=== PATIENT | female | born 1955 | race Caucasian/White ===

== ENCOUNTER 2021-10-01 09:38 | Outpatient (REF) | payer BC, OTHER, SELFPAY ==
--- NOTE | ~2021-10-01 | XR_ITS ---
EXAMINATION: XR ANKLE, RIGHT CLINICAL INFORMATION: Pain right ankle and joints COMPARISON: None TECHNIQUE: AP, lateral, and mortise views of the right ankle. FINDINGS: The ankle mortise and subtalar joints are normal. No visible acute fracture, dislocation or subluxation seen. There is a small retrocalcaneal and calculi heel enthesophytes. The ankle mortise and subtalar joints are normal. There is mild lateral malleolar soft tissue swelling.. XR/XR ankle RT min 3V IMPRESSION: No visible acute fracture, dislocation or subluxation seen. Small calcaneal heel and retrocalcaneal enthesophytes
== END 2021-10-01 09:39 | disposition home or self-care (01) ==
LOC: HO.HMGCX 09:38
PROVIDERS: Visit Provider Nurse Practitioner Family
DX: M25.571 Pain in right ankle and joints of right foot (principal)
CPT/HCPCS: 73610

== ENCOUNTER 2022-04-22 11:22 | Outpatient (REF) | payer BC, OTHER, SELFPAY ==
--- NOTE | ~2022-04-22 | XR_ITS ---
EXAMINATION: XR HAND, LEFT CLINICAL INFORMATION: Left finger pain COMPARISON: None TECHNIQUE: PA, lateral, and oblique views of the left hand. FINDINGS: No acute fracture or dislocation. Mild degenerative changes of the radiocarpal joint and the interphalangeal joints with no periarticular osteopenia, erosions, or suspicious soft tissue calcifications. XR/XR hand LT min 3V IMPRESSION: Mild degenerative findings with no acute osseous abnormality.
== END 2022-04-22 11:23 | disposition home or self-care (01) ==
LOC: HO.HMGCX 11:22
PROVIDERS: Visit Provider Nurse Practitioner Family
DX: M79.645 Pain in left finger(s) (principal)
CPT/HCPCS: 73130

== ENCOUNTER 2023-11-18 14:04 | Outpatient (AMB) | payer BC, OTHER, SELFPAY ==
[2023-11-18 14:07] VITALS: BP 130/78; PULSE 68; O2SAT 96; BMI 38.4
--- NOTE | 2023-11-18 14:07 | AM.OFFWIN_ITS ---
Intake Vital Signs 11/18/23 14:07 Height 5 ft 3 in Weight 217 lb BMI 38.4 BP 130/78 Blood Pressure Location Lt brachial Position Sitting Pulse 68 Pulse Source Pulse Oximeter Pulse Oximetry (%) 96 Oxygen Delivery Method Room Air Intake Visit Reasons: EP pain behind RT knee swelling since last week Intake Note: Patient is here with pain behind right knee swelling since last week. Allergies amoxicillin [AMOXICILLIN] Allergy (Mild, Verified 11/18/23 14:21) HIVES azithromycin [From ZITHROMAX Z-ELADIO] Allergy (Mild, Verified 11/18/23 14:21) HIVES lisinopril [LISINOPRIL] Allergy (Mild, Verified 11/18/23 14:21) SWELLING sulfamethoxazole [From BACTRIM] Allergy (Mild, Verified 11/18/23 14:21) HIVES trimethoprim [From BACTRIM] Allergy (Mild, Verified 11/18/23 14:21) HIVES adhesive [ADHESIVE] Allergy (Unknown, Verified 11/18/23 14:21) UNKNOWN Medication List - Last Reconciled 11/18/23 by Demi Veras, ESTRADA amlodipine 10 mg PO DAILY atenolol 25 mg PO DAILY atorvastatin 40 mg PO BEDTIME carbamide peroxide 6.5% (Debrox) 10 drps otic (ear) right DAILY 4 days cetirizine 10 mg PO DAILY empagliflozin (Jardiance) mg PO hydrochlorothiazide 25 mg PO DAILY lancets (Accu-Chek Softclix Lancets) As directed losartan 100 mg PO DAILY metformin mg PO omeprazole 20 mg PO DAILY peak flow meter (Peak Air Peak Flow Meter) As directed Do you need a note to return to daycare/school/sports/work: No HPI HPI Comments History of Present Illness Details 68-year-old female presents to walk-in [facility] for complaint of pain behind her right knee and swelling x1 week. She denies recent fall, trauma, or straining injury, she denies pain radiating down her right leg, or numbness or tingling to right foot. She also denies previous hx of Gout. 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 She does report a history of arthritis, DM Type 2, HTN, and CKD Stage III. She denies fever, chills, CP, SOB, palpitations, dizziness, abdominal pain, nausea, vomiting, changes in bowels or bladder. Review of Systems Const All systems reviewed & are unremarkable except as noted in HPI and below Physical Exam Vital Signs: Last Vital Signs Pulse 68 11/18/23 14:07 BP 130/78 11/18/23 14:07 Pulse Ox 96 11/18/23 14:07 Oxygen Delivery Method Room Air 11/18/23 14:07 BMI result Body Mass Index 38.4 Const General: healthy appearing, no acute distress and well developed Nutritional Appearance: overweight Orientation/consciousness: patient oriented x3 Limitations: other limitations (limping) HEENT Head: Yes normal to inspection, Yes normocephalic and Yes atraumatic Chest Chest palpation & inspection: normal inspection of the chest Resp Effort & Inspection: normal respiratory effort, no cough, no respiratory distress and not tachypneic Auscultation: clear to auscultation bilaterally Cardio Rate: regular rate Rhythm: regular rhythm Heart sounds: S1 normal heart sound present and S2 normal heart sound present Peripheral pulses: Peripheral pulses 2+ throughout, popliteal pulses present bilateral and posterior tibial pulses present bilateral GI Inspection: Yes normal to inspection Palpation (GI): Soft to palpation and nontender Auscultation: normal bowel sounds Skin General skin exam: no rashes or lesions noted, elasticity normal and turgor normal Neuro General: patient oriented x3, gait normal and moves all extremities Extrem Right lower extremity: normal to inspection, normal capillary refill and knee Details: tenderness (posterior behind the knee, small amount of swelling) and knee ligament exam abnormal Details: pain with axial loading; no crepitus, no penetrating wound, no deformity and no unusual warmth; no cyanosis Left lower extremity: normal to inspection, normal capillary refill and cyanosis Psych Appearance: well kempt Mental Status: mental status grossly normal Speech and movement: Normal speech and movement present Affect: normal affect Attitude: cooperative Assessment & Plan Assessment & Plan (1) Posterior right knee pain: Code(s): M25.561 - Pain in right knee Plan: 68-year-old female seen today in office for complaint of posterior right knee pain x1 week with no associated injury, or muscle strain. Right knee x-ray ordered, no Fractures, or degenerative changes noted. - Will treat for possible muscular or tendon strain, encouraged to alternated ice, and heat, acetaminophen for pain, she is unable to take NSAIDs due to CKD, but she does have Voltaren Cream. - Encouraged to follow up with PCP if pain continues for possible blood test for uric acid level to r/o gout. - Encouraged to go to ER if symptoms worsen, or she develops burning sensation of calf, or numbness, may need ultrasound to r/o DVT. There is no library acquisitions technician today in walk-in clinic. Coding Level of Care Code Est Pt Level 4 (76042) Diagnoses Posterior right knee pain M25.561
== END 2023-11-18 15:00 | disposition home or self-care (01) ==
PROVIDERS: Visit Provider Nurse Practitioner Acute Care
DX: M25.561 Pain in right knee (principal)
CPT/HCPCS: 99214

== ENCOUNTER 2023-11-18 14:33 | Outpatient (REF) | payer BC, OTHER, SELFPAY ==
--- NOTE | ~2023-11-18 | XR_ITS ---
EXAMINATION: XR KNEE, RIGHT CLINICAL INFORMATION: Right knee pain. COMPARISON: 02/18/2014 TECHNIQUE: AP, lateral, and both oblique views of the right knee. FINDINGS: Enthesopathic spurring is present at the quadriceps tendon insertion and the patellar tendon origin. No fracture or malalignment. Joint spaces appear well-preserved. Bone mineralization is normal. Calcific atherosclerosis is present in the popliteal artery. XR/XR knee RT 4V IMPRESSION: No acute osseous abnormalities at the right knee. No significant osteoarthritis.
== END 2023-11-18 14:34 | disposition home or self-care (01) ==
LOC: HO.HMGCX 14:33
PROVIDERS: PCP Internal Medicine; Visit Provider Nurse Practitioner Acute Care
DX: M25.561 Pain in right knee (principal)
CPT/HCPCS: 73564

== ENCOUNTER 2024-10-14 08:56 | Outpatient (AMB) | payer MEDICARE, SELFPAY ==
--- NOTE | 2024-10-14 09:05 | AM.OFFWIN_ITS ---
Intake Vital Signs 10/14/24 09:06 Weight 198 lb BP 120/72 Blood Pressure Location Lt brachial Position Sitting Pulse 82 Pulse Source Pulse Oximeter Temp 99.0 F Temp Source Oral Pulse Oximetry (%) 96 Oxygen Delivery Method Room Air Intake Visit Reasons: EP Flu symptoms/exposed to flu Intake Note: Patient here for cough, congestion. she states she was recently around her grandchild who has Flu A. Patient Tobacco Use Status: Never used Tobacco Allergies amoxicillin [AMOXICILLIN] Allergy (Mild, Verified 10/14/24 09:06) HIVES azithromycin [From ZITHROMAX Z-ELADIO] Allergy (Mild, Verified 10/14/24 09:06) HIVES lisinopril [LISINOPRIL] Allergy (Mild, Verified 10/14/24 09:06) SWELLING sulfamethoxazole [From BACTRIM] Allergy (Mild, Verified 10/14/24 09:06) HIVES trimethoprim [From BACTRIM] Allergy (Mild, Verified 10/14/24 09:06) HIVES adhesive [ADHESIVE] Allergy (Unknown, Verified 10/14/24 09:06) UNKNOWN Do you need a note to return to daycare/school/sports/work: No HPI HPI Comments History of Present Illness Details History - The patient is a 69-year-old female pr esenting with a persistent cough and respiratory burden following exposure to a known contact case. - Onset was six days ago with initial co ugh and fever, subsequent congestion with productive green sputum. - Relevant patient history includes tyron gement of asthma and COPD with current medications including inhalers, predisposed to increased nebulizer usage recently. - A prior home management attempt involv ed Mucinex, Tylenol, and prednisone, w hich diminished fever but hindered sleep quality. - The spatial impact of her breathing af fliction is noted with rib irritation from the intensive coughing cycles. -Denies ear pain, sinus pain or headache s. Physical Exam General: Cooperative, healthy appearing, comfortable and no acute distress Orientation/consciousness: Patient oriented x3 Limitations: No limitations Head: Normal to inspection Ears: Hearing grossly normal bilaterally, external ears normal and TM's normal bilaterally Nose: Normal external nose present, Normal nares present and No nasal discharge present Face and sinus: Normal facial exam and Yes sinuses nontender Mouth: Normal oral and palatal mucosa present and moist mucous membranes Throat: Yes tonsils normal, Yes uvula midline. Posterior oropharynx erythema Eyes: Appearance normal, both eyes and all related structures Neck: Normal visual inspection Respiratory: Expiratory wheeze noted. Normal respiratory effort, able to speak in complete sentences, Actively coughing, no respiratory distress, not tachypneic, no tripod positioning and no use of accessory muscles. Cardiovascular: Regular rate and rhythm. Normal S1 and S2 Skin: No rashes or lesions noted Neuro: Patient oriented x3 Extremities: Normal to inspection and Yes no clubbing, cyanosis or edema PFSH Social History Patient Tobacco Use Status: Never used Tobacco Review of Systems Const All systems reviewed & are unremarkable except as noted in HPI and below Physical Exam Vital Signs: Last Vital Signs Temp 99.0 F 10/14/24 09:06 Pulse 94 10/14/24 09:06 BP 120/72 10/14/24 09:06 Pulse Ox 94 10/14/24 09:06 Oxygen Delivery Method Room Air 10/14/24 09:06 Assessment & Plan Assessment & Plan (1) Viral lower respiratory tract infection: Code(s): J22 - Unspecified acute lower respiratory infection; B97.89 - Other viral agents as the cause of diseases classified elsewhere Plan: VSS, pt well appearing, slight exp wheeze on PE. No indication for CXR. A nasopharyngeal swab was conducted to test for influenza, COVID-19, and RSV, as anamnesis suggested possible flu A. Until results return, management with a prednisone taper is chosen given the exacerbation of her asthma and COPD, ensuring the patient administers the dose completely in the mornings to mitigate insomnia. Tessalon Perles was advised for symptomatic relief of cough at night, while the necessity for further imaging was deemed unnecessary due to the stable vital status and respiratory findings. The patient was instructed to report any worsening symptoms or development of shortness of breath immediately for a potential follow-up evaluation. Patient was informed and verbally consented to the use of an ambient scribe for clinic note documentation during this visit Orders: Orders SARS-CoV2/FLU/RSV Today B97.89 - Other viral agents as the cause of diseases classified elsewhere, J22 - Unspecified acute lower respiratory infection Medications: New methylprednisolone PO PER PKG DIR for 6 days 21 ea 0RF Coding Level of Care Code New Pt Level 3 (70379) Diagnoses Viral lower respiratory tract infection J22; B97.89
[2024-10-14 09:06] VITALS: BP 120/72; PULSE 82; TEMP 37.2; O2SAT 96
--- OUTSIDE RECORDS SUMMARY | 2024-10-14 09:16 | XMS_ITS | Encounter Summary ---
Author Organization [facility] Address [address] [place] [address] Care Team Providers Care Candle Wrapper Name Role Phone Veronica Verduzco MD Primary Care Prov ider Reason for Referral * Orthopedic (Routine) - Authorized Specialty Diagnoses / Procedures Referred By Contac t Referred To Contact Orthopedic Surgery / Orthopaedic Surgery Diagnoses Right knee pain, unspecified chronicity Procedures L Inj/Asp: R knee Carlos Vargas PA [address] [place] [address] Referral ID Status Reason Start Date Expiration Date V isits Requested Visits Authorized [id number] Authorized 09/24/2024 09/24/2025 1 1 Reason for Visit * Reason Comments Pain Follow-up Encounter Details Date Type Department Care Team (Late st Contact Info) Description 09/24/2024 1:00 PM EST Office Visit Orthopedics - [address] [phone] Carlos Vargas PA [address] [place] [phone] Right knee pain, unspecified chronicity (Primary Dx) Social History Tobacco Use Types Packs/Day Years Used Date Smoking Tobacco: Former Cigarettes 1.5 39.9 0 09/11/1974 - 08/18/2014 Smokeless Tobacco: Never Tobacco Cessation:Counseling Given: Not Answered Alcohol Use Standard Drinks/Week Comments Yes 0 (1 standard drink = 0.6 oz pur e alcohol) Sex and Gender Information Value Date Recorded Sex Assigned at Not on file Gender Identity Not on file Sexual Orientation Not on file Job Start Date Occupation Industry Not on file Not on file Not on file documented as of this encounter Last Filed Vital Signs Vital Sign Reading Time Taken Comments Blood Pressure - - Pulse - - Temperature - - Respiratory Rate 16 09/24/2024 1:16 PM EST Oxygen Saturation - - Inhaled Oxygen Concentration - - Weight 92.5 kg (204 lb) 09/24/2024 1:16 PM EST Height 160 cm (5' 3 ) 09/24/2024 1:16 PM EST Body Mass Index 36.14 09/24/2024 1:16 PM EST documented in this encounter Plan of Treatment Upcoming Encounters Date Type Department Care Team (Late st Contact Info) Description 10/22/2024 1:00 PM EST Office Visit Orthopedics - [address] [phone] Carlos Vargas PA [address] [place] [address] 10/24/2024 11:30 AM EST Office Visit Pulmonolgy - [place] [address] [place] [phone] Giovana Randall NP [address] [facility] [address] [place] [address] 10/30/2024 1:30 PM EST Consult Nephrology - [address] [phone] Toni Arizmendi MD [address] [facility] [address] [place] [address] 11/05/2024 12:00 PM EST Office Visit [facility] - [address] [phone] Rosas Antoine PA [address] [place] [address] 12/18/2024 8:30 AM EDT Office Visit [facility] - [address] [phone] Veronica Verduzco MD [address] [place] [address] 03/06/2025 11:20 AM EDT Appointment Radiology Department - [address] [phone] Pending Results Name Type Priority Associated Diagnoses Date /Time L Inj/Asp: R knee Procedures Routine Right knee pain, unspecified chronicity 09/24/2024 1:00 PM EST documented as of this encounter Procedures Procedure Name Priority Date/Time Associated Diagnosis Comments LARGE JOINT ARTHROCENTESIS Routine 09/24/2024 1:00 PM EST Right knee pain, unspecified chronicity documented in this encounter Visit Diagnoses Diagnosis Right knee pain, unspecified chronicity- Primary Encounter for screening mammogram for breast cancer documented in this encounter Administered Medications Inactive Administered Medications - up to 3 most recent administrations Medication Order MAR Action Action Date Dose Rate Site lidocaine (XYLOCAINE) 1 % injection 4 mL 4 mL, injection, Once PRN Procedure, Starting on Mon09/24/24 at 1300, For 1 dose Given 09/24/2024 1:00 PM EST 4 mL methylPREDNISolone acetate (DEPO-Medrol) injection 80 mg 80 mg, intra-articular, Once PRN Procedure, Starting on Mon09/24/24 at 1300, For 1 dose Given 09/24/2024 1:00 PM EST 80 mg documented in this encounter Historical Medications * This list may reflect changes made after this encounter. Medication Sig Dispensed Refills Start Date End Date fluticasone propion-salmeteroL (ADVAIR DISKUS) 100-50 mcg/dose diskus inhaler Inhale 1 puff by mouth 2 (two) times a day. 05/17/2024 DOCOSAHEXAENOIC ACID ORAL Take 1 capsule by mouth daily. 01/30/2020 aspirin 81 mg chewable tablet Chew 1 tablet (81 mg total) 1 (one) time each day. 05/28/2019 added in this encounter Care Teams Candle Wrapper Relationship Specialty Start Date End Date Veronica Verduzco MD [address] [place] [phone] PCP - General Internal Medicine 04/11/22 documented as of this encounter
--- OUTSIDE RECORDS SUMMARY | 2024-10-14 09:16 | XMS_ITS | Clinical Summary ---
Author Organization [facility] Address [address] [place] [phone] Phone Care Team Providers Care Training Program Assistant Name Role Phone Veronica Verduzco MD Primary Care Prov ider Allergies Active Allergy Reactions Criticality Noted Date Comments Adhesive Tape-Silicones Low 11/02/2015 Other Reaction(s): Rash/Dermatitis Other reaction(s): rash/dermatitis Amoxicillin Hives High 06/13/2024 Azithromycin 12/24/2012 Other Reaction(s): Hives/Urticaria Lisinopril 12/24/2012 Other Reaction(s): Numbness, tingling or swelling of the lips, tongue or mouth Other 08/14/2024 Bactrim [Na Benzoate-sulfamethoxaz ole-trimethoprim] Hives/Urticaria Penicillins 12/24/2012 Other Reaction(s): Hives/Urticaria Sulfamethoxazole 01/11/2021 Sulfamethoxazole-Trimethoprim 2017 Trimethoprim 01/11/2021 Medications Medication Sig Dispensed Refills Start Date End Date Status ACCU-CHEK SOFTCLIX LANCETS MISC 02/18/2022 Active BLOOD-GLUCOSE METER MISC 1 Device by Not Applicable route. 01/17/2023 Active meclizine (ANTIVERT) 25 mg tablet Take 1 tablet (25 mg total) by mouth. 09/20/2019 Active triazolam (HALCION) 0.25 mg tablet TAKE 1 TABLET BY MOUTH 90 MINUTES PRIOR TO DENTAL VISIT 11/06/2023 Active semaglutide (Ozempic) 0.25 mg or 0.5 mg (2 mg/3 mL) injection pen Inject 0.5 mg under the skin. 02/08/2024 Active LORazepam (ATIVAN) 0.5 mg tablet Take 1 tablet (0.5 mg total) by mouth every 8 (eight) hours if needed. 10/20/2023 Active inhalat.spacing dev,large mask spacer Use with inhaler up to 4 times per day as needed for COPD 06/22/2023 Active semaglutide (Ozempic) 0.25 mg or 0.5 mg (2 mg/3 mL) injection pen Inject 0.5 mg into the skin every 7 days. 06/10/2024 Active acetaminophen (TYLENOL 8 HOUR) 650 mg 8 hr tablet Take 1 tablet (650 mg total) by mouth every 8 (eight) hours if needed for moderate pain. 30 tablet 09/02/2024 Active albuterol HFA (PROAIR HFA ; PROVENTIL HFA ; VENTOLIN HFA) 90 mcg/actuation inhaler Inhale 2 puffs by mouth every 4 (four) hours if needed for wheezing. 8.5 g 09/02/2024 Active amLODIPine (NORVASC) 10 mg tablet Take 1 tablet (10 mg total) by mouth 1 (one) time each day. 90 tablet 09/02/2024 Active atenoloL (TENORMIN) 25 mg tablet Take 1 tablet (25 mg total) by mouth 1 (one) time each day. 90 tablet 09/02/2024 Active atorvastatin (LIPITOR) 40 mg tablet Take 1 tablet (40 mg total) by mouth 1 (one) time each day. 90 tablet 09/02/2024 Active cetirizine (ZyrTEC) 10 mg tablet Take 1 tablet (10 mg total) by mouth 1 (one) time each day. 90 tablet 09/02/2024 Active diclofenac (VOLTAREN) 1 % topical gel Apply 1 Dose topically. 100 g 09/02/2024 Active famotidine (PEPCID) 20 mg tablet Take 1 tablet (20 mg total) by mouth at bedtime as needed for heartburn. 90 tablet 09/02/2024 Active fluticasone propionate (FLONASE) 50 mcg/actuation nasal spray Administer 2 sprays into each nostril 1 (one) time each day. 48 g 09/02/2024 Active hydroCHLOROthiazide (HYDRODIURIL) 25 mg tablet Take 1 tablet (25 mg total) by mouth 1 (one) time each day. 90 tablet 09/02/2024 Active ipratropium-albutero L (DUONEB) 0.5-2.5 mg/3 mL nebulizer solutionIndications: Asthma-COPD overlap syndrome (CMS/HCC) Take 3 mL by nebulization 4 (four) times a day. 375 mL 09/02/2024 Active empagliflozin (Jardiance) 25 mg tablet Take 0.5 tablets (12.5 mg total) by mouth 1 (one) time each day. 45 tablet 09/02/2024 Active lidocaine (LIDODERM) 5 % patchIndications:Lum bar spondylosis Place 1 patch on the skin every 24 hours. Apply for no more than 12 hours in any 24 hour period. 30 patch 5 09/02/2024 Active losartan (COZAAR) 100 mg tablet Take 1 tablet (100 mg total) by mouth 1 (one) time each day. 90 tablet 09/02/2024 Active omega-3 acid ethyl esters (LOVAZA) 1 gram capsuleIndications:H yperlipidemia, unspecified hyperlipidemia type Take 2 capsules (2 g total) by mouth 2 (two) times a day. 360 capsule 09/02/2024 Active omeprazole (PriLOSEC) [address] capsule Take 1 capsule (20 mg total) by mouth 1 (one) time each day. 90 capsule 09/02/2024 Active pen needle, diabetic 32 gauge x 5/32 needle Inject under the skin every 7 (seven) days. E11.49 12 each 09/02/2024 Active aspirin 81 mg chewable tablet Chew 1 tablet (81 mg total) 1 (one) time each day. 05/28/2019 Active DOCOSAHEXAENOIC ACID ORAL Take 1 capsule by mouth daily. 01/30/2020 Active fluticasone propion-salmeteroL (ADVAIR DISKUS) 100-50 mcg/dose diskus inhaler Inhale 1 puff by mouth 2 (two) times a day. 05/17/2024 Active Hospital, Clinic, or Other Facility Administered Medication Ordered Dose Route Frequency Start Date End Date Status lidocaine (XYLOCAINE) 1 % injection 4 mLIndications:Right knee pain, unspecified chronicity 4 mL inj Once PRN Procedure 09/24/2024 09/24/2024 Ended methylPREDNISolone acetate (DEPO-Medrol) injection 80 mgIndications:Right knee pain, unspecified chronicity 80 mg IAtc Once PRN Procedure 09/24/2024 09/24/2024 Ended Active Problems Problem Noted Date Diagnosed Date Class 2 severe obesity due t o excess calories with serious comorbidity and body mass index (BMI) of 36.0 to 36.9 in adult 08/14/2024 Primary hypertension 08/14/2024 Severe obstructive sleep apnea 08/14/2024 Overview (08/14/2024): Obstructive sleep apnea severe RENETTA 32 with nocturnal hypoxia Type 2 diabetes mellitus wit h stage 3a chronic kidney disease, without long-term current use of insulin 06/19/2024 Seasonal allergies 06/19/2024 Hypertension 06/13/2024 GERD (gastroesophageal reflux disease) CKD (chronic kidney disease) stage 3, GFR 30-59 ml/min 06/13/2024 History of tobacco use 06/13/2024 Hx of transient ischemic attack (TIA) 06/13/2024 Esophageal dysmotility 04/20/2021 Stress incontinence 11/06/2020 Migraine 11/06/2020 Mixed conductive and sensorineural hearing loss, bilateral 11/06/2020 Overview (06/13/2024): Dr Anthony Betts 01/10/18 Hallux valgus of right foot 11/06/2020 Severe obesity (BMI 35.0-39.9) with comorbidity 01/27/2020 OA (osteoarthritis) of shoulder 07/28/2019 Herpes zoster without complication 01/20/2019 Obstructive sleep apnea 01/03/2019 Overview (06/13/2024): [facility] Home Polysomnogram: Date 01/01/2019; Wt 215#; BMI 38; RENETTA 32, AI 14; HI 18; Unclassified apneas 0; Obstructive apneas 61; Central apneas 16; Mixed apneas 0; hypopneas 97; average oxygen saturation 89% (lowest 67% with saturations <88% for 5% or more of study) [facility] Sleep Center Polysomnogram treatment study. Date 05/10/2019. Wt 216#; BMI 38; SE 68 % SM 89 %; spent 20 % of the study in REM. On CPAP @ 10; RDI 5.8 (AHI 4.6), Central apneas 0; Obstructive apneas 0; Mixed apneas 0; hypopneas 4; RERAs 1; and, average oxygen saturation was 92%. For the entire study, PLMs ~0. - Obstructive Sleep Apnea - severe; mostly hypopneas with obstructive apneas; with sleep related hypoventilation by 2018 home polysomnogram. - CPAP at 12 recommended the conclusion of the 2019 CPAP treatment study. Pulmonary nodules 12/04/2018 Asthma-COPD overlap syndrome 12/04/2018 Chronic idiopathic granulomatous disease [address] 11/07/2018 Overview (06/13/2024): Scarring Single 1 mm basilar lung nodule Patient reported history of Tuberculosis- treated per patient but documentation not available Referred to Pulmnology Post-traumatic headache, not intractable 018 Postconcussion syndrome 06/26/2018 Hyperlipidemia 03/27/2018 Lumbar spondylosis 03/27/2018 Peripheral neuropathy 03/27/2018 Allergic rhinitis 03/27/2018 Mixed hyperlipidemia 03/27/2018 DM (diabetes mellitus), type 2 with renal compli cations 06/06/2017 Diabetes mellitus type 2 with neurological manif estations 10/06/2015 Vitamin D deficiency 04/02/2015 Encounters Date Type Department Care Team Description 10/08/2024 Nurse Triage Adult Medicine [address] [phone] Veronica Wheeler MD [place] 09/24/2024 1:00 PM EST Office Visit Orthopedics [address] [phone] Carlos Vargas PA Right knee pain, unspecified chronicity (Primary Dx) 09/09/2024 Telephone Adult Medicine [address] [phone] Veronica Wheeler MD Prior Authorization from Last 3 Months Immunizations Name Administration Dates Next Due DTaP (Infanrix) 6wks to less than 7yo 12/31/2015 Influenza trivalent, with preservative (Fluzone; Afluria) 6mo and older 09/28/2021,06/09/2020,09/21/2018,2016,12/31/2015,11/14/2013,05/12/2011,1 ,09/16/2008,07/01/2008, 007,07/18/2003,09/02/2002,08/30/2001,,07/17/1998 Influenza, Unspecified 07/31/2021,12/31/2015, Pfizer (ages 12 & older) Biv alent, COVID-19 08/05/2022 Pfizer SARS-CoV-2 COVID-19, mRNA, LNP-S, preservative free 08/15/2021,12/08/2020,11/17/2020 Pneumococcal conjugate 13 va lent (Prevnar 13, PCV13) 2mo and older 03/07/2019 Pneumococcal, Unspecified 09/11/2003,08/11/2000 Td Tetanus diptheria (Tdvax) 7yo and older 04/27/2004 Tdap Tetanus diptheria acell ular pertussis (Boostrix; Adacel) 7yo and older 12/31/2015 Surgical History Surgery Date Site/Laterality Comments OTHER SURGICAL HISTORY PROCEDURE: DE UNLISTED PROCEDURE INNER EAR BREAST REDUCTION PROCEDURE: DE BREAST REDUCTION OTHER SURGICAL HISTORY PROCEDURE: TEMPORAL ARTERY BIOPSY SPCMN PATHOLOGY EXAM; COMMENT: negative biopsy,inflammatory markers were negative, no response to prednisone TUBAL LIGATION PROCEDURE: HISTORICAL TUBAL LIGATION TONSILLECTOMY PROCEDURE: HISTORICAL TONSILLECTOMY OTHER SURGICAL HISTORY 07/08/2004 PROCEDURE: HISTORY OTHER; COMMENT: laparoscopy for misplaced IUD, noted Stage IV adhesions, failed to locate IUD CATARACT EXTRACTION PROCEDURE: HISTORICAL CATARACT REMOVAL Medical History Medical History Date Comments Allergic rhinitis 03/27/2018 DX:Allergic rh initis Asthma DX:Asthma CKD (chronic kidney disease) stage 3, GFR 30-59 ml/min ([facility]/HCC) DX:CKD (chronic kidney dise ase) stage 3, GFR 30-59 ml/min ([facility]) Complication of intrauterine device (CMS/HCC) 06/18/2013 DX:Complication of intrauter ine device ([facility]); COMMENT: See visit note of 10/8/13 COPD (chronic obstructive pu lmonary disease) ([facility]) 12/18/2014 DX:COPD (chronic obstructive pulmonary disease) ([facility]) Diabetes mellitus type 2 wit h neurological manifestations ([facility]) 10/06/2015 DX:Diabetes geovanna itus type 2 with neurological manifestations ([facility]) DM (diabetes mellitus), type 2 with renal complications ([facility]) 06/06/2017 DX:DM (diabetes mellitus ), type 2 with renal complications ([facility]) GERD (gastroesophageal reflu x disease) DX:GERD (gastroesophageal re flux disease) History of tobacco abuse DX:Hist ory of tobacco abuse; COMMENT: quit 08/16/14 History of transient ischemi c attack (TIA) DX:History of transient isch emic attack (TIA); COMMENT: 2010 x 3 Hyperlipidemia 03/27/2018 DX:Hyperlipidemi a Hypertension DX:Hypertension Lumbar spondylosis 03/27/2018 DX:Lumbar spo ndylosis Peripheral neuropathy 03/27/2018 DX:Periphe ral neuropathy Vitamin D deficiency 04/02/2015 DX:Vitamin D deficiency Hallux valgus of right foot 11/06/2020 DX:H allux valgus of right foot Migraine 11/06/2020 DX:Migraine Stress incontinence 11/06/2020 DX:Stress in continence Mixed conductive and sensori neural hearing loss, bilateral 11/06/2020 DX:Mixed conductive and sens orineural hearing loss, bilateral; COMMENT: Dr Anthony Betts 01/10/[address] 11/07/2018 DX:Abnormal ch est CT; COMMENT: Scarring Single 1 mm basilar lung nodule Patient reported history of Tuberculosis- treated per patient but documentation not available Referred to Pulmnology Asthma-COPD overlap syndrome ([facility]) 12/04/2018 DX:Asthma-COPD overlap syndr ome ([facility]) Chronic idiopathic granuloma tous disease ([facility]) 12/04/2018 DX:Chronic idiopathic granul omatous disease ([facility]) OA (osteoarthritis) of shoulder 07/28/2019 DX:OA (osteoarthritis) of shoulder Obstructive sleep apnea 01/03/2019 DX:Obstr uctive sleep apnea; COMMENT: [facility] Home Polysomnogram: Date 01/01/2019; Wt 215#; BMI 38; RENETTA 32, AI 14; HI 18; Unclassified apneas 0; Obstructive apneas 61; Central apneas 16; Mixed apneas 0; hypopneas 97; average oxygen saturation 89% (lowest 67% with saturations <88% for 5% or more of study) [facility] Sleep Center Polysomnogram treatment study. Date 05/10/2019. Wt 216#; BMI 38; SE 68 % SM 89 %; sp* Postconcussion syndrome 06/26/2018 DX:Postc oncussion syndrome Post-traumatic headache, not intractable 06/26/2018 DX:Post-traumatic headache, not intractable Pulmonary nodules 12/04/2018 DX:Pulmonary n odules Severe obesity (BMI 35.0-39. 9) with comorbidity (CMS/HCC) 01/27/2020 DX:Severe obesity (BMI 35.0- 39.9) with comorbidity (HCC) History of 2019 novel whittington virus disease (COVID-19) 03/22/2024 DX:History of 2019 novel cor onavirus disease (COVID-19) Family History Medical History Relation Name Comments Heart attack Father Age 56 Other: Other Maternal Grandmother ? throa t vs stomach ca Alzheimer's disease Mother [place] Other: Esophageal cancer Mother's side Other: Heart Disease Sister 1 Hypertension Sister 2 Other: Other Uncle Maternal ?stomach versus throat CA Breast cancer Neg Hx Lung cancer Neg Hx Relation Name Status Comments Father Maternal Grandmother Mother Mother's side Sister 1 Sister 2 Uncle Maternal Social History Tobacco Use Types Packs/Day Years [...] file Not on file Not on file Obstetrics History Last Filed Vital Signs Vital Sign Reading Time Taken Comments Blood Pressure 113/60 06/19/2024 9:44 AM EDT Pulse 71 06/19/2024 9:44 AM EDT Temperature - - Respiratory Rate 16 09/24/2024 1:16 PM EST Oxygen Saturation - - Inhaled Oxygen Concentration - - Weight 92.5 kg (204 lb) 09/24/2024 1:16 PM EST Height 160 cm (5' 3 ) 09/24/2024 1:16 PM EST Body Mass Index 36.14 09/24/2024 1:16 PM EST Plan of Treatment Upcoming Encounters Date Type Department Care Team (Late st Contact Info) Description 10/22/2024 1:00 PM EST Office Visit Orthopedics - [address] [phone] Carlos Vargas PA [address] [place] [address] 10/24/2024 11:30 AM EST Office Visit Pulmonolgy - [place] [address] [place] [phone] Giovana Randall NP [address] [facility] [place] [address] [place] [phone] 10/30/2024 1:30 PM EST Consult Nephrology - [address] [phone] Toni Arizmendi MD [address] [phone] 11/05/2024 12:00 PM EST Office Visit Adult Medicine [address] [phone] Rosas Antoine PA [address] [place] [address] 12/18/2024 8:30 AM EDT Office Visit Adult Medicine [address] [phone] Veronica Verduzco MD [address] [place] [address] 03/06/2025 11:20 AM EDT Appointment Radiology Department - [address] [phone] Health Maintenance Due Date Last Done Comments Zoster Vaccines ( 2) 01/14/1976 Pneumococcal Vaccine: 65+ Years (2 of 2 - PPSV23 or PCV20) 05/02/2019 03/07/2019, 09/11/2003, 08/11/2000 Medicare Annual Wellness Visit 08/20/2022 Social Influencers of Health Screening 08/20/2022 Lung Cancer Screening (Low Dose CT) 05/20/2023 05/20/2022 Diabetes: Blood Sugar Control Test (HGBA1C) 12/02/2024 06/04/2024, 06/04/2024 Diabetes: Annual GFR (Glomerular Filtration Rate) 12/31/2024 01/01/2024 Hypertension/CHF/CAD Annual BMP Blood Test 12/31/2024 01/01/2024 Diabetes: Annual Urine Albumin-Creatinine Ratio (uACR) 06/04/2025 06/04/2024 Diabetes: Annual Foot Exam 06/05/2025 06/05/2024 Depression Screening 06/19/2025 06/19/2024 Falls Risk Assessment 06/19/2025 06/19/2024 Diabetes: Annual Retina Eye Exam 06/20/2025 06/20/2024 DTaP,Tdap,and Td Vaccines (4 - Td or Tdap) 12/30/2025 12/31/2015, 12/31/2015, 12/31/2015, Additional history exists Breast Cancer Screening 03/05/2026 03/05/20, 03/05/2024, 02/13/2023 Cholesterol Screening (Lipid Panel) 06/04/2029 06/04/2024, 06/04/2024 Colorectal Cancer Screening: Colonoscopy 03/01/2031 03/01/2021 Osteoporosis Screening (Bone Density Screening) 09/26/2032 09/26/2022 Hepatitis C Screening Completed 12/04/2013 COVID-19 Vaccine Completed 08/27/2024, , 08/15/2021, Additional history exists Influenza Vaccine Completed 08/27/2024, , 07/31/2021, Additional history exists RSV Immunization Patients 60+ Years Old Completed 08/27/2024 HIB Vaccines Aged Out No longer eligi ble based on patient's age to complete this topic HPV Vaccines Aged Out No longer eligi ble based on patient's age to complete this topic Hepatitis A Vaccines Aged Out No long er eligible based on patient's age to complete this topic Hepatitis B Vaccines Aged Out No long er eligible based on patient's age to complete this topic IPV Vaccines Aged Out No longer eligi ble based on patient's age to complete this topic MMR Vaccines Aged Out No longer eligi ble based on patient's age to complete this topic Meningococcal ACWY Vaccine Aged Out N o longer eligible based on patient's age to complete this topic RSV Immunization Patients Under 20 months Aged Out No longer eligible based on patient's age to complete this topic Varicella Vaccines Aged Out No longer eligible based on patient's age to complete this topic Procedures Procedure Name Priority Date/Time Associated Diagnosis Comments LARGE JOINT ARTHROCENTESIS Routine 09/24/2024 1:00 PM EST Right knee pain, unspecified chronicity DIABETES EYE EXAM Routine 06/20/2024 DEPRESSION SCREENING Routine 06/19/2024 FALLS RISK ASSESSMENT Routine 06/19/2024 DIABETES FOOT EXAM Routine 06/05/2024 URINE ALBUMIN CREATININE RATIO Routine 06/04/2024 HEMOGLOBIN A1C Routine 06/04/2024 LIPID PANEL Routine 06/04/2024 SCREENING MAMMOGRAPHY BI 2-VIEW BREAST INC CAD Routine 03/05/2024 11:12 AM EDT Encounter for screening mammogram for malignant neoplasm of breast ANNUAL BMP BLOOD TEST Routine 01/01/2024 DXA BONE DENSITY STUDY 1+ SITS AXIAL SKEL Routine 09/26/2022 1:36 PM EST Abnormal findings on diagnostic imaging of other parts of musculoskeletal system CT LUNG SCREENING LOW DOSE Routine 05/20/2022 5:22 PM EDT Personal history of nicotine dependence COLONOSCOPY Routine 03/01/2021 HEPATITIS C SCREENING Routine 12/04/2013 from Last 3 Months or Most Recently Relevant to Health Maintenance Results * Diabetes Eye Exam (06/20/2024) [facility] Diabetes: Annual Retina Eye Exam abstracted [facility] Provider [facility] * Falls Risk Assessment (06/19/2024) [facility] Falls Risk Assessment abstracted [facility] Provider [facility] * Depression Screening (06/19/2024) [facility] Depression Screening abstracted [facility] Provider [facility] * Diabetes Foot Exam (06/05/2024) [facility] Diabetes: Annual Foot Exam abstracted [facility] Provider [facility] * Urine Albumin Creatinine Ratio (06/04/2024) [facility] Urine Albumin Creatinine Ratio abstracted [facility] Provider [facility] Hemoglobin A1c (06/04/2024) [facility] Hemoglobin A1C 6.1 6.5 % Blood Venous blood specimen / Unknown Historical Provider LAB BLOOD ORDERAB LES * (ABNORMAL) Lipid panel (06/04/2024) [facility] LDL/HDL Ratio 3 0 - 4 Triglycerides 269(A) 0 - 150 mg/dL Cholesterol 149 0 - 200 mg/dL HDL 47 40 mg/dL LDL Cholesterol 49 0 - 100 mg/dL Blood Venous blood specimen / Unknown Historical Provider LAB BLOOD ORDERAB LES * SCREENING MAMMOGRAPHY BI 2-VIEW BREAST INC CAD (03/05/2024 11:12 AM EDT) Anatomical Region Laterality Modality Radiographic Karla ging 02/13/2023 6:33 PM EDT Narrative 03/05/2024 6:54 PM EDT This is a summary report. The complete report is available in the patient's medical record. If you cannot access the medical record, please contact the sending organization for a detailed fax or copy. Exam: Screening mammogram Findings: Digital bilateral full-field screening mammography is performed with tomosynthesis and interpreted with the aid of computer-aided detection. ??Comparison is made with 02/13/2023 and as far back as 04/06/2015. ??History of bilateral reduction mammoplasty. Breast parenchyma is composed of scattered fibroglandular densities. ??Continued decrease in size of calcified fat necrosis in the upper right breast near the 12 o'clock position. No new suspicious mass, architectural distortion, or suspicious calcifications. Impression: No mammographic evidence of malignancy. BI-RADS 2-benign Procedure Note Shelby Alvarenga MD - 06/26/2024 This is a summary report. The complete report is available in thepatient's medical record. If you cannot access the medical record, pleasecontact the sending organization for a detailed fax or copy. Exam: Screening mammogram Findings: Digital bilateral full-field screening mammography is performedwith tomosynthesis and interpreted with the aid of computer-aideddetection. Comparison is made with 02/13/2023 and as far back as 04/06/2015.History of bilateral reduction mammoplasty. Breast parenchyma is composed of scattered fibroglandular densities.Continued decrease in size of calcified fat necrosis in the upper rightbreast near the 12 o'clock position. No new suspicious mass, architecturaldistortion, or suspicious calcifications. Impression: No mammographic evidence of malignancy. BI-RADS 2-benign Tamra STARKS IMG XR PROCEDURES * Annual BMP Blood Test (01/01/2024) Annual BMP Blood Test abstracted Historical Provider MD WILLIAMS Telles * DXA BONE DENSITY STUDY 1+ SITS AXIAL SKEL (09/26/2022 1:36 PM EST) Anatomical Region Laterality Modality Bone Densitometr y 03/02/2022 2:00 PM EDT Narrative 09/27/2022 8:30 AM EST BONE DENSITY SCAN (DEXA) ? FINDINGS: Lumbar Spine T-score is 0.5. ?? (SD relative to 20-29 y/o adult) Z-score is 2.4. ??(SD relative to age matched peers) This is considered normal by WHO criteria. Left Hip T-score is -0.7. Z-score is 0.9. This is considered normal by WHO criteria. Comparison: None. IMPRESSION: IMPRESSION: Normal bone mineral density by WHO criteria. The [facility] Department of Internal Medicine recommends using National Osteoporosis Foundation (NOF) guidelines in treatment decisions related to osteoporosis. NOF guidelines suggest considering treatment for postmenopausal women and men aged 50 or older presenting with the following: History of hip or vertebral fracture. T-score = -2.5 (DXA) at the femoral neck, total hip, or spine, after appropriate evaluation to exclude secondary causes. Low bone mass (T-score between -1.0 and -2.5 at the femoral neck or spine) AND a 10-year probability of a hip fracture = 3% OR a 10-year probability of a major osteoporosis-related fracture = 20% based on the [place]-adapted WHO algorithm Please note that all treatment decisions require clinical judgment and consideration of individual patient factors, including patient preferences, co-morbidities, previous drug use, risk factors not captured in the FRAX model (e.g., frailty, falls, vitamin D deficiency, increased bone turnover, interval significant decline in bone density) and possible under- or over-estimation of fracture risk by FRAX. Optional alternative screening schedule based on eunice Mcbride., [facility] September 29, 2011 for patients with osteopenia (based on hip BMD T-score) is as follows: * ??advanced osteopenia (T scores -2.00 to -2.49), BMD testing every year * ??moderate osteopenia (T scores -1.50 to -1.99), BMD testing every 5 years mild osteopenia or normal BMD (T scores -1.50 and higher), BMD testing every 15 years Procedure Note Shelby Alvarenga MD - 10/17/2023 BONE DENSITY SCAN (DEXA) FINDINGS: Lumbar Spine T-score is 0.5. (SD relative to 20-29 y/o adult) Z-score is 2.4. (SD relative to age matched peers) This is considered normal by WHO criteria. Left Hip T-score is -0.7. Z-score is 0.9. This is considered normal by WHO criteria. Comparison: None. IMPRESSION: IMPRESSION: Normal bone mineral density by WHO criteria. The [facility] Department of Internal Medicine recommendsusing National Osteoporosis Foundation (NOF) guidelines in treatment decisions related toosteoporosis. NOF guidelines suggest considering treatment for postmenopausal women and menaged 50 or older presenting with the following: History of hip or vertebral fracture. T-score = -2.5 (DXA) at the femoral neck, total hip, or spine, afterappropriate evaluation to exclude secondary causes. Low bone mass (T-score between -1.0 and -2.5 at the femoral neck or spine)AND a 10-year probability of a hip fracture = 3% OR a 10-year probability of a majorosteoporosis-related fracture = 20% based on the [place]-adapted WHO algorithm Please note that all treatment decisions require clinical judgment andconsideration of individual patient factors, including patient preferences, co- morbidities,previous drug use, risk factors not captured in the FRAX model (e.g., frailty, falls, vitaminD deficiency, increased bone turnover, interval significant decline in bone density) andpossible under- or over-estimation of fracture risk by FRAX. Optional alternative screening schedule based on eunice Mcbride., NEJMJanuary 2011 for patients with osteopenia (based on hip BMD T-score) is as follows: * advanced osteopenia (T scores -2.00 to -2.49), BMD testing every year * moderate osteopenia (T scores -1.50 to -1.99), BMD testing every 5years mild osteopenia or normal BMD (T scores -1.50 and higher), BMD testingevery 15 years Allie Bartolo VEGA DXA PROCEDURES * CT LUNG SCREENING LOW DOSE (05/20/2022 5:22 PM EDT) Anatomical Region Laterality Modality Computed Tomogra phy 05/20/2022 4:02 PM EDT Narrative 05/20/2022 5:22 PM EDT [facility] Diagnostic Imaging Department [address] [place] [id number] Patient: ??CHEKONIURKA ?/Age/Sex: 1955 - 67 - Unit#: ??[id number] ? Location/Status: ??SPDICATLS/REG CLI ? Mnemonic/Ordering Site: ??CTLUNGLD/SPCT Ordering Physician: ??NAEEM DELGADO MD CT Lung Screening Low Dose - 05/20/22 - 1609 INDICATION: 33 pack-year smoking history, quit smoking 14 years ago FINDINGS: Low-dose CT scan of the chest obtained as a lung cancer screening study. No prior studies are available for comparison. Scanner: Synerscope speed 64 slice VCT Dose reduction technique: ASIR (Adaptive statistical iterative reconstruction) and/or AEC (automated exposure control) Dose: total exam DLP 160 mGY per cm Lung: No infiltrates or effusions. No noncalcified discrete pulmonary nodules or masses. Peripheral calcified 4 mm granuloma within the left lung base. Mild linear scarring medially within the upper lobes. Lymph nodes: No thoracic lymphadenopathy. Calcified nonenlarged paratracheal node. Mediastinum: Trachea and esophagus are within normal limits. Heart mildly enlarged without pericardial effusion. Dense calcification along the mitral valve annulus. Three-vessel coronary calcification likely moderate in severity. Bony structures: Within normal limits for the patient's age. IMPRESSION: No suspicious pulmonary nodules. Lung RADS 1, recommend low-dose screening chest CT in 12 months. G0297, G9637, G9557, G9551 Dictating Physician: ??NICOLAS CABRERA MD Electronically Signed by: ??NICOLAS CABRERA MD Dic Date/Time: ??05/20/221716 Sign date/Time: ??05/20/221721 Procedure Note Nicolas Cabrera MD - 08/31/2022 [facility] Diagnostic Imaging Department [address] [place] [address] Patient: NIURKA STLIL /Age/Sex: 1955 - 67 - F Unit#: [id number] [facility] Mn[facility]/Ordering Site: [facility] Ordering Physician: NAEEM DELGADO MD CT Lung Screening Low Dose - 05/20/22 - 1609 INDICATION: 33 pack-year smoking history, quit smoking 14 years ago FINDINGS: Low-dose CT scan of the chest obtained as a lung cancerscreening study. No prior studies are available for comparison. Scanner: Synerscope speed 64 slice VCT Dose reduction technique: ASIR (Adaptive statistical iterativereconstruction) and/or AEC (automated exposure control) Dose: total exam DLP 160 mGY per cm Lung: No infiltrates or effusions. No noncalcified discrete pulmonarynodules or masses. Peripheral calcified 4 mm granuloma within the left lung base.Mild linear scarring medially within the upper lobes. Lymph nodes: No thoracic lymphadenopathy. Calcified nonenlargedparatracheal node. Mediastinum: Trachea and esophagus are within normal limits. Heartmildly enlarged without pericardial effusion. Dense calcification along themitral valve annulus. Three-vessel coronary calcification likely moderate inseverity. Bony structures: Within normal limits for the patient's age. IMPRESSION: No suspicious pulmonary nodules. Lung RADS 1, recommend low-dose screening chest CT in 12 months. G0297, G9637, G9557, G9551 Dictating Physician: NICOLAS CABRERA MD Electronically Signed by: NICOLAS CABRERA MD Dic Date/Time: 05/20/221716 Sign date/Time: 05/20/22 172 Naeem Delgado MD IMG CT PROCEDURES * Colonoscopy (03/01/2021) Colonoscopy no interpretation , abstracted Anatomical Region Laterality Modality Other Historical Provider MD WILLIAMS Telles * Hepatitis C Screening (12/04/2013) Hepatitis C Screening abstracted Historical Provider MD WILLIAMS Telles from Last 3 Months or Most Recently Relevant to Health Maintenance Care Teams Training Program Assistant Relationship Specialty Start Date End Date Veronica Verduzco MD [address] [place] [phone] PCP - General Internal Medicine 04/11/22
--- OUTSIDE RECORDS SUMMARY | 2024-10-14 09:16 | XMS_ITS | Encounter Summary ---
Author Organization [employer] Address [address] [place] [address] Care Team Providers Care Administrative Services Assistant Name Role Phone Veronica Verduzco MD Primary Care Prov ider Reason for Visit * Reason Onset Date Comments Prior Authorization 09/09/2024 Encounter Details Date Type Department Care Team (Late st Contact Info) Description 09/09/2024 Telephone Adult Medicine [facility] [address] [place] [phone] Veronica Verduzco MD [address] [place] [address] Prior Authorization Social History Tobacco Use Types Packs/Day Years Used Date Smoking Tobacco: Former Cigarettes 1.5 39.9 0 09/11/1974 - 08/18/2014 Smokeless Tobacco: Never Alcohol Use Standard Drinks/Week Comments Yes 0 (1 standard drink = 0.6 oz pur e alcohol) Sex and Gender Information Value Date Recorded Sex Assigned at Not on file Gender Identity Not on file Sexual Orientation Not on file Job Start Date Occupation Industry Not on file Not on file Not on file documented as of this encounter Progress Notes * Rozina Fitzpatrick MA - 09/30/2024 4:56 PM EST Prior authorization for the lidocaine patch was approved Approved from 07/02/24 until 09/30/25 Approval faxed to [facility] pharmacy [phone] * Rozina Fitzpatrick MA - 09/30/2024 8:14 AM EST Yes it would be. Thank you Fina Prior authorization completed today on [facility] for lidocaine patch. Dx diabetic neuropathy * TEREZA Flaherty - 09/27/2024 3:53 PM EST She does have diabetic neuropathy. Would this be covered? * Rozina Fitzpatrick MA - 09/27/2024 9:58 AM EST Lidocaine patch not covered, Pt must have a dx of either Post herpatic neuralgia Cancer related neuropathy Diabetic neuropathy Pt can purchase OTC 4% lidocaine patch , cream or roll on [employer] Thank you Please reply back to [facility] (Prior Auth [place]) Rozina Zendejas [facility] Prior Authorization Ext [phone] * Tamra Faye Carson - 09/09/2024 2:39 PM EST Prior Authorization for Medication-do not complete and send this encounter unless you have the fax from the pharmacy. Is this a Cover My Meds request: Yes -- Elizabeth Code [id number] Name of Medication lidocaine (LIDODERM) 5 % patch Dose of Medication What is the RX # from the faxed refill? How does patient take this med? Place 1 patch on the skin every 24 hours. Apply for no more than 12 hours in any 24 hour period. What Pharmacy did the fax come from: [facility]ARC [facility] - [address] [facility] [address] [facility] [address] Pharmacy fax #: [phone] [employer] Information from fax: What Prescription Plan does the patient have? Payor: MEDICARE / Plan: MEDICARE PART A & B / Product Type: Medicare / BIN/PCN if applicable: Cardholder ID: Person Code: Relationship Code: Help desk phone: documented in this encounter Plan of Treatment Upcoming Encounters Date Type Department Care Team (Late st Contact Info) Description 10/22/2024 1:00 PM EST Office Visit Orthopedics - [address] [phone] Carlos Vargas PA [address] [place] [address] 10/24/2024 11:30 AM EST Office Visit Pulmonolgy [facility] [address] [facility] [address] [place] [phone] Giovana Randall NP [address] [address] 10/30/2024 1:30 PM EST Consult Nephrology - [address] [phone] Toni Arizmendi MD [address] [phone] 11/05/2024 12:00 PM EST Office Visit Adult Medicine [address] [phone] Rosas Antoine PA [address] [place] [address] 12/18/2024 8:30 AM EDT Office Visit Adult Medicine [address] [phone] Veronica Verduzco MD [address] [place] [address] 03/06/2025 11:20 AM EDT Appointment Radiology Department - [address] [phone] documented as of this encounter Visit Diagnoses Not on filedocumented in this encounter Care Teams Administrative Services Assistant Relationship Specialty Start Date End Date Veronica Verduzco MD [address] [place] [phone] PCP - General Internal Medicine 04/11/22 documented as of this encounter
--- OUTSIDE RECORDS SUMMARY | 2024-10-14 09:17 | XMS_ITS | Encounter Summary ---
Author Organization [employer] Address [address] [place] [address] Care Team Providers Care Local Bulk Driver Name Role Phone Veronica Verduzco MD Primary Care Prov ider Reason for Visit * Reason Onset Date Comments Chills 10/08/2024 Encounter Details Date Type Department Care Team (Late st Contact Info) Description 10/08/2024 Nurse Triage Adult Medicine [facility] [address] [place] [address] Veronica Verduzco MD [address] [place] [phone] Chills Social History Tobacco Use Types Packs/Day Years [...] as of this encounter Progress Notes * Roseline Sullivan RN - 10/08/2024 9:52 AM EST Spoke with the pt Chills this morning Coughing up thick secretions, did updraft Low grade fever Grand daughter tested Flu A yesterday Started with her symptoms yesterday. Advised home care for symptoms Reason for Disposition Cough Cough with cold symptoms (e.g., runny nose, postnasal drip, throat clearing) Answer Assessment - Initial Assessment Questions 1. ONSET: When did the cough begin? yesterday 2. SEVERITY: How bad is the cough today? Doing updraft this morning with some relief 3. SPUTUM: Describe the color of your sputum (e.g., none, dry cough; clear, white, yellow, green) green 4. HEMOPTYSIS: Are you coughing up any blood? If Yes, ask: How much? (e.g., flecks, streaks, tablespoons, etc.) none 5. DIFFICULTY BREATHING: Are you having difficulty breathing? If Yes, ask: How bad is it? (e.g., mild, moderate, severe) - MILD: No SOB at rest, mild SOB with walking, speaks normally in sentences, can lie down, no retractions, pulse < 100. - MODERATE: SOB at rest, SOB with minimal exertion and prefers to sit, cannot lie down flat, speaksin phrases, mild retractions, audible wheezing, pulse 100-120. - SEVERE: Very SOB at rest, speaks in single words, struggling to breathe, sitting hunched forward,retractions, pulse > 120. Updraft is helping to open the air ways 6. FEVER: Do you have a fever? If Yes, ask: What is your temperature, how was it measured, and when did it start? Low grade at 100 7. CARDIAC HISTORY: Do you have any history of heart disease? (e.g., heart attack, congestive heart failure) no 8. LUNG HISTORY: Do you have any history of lung disease? (e.g., pulmonary embolus, asthma, emphysema) asthma 9. PE RISK FACTORS: Do you have a history of blood clots? (or: recent major surgery, recent prolonged travel, bedridden) no 10. OTHER SYMPTOMS: Do you have any other symptoms? (e.g., runny nose, wheezing, chest pain) chills 11. : Is there any chance you are ? When was your last menstrual period? no 12. TRAVEL: Have you traveled out of the country in the last month? (e.g., travel history, exposures) no Protocols used: Cough - Acute [id number] * Luisa Chavez - 10/08/2024 9:19 AM EST Patient call requires triage: Symptoms patient is presenting: patient is calling stating yesterday 10/07/2024 that patients valdo went to [facility] and tested positive for influ A. Patient is having same systems, on and off again fever and body chills. How long has patient had these symptoms?: 10/07/2024 For ALL patients calling to schedule any appointment (routine, sick visit, follow up, consult, etc.) in the outpatient setting please ask the following questions: Do you have fever of higher than 101, sore throat with difficulty swallowing or severe shortness ofbreath? yes If YES to any of these above symptoms, send a message to triage and do not book. Red dot. If no, an audio or video visit should be booked. Have you had close contact with someone with Coronavirus in the last 14 days? yes Have you traveled abroad? no Have you traveled recently to another state outside of [place], [place], [place], [place], [place], [place], [place]? no o If yes, did you quarantine for 14 days or have a negative covid test? no If yes to any of the above, patient is not to be scheduled in office until after 14 day quarantine or negative covid test. If pain or injury related was it due to an accident at work or from a motor vehicle accident? If yes, date of accident/Injury: No If yes, gather 3rd [employer] party insurance information [employer] Information: not applicable PCP: Veronica Howard MD Payor: MEDICARE / Plan: MEDICARE PART A & B / Product Type: Medicare / documented in this encounter Plan of Treatment Upcoming Encounters Date Type Department Care Team (Late st Contact Info) Description 10/22/2024 1:00 PM EST Office Visit Orthopedics - [place] [address] [place] [phone] Carlos Vargas PA [address] [place] [address] 10/24/2024 11:30 AM EST Office Visit Pulmonolgy - [place] [address] [place] [address] Giovana Randall NP [address] [place] [address] 10/30/2024 1:30 PM EST Consult Nephrology [address] [phone] Toni Arizmendi MD [address] [facility] [address] [place] [address] 11/05/2024 12:00 PM EST Office Visit Adult Medicine [address] [phone] Rosas Antoine PA [address] [place] [address] 12/18/2024 8:30 AM EDT Office Visit Adult Medicine [address] [phone] Veronica Verduzco MD [address] [place] [address] 03/06/2025 11:20 AM EDT Appointment Radiology Department [address] [phone] documented as of this encounter Visit Diagnoses Not on filedocumented in this encounter Care Teams Local Bulk Driver Relationship Specialty Start Date End Date Veronica Verduzco MD [address] [place] [address] PCP - General Internal Medicine 04/11/22 documented as of this encounter
--- OUTSIDE RECORDS SUMMARY | 2024-10-14 09:17 | XMS_ITS | Data Portability ---
Author Organization [place] - [facility], , [facility] Address [address] [place] [address] Assessment Encounter Date Assessment Date Assessment LastModified by Organization Details LastModified Time 05/01/2012 05/01/2012 RLQ PAIN W/O FINDINGS ON? ? ? EXAM . LAB BELOW..RENAL/ PELVIC US THEN FU. jpolgar Not available 05/01/2012 15:18:07 Plan of Treatment Reminders Order Date Submit Date Provider Last Modified By Organization Details Last Modified Time Details Appointments None recorded. Lab None recorded. Referral sleep study referral - patient with snoring, excessive day time sleepiness consultati on with testing as warranted PLEASE CONTACT PT TO SCHEDULE 2012 013 [facility], [address], [address], [place], [address], 3 03:53:17 Procedures None recorded. Surgeries None recorded. Imaging mammogram, screening - routine 2011 012 [facility], [address] [place] [address], [address], 3 03:42:53 electrocard iogram 2011 012 [facility], [address] [place] [address], [address], 3 03:42:53 Medication Orders prednisone 20 mg tablet 2011 012 [facility], [address] [place] [address], [address], 3 03:40:49 Levaquin 500 mg tablet 2011 012 [facility], [address] [place], [address], 3 03:39:39 atorvastati n 20 mg tablet 2011 012 [facility], [address] [place], [address], 3 03:44:57 Flonase 50 mcg/actuati on nasal spray,suspe nsion 2012 013 [facility], [address] [place], [address], 3 03:53:17 Patient TargetsNo targets recorded. Patient Instructions Encounter Date Encounter Id Patient Instructions Last Modified By Organization Details Last Modified Time 06/13/2012 [id number] My Health To Do List lpolidoro Not available 06/13/2012 15:05:24 06/26/2012 [id number] cough: care instructions BLADE Not available 04/06/2013 03:38:50 high blood pressure: care instructions BLADE Not available 04/06/2013 03:39:39 07/12/2012 [id number] hyperlipidemia: after your visit BLADE Not available 04/06/2013 03:44:57 Quitting Tobacco : Care Instructions BLADE Not available 04/06/2013 03:42:53 deciding about using medicines to quit smoking BLADE Not available 04/06/2013 03:42:53 Quitting Tobacco : Care Instructions BLADE Not available 04/06/2013 03:42:53 high blood pressure: care instructions BLADE Not available 04/06/2013 03:42:53 learning about high blood pressure BLADE Not available 04/06/2013 03:42:53 well visit, wome n 50 to 65: care instructions BLADE Not available 04/06/2013 03:42:53 My Health To Do Liststart atorvastatin daily. Your Blood pressure goal is {{less than 150/95 less than 150/90 less than 145/90 less than 140/90* less than 135/90 less than 135/85 less than 130/80}} My Health To Do List Discussed smoking cessation with patient , Patient is {{ready to quit and has adopted plan contemplatin g quitting but not ready not interested in stopping at this time*}} hayden Not available 07/12/2012 16:24:57 09/21/2012 [id number] fatigue: care instructions BLADE Not available 04/06/2013 03:53:17 Reason for Referral patient with snoring, excess juana day time sleepiness consultation with testing as warranted PLEASE CONTACT PT TO SCHEDULE Referring Physician: Jerrica Keating, Family Medicine, Encounter Date: 09/21/2012 Results Created Date Observation Date Name Description Value Unit Range Abnormal Flag Note LastModifiedBy Organization Detail LastModifiedTime 07/12/20 12 07/12/2012 elect eulogio diogr am Result NSR. no ectopy /ische diana. flippe d T latera lly as mentamdi johnny on ETT '11. d/w Midler / Not Available [address], [address], 07/12/2012 15:34:01 04/20/20 12 04/20/2012 urina lysis , dipst ick Glucose Negati ve Not Available [address], [address], 04/20/2012 14:33:58 04/20/20 12 04/20/2012 urina lysis , dipst ick Bilirubin Negati ve Not Available [address], [address], 04/20/2012 14:33:58 04/20/20 12 04/20/2012 urina lysis , dipst ick Ketone Negati ve Not Available [address], [address], 04/20/2012 14:33:58 04/20/20 12 04/20/2012 urina lysis , dipst ick Specific [place] 1.030 Not Available [address], [address], 04/20/2012 14:33:58 04/20/20 12 04/20/2012 urina lysis , dipst ick Blood Trace Not Available [address], [address], 04/20/2012 14:33:58 04/20/20 12 04/20/2012 urina lysis , dipst ick pH 5.5 Not Available [address], [address], 04/20/2012 14:33:58 04/20/20 12 04/20/2012 urina lysis , dipst ick Protein Negati ve Not Available [address], [address], 04/20/2012 14:33:58 04/20/20 12 04/20/2012 urina lysis , dipst ick Urobilinogen .2 Not Available [address], [address], 04/20/2012 14:33:58 04/20/20 12 04/20/2012 urina lysis , dipst ick Nitrite negati ve Not Available [address], [address], 04/20/2012 14:33:58 04/20/20 12 04/20/2012 urina lysis , dipst ick Leukocytes Negati ve Not Available [address], [address], 04/20/2012 14:33:58 06/05/20 12 06/05/2012 CBC WBC 6.8 K/? ? ?L 4.0-10 .0 Not Available [address], [address], 06/05/2012 15:11:32 06/05/20 12 06/05/2012 CBC RBC 3.99 M/? ? ?L 3.93-5 .22 Not Available [address], [address], 06/05/2012 15:11:32 06/05/20 12 06/05/2012 CBC HGB 13.4 g/dL 11.2-1 5.7 Not Available [address], [address], 06/05/2012 15:11:32 06/05/20 12 06/05/2012 CBC HCT 38.0 % 34.1-4 4.9 Not Available [address], [address], 06/05/2012 15:11:32 06/05/20 12 06/05/2012 CBC MCV 95.2 ? ? ?L 79.4-9 4.8 high Not Available [address], [address], 06/05/2012 15:11:32 06/05/20 12 06/05/2012 CBC MCH 33.6 pg 25.6-3 2.2 high Not Available [address], [address], 06/05/2012 15:11:32 06/05/20 12 06/05/2012 CBC MCHC 35.3 g/dL 32.2-3 5.5 Not Available [address], [address], 06/05/2012 15:11:32 06/05/20 12 06/05/2012 CBC plt 304.0 K/? ? ?L 182.0- 369.0 Not Available [address], [address], 06/05/2012 15:11:32 06/05/20 12 06/05/2012 CBC MPV 11.6 9.4-12 .3 Not Available [address], [address], 06/05/2012 15:11:32 06/05/20 12 06/05/2012 CBC neut% 67.5 % 34.0-7 1.1 Not Available [address], [address], 06/05/2012 15:11:32 06/05/20 12 06/05/2012 CBC neut# 4.6 1.6-6. 1 Not Available [address], [address], 06/05/2012 15:11:32 06/05/20 12 06/05/2012 CBC lymph % 25.1 % 19.3-5 1.7 Not Available [address], [address], 06/05/2012 15:11:32 06/05/20 12 06/05/2012 CBC lymph # 1.7 K/? ? ?L 1.2-3. 7 Not Available [address], [address], 06/05/2012 15:11:32 06/05/20 12 06/05/2012 CBC mono% 5.6 % 4.7-12 .5 Not Available [address], [address], 06/05/2012 15:11:32 06/05/20 12 06/05/2012 CBC mono# 0.4 0.2-0. 4 high Not Available [address], [address], 06/05/2012 15:11:32 06/05/20 12 06/05/2012 CBC eo% 1.2 % 0.7-5. 8 Not Available [address], [address], 06/05/2012 15:11:32 06/05/20 12 06/05/2012 CBC eo# 0.1 0.0-0. 4 Not Available [address], [address], 06/05/2012 15:11:32 06/05/20 12 06/05/2012 CBC baso% 0.6 % 0.1-1. 2 Not Available [address], [address], 06/05/2012 15:11:32 06/05/20 12 06/05/2012 CBC baso# 0.0 0.0-0. 1 low Not Available [address], [address], 06/05/2012 15:11:32 06/05/20 12 06/05/2012 CBC RDW-CV 12.7 % 11.7-1 4.4 Not Available [address], [address], 06/05/2012 15:11:32 06/05/20 12 06/05/2012 lipid panel cholesterol 279 mg/dL <200 mg/dL jerod able 200-2 39 mg/dL borde rline high >240 mg/dL high Not Available [address], [address], 06/05/2012 15:23:34 06/05/20 12 06/05/2012 lipid panel triglyceride s 331 mg/dL <150 mg/dL hernesto l 150-1 99 mg/dL borde rline high 200-4 99 mg/dL high >500 mg/dL very high Not Available [address], [address], 06/05/2012 15:23:34 06/05/20 12 06/05/2012 lipid panel direct HDL 46 mg/dL Not Available [address], [address], 06/05/2012 15:23:34 06/05/20 12 06/05/2012 lipid panel direct LDL 169 mg/dL risk categ ory LDL goal _ CHD or CHD risk equiv alent s <100 mg/dL (10-y ear risk >20%) 2+ risk facto rs <130 mg/dL (10-y ear risk <= 20%) 0-1 risk facto r? <160 mg/dL ? almos t all peopl e with 0-1 risk facto r have a 10 year risk <10%, thus 10 year risk asses ment in peopl e with 0-1 risk facto r IS not neces linda. Not Available [address], [address], 06/05/2012 15:23:34 06/05/20 12 06/05/2012 basic metab olic panel glucose 89 mg/dL 70-100 Not Available [address], [address], 06/05/2012 15:23:35 06/05/20 12 06/05/2012 basic metab olic panel BUN 16 mg/dL 7-18 Not Available [address], [address], 06/05/2012 15:23:35 06/05/20 12 06/05/2012 basic metab olic panel creatinine 1.3 mg/dL 0.8-1. 3 Not Available [address], [address], 06/05/2012 15:23:35 06/05/20 12 06/05/2012 basic metab olic panel B/C 12.3 ratio Not Available [address], [address], 06/05/2012 15:23:35 06/05/20 12 06/05/2012 basic metab olic panel GFR 47.6 mL/mi n recom chandrakant d GFR by the natio nal kidne y found ation >60 mL/mi n/1.7 3m2 - hernesto l <60 mL/mi n/1.7 3m2 - chron ic kidne y disea se <15 mL/mi n/1.7 3m2 - kidne y failu re Not Available [address], [address], 06/05/2012 15:23:35 06/05/20 12 06/05/2012 basic metab olic panel GFR - if 54.8 mL/mi n for afric an ameri can patie nts: resul ts multi plied by 1.21 Not Available [address], [address], 06/05/2012 15:23:35 06/05/20 12 06/05/2012 basic metab olic panel sodium 143 mmol/ L 136-14 5 Not Available [address], [address], 06/05/2012 15:23:35 06/05/20 12 06/05/2012 basic metab olic panel potassium 4.5 mmol/ L 3.5-5. 1 Not Available [address], [address], 06/05/2012 15:23:35 06/05/20 12 06/05/2012 basic metab olic panel chloride 105 mmol/ L 96-107 Not Available [address], [address], 06/05/2012 15:23:35 06/05/20 12 06/05/2012 basic metab olic panel _anion gap 8.0 Not Available [address], [address], 06/05/2012 15:23:35 06/05/20 12 06/05/2012 basic metab olic panel CO2 30 mmol/ L 21-32 Not Available [address], [address], 06/05/2012 15:23:35 06/05/20 12 06/05/2012 basic metab olic panel calcium 9.5 mg/dL 8.5-10 .3 Not Available [address], [address], 06/05/2012 15:23:35 06/05/20 12 06/05/2012 ESR, weste rgren sed rate 51.0 0.0-15 .0 high Not Available [address], [address], 06/05/2012 16:25:33 04/24/20 12 04/23/2012 nicole sound , timothy mota al No observ ation record ed. BLADE [address], [address], 04/06/2013 03:28:33 07/20/20 12 07/12/2012 imagi ng/di agnos tic resul t No observ ation record ed. BLADE Not Available 2012 03:43:38 07/23/20 12 07/12/2012 imagi ng/di agnos tic resul t No observ ation record ed. BLADE Not Available 2012 03:44:13 Result Notes None recorded. Problems Name Problem SNOMED Code Status Onset Date Resolution Date Notes Provider Name and Address Organization Details Recorded Time Extrinsic asthma with status asthmaticu s Completed 200705/11/2011 Not Available [facility] 3 03:11:33 Essential hypertensi on 97411999 Completed 200211/04/2010 Not Available [facility] 3 03:11:33 Lateral epicondyli tis 218524287 Completed 200305/11/2011 Not Available [facility] 3 03:11:33 Diarrhea 43873541 Completed 200409/24/2010 Not Available [facility] 3 03:11:33 Benign essential hypertensi on 7296696 Active 2002 Not Available [facility] 3 03:11:33 Acute non-suppur ative serous otitis media 958490488 Completed 200409/24/2010 Not Available [facility] 3 03:11:33 Measuremen t finding outside reference range 146324073 Completed 05/11/2011 Not Available [facility] 3 03:11:33 Acute pharyngiti s 328666665 Completed 200309/24/2010 Not Available [facility] 3 03:11:33 Nonspecifi c tuberculin test reaction 809995767 Completed 200305/11/2011 Not Available [facility] 3 03:11:33 Acute suppurativ e otitis media without spontaneou s rupture of ear drum 57379400 Completed 200209/24/2010 Not Available [facility] 3 03:11:33 Irregular periods 04320060 Completed 200205/11/2011 Not Available [facility] 3 03:11:33 Purpuric disorder 163601178 Completed 05/11/2011 Not Available [facility] 3 03:11:33 Allergic rhinitis caused by pollen 36452181 Completed 200209/24/2010 Not Available [facility] 3 03:11:33 Sprain of knee and leg Completed 200411/04/2010 Not Available [facility] 3 03:11:33 Impaired fasting glycemia 603683603 Active Not Available [facility] 3 03:11:33 Backache 050543753 Completed 200311/04/2010 Not Available [facility] 3 03:11:33 Acute bronchitis 98103106 Completed 200209/24/2010 Not Available [facility] 3 03:11:33 Acquired trigger finger 7927993 Completed 200605/11/2011 Not Available [facility] 3 03:11:33 Cough 29007811 Completed 09/24/2010 Not Available [facility] 3 03:11:33 Extrinsic asthma with asthma attack Completed 200209/24/2010 Not Available [facility] 3 03:11:33 Giant cell arteritis Completed 05/11/2011 Not Available [facility] 3 03:11:33 Shoulder pain 32347626 Completed 07/31/2013 Not Available [facility] 3 02:01:02 Shoulder pain 49698166 Completed 200511/04/2010 Not Available [facility] 3 03:11:33 Lymphadeno hermelindo 21056332 Completed 200509/24/2010 Not Available [facility] 3 03:11:33 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 Completed 200811/04/2010 Not Available [facility] 3 03:11:33 Impacted cerumen 06103072 Completed 200209/24/2010 Not Available [facility] 3 03:11:33 Vitamin D deficiency 46231885 Completed 05/11/2011 Not Available [facility] 3 03:11:33 Urticaria 187383792 Completed 200511/04/2010 Not Available [facility] 3 03:11:33 Joint pain in ankle and foot Completed 200711/04/2010 Not Available [facility] 3 03:11:33 Acute swimmer's ear Completed 200309/24/2010 Not Available [facility] 3 03:11:33 Periapical abscess without sinus tract Completed 200405/11/2011 Not Available [facility] 3 03:11:33 Common cold 33096215 Completed 200209/24/2010 Not Available [facility] 3 03:11:33 Chest pain 88860605 Completed 200205/11/2011 Not Available [facility] 3 03:11:33 Gouty arthropath y 155302020 Completed 200605/11/2011 Not Available [facility] 3 03:11:33 Infective otitis externa 60694664 Completed 11/04/2010 Not Available [facility] 3 03:11:33 Neuralgia 88736324 Active Not Available [facility] 3 03:11:33 Noninfecti ous gastroente ritis 83294217 Completed 200205/11/2011 Not Available [facility] 3 03:11:33 Mixed hyperlipid emia 566854980 Active 2002 Not Available [facility] 3 03:11:33 Chronic renal impairment Active Not Available [facility] 3 03:11:33 Contusion 542251286 Completed 200509/24/2010 Not Available [facility] 3 03:11:33 Gastroesop hageal reflux disease 795670423 Active 2003 Not Available [facility] 3 03:11:33 Chronic bronchitis 93500772 Completed 200209/24/2010 Not Available [facility] 3 03:11:33 Cardiomega ly 9593372 Completed 05/11/2011 Not Available [facility] 3 03:11:33 Female stress incontinen ce 47799505 Completed 200205/11/2011 Not Available [facility] 3 03:11:33 Allergic rhinitis 66706249 Completed 200211/04/2010 Not Available [facility] 3 03:11:33 Influenza 8153304 Completed 05/11/2011 Not Available [facility] 3 03:34:33 Left lower quadrant pain 157349110 Completed 200505/11/2011 Not Available [facility] 3 03:11:33 Neck pain 15841129 Completed 200211/04/2010 Not Available [facility] 3 03:11:33 Sciatica 82969574 Completed 200311/04/2010 Not Available [facility] 3 03:11:33 Pain in elbow 19670943 Completed 200305/11/2011 Not Available [facility] 3 03:11:33 Pneumonia 389395212 Completed 200209/24/2010 Not Available [facility] 3 03:11:33 Knee pain Completed 11/04/2010 Not Available [facility] 3 03:11:33 Generalize d abdominal pain 725823697 Completed 200409/24/2010 Not Available [facility] 3 03:11:33 Hyperlipid emia 02776906 Completed 200311/04/2010 Not Available [facility] 3 03:11:33 Injury of elbow 141311719 Completed 200311/04/2010 Not Available [facility] 3 03:11:33 Pain in wrist 88084120 Completed 200511/04/2010 Not Available [facility] 3 03:11:33 Blood in urine 91443606 Completed 200805/11/2011 Not Available [facility] 3 03:11:33 Headache 88107009 Completed 09/24/2010 Not Available [facility] 3 03:11:33 Hordeolum 016598646 Completed 05/11/2011 Not Available [facility] 3 03:11:33 Acute apical periodonti tis of pulpal origin 89668211 Completed 200409/24/2010 Not Available [facility] 3 03:11:33 Hip pain 07861117 Completed 200405/11/2011 Not Available [facility] 3 03:11:33 Allergic asthma without status asthmaticu s 22058232 Completed 200411/04/2010 Not Available [facility] 3 03:11:33 Proteinuri a 66667392 Completed 200605/11/2011 Not Available [facility] 3 03:11:33 Finding by method 190510065 Completed 200205/11/2011 Not Available [facility] 3 03:11:33 Acute upper respirator y infection 92713614 Completed 09/24/2010 Not Available [facility] 3 03:34:33 Breast lump 22198592 Completed 200505/11/2011 Not Available [facility] 3 03:11:33 Mammograph y abnormal 072668361 Completed 200205/11/2011 Not Available [facility] 3 03:11:33 Acute frontal sinusitis 26925411 Completed 200509/24/2010 Not Available [facility] 3 03:11:33 Hand joint pain 047128693 Completed 07/31/2013 Not Available [facility] 3 02:02:43 Edema of extremity 666238676 Completed 200605/11/2011 Not Available [facility] 3 03:11:33 Tinea pedis 8137155 Completed 200311/04/2010 Not Available [facility] 3 03:11:33 Low back pain 573691090 Completed 200105/11/2011 Not Available [facility] 3 03:11:33 Inflammati on of sacroiliac joint 21732529 Completed 200205/11/2011 Not Available [facility] 3 03:11:33 Pain in limb 73594891 Completed 200509/24/2010 Not Available [facility] 3 03:11:33 Streptococ joel sore throat 25463515 Completed 09/24/2010 Not Available [facility] 3 03:34:33 Problem Notes None recorded. Procedures Surgical History Date Name Laterality Status Provider Name and Address Organization Details Recorded Time 2 Smoking cessation counseling completed Brook Elder [facility] 07/12/2012 15:34:01 2 Smoking cessation counseling completed Ne Galdamez MD [address] [place] [address], [phone], [facility] 11/10/2011 08:37:40 1 Treatment and Advice completed Larissa Thapa OT [address] [place] [address], [phone], [facility] 05/23/2011 15:42:43 Imaging Results Imaging Date Name Status LastModified by Organization Details LastModified Time 04/23/2012 ultrasound, pelvic transvaginal completed [address], [address], 04/06/2013 03:28:33 07/12/2012 imaging/diagnost ic result completed BLADE Information not available 04/06/2013 03:43:38 07/12/2012 imaging/diagnost ic result completed BLADE Information not available 04/06/2013 03:44:13 Procedure Notes None recorded. Medical Equipment None Reported. Allergies Allergen ID Allergen Name Allergen Category Reaction Reaction Severity Criticality Documentation Date Start Date Code Code System Note Provider Name and Address Organization Details Recorded Time 97381 acetamino phen / hydrocodo ne medicatio n itching Not available Not available 11/22/2010 56315 2 RxNorm Not Available [facility] 1 06:05:41 27553 Bactrim medicatio n hives Not available Not available 11/22/2010 28650 9 RxNorm Not Available [facility] 1 06:05:41 84201 amoxicill in medicatio n hives Not available Not available 11/22/2010 723 RxNorm Not Available [facility] 1 06:05:41 7037 Zithromax medicatio n other mild Not available 12/05/2008 12806 4 RxNorm Not Available [facility] 06:05:20 7038 lisinopri l medicatio n rash Not available Not available 12/05/2008 78949 RxNorm Not Available [facility] 06:05:20 7039 Product containin g penicilli n and antibioti c (product) medicatio n other mild Not available 12/05/2008 40514 05 SNOMED Not Available [facility] 06:05:20 Medications Name Sig Start Date Stop Date Status Note LastModified by Organization Details LastModified Time Zocor 20 mg tablet 2007 active Take 1.00 tabs daily Not Available Not Available Not Available nystatin 100,000 unit/mL oral suspension Take 5 millilite rs (500,000 unit) swish and swallow 4 times per day x 7 days 09/16 completed Not Available Not Available Not Available potassium chloride ER 10 mEq capsule,ex tended release Take 1 capsule every day by oral route. 2010 active Last PHA 12/22 Not Available Not Available Not Available clonidine HCl 0.1 mg tablet 01/29 completed Take 1.00 tabs twice daily Not Available Not Available Not Available prednisone 10 mg tablet Take 2 tabs bid x 2 days, Take 2 tabs qam and 1 tab qpm x 2 days, Take 1 tab bid x 2 days, Take 1 tab qam x 1 day. 2011 active Not Available Not Available Not Avai lable atorvastat in 20 mg tablet Take 1 tablet every day by oral route in the evening for 30 days. 2011 active Not Available Not Available Not Avai lable albuterol sulfate 2.5 mg/3 mL (0.083 %) solution for nebulizati on Inhale 3 mL every 4 hours by nebulizat ion route as needed. 2009 active Not Available Not Available Not Avai lable Cortispori n 3.5 mg/mL-10,0 00 unit/mL-1 % ear drops,susp ension Instill 4 drops into affected ear(s) by otic route 3 times per day x 5 days 01/29 completed Not Available Not Available Not Available metoprolol succinate ER 50 mg tablet,ext ended release 24 hr active Not Available Not Available Not Available hydrochlor othiazide 50 mg tablet TAKE ONE TABLET BY MOUTH EVERY DAY 2010 active Last PHA 12/22 Not Available Not Available Not Available Keflex 500 mg capsule Take 1 capsule every 12 hours by oral route for 10 days. 10/06 completed Not Available Not Available Not Available diltiazem CD 240 mg capsule,ex tended release 24 hr TAKE ONE CAPSULE BY MOUTH EVERY DAY 2010 active Last PHA 12/22 Not Available Not Available Not Available prednisone 20 mg tablet 3 tablets daily for 4 days then two tablets daily for 4 days one tablet daily for 4 days then one half tablet daily for 4 days 2011 active Not Available Not Available Not Avai lable Flonase 50 mcg/actuat ion nasal spray,susp ension Inhale 2 sprays every day by intranasa l route as directed. 2012 active Not Available Not Available Not Avai lable Plavix 75 mg tablet 2007 active Take 1.00 tabs daily Not Available Not Available Not Available meclizine 25 mg capsule take 1 tablet 3 times a day by oral route as needed 2011 active Not Available Not Available Not Avai lable ciprofloxa lamont 0.3 % eye drops Instill 1 drop into affected eye(s) by ophthalmi c route every 2 hourswhil e awake for 2 days then 1 drop every 4 hours while awake for 5 days 08/20 completed Not Available Not Available Not Available meclizine 25 mg tablet Take 1 tablet 3 times a day by oral route as needed. 09/08 completed Not Available Not Available Not Available Advair Diskus 250 mcg-50 mcg/dose powder for inhalation Inhale 1 puff twice a day by inhalatio n route. 2010 active has n't used. Not Available Not Available Not Available fluoxetine 10 mg capsule Take 1 capsule every day by oral route for 30 days. 06/10 completed Not Available Not Available Not Available omeprazole 20 mg capsule,de layed release Take 1 capsule every day by oral route for 30 days. 2010 active Not Available Not Available Not Avai lable codeine 10 mg-guaifen esin 100 mg/5 mL oral liquid Take 10 mL every 4 hours by oral route as needed. 2008 active Not Available Not Available Not Avai lable Levaquin 500 mg tablet Take 1 tablet every 24 hours by oral route for 7 days. 07/03 completed Not Available Not Available Not Available gabapentin 100 mg capsule Take 1 capsule at bedtime, may increase q 2-3 days up to 3 capsules at bedtime 07/06 completed Not Available Not Available Not Available lorazepam 1 mg tablet TAKE ONE-HALF TO ONE TABLET BY MOUTH AT BEDTIME NEEDED FOR SLEEP active Not Available Not Available No t Available Cardizem CD 120 mg capsule,ex tended release Take 1 capsule (120 mg) by oral route once daily 09/27 completed Not Available Not Available Not Available Tylenol-Co deine #3 300 mg-30 mg tablet Take 1 tablet every 6 hours by oral route. 02/11 completed Not Available Not Available Not Available Vitamin D2 1,250 mcg (50,000 unit) capsule Take 1 capsule every week by oral route for 60 days. 02/20 completed Not Available Not Available Not Available Percocet 5 mg-325 mg tablet Take 1 tablet every 6 hours by oral route. 2010 active Not Available Not Available Not Avai lable Aspirin Low-Streng th 81 mg chewable tablet 2007 active Take 1.00 tabs daily Not Available Not Available Not Available cyclobenza eric 5 mg tablet Take 1 tablet 3 times a day by oral route. 02/11 completed Not Available Not Available Not Available meclizine active ? mg 1 daily prn Not Available Not Available Not Available ProAir HFA 90 mcg/actuat ion aerosol inhaler Inhale 1 puff every 4-6 hours by inhalatio n route as needed. 2011 active Not Available Not Available Not Avai lable Vitamin D 5,000 unit tablet 2 tabs every week 2011 active Not Available Not Available Not Avai lable Vitals Date Recorded Body height Body weight Body mass index (BMI) Body temperature Heart rate Systolic blood pressure Diastolic blood pressure Provider Name and Address Organization Details Last Updated DateTime 2 157.48 cm 57028.4 0371 g 33.5 kg/m2 99 [degF] 82 /min 122 mm[Hg] 80 mm[Hg] Brook Elder MA [facility] 2 14:57:10 Date Recorded Body height Body weight Body mass index (BMI) Body temperature Heart rate Oxygen saturation Oxygen saturation in Arterial blood by Pulse oximetry Systolic blood pressure Diastolic blood pressure Provider Name and Address Organization Details Last Updated DateTime 2 160.02 cm 04212.8 42738 g 32.3 kg/m2 98.5 [degF] 59 /min 96 % 96 % 148 mm[Hg] 82 mm[Hg] Rozina Sam CMA [facility] 2 15:05:24 Date Recorded Body height Body weight Body mass index (BMI) Body temperature Heart rate Oxygen saturation Oxygen saturation in Arterial blood by Pulse oximetry Systolic blood pressure Diastolic blood pressure Provider Name and Address Organization Details Last Updated DateTime 2 160.02 cm 34983.5 8845 g 32.8 kg/m2 98.5 [degF] 74 /min 96 % 96 % 142 mm[Hg] 80 mm[Hg] Brook Elder MA [facility] 2 11:02:07 Date Recorded Body height Body weight Body mass index (BMI) Heart rate Systolic blood pressure Diastolic blood pressure Provider Name and Address Organization Details Last Updated DateTime 2 157.48 cm 63310.1 8082 g 34 kg/m2 80 /min 140 mm[Hg] 102 mm[Hg] Brook Elder MA [facility] 2 15:34:00 Date Recorded Systolic blood pressure Diastolic blood pressure Provider Name and Address Organization Details Last Updated DateTime 07/12/2012 164 mm[Hg] 104 mm[Hg] Tanner Watt PA-C [address] [place] [address], [id number], [facility] 07/12/2012 16:16:21 Date Recorded Body height Body weight Body mass index (BMI) Body temperature Heart rate Systolic blood pressure Diastolic blood pressure Provider Name and Address Organization Details Last Updated DateTime 3 157.48 cm 36074.5 73287 g 35.2 kg/m2 98.9 [degF] 80 /min 148 mm[Hg] 96 mm[Hg] Joseph Echeverria [facility] 3 15:37:24 Social History Question Answer Notes LastModified by Organizat ion Details LastModified Time Tobacco Smoking Status Current Every Day Smoker 5-6 per day, or less Rozina Sam, [employer]ING [employer] null, [facility] 06/13/2012 15:05:24 Education 12 3 Yrs College Information not available 04/23/2009 Live Alone Or With Others? With Others [place]b [place]/2 Kids [email or web address] Information not available 07/23/2009 Patient Has Health Care Proxy Signed And In Chart No Given To Pt 07/12/12 17 Information not available 07/28/2011 Marital Status [email or web address] [id number] Information not available 07/28/2011 How Many Children Do You Have? 3 2 Sons, 1 Daughter(gr ands=Mackenzie Miller i),1 Andria r(2 Kids In [facility] ) Information not available 04/23/2009 Are You Sexually Active? Yes 19 Information not available 07/28/2011 At What Age Did You Start Smoking Tobacco? 18 [email or web address] 19 Information not available 07/28/2011 Sex: Unknown Functional Status None recorded. Mental Status None recorded. Family History Nothing Reported Notes:MOM: d68: NE/htn/alzhe imers/chol; arthritis DAD: d57: NE/htn Aunts: DM SIS: 2: dysphagia ?[employer] BRO: 2: both in 20s: AIDS/aspirated vomit DAUGHT: 1: a&w SON: 2: 1 asthma, OCD Medical History No medical history recorded. Gynecological History Statement/Question Response HPV N Hysterectomy N History of Abnormal Pap N Age at Menarche 15 Date of LMP History of PID N Obstetrics History GPAL:G 0 P 0 0 0 0 Immunizations Vaccine Type Date Status Note Provider Nam e and Address Organization Details Recorded Time Influenza, split virus, trivalent, preservative 1 completed Not Available [facility] 09/28/2019 02:18:11 Td(adult) unspecified formulation 4 completed Not Available [facility] 07/27/2011 05:22:52 influenza, unspecified formulation 4 completed Not Available [facility] 07/27/2011 05:21:07 Influenza, split virus, trivalent, preservative 2 completed Not Available [facility] 09/28/2019 02:25:09 Influenza, split virus, trivalent, preservative 0 completed Not Available [facility] 09/28/2019 02:28:46 Past Encounters Encounter ID Performer Location Encounter Start Date Encounter Closed Date Diagnosis/Indication Diagnosis SNOMED-CT Code Diagnosis ICD10 Code Diagnosis Note [id number] KERRIE [facility], OFFICE [address] [place] [address] 04/24/2002 08:37:57 10/01/2008 02:02:29 [id number] KERRIE [facility], OFFICE [address] [place] [address] 1 05/01/2002 14:06:05 10/01/2008 02:02:29 [id number] KERRIE [facility] [place] [place], OFFICE [address] [place] [address] 1 10/01/2002 14:28:45 10/01/2008 02:02:29 [id number] KERRIE [facility] [place], OFFICE [address] [place] [address] 1 12/12/2002 17:12:04 10/01/2008 02:02:29 [id number] Physical Therapy, [facility] [place] [address] [place] [address] 12/20/2002 10:06:48 10/01/2008 02:02:29 [id number] KERRIE [facility] [place], OFFICE [address] [place] [address] 1 12/24/2002 12:56:37 10/01/2008 02:02:29 [id number] KERRIE [facility] [place], OFFICE [address] [place] [address] 1 02/18/2003 14:15:35 10/01/2008 02:02:29 [id number] KERRIE [facility] [place], OFFICE [address] [place] [address] 1 03/20/2003 14:07:34 10/01/2008 02:02:29 [id number] KERRIE [facility] [place], OFFICE [address] [place] [address] 1 03/24/2003 12:02:14 10/01/2008 02:02:29 [id number] LAB - [facility] [place] [address] [place] [address] 03/28/2003 07:46:12 10/01/2008 02:02:29 [id number] Radiology , [facility] [place] [address] 03/28/2003 09:08:31 10/01/2008 02:02:29 [id number] [facility] [place], OFFICE [address] [place] [address] 04/10/2003 09:49:12 10/01/2008 02:02:29 [id number] Radiology , [facility] [place] [address] 05/05/2003 11:43:12 10/01/2008 02:02:29 [id number] [facility] [place], OFFICE [address] [place] [address] 1 05/27/2003 14:40:45 05/28/2003 08:59:03 [id number] Radiology , [address] [place] [address] 06/06/2003 13:44:53 06/06/2003 14:02:58 [id number] [facility] [place], OFFICE [address] [place] [address] 1 06/06/2003 11:49:30 06/11/2003 11:41:24 [id number] Radiology , [address] [place] [address] 1 07/22/2003 16:31:19 07/23/2003 08:01:14 [id number] FP [facility] [place], OFFICE [address] [place] [address] [place] [address] 1 07/22/2003 14:09:14 07/23/2003 10:41:26 [id number] FP [facility] [place], [place] [address] 1 07/29/2003 08:37:44 07/29/2003 15:15:56 [id number] FP [facility] [place] [place], OFFICE [address] [place] [address] 1 10/03/2003 11:25:23 10/03/2003 14:28:20 [id number] Radiology , [address] [place] [address] 10/06/2003 15:48:38 10/06/2003 16:47:31 [id number] KERRIE [facility] [place] [place], OFFICE [address] [place] [id number] 12/24/2003 13:53:37 12/25/2003 08:35:31 [id number] [facility] - [facility] [place] [address] [place] [address] 01/09/2004 14:20:55 01/09/2004 14:27:29 [id number] [facility] [place], OFFICE [address] [place] [address] 01/09/2004 13:33:58 01/12/2004 09:36:02 [id number] [facility] [place], OFFICE [address] [place] [id number] 02/16/2004 15:47:13 02/17/2004 08:31:21 [id number] KERRIE [facility] [place], OFFICE [address] [place] [address] 1 03/30/2004 16:24:56 03/31/2004 08:23:47 [id number] Radiology , [facility] [address] [place] [address] 03/31/2004 13:21:53 03/31/2004 14:21:59 [id number] [facility] - [facility] [address] [place] [address] 03/31/2004 07:38:30 03/31/2004 14:57:09 [id number] [facility] [place], OFFICE [address] [place] [address] 1 04/27/2004 14:57:59 04/28/2004 17:20:19 [id number] [facility] , [facility] [address] [place] [address] 1 06/02/2004 13:42:54 06/02/2004 14:39:12 [id number] [facility] [place], OFFICE [address] [place] [id number] 06/23/2004 14:02:37 06/24/2004 08:59:32 [id number] KERRIE [facility] [place], OFFICE [address] [place] [id number] 07/01/2004 15:32:27 07/02/2004 08:46:41 [id number] KERRIE [facility] [place], OFFICE [address] [place] [id number] 04/27/2004 00:00:00 10/01/2008 02:02:29 [id number] KERRIE [facility] [place], OFFICE [address] [place] [address] 1 07/29/2004 15:53:09 07/30/2004 09:20:07 [id number] [facility] [place], OFFICE [address] [place] [address] 1 08/30/2004 15:01:25 08/31/2004 09:44:16 [id number] [facility] [place], OFFICE [address] [place] [address] 1 10/29/2004 14:29:32 11/01/2004 10:52:43 [id number] [facility] [place] [place], OFFICE [address] [place] [address] 1 12/15/2004 15:33:42 12/17/2004 08:29:49 [id number] , [facility], OFFICE [address] [place] [address] 12/18/2004 13:57:46 12/18/2004 14:20:55 [id number] [facility] [place], OFFICE [address] [place] [address] 02/08/2005 15:33:26 02/10/2005 08:24:48 [id number] [facility] [place], OFFICE [address] [place] [address] 1 03/22/2005 15:17:54 03/23/2005 13:30:40 [id number] [facility], OFFICE [address] [place] [address] 1 03/30/2005 11:27:29 03/31/2005 15:19:09 [id number] [facility] - [facility] [address] [place] [address] 03/31/2005 07:00:44 03/31/2005 08:52:30 [id number] [facility] [place], OFFICE [address] [place] [address] 05/09/2005 11:16:13 05/11/2005 15:09:44 [id number] [facility] [place], OFFICE [address] [place] [address] 06/01/2005 14:33:49 06/02/2005 10:29:00 [id number] [facility] [place], OFFICE [address] [place] [address] 06/20/2005 15:17:41 06/21/2005 08:52:02 [id number] [facility] , [facility] [address] [place] [address] 06/24/2005 16:33:49 06/27/2005 08:03:32 [id number] , [facility] [place], OFFICE [address] [place] [address] 1 06/24/2005 15:57:32 06/27/2005 09:48:50 [id number] [facility] [place] [place], OFFICE [address] [place] [address] 1 09/06/2005 14:50:45 09/07/2005 14:29:32 [id number] FP [facility] [place], OFFICE [address] [place] [address] 1 09/27/2005 15:47:34 09/28/2005 08:23:14 [id number] [facility], OFFICE [address] [place] [address] 10/11/2005 15:34:07 10/11/2005 17:46:38 [id number] [facility], OFFICE [address] [place] [address] 1 10/26/2005 13:52:00 10/26/2005 16:31:53 [id number] [facility] - [facility] [address] [place] [address] 1 10/26/2005 14:18:00 10/26/2005 14:18:12 [id number] [facility] , [facility] [address] [place] [address] 11/02/2005 12:49:08 11/03/2005 07:05:56 [id number] [facility] , [facility] [address] [place] [address] 11/03/2005 15:25:49 11/04/2005 08:13:27 [id number] FP [facility], OFFICE [address] [place] [address] 1 12/02/2005 14:15:31 12/02/2005 16:17:16 [id number] [facility], OFFICE [address] [place] [address] 1 11/02/2005 11:33:03 11/02/2005 14:50:26 [id number] [facility] [place], OFFICE [address] [place] [address] 01/06/2006 10:03:12 01/16/2006 08:22:06 [id number] FP [facility] [place], OFFICE [address] [place] [address] 02/02/2006 14:07:40 02/03/2006 15:30:35 [id number] Radiology , [facility] [address] [place] [address] 02/03/2006 15:30:06 10/01/2008 02:02:29 [id number] Radiology , [facility] [address] [place] [address] 03/02/2006 14:28:42 10/01/2008 02:02:29 [id number] [facility] [place], OFFICE [address] [place] [address] 03/20/2006 12:49:46 03/20/2006 17:52:08 [id number] Radiology , [facility] [address] [place] [address] 05/25/2006 17:48:34 05/26/2006 07:05:32 [id number] [facility] [place], OFFICE [address] [place] [address] 05/25/2006 17:22:27 05/26/2006 08:55:32 [id number] [facility] [place], OFFICE [address] [place] [id number] 06/09/2006 15:54:16 06/09/2006 17:28:23 [id number] , [facility] [place], OFFICE [address] [place] [address] 06/15/2006 13:23:20 06/16/2006 09:52:02 [id number] [facility] [place], OFFICE [address] [place] [id number] 08/30/2006 17:10:44 08/31/2006 07:43:52 [id number] [facility] [place], OFFICE [address] [place] [id number] 10/02/2006 10:17:53 10/02/2006 15:12:31 [id number] [facility] [place], OFFICE [address] [place] [id number] 10/17/2006 08:17:48 10/17/2006 10:49:05 [id number] [facility] [place], OFFICE [address] [place] [id number] 10/24/2006 14:32:40 10/25/2006 08:42:23 [id number] [facility] [place], OFFICE [address] [place] [id number] 1 12/07/2006 16:31:37 12/08/2006 08:07:25 [id number] [facility] - [facility] [address] [place] [address] 12/08/2006 07:43:44 12/08/2006 07:43:47 [id number] [facility]ER[facility]E [facility] [place], OFFICE [address] [place] [address] 1 12/14/2006 08:19:42 12/14/2006 10:37:51 [id number] [facility] , [facility] [address] [place] [address] 12/14/2006 09:01:36 12/14/2006 09:47:03 [id number] [place]ERRIE [facility] [place], OFFICE [address] [place] [address] 1 01/03/2007 14:22:51 01/04/2007 08:31:15 [id number] [facility] [place], OFFICE [address] [place] [address] 03/02/2007 14:36:28 03/26/2007 08:12:41 [id number] [facility]E [facility] [place], OFFICE [address] [place] [address] 1 06/09/2008 12:00:19 10/01/2008 02:02:29 [id number] [facility]E [facility], OFFICE [address] [place] [address] 1 06/23/2008 13:44:41 10/01/2008 02:02:29 [id number] [facility], OFFICE [address] [place] [address] 1 12/05/2008 10:20:39 12/08/2008 10:03:33 [id number] [facility]ER[facility]E [facility], OFF[address] [place] [address] 01/14/2009 10:00:45 01/15/2009 10:06:15 [id number] [facility], OFFICE [address] [place] [address] [place] [address] 01/26/2009 15:50:13 01/27/2009 10:44:35 [id number] [facility] [place], OFFICE [address] [place] [id number] 01/29/2009 16:21:11 01/30/2009 11:29:22 [id number] Radiology , [facility] [address] [place] [address] 1 01/30/2009 07:53:56 02/05/2009 11:15:08 [id number] Radiology , [facility] [address] [place] [address] 02/03/2009 22:09:07 02/03/2009 22:11:55 [id number] [facility] [place], OFFICE [address] [place] [address] 1 02/16/2009 15:12:34 02/17/2009 09:22:34 [id number] [facility] [address] [place] [address] 1 02/16/2009 15:40:02 02/17/2009 15:53:35 [id number] [facility] [place], OFFICE [address] [place] [address] 1 03/16/2009 15:41:28 03/17/2009 12:12:26 [id number] [facility] [place], OFFICE [address] [place] [address] 1 04/23/2009 15:17:15 04/24/2009 10:24:12 [id number] [facility], OFFICE [address] [place] [address] 1 06/18/2009 11:59:31 06/18/2009 14:17:07 [id number] [facility] [facility] [address] [place] [address] 1 07/06/2009 17:15:37 07/07/2009 09:25:[address] [id number] [place] [address] [place] [address] 1 01/30/2009 07:39:08 01/30/2009 07:39:13 [id number] [facility] [address] [place] [address] 1 02/09/2009 07:26:26 02/09/2009 07:26:[id number] [place] [address] 04/24/2009 13:57:57 04/24/2009 13:58:04 [id number] [place] [address] [place] [address] 1 04/28/2009 14:13:23 04/28/2009 14:13:[id number] [place] [address] 1 04/29/2009 15:57:08 04/29/2009 15:57:22 [id number] Rheumatmary ledbetter [facility] [address] [place] [address] 1 07/23/2009 15:40:58 07/28/2009 09:10:07 [id number] [facility], OFFICE [address] [place] [address] 1 07/29/2009 16:14:57 07/30/2009 09:55:58 [id number] Rheumatol ogy, [facility] [address] [place] [address] 08/20/2009 11:44:01 08/26/2009 10:20:05 [id number] [facility], OFFICE [address] [place] [address] 1 09/08/2009 11:57:26 09/08/2009 17:31:19 [id number] [facility], OFFICE [address] [place] [address] 1 09/16/2009 10:22:57 09/16/2009 13:47:00 [id number] Rheumatol ogy, [facility] [address] [place] [address] 10/01/2009 15:54:36 10/06/2009 09:32:03 [id number] [facility] [place], OFFICE [address] [place] [id number] 1 11/03/2009 15:15:14 11/04/2009 07:42:00 [id number] [facility] [place], OFFICE [address] [place] [address] 1 02/03/2010 11:19:16 02/03/2010 14:28:18 [id number] [facility], OFFICE [address] [place] [address] 1 02/11/2010 15:18:44 02/11/2010 16:27:20 [id number] [facility] [place], OFFICE [address] [place] [address] 07/06/2010 08:12:47 07/06/2010 09:56:15 [id number] [facility] OFFICE [address] [place] [address] 09/08/2010 14:55:52 09/08/2010 17:00:44 [id number] Radiology , [facility] [place] [address] [place] [address] 09/08/2010 16:03:21 09/09/2010 13:22:57 [id number] Physical Therapy, [facility] [place] [address] [place] [address] 09/14/2010 15:19:59 09/15/2010 14:11:24 [id number] Physical Therapy, [facility] [place] [address] [place] [address] 09/16/2010 13:55:23 09/17/2010 10:37:39 [id number] [facility]ER[facility] [place], OFFICE [address] [place] [address] 09/27/2010 13:44:32 09/27/2010 16:36:44 [id number] Physical Therapy, [facility] [place] [address] [place] [address] 10/04/2010 15:05:03 10/05/2010 10:23:29 [id number] KERRIE [facility] [place], OFFICE [address] [place] [id number] 11/18/2010 14:25:14 11/19/2010 09:17:11 [id number] [place]ERRIE [facility] [place], OFFICE [address] [place] [address] 11/22/2010 16:49:52 11/23/2010 09:51:30 [id number] KERRIE [facility] [place], OFFICE [address] [place] [address] 12/15/2010 15:32:22 12/16/2010 09:48:29 [id number] [place]ER[facility]E [facility] [place], OFFICE [address] [place] [id number] 12/22/2010 14:59:23 12/23/2010 09:57:39 [id number] Radiology , [facility] [place] [address] [place] [address] 12/22/2010 16:22:29 12/23/2010 11:07:25 [id number] KERRIE [facility] [place], OFFICE [address] [place] [address] 05/11/2011 11:50:36 05/11/2011 12:35:01 [id number] KERRIE [facility] [place], OFFICE [address] [place] [address] 05/19/2011 14:45:52 05/19/2011 15:53:48 [id number] Physical Therapy, [facility] [place] [address] [place] [address] 05/23/2011 15:05:18 05/24/2011 11:48:06 [id number] Physical Therapy, [facility] [place] [address] [place] [address] 1 05/30/2011 15:06:57 05/31/2011 09:11:00 [id number] Physical Therapy, [facility] [place] [address] [place] [address] 1 06/06/2011 14:56:12 06/07/2011 08:32:45 [id number] Radiology , [facility] [place] [address] [place] [address] 1 06/08/2011 14:51:36 06/09/2011 10:55:27 [id number] Radiology , [facility] [place] [address] [place] [address] 08/24/2011 14:14:33 08/26/2011 11:10:29 [id number] FP, [facility] [place], OFFICE [address] [place] [address] [place] [address] 09/26/2011 10:34:32 09/26/2011 11:18:55 [id number] FP, [facility] [place], OFFICE [address] [place] [address] DR [place], [place] [address] 10/27/2011 11:11:16 10/27/2011 11:43:06 [id number] FP, [facility] [place], OFFICE [address] [place] [address] DR [place], [place] [address] 1 11/04/2011 17:11:51 11/08/2011 15:33:36 [id number] FP, [facility] [place], OFFICE [address] [place] [address] DR [place], [place] [address] 12/29/2011 13:37:46 12/29/2011 14:15:10 [id number] FP, [facility] [place], OFFICE [address] [place] [address] DR [place], [place] [address] 04/20/2012 14:27:13 04/20/2012 15:26:13 [id number] Radiology , [facility] [place] [address] [place] [address] 04/23/2012 14:55:48 04/30/2012 14:46:19 [id number] FP, [facility] [place], [address] [place], [place] [address] 05/01/2012 14:46:54 05/01/2012 17:05:31 [id number] Jair Wharton MD FP, [facility] [place], [address] [place] [address] 06/13/2012 14:16:03 06/13/2012 15:24:59 [id number] Tanner Watt PA-C FP, [facility] [place], [address] [place] [address] 06/26/2012 10:50:09 06/26/2012 11:21:49 [id number] Tanner Watt PA-C FP, [facility] [place], [address] [place] [address] 07/12/2012 14:58:27 07/12/2012 16:34:37 [id number] Jerrica Keating MD , [facility] [place], OFFICE [address] [place] [address] 1 09/21/2012 14:51:54 09/21/2012 15:57:58 Health Concerns Section Related Observation LastModified by Organization Detai ls LastModified Time None Recorded Concern Status LastModified by Organization Details LastModified Time None Recorded Advance Directives Directive None Recorded Payers Encounter Date Sequence Insurance Name Policy Number Policy Giraldo Covered Member ID Giraldo Member ID Guarantor Name 05/01/2012 1 [facility] [place] Cecy El [id number] Cecy El 05/01/2012 2 [facility] OPEN [facility] Cecy El [id number] Cecy El 06/13/2012 1 [facility] [place] [place] Cecy El [id number] Cecy El 06/13/2012 2 [facility] OPEN ACCESS Cecy El [id number] Cecy El 06/26/2012 1 [facility] [place] [place] Cecy El [id number] Cecy El 06/26/2012 2 [facility] OPEN ACCESS Cecy El [id number] Cecy El 07/12/2012 1 [facility] [place] [place] Cecy El [id number] Cecy El 07/12/2012 2 [facility] OPEN ACCESS Cecy El [id number] Cecy El 09/21/2012 1 [facility] [place] Cecy El [id number] Cecy El 09/21/2012 2 [facility] OPEN ACCESS Cecy El [id number] Cecy El Notes Date Note Type Note Provider Name and Address Organization Details Recorded Time 05/01/2012 text/html RLQ pain 2 wks. Had US last week. No bulge. Worse laying on stomach, sometimes when standing. no n/v/c/d/dysuria no worse with lifting no changes with food Tanner Watt PA-C [address] [place] [address], [address], [facility] 05/01/2012 15:24:48 OBGyn Episode No OBEpisode recorded.
--- OUTSIDE RECORDS SUMMARY | 2024-10-14 09:18 | XMS_ITS | Data Portability ---
Author Organization TEREZA Ch s, [address] Address [address] [place] [address] Care Team Providers Care Marine Engineering Consultant Name Role Phone [facility] Care Provider Assessment No assessment recorded. Plan of Treatment Reminders Order Date Submit Date Provider Last Modified By Organization Details Last Modified Time Details Appointments None recorded. Lab None recorded. Referral None recorded. Procedures None recorded. Surgeries None recorded. Imaging XR, chest, 2 view 2022 023 [facility], [address] [place] [address], [address], 3 12:27:34 Medication Orders albuterol sulfate 2.5 mg/3 mL (0.083 %) solution for nebulizatio n 2022 023 [email or web address] 1 Not available 3 11:21:23 doxycycline hyclate 100 mg capsule 2022 024 [id number], [address] [place], [address], 4 11:58:16 prednisone 20 mg tablet 2022 024 [id number], [address] [place], [address], 4 11:58:29 benzonatate 100 mg capsule 2022 024 [id number], [address] [place], [address], 11:58:10 Patient TargetsNo targets recorded. Patient Instructions Encounter Date Encounter Id Patient Instructions Last Modified By Organization Details Last Modified Time 02/01/2023 [id number] cough: care instructions Not available 02/01/2023 11:13:47 pneumonia: care instructions Not available 02/01/2023 11:41:46 10/29/2023 [id number] sore throat: car e instructions [email or web address] Not available 10/29/2023 12:12:07 Reason for Referral None Reported. Results Created Date Observation Date Name Description Value Unit Range Abnormal Flag Note LastModifiedBy Organization Detail LastModifiedTime 02/02/2002/01/2023 XR, chest , 2 view No observ ation record ed. [email or web address] [address] [place] [address], 02/01/2023 15:03:39 Result Notes None recorded. Problems Name Problem SNOMED Code Status Onset Date Resolution Date Notes Provider Name and Address Organization Details Recorded Time Asthma 253595755 Active 023 JENNIFER HANCOCK null, PA - [facility] 10:40:10 Diabetes mellitus 93275373 Active 023 JENNIFER HANCOCK null, PA - [facility] 10:41:40 Problem Notes None recorded. Procedures Surgical History Date Name Laterality Status Provider Name and Address Organization Details Recorded Time Nebulizer Treatment completed Mary Ann Salazar MD [address] [facility] [place], [address], PA - [facility] 02/01/2023 11:50:41 procedure on ear completed JENNIFER HANCOCK PA - [facility] 02/01/2023 10:50:27 breast procedure completed JENNIFER HANCOCK PA - [facility] 02/01/2023 10:50:50 ligation of fallopian tube completed JENNIFER HANCOCK PA - [facility] 02/01/2023 10:51:04 Imaging Results Imaging Date Name Status LastModified by Organiz ation Details LastModified Time 02/01/2023 XR, chest, 2 view completed [email or web address] [facility] [address] [facility] [place], [address], 02/01/2023 15:03:39 Procedure Notes None recorded. Medical Equipment None Reported. Allergies Allergen ID Allergen Name Allergen Category Reaction Reaction Severity Criticality Documentation Date Start Date Code Code System Note Provider Name and Address Organization Details Recorded Time 001242 amoxicill in medicatio n hives Not available Not available 02/01/2023 723 RxNorm JENNIFER HANCOCK null, PA - [facility] 10:43:47 844031 Substance with sulfonami de structure and antibacte rial mechanism of action (substanc e) medicatio n hives Not available Not available 02/01/2023 16630 8003 SNOMED JENNIFER HANCOCK null, PA - [facility] 10:43:59 136237 azithromy lamont medicatio n hives Not available Not available 02/01/2023 15870 RxNorm JENNIFER HANCOCK null, PA - [facility] 10:44:10 146902 Product containin g penicilli n and antibioti c (product) medicatio n hives Not available Not available 02/01/2023 23653 05 SNOMED JENNIFER HANCOCK null, PA - [facility] 10:44:17 058920 lisinopri l medicatio n swelling Not available Not available 02/01/2023 45354 RxNorm JENNIFER HANCOCK null, PA - [facility] 10:44:36 194260 adhesive tape environme nt,medica tion rash Not available Not available 02/01/2023 45689 UNK JENNIFER HANCOCK null, PA - [facility] 10:44:49 077421 trimethop rim medicatio n Not available Not available Not available 02/01/2023 53146 RxNorm JENNIFER HANCOCK null, PA - [facility] 10:44:58 Medications Name Sig Start Date Stop Date Status Note LastModified by Organization Details LastModified Time cyclobenzap rine 10 mg tablet TAKE 1 TABLET BY MOUTH 3 TIMES DAILY NEEDED FOR MUSCLE SPASMS FOR UP TO 30 DAYS. 2022 active Not Available Not Available Not Avai lable atorvastati n 40 mg tablet TAKE 1 TABLET BY MOUTH ONCE DAILY active Not Available Not Available No t Available metformin 500 mg tablet TAKE 1/2 (ONE-HALF ) TABLET BY MOUTH TWICE DAILY WITH MEALS active Not Available Not Available No t Available ipratropium 0.5 mg-albutero l 3 mg (2.5 mg base)/3 mL nebulizatio n soln USE 3 ML IN NEBULIZER EVERY 6 HOURS NEEDED active Not Available Not Available No t Available albuterol sulfate 2.5 mg/3 mL (0.083 %) solution for nebulizatio n Inhale 3 mL by nebulizat ion route for 1 day. 2022 active Not Available Not Available Not Avai labrui triazolam 0.25 mg tablet TAKE 1 TABLET 60 MINUTES PRIOR TO DENTAL VISIT 02/01 completed Not Available Not Available Not Available cetirizine 10 mg tablet TAKE 1 TABLET BY MOUTH ONCE DAILY active Not Available Not Available No t Available hydrocodone 5 mg-acetamin ophen 325 mg tablet TAKE 1 TABLET BY MOUTH EVERY 6 HOURS NEEDED FOR PAIN 02/01 completed Not Available Not Available Not Available prednisone 20 mg tablet TAKE 1 TABLET BY MOUTH ONCE DAILY WITH BREAKFAST 02/01 completed Not Available Not Available Not Available atenolol 25 mg tablet TAKE 1 TABLET BY MOUTH EVERY DAY active Not Available Not Available No t Available Accu-Chek Softclix Lancets 02/01 completed Not Available Not Available Not Available tramadol 50 mg tablet TAKE 1 TABLET BY MOUTH EVERY 4 TO 6 HOURS NEEDED active Not Available Not Available No t Available amlodipine 10 mg tablet TAKE 1 TABLET BY MOUTH ONCE DAILY active Not Available Not Available No t Available lidocaine 5 % topical patch PLACE 1 PATCH TOPICALLY ONCE DAILY. REMOVE AND DISCARD PATCH WITHIN 12 HOURS OR DIRECTED BY DOCTOR active Not Available Not Available No t Available ibuprofen 400 mg tablet TAKE 1 TABLET BY MOUTH EVERY 8 HOURS NEEDED FOR PAIN 02/01 completed Not Available Not Available Not Available omeprazole 20 mg capsule,del ayed release TAKE 1 CAPSULE BY MOUTH ONCE DAILY active Not Available Not Available No t Available hydrochloro thiazide 25 mg tablet TAKE 1 TABLET BY MOUTH ONCE DAILY active Not Available Not Available No t Available albuterol 90 mcg/actuati on aerosol inhaler active Not Available Not Available Not Available ergocalcife rol (vitamin D2) 1,250 mcg (50,000 unit) capsule TAKE 1 CAPSULE BY MOUTH ONCE A WEEK active Not Available Not Available No t Available losartan 100 mg tablet TAKE 1 TABLET BY MOUTH ONCE DAILY active Not Available Not Available No t Available aspirin active Not Available Not Avail able Not Available Flonase active Not Available Not Avail able Not Available lorazepam active Not Available Not Sharon ilable Not Available Jardiance 25 mg tablet TAKE 1/2 (ONE-HALF ) TABLET BY MOUTH ONCE DAILY active Not Available Not Available No t Available Vitals Date Recorded Body height Body mass index (BMI) Body weight Pain severity - 0-10 verbal numeric rating [Score] - Reported Respiratory rate Oxygen saturation Oxygen saturation in Arterial blood by Pulse oximetry Heart rate Body temperature Systolic blood pressure Diastolic blood pressure Provider Name and Address Organization Details Last Updated DateTime 3 160.02 cm 38.4 kg/m2 94195.5 4 g 8 20 /min 95 % 95 % 78 /min 98.6 [degF] 148 mm[Hg] 71 mm[Hg] JENNIFER HANCOCK [facility] 3 10:52:07 Date Recorded Body height Body mass index (BMI) Body weight Respiratory rate Pain severity - 0-10 verbal numeric rating [Score] - Reported Body temperature Oxygen saturation Oxygen saturation in Arterial blood by Pulse oximetry Heart rate Systolic blood pressure Diastolic blood pressure Provider Name and Address Organization Details Last Updated DateTime 4 160.02 cm 38.4 kg/m2 07590.5 4 g 18 /min 0 97.3 [degF] 95 % 95 % 58 /min 121 mm[Hg] 64 mm[Hg] ANDRES MERCADO PA [facility] 4 12:00:46 Social History Question Answer Notes LastModified by Organizat ion Details LastModified Time Tobacco Smoking Status Former Smoker JENNIFER hodgson PA - [facility] 02/01/2023 10:49:58 What Is Your Level Of Alcohol Consumption? None [email or web address] Information not available 02/01/2023 When Did You Quit Smoking? 6-10yearssi [email or web address] rette [email or web address] Information not available 02/01/2023 Do You Use Any Illicit Or Recreational Drugs? No [email or web address] Information not available 02/01/2023 Have You Recently Traveled Abroad? No [email or web address] Information not available 02/01/2023 Do You Or Have You Ever Used Any Other Forms Of Tobacco Or Nicotine? No [email or web address] Information not available 02/01/2023 Sex: Unknown Functional Status None recorded. Mental Status None recorded. Family History Relationship Description Onset Age of this Age Resolved Age Notes LastModified by Organization Details LastModified Time Father No current problems or disability [email or web address] Not available 02/01 10:46:43 Mother No current problems or disability Not available 02/01 10:46:43 Medical History No medical history recorded. Gynecological History Statement/Question Response Date of LMP Obstetrics History GPAL:G 0 P 0 0 0 0 Past Encounters Encounter ID Performer Location Encounter Start Date Encounter Closed Date Diagnosis/Indication Diagnosis SNOMED-CT Code Diagnosis ICD10 Code Diagnosis Note [id number] [place] [address] [address] 02/01/2023 10:29:52 02/01/2023 11:51:00 Dyspnea 618493908 R06.00 Breathing improved with nebulizer. Continue nebulizer treatments at home Community acquired pneumonia 146850224 J18.9 Treatment is antibiotic s as prescribed , inhaler and cough medication as needed, supportive , including, rest, fluids, humidifier , and sometimes cough suppressan ts and/or nasal decongesta nts to help reduce symptoms Please follow up with PCP or Urgent Care in 3-5 days if no improvemen t or if any new symptoms occur that are concerning .Call 911 or go to nearest ER if you develop any shortness of breath, chest pain, severe headache, dizziness, or other concerning symptoms. You are being prescribed a Steroid. You must take this with food. While on a Steroid, you should not take Ibuprofen or any other NSAID because this will cause stomach irritation . You will need to monitor blood sugars closely. Prednisone can cause a temporary rise in blood sugars. Drink plenty of liquids,Do not drink alcohol.Ge t plenty of rest when you go home. If you have trouble sleeping at night, take naps during the day. Go to Emergency room for new or worsening concerning symptoms.I f breathing is: Getting harder, Faster than before, Shallow and you cannot get a deep breathAlso call your provider if you have any of the following: Need to lean forward when sitting to breathe more easilyHave chest pain when you take a deep breathHead aches more often than usualFeel sleepy or confusedFe megan returnsCou ghing up dark mucus or bloodFinge rtips or the skin around your fingernail s is blue If symptoms worsen, return to clinic.If you develop any chest pain, worsening symptoms, worsening shortness of breath, fevers unrelieved with OTC tylenol or ibuprofen go to the nearest emergency room, or call 911. Contact office for any questions. Follow-up with your PCP in 2 weeks for a recheck. If you are not seeing improvemen t within 48-72 hours I would recommend a reevaluati on. Recheck chest xray in 1 month with PCP is recommende d to verify pneumonia has resolved. [id number] TEREZA [place] [address] [facility] [facility] [address] [place] [address] 10/29/2023 11:18:45 10/29/2023 12:17:03 Acute pharyngitis 513539963 J02.9 Based on your Presentati on and Exam,you are being diagnosed with Pharyngiti s. Most likely your sore throat is being caused by a virus, post nasal drip, or silent acid reflux. The following are my other recommenda tions to help with symptoms and is important for this diagnosis: 1. Take Ibuprofen or Tylenol if you do not have any allergies to these medication s. If you take a blood thinner you should not take NSAIDS like Ibuprofen. These medication will help with the inflammati on in your respirator y tract which should help the cough. (I would alternate between Tylenol 650 mg and your Ibuprofen 600 mg every 4 hours)2. Steroid nasal sprays like Flonase or Nasonex (or generic) can help with postnasal drainage2. Do not take any Cold Medication s that have a Decongesta nt in it - this will dry out your throat and make the sore throat worse.3. Drinking Hot Tea with honey can help coat and soothe your throat. I would be seen again if you develop any of the following symptoms.1 . Fever > 101.02. Stiff neck - where you can't turn your neck3. Trouble swallowing your saliva - drooling4. Swelling of a lymph node in your throat that is painful to touch5. Difficulty breathing6 . Severe Headache Thank you for using [facility] today, please feel free to contact our office if you have any questions or concerns. Health Concerns Section Related Observation LastModified by Organization Detai ls LastModified Time None Recorded Concern Status LastModified by Organization Details LastModified Time None Recorded Advance Directives Directive None Recorded Payers Encounter Date Sequence Insurance Name Policy Number Policy Giraldo Covered Member ID Giraldo Member ID Guarantor Name 02/01/2023 1 [facility] [id number] Cecy Fuentess [id number] [place] 10/29/2023 1 [facility] ([facility] [id number] Cecy Fuentess [id number] Cecy Fuentess Notes Date Note Type Note Provider Name and Address Organization Details Recorded Time 3 text/html CoughReported bypatient.source of patient informationInformation obtained from patient; Patient arrived at Urgent Care ambulatory Severity:worsening; moderate Duration:constant Timing:worsening Context:Patient denies vaping; non-smoker Associated Symptoms:no fever; no chills; no chest pain; no heartburn; no nausea; no vomiting; no edema; no agitation; no wheezing; no post nasal drip Mary Ann Salazar MD Count [facility] [place], [address], [place] - [facility] 02/03/2023 12:04:54 4 text/html Sore throatReported bypatient.Source of patient informationInformation obtained from patient; Patient arrived at Urgent Care ambulatory; learning styles: auditory Location:throat Severity:moderate Quality:sharp; burning; hurts to swallow Onset/Timin days Associated Symptoms:no cough; no sputum production; no shortness of breath; no wheezing; no vomiting; no nausea; No hoarseness;sore throat;nasal congestion;sinus pain/ congestion Context:no sick contacts; no foreign travel; non-smoker TEREZA Cummins [address] [place], [address], [place] - [facility] 10/29/2023 12:14:38 OBGyn Episode No OBEpisode recorded.
== END 2024-10-14 09:40 | disposition home or self-care (01) ==
PROVIDERS: PCP Internal Medicine; Visit Provider Physician Assistant
DX: J22 Unspecified acute lower respiratory infection (principal); B97.89 Other viral agents as the cause of diseases classified elsewhere

== ENCOUNTER 2024-10-14 08:56 | Outpatient (REF) | payer MEDICARE, SELFPAY ==
--- OUTSIDE RECORDS SUMMARY | 2024-10-14 09:52 | XMS_ITS | Clinical Summary ---
Author Organization [facility] Address [address] [place] [phone] Phone Care Team Providers Care Portrait Painter Name Role Phone Veronica Verduzco MD Primary [...] 01/20/2019 Obstructive sleep apnea 01/03/2019 Overview (06/13/2024): [facility] Home Polysomnogram: Date 01/01/2019; Wt 215#; BMI 38; RENETTA 32, AI 14; HI 18; Unclassified apneas 0; Obstructive apneas 61; Central apneas 16; Mixed apneas 0; hypopneas 97; average oxygen saturation 89% (lowest 67% with saturations <88% for 5% or more of study) [facility] Sleep Center Polysomnogram treatment study. Date 05/10/2019. [...] Team Description 10/08/2024 Nurse Triage Adult Medicine [address] [phone] Veronica Wheeler MD [place] 09/24/2024 1:00 PM EST Office Visit Orthopedics [address] [phone] Carlos Vargas PA Right knee pain, unspecified chronicity (Primary Dx) 09/09/2024 Telephone Adult Medicine [address] [phone] Veronica Wheeler MD Prior Authorization from Last [...] Date Site/Laterality Comments OTHER SURGICAL HISTORY PROCEDURE: OR UNLISTED PROCEDURE INNER EAR BREAST REDUCTION PROCEDURE: OR BREAST REDUCTION OTHER SURGICAL HISTORY PROCEDURE: TEMPORAL [...] kidney disease) stage 3, GFR 30-59 ml/min ([facility]/HCC) DX:CKD (chronic kidney dise ase) stage 3, GFR 30-59 ml/min ([facility]) Complication of intrauterine device (CMS/HCC) 06/18/2013 DX:Complication of intrauter ine device ([facility]); COMMENT: See visit note of 10/8/13 COPD (chronic obstructive pu lmonary disease) ([facility]) 12/18/2014 DX:COPD (chronic obstructive pulmonary disease) ([facility]) Diabetes mellitus type 2 wit h neurological manifestations ([facility]) 10/06/2015 DX:Diabetes geovanna itus type 2 with neurological manifestations ([facility]) DM (diabetes mellitus), type 2 with renal complications ([facility]) 06/06/2017 DX:DM (diabetes mellitus ), type 2 with renal complications ([facility]) GERD (gastroesophageal reflu x disease) DX:GERD (gastroesophageal [...] available Referred to Pulmnology Asthma-COPD overlap syndrome ([facility]) 12/04/2018 DX:Asthma-COPD overlap syndr ome ([facility]) Chronic idiopathic granuloma tous disease ([facility]) 12/04/2018 DX:Chronic idiopathic granul omatous disease ([facility]) OA (osteoarthritis) of shoulder 07/28/2019 DX:OA (osteoarthritis) of shoulder Obstructive sleep apnea 01/03/2019 DX:Obstr uctive sleep apnea; COMMENT: [facility] Home Polysomnogram: Date 01/01/2019; Wt 215#; BMI 38; RENETTA 32, AI 14; HI 18; Unclassified apneas 0; Obstructive apneas 61; Central apneas 16; Mixed apneas 0; hypopneas 97; average oxygen saturation 89% (lowest 67% with saturations <88% for 5% or more of study) [facility] Sleep Center Polysomnogram treatment study. Date 05/10/2019. [...] t vs stomach ca Alzheimer's disease Mother [place] Other: Esophageal cancer Mother's side Other: Heart [...] PM EST Office Visit Orthopedics - [address] [phone] Carlos Vargas PA [address] [place] [address] 10/24/2024 11:30 AM EST Office Visit Pulmonolgy - [place] [address] [facility] [address] [place] [phone] Giovana Randall NP 175 [facility] [address] [place] [address] 10/30/2024 1:30 PM EST Consult Nephrology - [address] [phone] Toni Arizmendi MD [address] [address] 11/05/2024 12:00 PM EST Office Visit Adult Medicine [address] [phone] Rosas Antoine PA [address] [place] [address] 12/18/2024 8:30 AM EDT Office Visit Adult Medicine [address] [phone] Veronica Verduzco MD [address] [place] [address] 03/06/2025 11:20 AM EDT Appointment Radiology Department - [address] [phone] Health Maintenance Due Date Last Done Comments [...] Maintenance Results * Diabetes Eye Exam (06/20/2024) [facility] Diabetes: Annual Retina Eye Exam abstracted [facility] Provider [facility] * Falls Risk Assessment (06/19/2024) [facility] Falls Risk Assessment abstracted [facility] Provider [facility] * Depression Screening (06/19/2024) [facility] Depression Screening abstracted [facility] Provider [facility] * Diabetes Foot Exam (06/05/2024) [facility] Diabetes: Annual Foot Exam abstracted [facility] Provider [facility] * Urine Albumin Creatinine Ratio (06/04/2024) [facility] Urine Albumin Creatinine Ratio abstracted [facility] Provider [facility] Hemoglobin A1c (06/04/2024) [facility] Hemoglobin A1C 6.1 6.5 % Blood Venous blood specimen / Unknown Historical Provider LAB BLOOD ORDERAB LES * (ABNORMAL) Lipid panel (06/04/2024) [facility] LDL/HDL Ratio 3 0 - 4 Triglycerides [...] bone mineral density by WHO criteria. The [facility] Department of Internal Medicine recommends using National [...] alternative screening schedule based on eunice Mcbride., [facility] September 29, 2011 for patients with [...] bone mineral density by WHO criteria. The [facility] Department of Internal Medicine recommendsusing National Osteoporosis [...] PM EDT Narrative 05/20/2022 5:22 PM EDT [facility] Diagnostic Imaging Department [address] [place] [address] Patient: ??CHEKONIURKA ?/Age/Sex: 1955 - 67 - Unit#: ??[id number] ? Location/Status: ??SPDICATLS/REG CLI ? Mnemonic/Ordering Site: ??[facility]UNGL[facility]/SPCT Ordering Physician: ??NAEEM DELGADO MD CT Lung Screening Low Dose - 05/20/22 - 1609 INDICATION: 33 pack-year smoking history, quit smoking 14 years ago FINDINGS: Low-dose CT scan of the chest obtained as a lung cancer screening study. No prior studies are available for comparison. Scanner: Vhoto speed 64 slice VCT Dose reduction technique: [...] Procedure Note Nicolas Cabrera MD - 08/31/2022 [facility] Diagnostic Imaging Department [address] [place] [address] Patient: NIURKA STILL /Age/Sex: 1955 - 67 - F Unit#: [id number] Location/Status: [facility] Mnemonic/Ordering Site: [facility] Ordering Physician: NAEEM DELGADO MD CT Lung Screening Low Dose - 05/20/22 - 1609 INDICATION: 33 pack-year smoking history, quit smoking 14 years ago FINDINGS: Low-dose CT scan of the chest obtained as a lung cancerscreening study. No prior studies are available for comparison. Scanner: Vhoto speed 64 slice VCT Dose reduction technique: [...] Recently Relevant to Health Maintenance Care Teams Portrait Painter Relationship Specialty Start Date End Date Veronica Verduzco MD [address] [place] [phone] PCP - General Internal Medicine 04/11/22
--- OUTSIDE RECORDS SUMMARY | 2024-10-14 09:52 | XMS_ITS | Encounter Summary ---
Author Organization [facility] Address [address] [place] [address] Care Team Providers Care Form Stripper Name Role Phone Veronica Verduzco MD Primary Care Prov ider Reason for Referral * Orthopedic (Routine) - Authorized Specialty Diagnoses / Procedures Referred By Contac t Referred To Contact Orthopedic Surgery / Orthopaedic Surgery Diagnoses Right knee pain, unspecified chronicity Procedures L Inj/Asp: R knee Carlos Vargas PA [address] [place] [address] Referral ID Status Reason Start Date Expiration Date V isits Requested Visits Authorized [id number] Authorized 09/24/2024 09/24/2025 1 1 Reason for Visit * Reason Comments Pain Follow-up Encounter Details Date Type Department Care Team (Late st Contact Info) Description 09/24/2024 1:00 PM EST Office Visit Orthopedics - [address] [phone] Carlos Vargas PA [address] [place] [phone] Right knee pain, unspecified chronicity (Primary Dx) [...] 1:00 PM EST Office Visit Orthopedics - [address] [phone] Carlos Vargas PA [address] [place] [address] 10/24/2024 11:30 AM EST Office Visit Pulmonolgy - [place] [address] [facility] [address] [place] [phone] Giovana Randall NP 175 [facility] [address] [place] [address] 10/30/2024 1:30 PM EST Consult Nephrology - [address] [phone] Toni Arizmendi MD [address] [facility] [address] [place] [address] 11/05/2024 12:00 PM EST Office Visit Adult Medicine [facility] - [address] [phone] Rosas Antoine PA [address] [place] [address] 12/18/2024 8:30 AM EDT Office Visit Adult Medicine East - [address] [phone] Veronica Verduzco MD [address] [place] [address] 03/06/2025 11:20 AM EDT Appointment Radiology Department - [address] [phone] Pending Results Name Type Priority Associated Diagnoses [...] 05/28/2019 added in this encounter Care Teams Form Stripper Relationship Specialty Start Date End Date Veronica Verduzco MD [address] [place] [address] PCP - General Internal Medicine 04/11/22 documented as of this encounter
--- OUTSIDE RECORDS SUMMARY | 2024-10-14 09:52 | XMS_ITS | Encounter Summary ---
Author Organization [facility] Address [address] [place] [address] Care Team Providers Care Tube Pusher Name Role Phone Veronica Verduzco MD Primary Care Prov ider Reason for Visit * Reason Onset Date Comments Prior Authorization 09/09/2024 Encounter Details Date Type Department Care Team (Late st Contact Info) Description 09/09/2024 Telephone Adult Medicine [facility] [address] [place] [phone] Veronica Verduzco MD [address] [place] [address] Prior Authorization Social History Tobacco Use Types [...] from 07/02/24 until 09/30/25 Approval faxed to [facility] pharmacy [phone] * Rozina Fitzpatrick MA - 09/30/2024 8:14 AM EST Yes it would be. Thank you Fina Prior authorization completed today on [facility] for lidocaine patch. Dx diabetic neuropathy * [...] Hot Thank you Please reply back to [facility] (Prior Auth [place]) Rozina Zendejas [facility] Prior Authorization Ext [phone] * Tamra Faye Carson - 09/09/2024 2:39 PM EST Prior Authorization for Medication-do not complete and send this encounter unless you have the fax from the pharmacy. Is this a Cover My Meds request: Yes -- Elizabeth Code [id number] Name of Medication lidocaine (LIDODERM) 5 % patch Dose of Medication What is the RX # from the faxed refill? How does patient take this med? Place 1 patch on the skin every 24 hours. Apply for no more than 12 hours in any 24 hour period. What Pharmacy did the fax come from: [facility] MARC LOGAN - [address] [facility] [address] [facility] [address] Pharmacy fax #: [phone] Third [employer] Information from fax: What Prescription Plan does the patient have? Payor: MEDICARE / Plan: MEDICARE PART A & B / Product Type: Medicare / BIN/PCN if applicable: Cardholder ID: Person Code: Relationship Code: Help desk phone: documented in this encounter Plan of Treatment Upcoming Encounters Date Type Department Care Team (Late st Contact Info) Description 10/22/2024 1:00 PM EST Office Visit Orthopedics - [address] [phone] Carlos Vargas PA [address] [place] [address] 10/24/2024 11:30 AM EST Office Visit Pulmonolgy [facility] [address] [facility] [address] [place] [phone] Giovana Randall NP [address] [address] 10/30/2024 1:30 PM EST Consult Nephrology - [address] [phone] Toni Arizmendi MD [address] [phone] 11/05/2024 12:00 PM EST Office Visit Adult Medicine [address] [phone] Rosas Antoine PA [address] [place] [address] 12/18/2024 8:30 AM EDT Office Visit Adult Medicine [address] [phone] Veronica Verduzco MD [address] [place] [address] 03/06/2025 11:20 AM EDT Appointment Radiology Department - [address] [phone] documented as of this encounter Visit Diagnoses Not on filedocumented in this encounter Care Teams Tube Pusher Relationship Specialty Start Date End Date Veronica Verduzco MD [address] [place] [address] PCP - General Internal Medicine 04/11/22 documented as of this encounter
--- OUTSIDE RECORDS SUMMARY | 2024-10-14 09:53 | XMS_ITS | Encounter Summary ---
Author Organization [employer] Address [address] [place] [address] Care Team Providers Care Assistant Manager Airside Operations Name Role Phone Veronica Verduzco MD Primary Care Prov ider Reason for Visit * Reason Onset Date Comments [place] 10/08/2024 Encounter Details Date Type Department Care Team (Late st Contact Info) Description 10/08/2024 Nurse Triage Adult Medicine [facility] [address] [place] [address] Veronica Verduzco MD [address] [place] [phone] Ch[place] Social History Tobacco Use Types Packs/Day [...] exposures) no Protocols used: Cough - Acute Dvlardxzfa-I-MG * Luisa Chavez - 10/08/2024 9:19 AM EST Patient call requires triage: Symptoms patient is presenting: patient is calling stating yesterday 10/07/2024 that patients valdo went to [facility] and tested positive for influ A. [...] traveled recently to another state outside of [place], [place], [place], [place], [place], [place], [place]? no o If yes, did you quarantine [...] of accident/Injury: No If yes, gather 3rd alliance party insurance information Third Republican Information: not applicable PCP: Veronica Howard MD Payor: MEDICARE / Plan: MEDICARE PART A & B / Product Type: Medicare / documented in this encounter Plan of Treatment Upcoming Encounters Date Type Department Care Team (Late st Contact Info) Description 10/22/2024 1:00 PM EST Office Visit Orthopedics - [place] [address] [place] [phone] Carlos Vargas PA [address] [place] [address] 10/24/2024 11:30 AM EST Office Visit Pulmonolgy - [place] [address] [place] [address] Giovana Randall NP [address] [place] [address] 10/30/2024 1:30 PM EST Consult Nephrology [address] [phone] Toni Arizmendi MD [address] [facility] [address] [place] [address] 11/05/2024 12:00 PM EST Office Visit Adult Medicine [address] [phone] Rosas Antoine PA [address] [place] [address] 12/18/2024 8:30 AM EDT Office Visit Adult Medicine [address] [phone] Veronica Verduzco MD [address] [place] [address] 03/06/2025 11:20 AM EDT Appointment Radiology Department [address] [phone] documented as of this encounter Visit Diagnoses Not on filedocumented in this encounter Care Teams Assistant Manager Airside Operations Relationship Specialty Start Date End Date Veronica Verduzco MD [address] [place] [address] PCP - General Internal Medicine 04/11/22 documented as of this encounter
== END 2024-10-14 08:57 | disposition home or self-care (01) ==
LOC: HO.LAB 08:56
PROVIDERS: PCP Internal Medicine; Visit Provider Physician Assistant
DX: J22 Unspecified acute lower respiratory infection (principal); B97.89 Other viral agents as the cause of diseases classified elsewhere
CPT/HCPCS: 0241U; 99202

== ENCOUNTER 2024-10-14 08:56 | Outpatient (REF) | payer MEDICARE, SELFPAY ==
--- OUTSIDE RECORDS SUMMARY | 2024-10-14 11:14 | XMS_ITS | Clinical Summary ---
Author Organization [facility] Address [address] [place] [phone] Phone Care Team Providers Care Final Armature Tester Name Role Phone Veronica Verduzco MD Primary [...] 01/20/2019 Obstructive sleep apnea 01/03/2019 Overview (06/13/2024): [facility] Home Polysomnogram: Date 01/01/2019; Wt 215#; BMI 38; RENETTA 32, AI 14; HI 18; Unclassified apneas 0; Obstructive apneas 61; Central apneas 16; Mixed apneas 0; hypopneas 97; average oxygen saturation 89% (lowest 67% with saturations <88% for 5% or more of study) [facility] Polysomnogram treatment study. Date 05/10/2019. [...] Team Description 10/08/2024 Nurse Triage Adult Medicine [address] [phone] Veronica Wheeler MD [place] 09/24/2024 1:00 PM EST Office Visit Orthopedics [address] [phone] Carlos Vargas PA Right knee pain, unspecified chronicity (Primary Dx) 09/09/2024 Telephone Adult Medicine [address] [phone] Veronica Wheeler MD Prior Authorization from Last [...] Date Site/Laterality Comments OTHER SURGICAL HISTORY PROCEDURE: ND UNLISTED PROCEDURE INNER EAR BREAST REDUCTION PROCEDURE: ND BREAST REDUCTION OTHER SURGICAL HISTORY PROCEDURE: TEMPORAL [...] kidney disease) stage 3, GFR 30-59 ml/min ([facility]/HCC) DX:CKD (chronic kidney dise ase) stage 3, GFR 30-59 ml/min ([facility]) Complication of intrauterine device (CMS/HCC) 06/18/2013 DX:Complication of intrauter ine device ([facility]); COMMENT: See visit note of 10/8/13 COPD (chronic obstructive pu lmonary disease) ([facility]) 12/18/2014 DX:COPD (chronic obstructive pulmonary disease) ([facility]) Diabetes mellitus type 2 wit h neurological manifestations ([facility]) 10/06/2015 DX:Diabetes geovanna itus type 2 with neurological manifestations ([facility]) DM (diabetes mellitus), type 2 with renal complications ([facility]) 06/06/2017 DX:DM (diabetes mellitus ), type 2 with renal complications ([facility]) GERD (gastroesophageal reflu x disease) DX:GERD (gastroesophageal [...] available Referred to Pulmnology Asthma-COPD overlap syndrome ([facility]) 12/04/2018 DX:Asthma-COPD overlap syndr ome ([facility]) Chronic idiopathic granuloma tous disease ([facility]) 12/04/2018 DX:Chronic idiopathic granul omatous disease ([facility]) OA (osteoarthritis) of shoulder 07/28/2019 DX:OA (osteoarthritis) of shoulder Obstructive sleep apnea 01/03/2019 DX:Obstr uctive sleep apnea; COMMENT: [facility] Polysomnogram: Date 01/01/2019; Wt 215#; BMI 38; RENETTA 32, AI 14; HI 18; Unclassified apneas 0; Obstructive apneas 61; Central apneas 16; Mixed apneas 0; hypopneas 97; average oxygen saturation 89% (lowest 67% with saturations <88% for 5% or more of study) [facility] Polysomnogram treatment study. Date 05/10/2019. [...] t vs stomach ca Alzheimer's disease Mother [place] Other: Esophageal cancer Mother's side Other: Heart [...] 1:00 PM EST Office Visit Orthopedics - [address] [phone] Carlos Vargas PA [address] [place] [address] 10/24/2024 11:30 AM EST Office Visit Pulmonolgy - [place] [address] [facility] [address] [place] [phone] Giovana Randall NP 175 [facility] [address] [place] [address] 10/30/2024 1:30 PM EST Consult Nephrology - [address] [phone] Toni Arizmendi MD [address] [phone] 11/05/2024 12:00 PM EST Office Visit Adult Medicine [address] [phone] Rosas Antoine PA [address] [place] [address] 12/18/2024 8:30 AM EDT Office Visit Adult Medicine [address] [phone] Veronica Verduzco MD [address] [place] [address] 03/06/2025 11:20 AM EDT Appointment Radiology Department - [address] [phone] Health Maintenance Due Date Last Done Comments [...] Maintenance Results * Diabetes Eye Exam (06/20/2024) [facility] Diabetes: Annual Retina Eye Exam abstracted [facility] Provider [facility] * Falls Risk Assessment (06/19/2024) [facility] Falls Risk Assessment abstracted [facility] Provider [facility] * Depression Screening (06/19/2024) [facility] Depression Screening abstracted [facility] Provider [facility] * Diabetes Foot Exam (06/05/2024) [facility] Diabetes: Annual Foot Exam abstracted [facility] Provider [facility] * Urine Albumin Creatinine Ratio (06/04/2024) [facility] Urine Albumin Creatinine Ratio abstracted [facility] Provider [facility] Hemoglobin A1c (06/04/2024) [facility] Hemoglobin A1C 6.1 6.5 % Blood Venous blood specimen / Unknown Historical Provider LAB BLOOD ORDERAB LES * (ABNORMAL) Lipid panel (06/04/2024) [facility] LDL/HDL Ratio 3 0 - 4 [...] bone mineral density by WHO criteria. The [facility] Department of Internal Medicine recommends using National [...] alternative screening schedule based on eunice Mcbride., [facility] September 29, 2011 for patients with osteopenia [...] bone mineral density by WHO criteria. [facility] Department of Internal Medicine recommendsusing National Osteoporosis [...] PM EDT Narrative 05/20/2022 5:[address] [facility] Diagnostic Imaging Department [address] [place] [address] Patient: ??CHEKONIURKA ?/Age/Sex: 1955 - 67 - Unit#: ??[id number] ? Location/Status: ??SPDICATLS/REG CLI ? Mnemonic/Ordering Site: ??CTLUNGLD/SPCT Ordering Physician: ??NAEEM DELGADO MD CT Lung Screening Low Dose - 05/20/22 - 1609 INDICATION: 33 pack-year smoking history, quit smoking 14 years ago FINDINGS: Low-dose CT scan of the chest obtained as a lung cancer screening study. No prior studies are available for comparison. Scanner: [employer] speed 64 slice VCT Dose reduction technique: [...] Procedure Note Nicolas Cabrera MD - 08/31/2022 [facility] Diagnostic Imaging Department [address] [place] [address] Patient: NIURKA STILL /Age/Sex: 1955 - 67 - F Unit#: [id number] [facility] Mnemonic/Ordering Site: [facility] Ordering Physician: NAEEM DELGADO MD CT Lung Screening Low Dose - 05/20/22 - 1609 INDICATION: 33 pack-year smoking history, quit smoking 14 years ago FINDINGS: Low-dose CT scan of the chest obtained as a lung cancerscreening study. No prior studies are available for comparison. Scanner: [employer] speed 64 slice VCT Dose reduction technique: [...] Physician: NICOLAS CABRERA MD Electronically Signed by: NCIOLAS CABRERA MD Dic Date/Time: 05/20/221716 Sign date/Time: 05/20/22 172 Naeem Delgado MD IMG CT PROCEDURES * Colonoscopy (03/01/2021) Colonoscopy no interpretation , abstracted Anatomical Region Laterality Modality Other Historical Provider MD WILLIAMS Telles * Hepatitis C Screening (12/04/2013) Hepatitis C Screening abstracted Historical Provider MD WILLIAMS Telles from Last 3 Months or Most Recently Relevant to Health Maintenance Care Teams Final Armature Tester Relationship Specialty Start Date End Date Veronica Verduzco MD [address] [place] [phone] PCP - General Internal Medicine 04/11/22
--- OUTSIDE RECORDS SUMMARY | 2024-10-14 11:14 | XMS_ITS | Encounter Summary ---
Author Organization [employer] Address [address] [place] [address] Care Team Providers Care Geophysical Manager Name Role Phone Veronica Verduzco MD Primary Care Prov ider Reason for Visit * Reason Onset Date Comments Prior Authorization 09/09/2024 Encounter Details Date Type Department Care Team (Late st Contact Info) Description 09/09/2024 Telephone Adult Medicine [facility] [address] [place] [phone] Veronica Verduzco MD [address] [place] [address] Prior Authorization Social History Tobacco Use Types [...] from 07/02/24 until 09/30/25 Approval faxed to [facility] pharmacy [phone] * Rozina Fitzpatrcik MA - 09/30/2024 8:14 AM EST Yes it would be. Thank you Fina Prior authorization completed today on [facility] for lidocaine patch. Dx diabetic neuropathy * [...] to [facility] (Prior Auth [place]) Rozina Zendejas [facility] Prior Authorization Ext [id number] * Tamra Faye Carson - 09/09/2024 2:39 PM EST Prior Authorization for Medication-do not complete and send this encounter unless you have the fax from the pharmacy. Is this a Cover My Meds request: Yes -- Elizabeth Code [id number] Name of Medication lidocaine (LIDODERM) 5 % patch Dose of Medication What is the RX # from the faxed refill? How does patient take this med? Place 1 patch on the skin every 24 hours. Apply for no more than 12 hours in any 24 hour period. What Pharmacy did the fax come from: [facility] - [address] [facility] [address] [facility] [address] Pharmacy fax #: [phone] Third Constitution Party Information from fax: What [...] 1:00 PM EST Office Visit Orthopedics - [address] [phone] Carlos Vargas PA [address] [place] [address] 10/24/2024 11:30 AM EST Office Visit Pulmonolgy [facility] 175 [facility] [address] [place] [phone] Giovana Randall NP [address] [address] 10/30/2024 1:30 PM EST Consult Nephrology - [address] [phone] Toni Arizmendi MD [address] [address] 11/05/2024 12:00 PM EST Office Visit Adult Medicine [address] [phone] Rosas Antoine PA [address] [place] [address] 12/18/2024 8:30 AM EDT Office Visit Adult Medicine [address] [phone] Veronica Verduzco MD [address] [place] [address] 03/06/2025 11:20 AM EDT Appointment Radiology Department - [address] [phone] documented as of this encounter Visit Diagnoses Not on filedocumented in this encounter Care Teams Geophysical Manager Relationship Specialty Start Date End Date Veronica Verduzco MD [address] [place] [address] PCP - General Internal Medicine 04/11/22 documented as of this encounter
--- OUTSIDE RECORDS SUMMARY | 2024-10-14 11:14 | XMS_ITS | Encounter Summary ---
Author Organization [employer] Address [address] [place] [address] Care Team Providers Care Lock Installer Name Role Phone Veronica Verduzco MD Primary Care Prov ider Reason for Referral * Orthopedic (Routine) - Authorized Specialty Diagnoses / Procedures Referred By Contac t Referred To Contact Orthopedic Surgery / Orthopaedic Surgery Diagnoses Right knee pain, unspecified chronicity Procedures L Inj/Asp: R knee Carlos Vargas PA 4 [place] [address] Referral ID Status Reason Start Date Expiration Date V isits Requested Visits Authorized [id number] Authorized 09/24/2024 09/24/2025 1 1 Reason for Visit * Reason Comments Pain Follow-up Encounter Details Date Type Department Care Team (Late st Contact Info) Description 09/24/2024 1:00 PM EST Office Visit Orthopedics - [address] [phone] Carlos Vargas PA [address] [place] [phone] Right knee pain, unspecified chronicity (Primary Dx) [...] 1:00 PM EST Office Visit Orthopedics - [address] [phone] Carlos Vargas PA [address] [place] [address] 10/24/2024 11:30 AM EST Office Visit Pulmonolgy - [place] [address] [facility] [address] [place] [phone] Giovana Randall NP 175 [facility] [address] [place] [address] 10/30/2024 1:30 PM EST Consult Nephrology - [address] [phone] Toni Arizmendi MD [address] [facility] 200 [place] [address] 11/05/2024 12:00 PM EST Office Visit Adult Medicine East - [address] [phone] Rosas Antoine PA [address] [place] [address] 12/18/2024 8:30 AM EDT Office Visit Adult Medicine East - [address] [phone] Veronica Verduzco MD [address] [place] [address] 03/06/2025 11:20 AM EDT Appointment Radiology Department - [address] [phone] Pending Results Name Type Priority Associated Diagnoses [...] 05/28/2019 added in this encounter Care Teams Lock Installer Relationship Specialty Start Date End Date Veronica Verduzco MD [address] [place] [phone] PCP - General Internal Medicine 04/11/22 documented as of this encounter
--- OUTSIDE RECORDS SUMMARY | 2024-10-14 11:14 | XMS_ITS | Encounter Summary ---
Author Organization [employer] Address [address] [place] [address] Care Team Providers Care Veneer Gluer Name Role Phone Veronica Verduzco MD Primary Care Prov ider Reason for Visit * Reason Onset Date Comments Chills 10/08/2024 Encounter Details Date Type Department Care Team (Late st Contact Info) Description 10/08/2024 Nurse Triage Adult Medicine [facility] [address] [place] [address] Veronica Verduzco MD [address] [place] [phone] Chills Social History Tobacco Use Types Packs/Day [...] exposures) no Protocols used: Cough - Acute Gqxjknvlmu-L-HN * Luisa Chavez - 10/08/2024 9:19 AM EST Patient call requires triage: Symptoms patient is presenting: patient is calling stating yesterday 10/07/2024 that patients valdo went to [facility] and tested positive for influ A. Patient [...] traveled recently to another state outside of [place], [place], [place], [place], [place], [place], [place]? no o If yes, did you [...] gather 3rd constitution party insurance information Third Green Party Information: not applicable PCP: Veronica Howard MD Payor: MEDICARE / Plan: MEDICARE PART A & B / Product Type: Medicare / documented in this encounter Plan of Treatment Upcoming Encounters Date Type Department Care Team (Late st Contact Info) Description 10/22/2024 1:00 PM EST Office Visit Orthopedics - [place] [address] [place] [phone] Carlos Vargas PA [address] [place] [address] 10/24/2024 11:30 AM EST Office Visit Pulmonolgy - [place] [address] [place] [address] Giovana Randall NP [address] [place] [address] 10/30/2024 1:30 PM EST Consult Nephrology [address] [phone] Toni Arizmendi MD [address] [facility] 200 [place] [address] 11/05/2024 12:00 PM EST Office Visit Adult Medicine [address] [phone] Rosas Antoine PA [address] [place] [address] 12/18/2024 8:30 AM EDT Office Visit Adult Medicine [address] [phone] Veronica Verduzco MD [address] [place] [address] 03/06/2025 11:20 AM EDT Appointment Radiology Department [address] [phone] documented as of this encounter Visit Diagnoses Not on filedocumented in this encounter Care Teams Veneer Gluer Relationship Specialty Start Date End Date Veronica Verduzco MD [address] [place] [address] PCP - General Internal Medicine 04/11/22 documented as of this encounter
[2024-10-14 11:27] LABS: Influenza A PCR NEGATIVE (Negative); Influenza B PCR NEGATIVE (Negative); Resp Syncy Virus RNA Qual PCR NEGATIVE (Negative); SARS COV2 PCR INHOUSE NEGATIVE (Negative)
== END 2024-10-14 08:57 | disposition home or self-care (01) ==
LOC: HO.LNP 08:56
PROVIDERS: Visit Provider Physician Assistant
DX: Z13.89 Encounter for screening for other disorder (principal)
CPT/HCPCS: 0241U

== ENCOUNTER 2024-10-18 10:39 | Outpatient (REF) | payer MEDICARE, SELFPAY ==
--- NOTE | ~2024-10-18 | XR_ITS ---
EXAMINATION: XR CHEST 2 VIEWS HISTORY: R05.9 - Cough, unspecified COMPARISON: Comparison is made with the prior examination dated 05/29/2014. FINDINGS: PA and lateral views of the chest are submitted. Again seen is a calcified granuloma in the left lower lung zone. The lungs are otherwise clear. There is no pleural effusion, pneumothorax, or pulmonary vascular congestion. The heart is normal in size. There is degenerative disc disease of the spine. XR/XR chest 2V IMPRESSION: No acute cardiopulmonary abnormality. Electronically signed by: Jair Russell MD 10/18/2024 11:11 AM EST
--- OUTSIDE RECORDS SUMMARY | 2024-10-18 11:58 | XMS_ITS | Data Portability ---
Author Organization [place] [facility], , [facility] Address [address] [place] [address] Assessment Encounter Date Assessment Date Assessment LastModified [...] PLEASE CONTACT PT TO SCHEDULE 2012 013 [facility], [address] [facility], [address], [place], [address], 3 03:53:17 Procedures None recorded. Surgeries None recorded. Imaging mammogram, screening - routine 2011 012 [facility], [address] [place] [address], [address], 3 03:42:53 electrocard iogram 2011 012 [facility], [address] [place] [address], [address], 3 03:42:53 Medication Orders prednisone 20 mg tablet 2011 012 [facility] [address], [address] [place] [address], [address], 3 03:40:49 Levaquin 500 mg tablet 2011 012 [facility], [address] [place], [address], 3 03:39:39 atorvastati n 20 mg tablet 2011 012 [facility] [address], [address] [place], [address], 3 03:44:57 Flonase 50 mcg/actuati on nasal spray,suspe nsion 2012 013 [facility] [address], [address] [place], [address], 3 03:53:17 Patient TargetsNo targets recorded. Patient Instructions Encounter Date Encounter Id Patient Instructions Last Modified By Organization Details Last Modified Time 06/13/2012 [id number] My Health To Do List lpolidoro Not available 06/13/2012 15:05:24 06/26/2012 [id number] cough: care instructions BLADE Not available 04/06/2013 03:38:50 high blood pressure: care instructions BLADE Not available 04/06/2013 03:39:39 07/12/2012 [id number] hyperlipidemia: after your visit BLADE Not available [...] time*}} hayden Not available 07/12/2012 16:24:57 09/21/2012 [id number] fatigue: care instructions BLADE Not available 04/06/2013 [...] diana. flippe d T latera lly as mentmadi johnny on ETT '11. d/w Midler / Not Available [address], [address], 07/12/2012 15:34:01 04/20/20 12 04/20/2012 urina lysis , dipst ick Glucose Negati ve Not Available [address], [address], 04/20/2012 14:33:58 04/20/20 12 04/20/2012 urina lysis , dipst ick Bilirubin Negati ve Not Available [address], [address], 04/20/2012 14:33:58 04/20/20 12 04/20/2012 urina lysis , dipst ick Ketone Negati ve Not Available [address], [address], 04/20/2012 14:33:58 04/20/20 12 04/20/2012 urina lysis , dipst ick Specific [place] 1.030 Not Available [address], [address], 04/20/2012 14:33:58 04/20/20 12 04/20/2012 urina lysis , dipst ick Blood Trace Not Available [address], [address], 04/20/2012 14:33:58 04/20/20 12 04/20/2012 urina lysis , dipst ick pH 5.5 Not Available [address], [address], 04/20/2012 14:33:58 04/20/20 12 04/20/2012 urina lysis , dipst ick Protein Negati ve Not Available [address], [address], 04/20/2012 14:33:58 04/20/20 12 04/20/2012 urina lysis , dipst ick Urobilinogen .2 Not Available [address], [address], 04/20/2012 14:33:58 04/20/20 12 04/20/2012 urina lysis , dipst ick Nitrite negati ve Not Available [address], [address], 04/20/2012 14:33:58 04/20/20 12 04/20/2012 urina lysis , dipst ick Leukocytes Negati ve Not Available [address], [address], 04/20/2012 14:33:58 06/05/20 12 06/05/2012 CBC WBC 6.8 K/? ? ?L 4.0-10 .0 Not Available [address], [address], 06/05/2012 15:11:32 06/05/20 12 06/05/2012 CBC RBC 3.99 M/? ? ?L 3.93-5 .22 Not Available [address], [address], 06/05/2012 15:11:32 06/05/20 12 06/05/2012 CBC HGB 13.4 g/dL 11.2-1 5.7 Not Available [address], [address], 06/05/2012 15:11:32 06/05/20 12 06/05/2012 CBC HCT 38.0 % 34.1-4 4.9 Not Available [address], [address], 06/05/2012 15:11:32 06/05/20 12 06/05/2012 CBC MCV 95.2 ? ? ?L 79.4-9 4.8 high Not Available [address], [address], 06/05/2012 15:11:32 06/05/20 12 06/05/2012 CBC MCH 33.6 pg 25.6-3 2.2 high Not Available [address], [address], 06/05/2012 15:11:32 06/05/20 12 06/05/2012 CBC MCHC 35.3 g/dL 32.2-3 5.5 Not Available [address], [address], 06/05/2012 15:11:32 06/05/20 12 06/05/2012 CBC plt 304.0 K/? ? ?L 182.0- 369.0 Not Available [address], [address], 06/05/2012 15:11:32 06/05/20 12 06/05/2012 CBC MPV 11.6 9.4-12 .3 Not Available [address], [address], 06/05/2012 15:11:32 06/05/20 12 06/05/2012 CBC neut% 67.5 % 34.0-7 1.1 Not Available [address], [address], 06/05/2012 15:11:32 06/05/20 12 06/05/2012 CBC neut# 4.6 1.6-6. 1 Not Available [address], [address], 06/05/2012 15:11:32 06/05/20 12 06/05/2012 CBC lymph % 25.1 % 19.3-5 1.7 Not Available [address], [address], 06/05/2012 15:11:32 06/05/20 12 06/05/2012 CBC lymph # 1.7 K/? ? ?L 1.2-3. 7 Not Available [address], [address], 06/05/2012 15:11:32 06/05/20 12 06/05/2012 CBC mono% 5.6 % 4.7-12 .5 Not Available [address], [address], 06/05/2012 15:11:32 06/05/20 12 06/05/2012 CBC mono# 0.4 0.2-0. 4 high Not Available [address], [address], 06/05/2012 15:11:32 06/05/20 12 06/05/2012 CBC eo% 1.2 % 0.7-5. 8 Not Available [address], [address], 06/05/2012 15:11:32 06/05/20 12 06/05/2012 CBC eo# 0.1 0.0-0. 4 Not Available [address], [address], 06/05/2012 15:11:32 06/05/20 12 06/05/2012 CBC baso% 0.6 % 0.1-1. 2 Not Available [address], [address], 06/05/2012 15:11:32 06/05/20 12 06/05/2012 CBC baso# 0.0 0.0-0. 1 low Not Available [address], [address], 06/05/2012 15:11:32 06/05/20 12 06/05/2012 CBC RDW-CV 12.7 % 11.7-1 4.4 Not Available [address], [address], 06/05/2012 15:11:32 06/05/20 12 06/05/2012 lipid panel cholesterol 279 mg/dL <200 mg/dL jerod able 200-2 39 mg/dL borde rline high >240 mg/dL high Not Available [address], [address], 06/05/2012 15:23:34 06/05/20 12 06/05/2012 lipid panel triglyceride s 331 mg/dL <150 mg/dL hernesto l 150-1 99 mg/dL borde rline high 200-4 99 mg/dL high >500 mg/dL very high Not Available [address], [address], 06/05/2012 15:23:34 06/05/20 12 06/05/2012 lipid panel direct HDL 46 mg/dL Not Available [address], [address], 06/05/2012 15:23:34 06/05/20 12 06/05/2012 lipid panel [...] r IS not neces linda. Not Available [address], [address], 06/05/2012 15:23:34 06/05/20 12 06/05/2012 basic metab olic panel glucose 89 mg/dL 70-100 Not Available [address], [address], 06/05/2012 15:23:35 06/05/20 12 06/05/2012 basic metab olic panel BUN 16 mg/dL 7-18 Not Available [address], [address], 06/05/2012 15:23:35 06/05/20 12 06/05/2012 basic metab olic panel creatinine 1.3 mg/dL 0.8-1. 3 Not Available [address], [address], 06/05/2012 15:23:35 06/05/20 12 06/05/2012 basic metab olic panel B/C 12.3 ratio Not Available [address], [address], 06/05/2012 15:23:35 06/05/20 12 06/05/2012 basic metab olic panel GFR 47.6 mL/mi n recom chandrakant d GFR by the natio nal kidne y found ation >60 mL/mi n/1.7 3m2 - hernesto l <60 mL/mi n/1.7 3m2 - chron ic kidne y disea se <15 mL/mi n/1.7 3m2 - kidne y failu re Not Available [address], [address], 06/05/2012 15:23:35 06/05/20 12 06/05/2012 basic metab olic panel GFR - if 54.8 mL/mi n for afric an ameri can patie nts: resul ts multi plied by 1.21 Not Available [address], [address], 06/05/2012 15:23:35 06/05/20 12 06/05/2012 basic metab olic panel sodium 143 mmol/ L 136-14 5 Not Available [address], [address], 06/05/2012 15:23:35 06/05/20 12 06/05/2012 basic metab olic panel potassium 4.5 mmol/ L 3.5-5. 1 Not Available [address], [address], 06/05/2012 15:23:35 06/05/20 12 06/05/2012 basic metab olic panel chloride 105 mmol/ L 96-107 Not Available [address], [address], 06/05/2012 15:23:35 06/05/20 12 06/05/2012 basic metab olic panel _anion gap 8.0 Not Available [address], [address], 06/05/2012 15:23:35 06/05/20 12 06/05/2012 basic metab olic panel CO2 30 mmol/ L 21-32 Not Available [address], [address], 06/05/2012 15:23:35 06/05/20 12 06/05/2012 basic metab olic panel calcium 9.5 mg/dL 8.5-10 .3 Not Available [address], [address], 06/05/2012 15:23:35 06/05/20 12 06/05/2012 ESR, weste rgren sed rate 51.0 0.0-15 .0 high Not Available [address], [address], 06/05/2012 16:25:33 04/24/20 12 04/23/2012 nicole sound , timothy mota al No observ ation record ed. BLADE [address], [address], 04/06/2013 03:28:33 07/20/20 12 07/12/2012 imagi ng/di [...] status asthmaticu s Completed 200705/11/2011 Not Available [facility] 3 03:11:33 Essential hypertensi on 84251410 Completed 200211/04/2010 Not Available [facility] 3 03:11:33 Lateral epicondyli tis 099061029 Completed 200305/11/2011 Not Available [facility] 3 03:11:33 Diarrhea 09462830 Completed 200409/24/2010 Not Available [facility] 3 03:11:33 Benign essential hypertensi on 4539605 Active 2002 Not Available [facility] 3 03:11:33 Acute non-suppur ative serous otitis media 130412948 Completed 200409/24/2010 Not Available [facility] 3 03:11:33 Measuremen t finding outside reference range 507029406 Completed 05/11/2011 Not Available [facility] 3 03:11:33 Acute pharyngiti s 948224181 Completed 200309/24/2010 Not Available [facility] 3 03:11:33 Nonspecifi c tuberculin test reaction 069587880 Completed 200305/11/2011 Not Available [facility] 3 03:11:33 Acute suppurativ e otitis media without spontaneou s rupture of ear drum 22727960 Completed 200209/24/2010 Not Available [facility] 3 03:11:33 Irregular periods 57783247 Completed 200205/11/2011 Not Available [facility] 3 03:11:33 Purpuric disorder 598352197 Completed 05/11/2011 Not Available [facility] 3 03:11:33 Allergic rhinitis caused by pollen 48494492 Completed 200209/24/2010 Not Available [facility] 3 03:11:33 Sprain of knee and leg Completed 200411/04/2010 Not Available [facility] 3 03:11:33 Impaired fasting glycemia 915168083 Active Not Available [facility] 3 03:11:33 Backache 086897307 Completed 200311/04/2010 Not Available [facility] 3 03:11:33 Acute bronchitis 16194897 Completed 200209/24/2010 Not Available [facility] 3 03:11:33 Acquired trigger finger 0888468 Completed 200605/11/2011 Not Available [facility] 3 03:11:33 Cough 50988186 Completed 09/24/2010 Not Available [facility] 3 03:11:33 Extrinsic asthma with asthma attack Completed 200209/24/2010 Not Available [facility] 3 03:11:33 Giant cell arteritis Completed 05/11/2011 Not Available [facility] 3 03:11:33 Shoulder pain 60214858 Completed 07/31/2013 Not Available [facility] 3 02:01:02 Shoulder pain 99913324 Completed 200511/04/2010 Not Available [facility] 3 03:11:33 Lymphadeno hermelindo 55476886 Completed 200509/24/2010 Not Available [facility] 3 03:11:33 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 Completed 200811/04/2010 Not Available [facility] 3 03:11:33 Impacted cerumen 46888425 Completed 200209/24/2010 Not Available [facility] 3 03:11:33 Vitamin D deficiency 55013915 Completed 05/11/2011 Not Available [facility] 3 03:11:33 Urticaria 326743487 Completed 200511/04/2010 Not Available [facility] 3 03:11:33 Joint pain in ankle and foot Completed 200711/04/2010 Not Available [facility] 3 03:11:33 Acute swimmer's ear Completed 200309/24/2010 Not Available [facility] 3 03:11:33 Periapical abscess without sinus tract Completed 200405/11/2011 Not Available [facility] 3 03:11:33 Common cold 39889777 Completed 200209/24/2010 Not Available [facility] 3 03:11:33 Chest pain 43130053 Completed 200205/11/2011 Not Available [facility] 3 03:11:33 Gouty arthropath y 298874294 Completed 200605/11/2011 Not Available [facility] 3 03:11:33 Infective otitis externa 10218909 Completed 11/04/2010 Not Available [facility] 3 03:11:33 Neuralgia 94555017 Active Not Available [facility] 3 03:11:33 Noninfecti ous gastroente ritis 53522615 Completed 200205/11/2011 Not Available [facility] 3 03:11:33 Mixed hyperlipid emia 386944325 Active 2002 Not Available [facility] 3 03:11:33 Chronic renal impairment Active Not Available [facility] 3 03:11:33 Contusion 321752357 Completed 200509/24/2010 Not Available [facility] 3 03:11:33 Gastroesop hageal reflux disease 259134456 Active 2003 Not Available [facility] 3 03:11:33 Chronic bronchitis 33568798 Completed 200209/24/2010 Not Available [facility] 3 03:11:33 Cardiomega ly 4531037 Completed 05/11/2011 Not Available [facility] 3 03:11:33 Female stress incontinen ce 15327081 Completed 200205/11/2011 Not Available [facility] 3 03:11:33 Allergic rhinitis 64392930 Completed 200211/04/2010 Not Available [facility] 3 03:11:33 Influenza 3656614 Completed 05/11/2011 Not Available [facility] 3 03:34:33 Left lower quadrant pain 827705638 Completed 200505/11/2011 Not Available [facility] 3 03:11:33 Neck pain 75428791 Completed 200211/04/2010 Not Available [facility] 3 03:11:33 Sciatica 70208098 Completed 200311/04/2010 Not Available [facility] 3 03:11:33 Pain in elbow 22101340 Completed 200305/11/2011 Not Available [facility] 3 03:11:33 Pneumonia 173053132 Completed 200209/24/2010 Not Available [facility] 3 03:11:33 Knee pain Completed 11/04/2010 Not Available [facility] 3 03:11:33 Generalize d abdominal pain 095272552 Completed 200409/24/2010 Not Available [facility] 3 03:11:33 Hyperlipid emia 01592157 Completed 200311/04/2010 Not Available [facility] 3 03:11:33 Injury of elbow 945385295 Completed 200311/04/2010 Not Available [facility] 3 03:11:33 Pain in wrist 05959455 Completed 200511/04/2010 Not Available [facility] 3 03:11:33 Blood in urine 36400601 Completed 200805/11/2011 Not Available [facility] 3 03:11:33 Headache 62234238 Completed 09/24/2010 Not Available [facility] 3 03:11:33 Hordeolum 473680085 Completed 05/11/2011 Not Available [facility] 3 03:11:33 Acute apical periodonti tis of pulpal origin 65157221 Completed 200409/24/2010 Not Available [facility] 3 03:11:33 Hip pain 03259607 Completed 200405/11/2011 Not Available [facility] 3 03:11:33 Allergic asthma without status asthmaticu s 33657953 Completed 200411/04/2010 Not Available [facility] 3 03:11:33 Proteinuri a 41291522 Completed 200605/11/2011 Not Available [facility] 3 03:11:33 Finding by method 856795723 Completed 200205/11/2011 Not Available [facility] 3 03:11:33 Acute upper respirator y infection 57633402 Completed 09/24/2010 Not Available [facility] 3 03:34:33 Breast lump 18660598 Completed 200505/11/2011 Not Available [facility] 3 03:11:33 Mammograph y abnormal 976313314 Completed 200205/11/2011 Not Available [facility] 3 03:11:33 Acute frontal sinusitis 59406151 Completed 200509/24/2010 Not Available [facility] 3 03:11:33 Hand joint pain 395622023 Completed 07/31/2013 Not Available [facility] 3 02:02:43 Edema of extremity 795810149 Completed 200605/11/2011 Not Available [facility] 3 03:11:33 Tinea pedis 8980119 Completed 200311/04/2010 Not Available [facility] 3 03:11:33 Low back pain 211572782 Completed 200105/11/2011 Not Available [facility] 3 03:11:33 Inflammati on of sacroiliac joint 10262423 Completed 200205/11/2011 Not Available [facility] 3 03:11:33 Pain in limb 85371212 Completed 200509/24/2010 Not Available [facility] 3 03:11:33 Streptococ joel sore throat 63061366 Completed 09/24/2010 Not Available [facility] 3 03:34:33 Problem Notes None recorded. Procedures Surgical History Date Name Laterality Status Provider Name and Address Organization Details Recorded Time 2 Smoking cessation counseling completed Brook Elder [facility] 07/12/2012 15:34:01 2 Smoking cessation counseling completed Ne Galdamez MD [address] [place] [address], [phone], [facility] 11/10/2011 08:37:40 1 Treatment and Advice completed Larissa Thapa OT [address] [place] [address], [phone], [facility] 05/23/2011 15:42:43 Imaging Results Imaging Date Name Status LastModified by Organization Details LastModified Time 04/23/2012 ultrasound, pelvic transvaginal completed [address], [address], 04/06/2013 03:28:33 07/12/2012 imaging/diagnost ic result completed BLADE Information not available 04/06/2013 03:43:38 07/12/2012 imaging/diagnost ic result completed BLADE Information not available 04/06/2013 03:44:13 Procedure Notes None recorded. Medical Equipment None Reported. Allergies Allergen ID Allergen Name Allergen Category Reaction Reaction Severity Criticality Documentation Date Start Date Code Code System Note Provider Name and Address Organization Details Recorded Time 02108 acetamino phen / hydrocodo ne medicatio n itching Not available Not available 11/22/2010 35474 2 RxNorm Not Available [facility] 1 06:05:41 18210 Bactrim medicatio n hives Not available Not available 11/22/2010 26731 9 RxNorm Not Available [facility] 1 06:05:41 49127 amoxicill in medicatio n hives Not available Not available 11/22/2010 723 RxNorm Not Available [facility] 1 06:05:41 7037 Zithromax medicatio n other mild Not available 12/05/2008 21396 4 RxNorm Not Available [facility] 06:05:20 7038 lisinopri l medicatio n rash Not available Not available 12/05/2008 62442 RxNorm Not Available [facility] 06:05:20 7039 Product containin g penicilli n and antibioti c (product) medicatio n other mild Not available 12/05/2008 77646 05 SNOMED Not Available [facility] 06:05:20 Medications Name Sig Start Date Stop [...] Details Last Updated DateTime 2 157.48 cm 50729.4 0371 g 33.5 kg/m2 99 [degF] 82 /min 122 mm[Hg] 80 mm[Hg] Brook Elder MA [facility] 2 14:57:10 Date Recorded Body height Body weight Body mass index (BMI) Body temperature Heart rate Oxygen saturation Oxygen saturation in Arterial blood by Pulse oximetry Systolic blood pressure Diastolic blood pressure Provider Name and Address Organization Details Last Updated DateTime 2 160.02 cm 71056.8 44598 g 32.3 kg/m2 98.5 [degF] 59 /min 96 % 96 % 148 mm[Hg] 82 mm[Hg] Rozina Sam CMA [facility] 2 15:05:24 Date Recorded Body height Body weight Body mass index (BMI) Body temperature Heart rate Oxygen saturation Oxygen saturation in Arterial blood by Pulse oximetry Systolic blood pressure Diastolic blood pressure Provider Name and Address Organization Details Last Updated DateTime 2 160.02 cm 60170.5 8845 g 32.8 kg/m2 98.5 [degF] 74 /min 96 % 96 % 142 mm[Hg] 80 mm[Hg] Brook Elder MA [facility] 2 11:02:07 Date Recorded Body height Body weight Body mass index (BMI) Heart rate Systolic blood pressure Diastolic blood pressure Provider Name and Address Organization Details Last Updated DateTime 2 157.48 cm 49909.1 8082 g 34 kg/m2 80 /min 140 mm[Hg] 102 mm[Hg] Brook Elder MA [facility] 2 15:34:00 Date Recorded Systolic blood pressure Diastolic blood pressure Provider Name and Address Organization Details Last Updated DateTime 07/12/2012 164 mm[Hg] 104 mm[Hg] Tanner Watt PA-C [address] [place] [address], [phone], [facility] 07/12/2012 16:16:21 Date Recorded Body height Body weight Body mass index (BMI) Body temperature Heart rate Systolic blood pressure Diastolic blood pressure Provider Name and Address Organization Details Last Updated DateTime 3 157.48 cm 77360.5 03931 g 35.2 kg/m2 98.9 [degF] 80 /min 148 mm[Hg] 96 mm[Hg] Joseph Echeverria [facility] 3 15:37:24 Social History Question Answer Notes LastModified by Organizat ion Details LastModified Time Tobacco Smoking Status Current Every Day Smoker 5-6 per day, or less Rozina Sam, APPLICATION SPEC null, [facility] 06/13/2012 15:05:24 Education 12 3 Yrs College [...] ands=Mackenzie Miller i),1 Andria r(2 Kids In [facility] ) Information not available 04/23/2009 Are You Sexually Active? Yes 19 Information not available 07/28/2011 At What Age Did You Start Smoking Tobacco? 18 [email or web address]_PATCH 19 Information not available 07/28/2011 Sex: Unknown Functional Status None recorded. Mental Status None recorded. Family History Nothing Reported Notes:MOM: d68: [facility] imers/chol; arthritis DAD: d57: [facility] Aunts: DM SIS: 2: dysphagia ?Lectorati BRO: 2: both in 20s: AIDS/aspirated vomit [...] virus, trivalent, preservative 1 completed Not Available [facility] 09/28/2019 02:18:11 Td(adult) unspecified formulation 4 completed Not Available [facility] 07/27/2011 05:22:52 influenza, unspecified formulation 4 completed Not Available [facility] 07/27/2011 05:21:07 Influenza, split virus, trivalent, preservative 2 completed Not Available [facility] 09/28/2019 02:25:09 Influenza, split virus, trivalent, preservative 0 completed Not Available [facility] 09/28/2019 02:28:46 Past Encounters Encounter ID Performer Location Encounter Start Date Encounter Closed Date Diagnosis/Indication Diagnosis SNOMED-CT Code Diagnosis ICD10 Code Diagnosis Note [id number] [facility], OFFICE [address] [place] [address] 04/24/2002 08:37:57 10/01/2008 02:02:29 [id number] [facility], OFFICE [address] [place] [address] 05/01/2002 14:06:05 10/01/2008 02:02:29 [id number] [facility], OFFICE [address] [place] [address] 10/01/2002 14:28:45 10/01/2008 02:02:29 [id number] [facility], OFFICE [address] [place] [address] 12/12/2002 17:12:04 10/01/2008 02:02:29 [id number] Physical Therapy, [facility] [address] [place] [address] 12/20/2002 10:06:48 10/01/2008 02:02:29 [id number] [facility], OFFICE [address] [place] [address] 12/24/2002 12:56:37 10/01/2008 02:02:29 [id number] [facility], OFFICE [address] [place] [address] 02/18/2003 14:15:35 10/01/2008 02:02:29 [id number] [facility], OFFICE [address] [place] [address] 03/20/2003 14:07:34 10/01/2008 02:02:29 [id number] [facility], OFFICE [address] [place] [address] 03/24/2003 12:02:14 10/01/2008 02:02:29 [id number] LAB - [facility] [address] [place] [address] 03/28/2003 07:46:12 10/01/2008 02:02:29 [id number] Radiology , [facility] [place] [address] 03/28/2003 09:08:31 10/01/2008 02:02:29 [id number] [facility], OFFICE [address] [place] [address] 04/10/2003 09:49:12 10/01/2008 02:02:29 [id number] Radiology , [facility] [place] [address] 05/05/2003 11:43:12 10/01/2008 02:02:29 [id number] [facility], OFFICE [address] [place] [address] 05/27/2003 14:40:45 05/28/2003 08:59:03 [id number] Radiology , [address] [place] [place] [address] 1 06/06/2003 13:44:53 06/06/2003 14:02:58 [id number] [facility], OFFICE [address] [place] [address] 1 06/06/2003 11:49:30 06/11/2003 11:41:24 [id number] Radiology , [address] [place] [address] 1 07/22/2003 16:31:19 07/23/2003 08:01:14 [id number] FP [facility], OFFICE [address] [place] [address] [place] [address] 1 07/22/2003 14:09:14 07/23/2003 10:41:26 [id number] FP [facility], [place] [address] 1 07/29/2003 08:37:44 07/29/2003 15:15:56 [id number] FP [facility], OFFICE [address] [place] [address] 1 10/03/2003 11:25:23 10/03/2003 14:28:20 [id number] Radiology , [address] [place] [address] 1 10/06/2003 15:48:38 10/06/2003 16:47:31 [id number] [facility], OFFICE [address] [place] [address] 1 12/24/2003 13:53:37 12/25/2003 08:35:31 [id number] [facility] - [facility] [address] [place] [address] 1 01/09/2004 14:20:55 01/09/2004 14:27:29 [id number] [facility], OFFICE [address] [place] [address] 1 01/09/2004 13:33:58 01/12/2004 09:36:02 [id number] [facility], OFFICE [address] [place] [address] 1 02/16/2004 15:47:13 02/17/2004 08:31:21 [id number] [facility], OFFICE [address] [place] [address] 1 03/30/2004 16:24:56 03/31/2004 08:23:47 [id number] Radiology , [facility] [address] [place] [address] 1 03/31/2004 13:21:53 03/31/2004 14:21:59 [id number] [facility] - [facility] [address] [place] [address] 1 03/31/2004 07:38:30 03/31/2004 14:57:09 [id number] [facility], OFFICE [address] [place] [address] 1 04/27/2004 14:57:59 04/28/2004 17:20:19 [id number] [facility] , [facility] [address] [place] [address] 1 06/02/2004 13:42:54 06/02/2004 14:39:12 [id number] [facility], OFFICE [address] [place] [address] 1 06/23/2004 14:02:37 06/24/2004 08:59:32 [id number] [facility], OFFICE [address] [place] [address] 1 07/01/2004 15:32:27 07/02/2004 08:46:41 [id number] [facility], OFFICE [address] [place] [address] 1 04/27/2004 00:00:00 10/01/2008 02:02:29 [id number] [facility], OFFICE [address] [place] [address] 1 07/29/2004 15:53:09 07/30/2004 09:20:07 [id number] [facility], OFFICE [address] [place] [address] 1 08/30/2004 15:01:25 08/31/2004 09:44:16 [id number] [facility], OFFICE [address] [place] [address] 1 10/29/2004 14:29:32 11/01/2004 10:52:43 [id number] [facility], OFFICE [address] [place] [address] 1 12/15/2004 15:33:42 12/17/2004 08:29:49 [id number] , [facility], OFFICE [address] [place] [address] 6 12/18/2004 13:57:46 12/18/2004 14:20:55 [id number] [facility], OFFICE [address] [place] [address]847 1 02/08/2005 15:33:26 02/10/2005 08:24:48 [id number] [facility], OFFICE [address] [place] [address] 1 03/22/2005 15:17:54 03/23/2005 13:30:40 [id number] [facility], OFFICE [address] [place] [address] 1 03/30/2005 11:27:29 03/31/2005 15:19:09 [id number] [facility] - [facility] [address] [place] [address] 1 03/31/2005 07:00:44 03/31/2005 08:52:30 [id number] [facility], OFFICE [address] [place] [address] 1 05/09/2005 11:16:13 05/11/2005 15:09:44 [id number] [facility], OFFICE [address] [place] [address] 1 06/01/2005 14:33:49 06/02/2005 10:29:00 [id number] [facility], OFFICE [address] [place] [address] 1 06/20/2005 15:17:41 06/21/2005 08:52:02 [id number] [facility] , [facility] [address] [place] [address] 1 06/24/2005 16:33:49 06/27/2005 08:03:32 [id number] , [facility], OFFICE [address] [place] [address] 1 06/24/2005 15:57:32 06/27/2005 09:48:50 [id number] [facility], OFFICE [address] [place] [address]285 1 09/06/2005 14:50:45 09/07/2005 14:29:32 [id number] FP [facility], OFFICE [address] [place] [address] 1 09/27/2005 15:47:34 09/28/2005 08:23:14 [id number] [facility], OFFICE [address] [place] [address] 1 10/11/2005 15:34:07 10/11/2005 17:46:38 [id number] [facility], OFFICE [address] [place] [address]293 1 10/26/2005 13:52:00 10/26/2005 16:31:53 [id number] [facility] - [facility] [address] [place] [address] 1 10/26/2005 14:18:00 10/26/2005 14:18:12 [id number] [facility] , [facility] [address] [place] [address] 1 11/02/2005 12:49:08 11/03/2005 07:05:56 [id number] [facility] , [facility] [address] [place] [address] 1 11/03/2005 15:25:49 11/04/2005 08:13:27 [id number] FP [facility], OFFICE [address] [place] [address] 1 12/02/2005 14:15:31 12/02/2005 16:17:16 [id number] [facility], OFFICE [address] [place] [address] 1 11/02/2005 11:33:03 11/02/2005 14:50:26 [id number] [facility], OFFICE [address] [place] [address] 1 01/06/2006 10:03:12 01/16/2006 08:22:06 [id number] FP [facility], OFFICE [address] [place] [address] 1 02/02/2006 14:07:40 02/03/2006 15:30:35 [id number] Radiology , [facility] [address] [place] [address] 1 02/03/2006 15:30:06 10/01/2008 02:02:29 [id number] Radiology , [facility] [address] [place] [address] 1 03/02/2006 14:28:42 10/01/2008 02:02:29 [id number] [facility], OFFICE [address] [place] [address] 1 03/20/2006 12:49:46 03/20/2006 17:52:08 [id number] Radiology , [facility] [address] [place] [address] 1 05/25/2006 17:48:34 05/26/2006 07:05:32 [id number] [facility], OFFICE [address] [place] [address] 1 05/25/2006 17:22:27 05/26/2006 08:55:32 [id number] [facility], OFFICE [address] [place] [address] 1 06/09/2006 15:54:16 06/09/2006 17:28:23 [id number] , [facility], OFFICE [address] [place] [address] 1 06/15/2006 13:23:20 06/16/2006 09:52:02 [id number] [facility], OFFICE [address] [place] [address] 1 08/30/2006 17:10:44 08/31/2006 07:43:52 [id number] [facility], OFFICE [address] [place] [address] 1 10/02/2006 10:17:53 10/02/2006 15:12:31 [id number] [facility], OFFICE [address] [place] [address] 1 10/17/2006 08:17:48 10/17/2006 10:49:05 [id number] [facility], OFFICE [address] [place] [address] 1 10/24/2006 14:32:40 10/25/2006 08:42:23 [id number] [facility], OFFICE [address] [place] [address] 1 12/07/2006 16:31:37 12/08/2006 08:07:25 [id number] [facility] - [facility] [address] [place] [address] 1 12/08/2006 07:43:44 12/08/2006 07:43:47 [id number] [facility], OFFICE [address] [place] [address]989 1 12/14/2006 08:19:42 12/14/2006 10:37:51 [id number] [facility] , [facility] [address] [place] [address] 1 12/14/2006 09:01:36 12/14/2006 09:47:03 [id number] [facility], OFFICE [address] [place] [address] 1 01/03/2007 14:22:51 01/04/2007 08:31:15 [id number] [facility], OFFICE [address] [place] [address] 1 03/02/2007 14:36:28 03/26/2007 08:12:41 [id number] [facility], OFFICE [address] [place] [address]439 1 06/09/2008 12:00:19 10/01/2008 02:02:29 [id number] [facility], OFFICE [address] [place] [address] 1 06/23/2008 13:44:41 10/01/2008 02:02:29 [id number] [facility], OFFICE [address] [place] [address] 1 12/05/2008 10:20:39 12/08/2008 10:03:33 [id number] [facility], OFFICE [address] [place] [address] 1 01/14/2009 10:00:45 01/15/2009 10:06:15 [id number] [facility], OFFICE [address] [place] [address] [place] [address] 1 01/26/2009 15:50:13 01/27/2009 10:44:35 [id number] [facility], OFFICE [address] [place] [address] 1 01/29/2009 16:21:11 01/30/2009 11:29:22 [id number] Radiology , [facility] [address] [place] [address] 1 01/30/2009 07:53:56 02/05/2009 11:15:08 [id number] Radiology , [facility] [address] [place] [address] 1 02/03/2009 22:09:07 02/03/2009 22:11:55 [id number] [facility], OFFICE [address] [place] [address]380 1 02/16/2009 15:12:34 02/17/2009 09:22:34 [id number] [facility] [address] [place] [address] 1 02/16/2009 15:40:02 02/17/2009 15:53:35 [id number] [facility], OFFICE [address] [place] [address] 1 03/16/2009 15:41:28 03/17/2009 12:12:26 [id number] [facility], OFFICE [address] [place] [address] 1 04/23/2009 15:17:15 04/24/2009 10:24:12 [id number] [facility], OFFICE [address] [place] [address] 1 06/18/2009 11:59:31 06/18/2009 14:17:07 [id number] [facility] OFFICE [address] [place] [address] 1 07/06/2009 17:15:37 07/07/2009 09:25:42 [id number] [place] [address] [place] [address] 1 01/30/2009 07:39:08 01/30/2009 07:39:13 [id number] [facility] [address] [place] [address] 1 02/09/2009 07:26:26 02/09/2009 07:26:[id number] [place] [address] 1 04/24/2009 13:57:57 04/24/2009 13:58:04 [id number] [place] [address] [place] [address] 1 04/28/2009 14:13:23 04/28/2009 14:13:[id number] [place] [address] 1 04/29/2009 15:57:08 04/29/2009 15:57:22 [id number] Rheumatmary ledbetter [facility] [address] [place] [address] 1 07/23/2009 15:40:58 07/28/2009 09:10:07 [id number] [facility], OFFICE [address] [place] [address]511 1 07/29/2009 16:14:57 07/30/2009 09:55:58 [id number] Rheumatol ogy, [facility] [address] [place] [address] 1 08/20/2009 11:44:01 08/26/2009 10:20:05 [id number] [facility], OFFICE [address] [place] [address] 1 09/08/2009 11:57:26 09/08/2009 17:31:19 [id number] [facility], OFFICE [address] [place] [address]181 1 09/16/2009 10:22:57 09/16/2009 13:47:00 [id number] Rheumatol ogy, [facility] [address] [place] [address] 1 10/01/2009 15:54:36 10/06/2009 09:32:03 [id number] [facility], OFFICE [address] [place] [address] 1 11/03/2009 15:15:14 11/04/2009 07:42:00 [id number] [facility], OFFICE [address] [place] [address]050 1 02/03/2010 11:19:16 02/03/2010 14:28:18 [id number] [facility], OFFICE [address] [place] [address] 1 02/11/2010 15:18:44 02/11/2010 16:27:20 [id number] [facility], OFFICE [address] [place] [address] 1 07/06/2010 08:12:47 07/06/2010 09:56:15 [id number] [facility] OFFICE [address] [place] [address] 1 09/08/2010 14:55:52 09/08/2010 17:00:44 [id number] Radiology , [facility] [address] [place] [address] 1 09/08/2010 16:03:21 09/09/2010 13:22:57 [id number] Physical Therapy, [facility] [address] [place] [address] 1 09/14/2010 15:19:59 09/15/2010 14:11:24 [id number] Physical Therapy, [facility] [address] [place] [address] 1 09/16/2010 13:55:23 09/17/2010 10:37:39 [id number] [facility], OFFICE [address] [place] [address] 1 09/27/2010 13:44:32 09/27/2010 16:36:44 [id number] Physical Therapy, [facility] [address] [place] [address] 1 10/04/2010 15:05:03 10/05/2010 10:23:29 [id number] [facility], OFFICE [address] [place] [address] 1 11/18/2010 14:25:14 11/19/2010 09:17:11 [id number] [facility], OFFICE [address] [place] [address] 1 11/22/2010 16:49:52 11/23/2010 09:51:30 [id number] [facility], OFFICE [address] [place] [address] 1 12/15/2010 15:32:22 12/16/2010 09:48:29 [id number] [facility], OFFICE [address] [place] [address] 1 12/22/2010 14:59:23 12/23/2010 09:57:39 [id number] Radiology , [facility] [address] [place] [address] 1 12/22/2010 16:22:29 12/23/2010 11:07:25 [id number] [facility], OFFICE [address] [place] [address] 1 05/11/2011 11:50:36 05/11/2011 12:35:01 [id number] [facility], OFFICE [address] [place] [address] 1 05/19/2011 14:45:52 05/19/2011 15:53:48 [id number] Physical Therapy, [facility] [address] [place] [address] 1 05/23/2011 15:05:18 05/24/2011 11:48:06 [id number] Physical Therapy, [facility] [address] [place] [address] 1 05/30/2011 15:06:57 05/31/2011 09:11:00 [id number] Physical Therapy, [facility] [address] [place] [address] 1 06/06/2011 14:56:12 06/07/2011 08:32:45 [id number] Radiology , [facility] [address] [place] [address] 1 06/08/2011 14:51:36 06/09/2011 10:55:27 [id number] Radiology , [facility] [address] [place] [address] 1 08/24/2011 14:14:33 08/26/2011 11:10:29 [id number] FP, [facility], OFFICE [address] [place] [address] [place] [address] 1 09/26/2011 10:34:32 09/26/2011 11:18:55 [id number] FP, [facility], OFFICE [address] [place] [address] DR [place], [place] [address] 1 10/27/2011 11:11:16 10/27/2011 11:43:06 [id number] FP, [facility], OFFICE [address] [place] [address] DR [place], [place] [address] 1 11/04/2011 17:11:51 11/08/2011 15:33:36 [id number] FP, [facility], OFFICE [address] [place] [address] DR [place], [place] [address] 1 12/29/2011 13:37:46 12/29/2011 14:15:10 [id number] FP, [facility], OFFICE [address] [place] [address] DR [place], [place] [address]466 1 04/20/2012 14:27:13 04/20/2012 15:26:13 [id number] Radiology , [facility] [address] [place] [address] 1 04/23/2012 14:55:48 04/30/2012 14:46:19 [id number] FP, [facility], [address] [place], [place] [address] 1 05/01/2012 14:46:54 05/01/2012 17:05:31 [id number] Jair Wharton MD FP, [facility], [address] [place] [address] 1 06/13/2012 14:16:03 06/13/2012 15:24:59 [id number] Tanner Watt PA-C FP, [facility], [address] [place] [address] 1 06/26/2012 10:50:09 06/26/2012 11:21:49 [id number] Tanner Watt PA-C FP, [facility], [address] [place] [address] 1 07/12/2012 14:58:27 07/12/2012 16:34:37 [id number] Jerrica Keating MD , [facility], OFFICE [address] [place] [address] 1 09/21/2012 14:51:54 09/21/2012 15:57:58 Health Concerns Section Related Observation LastModified by Organization Detai ls LastModified Time None Recorded Concern Status LastModified by Organization Details LastModified Time None Recorded Advance Directives Directive None Recorded Payers Encounter Date Sequence Insurance Name Policy Number Policy Giraldo Covered Member ID Giraldo Member ID Guarantor Name 05/01/2012 1 [facility] Cecy El [id number] Cecy El 05/01/2012 2 [facility] OPEN ACCESS Ceyc El [id number] Cecy El 06/13/2012 1 [facility] Cecy El [id number] Cecy El 06/13/2012 2 [facility] OPEN ACCESS Cecy El [id number] Cecy El 06/26/2012 1 [facility] Cecy El [id number] Cecy El 06/26/2012 2 [facility] OPEN ACCESS Cecy El [id number] Cecy El 07/12/2012 1 [facility] Cecy El [id number] Cecy El 07/12/2012 2 [facility] OPEN ACCESS Cecy El [id number] Cecy El 09/21/2012 1 [facility] Cecy El [id number] Cecy El 09/21/2012 2 [facility] OPEN ACCESS Cecy El [id number] Cecy El Notes Date Note Type Note Provider Name and Address Organization Details Recorded Time 05/01/2012 text/html RLQ pain 2 wks. Had US last week. No bulge. Worse laying on stomach, sometimes when standing. no n/v/c/d/dysuria no worse with lifting no changes with food Tanner Watt PA-C [address] [place] [address], [id number], [facility] 05/01/2012 15:24:48 OBGyn Episode No OBEpisode recorded.
== END 2024-10-18 10:40 | disposition home or self-care (01) ==
LOC: HO.HMGCX 10:39
PROVIDERS: PCP Internal Medicine; Visit Provider Physician Assistant Medical
DX: R05.9 Cough, unspecified (principal); R07.81 Pleurodynia
CPT/HCPCS: 71046; 99212

== ENCOUNTER 2024-10-18 10:39 | Outpatient (AMB) | payer MEDICARE, SELFPAY ==
--- NOTE | 2024-10-18 10:42 | AM.OFFWIN_ITS ---
Intake Vital Signs 10/18/24 10:44 Weight 199 lb BP 114/78 Blood Pressure Location Lt brachial Position Sitting Pulse 76 Pulse Source Pulse Oximeter Temp 98.2 F Temp Source Oral Pulse Oximetry (%) 98 Oxygen Delivery Method Room Air Intake Visit Reasons: EP-rt rib pain, cough Intake Note: Patyient here for left mid back/rib pain that started monday. Patient Tobacco Use Status: Never used Tobacco Allergies amoxicillin [AMOXICILLIN] Allergy (Mild, Verified 10/18/24 10:45) HIVES azithromycin [From ZITHROMAX Z-ELADIO] Allergy (Mild, Verified 10/18/24 10:45) HIVES lisinopril [LISINOPRIL] Allergy (Mild, Verified 10/18/24 10:45) SWELLING sulfamethoxazole [From BACTRIM] Allergy (Mild, Verified 10/18/24 10:45) HIVES trimethoprim [From BACTRIM] Allergy (Mild, Verified 10/18/24 10:45) HIVES adhesive [ADHESIVE] Allergy (Unknown, Verified 10/18/24 10:45) UNKNOWN Do you need a note to return to daycare/school/sports/work: No HPI HPI Comments History of Present Illness Details This is a 69-year-old female who presented to the walk-in clinic complaining of a persistent productive cough x 10 days. She states her granddau ghter was diagnosed with influenza a and she started to develop symptoms about 10 days ago. She was seen and evaluated at the walk-in clinic 4 days ago and she was diagnosed with a viral lower respiratory tract infection. She was sent home on a prednisone taper, which she states she has been taking but her symptoms have not improved. She continues to have a productive cough with green/yellow sputum as well as fatigue, nasal/sinus congestion, and rhinorrhea. She denies any fevers or chills. Patient states she started to develop right- sided mid back pain, which radiates around to the right side of her chest about 2 days ago. COUNTS INCLUDE 234 BEDS AT THE [facility] Social History Patient Tobacco Use Status: Never used Tobacco Review of Systems Const All systems reviewed & are unremarkable except as noted in HPI and below Reports no additional complaints Eyes Reports no additional complaints ENT Reports no additional complaints Card Reports no additional complaints Resp Reports no additional complaints GI Reports no additional complaints Reports no additional complaints Musc Reports no additional complaints Skin/Breast Reports system reviewed and no additional complaints, except as documented Neuro Reports no additional complaints Psych Reports no additional complaints Endo Reports no additional complaints Michel/Lymph Reports no additional complaints Aller/Immun Reports no additional complaints Physical Exam Vital Signs: Last Vital Signs Temp 98.2 F 10/18/24 10:44 Pulse 76 10/18/24 10:44 BP 114/78 10/18/24 10:44 Pulse Ox 98 10/18/24 10:44 Oxygen Delivery Method Room Air 10/18/24 10:44 Const Other: Vital signs reviewed. Constitutional: Non-toxic appearing. No acute distress. Well-developed and well-nourished. HEENT: Normocephalic and atraumatic. Skin: Warm and dry. No rashes or lesions noted. Neck: Full and painless range of motion. No cervical lymphadenopathy. Cardio: Regular rate and rhythm. No murmurs, gallops, or rubs. No lower extremity edema. No JVD. There is reproducible tenderness to palpation to the right mid back and right-sided chest wall. Pulmonary: No respiratory distress. No accessory muscle usage. Clear to auscultation bilaterally without wheezing, crackles, or rhonchi. Gastrointestinal: Soft, nontender, and nondistended in all 4 quadrants. Musculoskeletal: Normal range of motion in joints throughout the body. No deformity or other signs of injury. Neuro: Alert and oriented x4. Cranial nerves 2-12 grossly intact. No focal deficits appreciated. Psych: Normal mood and affect. Assessment & Plan Assessment & Plan (1) Viral lower respiratory tract infection: Code(s): J22 - Unspecified acute lower respiratory infection; B97.89 - Other viral agents as the cause of diseases classified elsewhere (2) Rib pain on right side: Code(s): R07.81 - Pleurodynia Plan This is a 69-year-old female who presented to the walk-in clinic complaining of a persistent productive cough x 10 days despite treatment with prednisone. She also started to develop right-sided mid back pain with radiation to the right side of her chest about 2 days ago. On physical examination, she has reproducible tenderness to palpation of the right chest wall and right mid back and right lateral ribs. A chest x-ray was obtained, which was negative for acute cardiopulmonary process and negative for acute rib fracture. Patient possibly has an atypical/walking pneumonia in the setting of recent viral lower respiratory tract infection. Additionally, her right-sided rib/chest pain is likely musculoskeletal versus costochondritis in the setting of persistent cough. There is low suspicion for acute coronary syndrome as patient's symptoms are atypical for a cardiac etiology. Patient was given a prescription for p.o. doxycycline 100 mg twice daily. I recommended continuing symptomatic management including guaifenesin, acetaminophen/ibuprofen, nlse-llu-pwieiql lidocaine patches to the area, and heat/ice to the rib/chest wall. Patient was advised to follow-up here or proceed to the emergency room if she were to develop persistent or worsening symptoms such as shortness of breath, worsening sputum production/purulence, or fever/chills. Orders: Orders XR chest 2V Today R05.9 - Cough, unspecified Medications: New doxycycline hyclate 100 mg PO BID 10 caps 0RF Coding Level of Care Code Est Pt Level 3 (14825) Diagnoses Viral lower respiratory tract infection J22; B97.89 Rib pain on right side R07.81
[2024-10-18 10:44] VITALS: BP 114/78; PULSE 76; TEMP 36.8; O2SAT 98
--- OUTSIDE RECORDS SUMMARY | 2024-10-18 11:41 | XMS_ITS | Encounter Summary ---
Author Organization [employer] Address [address] [place] [address] Care Team Providers Care Taker Off Hemp Fiber Name Role Phone Veronica Verduzco MD Primary Care Prov ider Reason for Visit * Reason Onset Date Comments Chills 10/08/2024 Encounter Details Date Type Department Care Team (Late st Contact Info) Description 10/08/2024 Nurse Triage Adult Medicine [facility] [address] [place] [phone] Veronica Verduzco MD [address] [place] [address] Chills Social History Tobacco Use Types Packs/Day [...] exposures) no Protocols used: Cough - Acute Mnwftewgsn-E-IO * Luisa Brownki - 10/08/2024 9:19 AM EST Patient call requires triage: Symptoms patient is presenting: patient is calling stating yesterday 10/07/2024 that patients valdo went to [facility] and tested positive for influ A. Patient [...] traveled recently to another state outside of [place], [place], [place], [place], [place], [place], [place]? no o If yes, did you quarantine [...] gather 3rd alliance party insurance information Third Libertarian Information: not applicable PCP: Veronica Howard MD Payor: MEDICARE / Plan: MEDICARE PART A & B / Product Type: Medicare / documented in this encounter Plan of Treatment Upcoming Encounters Date Type Department Care Team (Late st Contact Info) Description 10/22/2024 1:00 PM EST Office Visit Orthopedics [address] [phone] Carlos Vargas PA [address] [place] [address] 10/24/2024 11:30 AM EST Office Visit Pulmonolgy - [place] [address] [place] [address] Giovana Randall NP [address] [place] [address] 10/30/2024 1:30 PM EST Consult Nephrology [address] [phone] Toni Arizmendi MD [address] [facility] 200 [place] [address] 11/05/2024 12:00 PM EST Office Visit Adult Medicine [address] [phone] Rosas Antoine PA [address] [place] [address] 12/18/2024 8:30 AM EDT Office Visit Adult Medicine [address] [phone] Veronica Verduzco MD [address] [place] [address] 03/06/2025 11:20 AM EDT Appointment Radiology Department [address] [phone] documented as of this encounter Visit Diagnoses Not on filedocumented in this encounter Care Teams Taker Off Hemp Fiber Relationship Specialty Start Date End Date Veronica Verduzco MD [address] [place] [address] PCP - General Internal Medicine 04/11/22 documented as of this encounter
--- OUTSIDE RECORDS SUMMARY | 2024-10-18 11:41 | XMS_ITS | Clinical Summary ---
Author Organization [facility] Address [address] [place] [address] Phone Care Team Providers Care Production Tool Engineer Name Role Phone Veronica Verduzco MD Primary [...] 01/20/2019 Obstructive sleep apnea 01/03/2019 Overview (06/13/2024): [facility] Home Polysomnogram: Date 01/01/2019; Wt 215#; BMI 38; RENETTA 32, AI 14; HI 18; Unclassified apneas 0; Obstructive apneas 61; Central apneas 16; Mixed apneas 0; hypopneas 97; average oxygen saturation 89% (lowest 67% with saturations <88% for 5% or more of study) [facility] Sleep Center Polysomnogram treatment study. Date [...] Team Description 10/08/2024 Nurse Triage Adult Medicine [address] [phone] Veronica Wheeler MD Chills 09/24/2024 1:00 PM EST Office Visit Orthopedics [address] [phone] Carlos Vargas PA Right knee pain, unspecified chronicity (Primary Dx) 09/09/2024 Telephone Adult Medicine [address] [phone] Veronica Wheeler MD Prior Authorization from Last [...] Date Site/Laterality Comments OTHER SURGICAL HISTORY PROCEDURE: AK UNLISTED PROCEDURE INNER EAR BREAST REDUCTION PROCEDURE: AK BREAST REDUCTION OTHER SURGICAL HISTORY PROCEDURE: TEMPORAL [...] kidney disease) stage 3, GFR 30-59 ml/min ([facility]) DX:CKD (chronic kidney dise ase) stage 3, GFR 30-59 ml/min ([facility]) Complication of intrauterine device ([facility]) 06/18/2013 DX:Complication of intrauter ine device ([facility]); COMMENT: See visit note of 06/18/13 COPD (chronic obstructive pu lmonary disease) [place] 12/18/2014 DX:COPD (chronic obstructive pulmonary disease) ([facility]) Diabetes mellitus type 2 wit h neurological manifestations ([facility] 10/06/2015 DX:Diabetes geovanna itus type 2 with neurological manifestations ([facility]) DM (diabetes mellitus), type 2 with renal complications ([facility] 06/06/2017 DX:DM (diabetes mellitus ), type 2 with renal complications ([facility]) GERD (gastroesophageal reflu x disease) DX:GERD (gastroesophageal [...] available Referred to Pulmnology Asthma-COPD overlap syndrome ([facility]) 12/04/2018 DX:Asthma-COPD overlap syndr ome ([facility]) Chronic idiopathic granuloma tous disease ([facility]) 12/04/2018 DX:Chronic idiopathic granul omatous disease ([facility]) OA (osteoarthritis) of shoulder 07/28/2019 DX:OA (osteoarthritis) of shoulder Obstructive sleep apnea 01/03/2019 DX:Obstr uctive sleep apnea; COMMENT: [facility] Home Polysomnogram: Date 01/01/2019; Wt 215#; BMI 38; RENETTA 32, AI 14; HI 18; Unclassified apneas 0; Obstructive apneas 61; Central apneas 16; Mixed apneas 0; hypopneas 97; average oxygen saturation 89% (lowest 67% with saturations <88% for 5% or more of study) [facility] Sleep Center Polysomnogram treatment study. Date [...] whittington virus disease (COVID-19) 03/22/2024 DX:History of 2018 novel cor onavirus disease (COVID-19) Family History Medical History Relation Name Comments Heart attack Father Age 56 Other: Other Maternal Grandmother ? throa t vs stomach ca Alzheimer's disease Mother [place] Other: Esophageal cancer Mother's side Other: Heart [...] 1:00 PM EST Office Visit Orthopedics - [address] [phone] Carlos Vargas PA [address] [place] [address] 10/24/2024 11:30 AM EST Office Visit Pul[facility]olgy [facility] [address] [facility] [address] [place] [phone] Giovana Randall NP 175 [facility] [address] [place] [address] 10/30/2024 1:30 PM EST Consult Nephrology - [address] [phone] Toni Arizmendi MD [address] [phone] 11/05/2024 12:00 PM EST Office Visit Adult Medicine [address] [phone] Rosas Antoine PA [address] [place] [address] 12/18/2024 8:30 AM EDT Office Visit Adult Medicine [address] [phone] Veronica Verduzco MD [address] [place] [address] 03/06/2025 11:20 AM EDT Appointment Radiology Department - [address] [phone] Health Maintenance Due Date Last Done Comments Zoster Vaccines (1 of 2) 01/14/1976 Pneumococcal Vaccine: 65+ Years (2 [...] Maintenance Results * Diabetes Eye Exam (06/20/2024) [facility] Diabetes: Annual Retina Eye Exam abstracted Historical Provider [facility] * Falls Risk Assessment (06/19/2024) [facility] Falls Risk Assessment abstracted [facility] Provider [facility] * Depression Screening (06/19/2024) [facility] Depression Screening abstracted [facility] Provider [facility] * Diabetes Foot Exam (06/05/2024) [facility] Diabetes: Annual Foot Exam abstracted [facility] Provider [facility] * Urine Albumin Creatinine Ratio (06/04/2024) [facility] Urine Albumin Creatinine Ratio abstracted [facility] Provider [facility] Hemoglobin A1c (06/04/2024) [facility] Hemoglobin A1C 6.1 6.5 % Blood Venous blood specimen / Unknown Historical Provider LAB BLOOD ORDERAB LES * (ABNORMAL) Lipid panel (06/04/2024) [facility] LDL/HDL Ratio 3 0 - 4 [...] bone mineral density by WHO criteria. [facility] Department of Internal Medicine recommends using National [...] alternative screening schedule based on eunice Mcbride., [facility] September 29, 2011 for patients [...] bone mineral density by WHO criteria. [facility] Department of Internal Medicine recommendsusing National Osteoporosis [...] PM EDT Narrative 05/20/2022 5:22 PM EDT Diagnostic Imaging Department [address] [place] [address] Patient: ??CHEKONIURKA ?/Age/Sex: 1955 - 67 - F Unit#: ??[id number] ? Location/Status: ??SPDICATLS/REG CLI ? Mnemonic/Ordering Site: ??CTLUNGLD/SPCT Ordering Physician: ??NAEEM DELGADO MD CT Lung Screening Low Dose - 05/20/22 - 1609 INDICATION: 33 pack-year smoking history, quit smoking 14 years ago FINDINGS: Low-dose CT scan of the chest obtained as a lung cancer screening study. No prior studies are available for comparison. Scanner: [employer] speed 64 slice VCT Dose reduction technique: [...] Procedure Note Nicolas Cabrera MD - 08/31/2022 Diagnostic Imaging Department [address] [place] [address] Patient: NIURKA STILL /Age/Sex: 1955 - 67 - F Unit#: [id number] Location/Status: NEHEMIAHDonte/GURPREET CLI Mnemonic/Ordering Site: [facility] Ordering Physician: NAEEM DELGADO MD CT Lung Screening Low Dose - 05/20/22 - 1609 INDICATION: 33 pack-year smoking history, quit smoking 14 years ago FINDINGS: Low-dose CT scan of the chest obtained as a lung cancerscreening study. No prior studies are available for comparison. Scanner: [employer] speed 64 slice VCT Dose reduction technique: [...] WILLIAMS Telles * Hepatitis C Screening (12/04/2013) Pathologist [facility] Hepatitis C Screening abstracted Historical Provider [place] WILLIAMS Telles from Last 3 Months or Most Recently Relevant to Health Maintenance Care Teams Production Tool Engineer Relationship Specialty Start Date End Date Veronica Verduzco MD [address] [place] [address] PCP - General Internal Medicine 04/11/22
--- OUTSIDE RECORDS SUMMARY | 2024-10-18 11:41 | XMS_ITS | Encounter Summary ---
Author Organization [employer] Address [address] [place] [address] Care Team Providers Care Heating Unit Installer Name Role Phone Veronica Verduzco MD Primary Care Prov ider Reason for Referral * Orthopedic (Routine) - Authorized Specialty Diagnoses / Procedures Referred By Contac t Referred To Contact Orthopedic Surgery / Orthopaedic Surgery Diagnoses Right knee pain, unspecified chronicity Procedures L Inj/Asp: R knee Carlos Vargas PA [address] [place], [place] Referral ID Status Reason Start Date Expiration Date V isits Requested Visits Authorized [id number] Authorized 09/24/2024 09/24/2025 1 1 Reason for Visit * Reason Comments Pain Follow-up Encounter Details Date Type Department Care Team (Late st Contact Info) Description 09/24/2024 1:00 PM EST Office Visit Orthopedics - [address] [phone] Carlos Vargas PA [address] [place] [address] Right knee pain, unspecified chronicity (Primary Dx) [...] 1:00 PM EST Office Visit Orthopedics - [address] [phone] Carlos Vargas PA [address] [place] [address] 10/24/2024 11:30 AM EST Office Visit Pulmonolgy [facility] 175 [facility] [address] [place] [phone] Giovana Randall NP [address] [address] 10/30/2024 1:30 PM EST Consult Nephrology - [address] [phone] Toni Arizmendi MD [address] [address] 11/05/2024 12:00 PM EST Office Visit Adult [facility] - [address] [phone] Rosas Antoine PA [address] [place], [place] 12/18/2024 8:30 AM EDT Office Visit Adult Medicine East - [address] [phone] Veronica Verduzco MD [address] [place] [address] 03/06/2025 11:20 AM EDT Appointment Radiology Department - [address] [phone] Pending Results Name Type Priority Associated Diagnoses [...] 05/28/2019 added in this encounter Care Teams Heating Unit Installer Relationship Specialty Start Date End Date Veronica Verduzco MD [address] [place] [address] PCP - General Internal Medicine 04/11/22 documented as of this encounter
--- OUTSIDE RECORDS SUMMARY | 2024-10-18 11:41 | XMS_ITS | Encounter Summary ---
Author Organization [employer] Address [address] [place] [address] Care Team Providers Care Concrete Craftsman Name Role Phone Veronica Verduzco MD Primary Care Prov ider Reason for Visit * Reason Onset Date Comments Prior Authorization 09/09/2024 Encounter Details Date Type Department Care Team (Late st Contact Info) Description 09/09/2024 Telephone Adult Medicine [facility] [address] [place] [phone] Veronica Verduzco MD [address] [place] [address] Prior Authorization Social History Tobacco Use Types [...] from 07/02/24 until 09/30/25 Approval faxed to [facility] pharmacy [phone] * Rozina Fitzpatrick [place] - 09/30/2024 8:14 AM EST Yes it would be. Thank you Ofe Prior authorization completed today on [facility] for lidocaine patch. Dx diabetic neuropathy [...] Hot Thank you Please reply back to [facility] (Prior Auth [place]) Rozina Zendejas [facility] Prior Authorization Ext [id number] * Tamra Carson - 09/09/2024 2:39 PM EST Prior Authorization for Medication-do not complete and send this encounter unless you have the fax from the pharmacy. Is this a Cover My Meds request: Yes -- Elizabeth Code [id number] Name of Medication lidocaine (LIDODERM) 5 % patch Dose of Medication What is the RX # from the faxed refill? How does patient take this med? Place 1 patch on the skin every 24 hours. Apply for no more than 12 hours in any 24 hour period. What Pharmacy did the fax come from: [facility] [address] [facility] [address] [facility] [address] [facility] [address] Pharmacy fax #: [phone] [employer] Information from fax: What Prescription Plan does the patient have? Payor: MEDICARE / Plan: MEDICARE PART A & B / Product Type: Medicare / BIN/PCN if applicable: Cardholder ID: Person Code: Relationship Code: Help desk phone: documented in this encounter Plan of Treatment Upcoming Encounters Date Type Department Care Team (Late st Contact Info) Description 10/22/2024 1:00 PM EST Office Visit Orthopedics - [address] [phone] Carlos Vargas PA [address] [place] [address] 10/24/2024 11:30 AM EST Office Visit Pulmonolgy [facility] [address] [facility] [address] [place] [phone] Giovana Randall NP 175 [facility] [address] [place] [address] 10/30/2024 1:30 PM EST Consult Nephrology - [address] [phone] Toni Arizmendi MD [address] [address] 11/05/2024 12:00 PM EST Office Visit Adult Medicine [address] [phone] Rosas Antoine PA [address] [place] [address] 12/18/2024 8:30 AM EDT Office Visit Adult Medicine [address] [phone] Veronica Verduzco MD [address] [place] [address] 03/06/2025 11:20 AM EDT Appointment Radiology Department - [address] [address] documented as of this encounter Visit Diagnoses Not on filedocumented in this encounter Care Teams Concrete Craftsman Relationship Specialty Start Date End Date Veronica Verduzco MD [address] [place] [address] PCP - General Internal Medicine 04/11/22 documented as of this encounter
--- OUTSIDE RECORDS SUMMARY | 2024-10-18 11:41 | XMS_ITS | Patient Health Record ---
Author Organization [facility] Michael Hillman Address [address] [facility] [place] [address] Care Team Providers Care General Inspector Name Role Phone Romelia Salazar MD Primary Care Provider Annette Salazar Unavailable [phone] Allergies Allergen (clinical drug ingredient) Drug/Non Drug Allergy documented on EMR Reaction Allergy Type Onset Date Status Adhesive Tape (uncoded) rash/dermatiti s Allergy Active Penicillin (uncoded) hives Allergy Active amoxicillin Amoxicillin hives Drug Allergy Act juana Azithromycin hives Drug Allergy Acti ve sulfamethoxazole / trimethoprim Bactrim hives Drug Allergy Active lisinopril Lisinopril Numbness, swelling mouth Drug Allergy Active Reason For Referral No Information Medications Medication SIG (Take, Route, Frequency, Duration) Notes Start Date End Date Status hydroCHLOROthiazide 25 MG 1 tablet in th e morning Orally Once a day for 30 day(s) Active Lovaza 1 GM 2 capsules Orally Twice a day for 30 day(s) Active Meclizine HCl 25 MG 1 tablet as needed Orally Once a day for 30 day(s) Active Ergocalciferol 1.25 MG (5000 0 UT) 1 capsule Orally for 30 day(s) Active Lidocaine 5 % as directed Externally Active Omeprazole 20 MG 1 capsule 30 minutes before morning meal Orally Once a day for 30 day(s) Active Fluticasone Furoate 50 MCG/ACT 2 puffs I nhalation Once a day Active LORazepam 0.5 MG 1 tablet at bedtime as needed Orally Once a day Active Ipratropium-Albuterol 0.5-2. 5 (3) MG/3ML 3 ml as needed Inhalation every 6 hrs Active Lantus SoloStar 100 UNIT/ML as directed Subcutaneous Active Cetirizine HCl 10 MG 2 tablets Orally On ce a day for 30 day(s) Active Atorvastatin Calcium 40 MG 1 tablet Oral ly Once a day for 30 day(s) Active Lidocaine-Prilocaine 2.5-2.5 % as directed Externally Active metFORMIN HCl 1000 MG 1 tablet with a me al Orally Once a day for 30 day(s) Active Budesonide-Formoterol Fumara te 80-4.5 MCG/ACT 2 puffs Inhalation Once a day Active NovoLOG FlexPen 100 UNIT/ML as directed Subcutaneous Active Aspirin 81 81 MG 1 tablet Orally Once a day for 30 day(s) Active Losartan Potassium 100 MG 1 tablet Orall y Once a day for 30 day(s) Active amLODIPine Besylate 10 MG 1 tablet Orall y Once a day for 30 day(s) Active Ipratropium-Albuterol 20-100 MCG/ACT 1 puff as needed Inhalation every 6 hrs Active Immunizations Vaccine Route Administration Date Status Comme nts Influenza Unknown 06/01/2020 Administered Social History Tobacco Use: Social History Observation Description Date Details (start date - stop date) Former Smoker NA - NA Tobacco Use/Smoking Question Answer Notes Are you a: former smoker Additional Findings: Tobacco Non-User Current no n-smoker Alcohol Screen Question Answer Notes Did you have a drink contain ing alcohol in the past year? Yes How often did you have a dri nk containing alcohol in the past year? Monthly or less (1 point) Points 1 Interpretation Negative Tobacco use other than smoking: Question Answer Notes Are you an other tobacco user? No Problems Problem Type SNOMED Code ICD Code Onset Dates Problem Status W/U Status Risk Notes Problem Polyneuropathy due to type 2 diabetes mellitus (191776312) Type 2 diabetes mellitus with diabetic polyneuropathy (E11.42) Active confirmed Problem 119175403 Hammer toe of right foot (M20.41) Active confirmed Problem 619457724 Hammer toe of left foot (M20.42) Active confirmed Plan Of Treatment Pending Test Test Name Order Date HEMOGLOBIN A1C (GLYCOHEMOGLOBIN) 020 Insurance Providers Payer Name Payer Address Payer Phone Subscriber Number Group Number Insured Name Patient Relationship to Insured Coverage Start Date Coverage End Date [facility] [address] [place] [phone] [id number] Cecy Gallegos Self - patient is the insured [facility] [address] [address] [place] [address] [phone] [id number] [place] Spouse - patient is the spouse of the insured Medical (General) History Medical History History ICD Code Diabetic mellitus type 2 w/neurological and renal complications High blood pressure Cholesterol Sleep apnea chronic kidney disease stage 3 asthma Reflux ( GERD) Vitamin D deficiency Peripheral neuropathy COPD Arthritis Back,Hip,and Knee pain Kidney disease Neuropathy Osteoporosis chronic sinusitis Surgical History Surgery Date(Month/Year) tonsillectomy tubal ligation ear surgery breast reduction
--- OUTSIDE RECORDS SUMMARY | 2024-10-18 11:42 | XMS_ITS | Data Portability ---
Author Organization [facility] [facility] [address] Address [address] [place] [address] Care Team Providers Care Creative Project Manager Name Role Phone [facility] Care Provider Assessment No assessment recorded. Plan of Treatment Reminders Order Date Submit Date Provider Last Modified By Organization Details Last Modified Time Details Appointments None recorded. Lab None recorded. Referral None recorded. Procedures None recorded. Surgeries None recorded. Imaging XR, chest, 2 view 2022 023 [facility], [address] [place] [address], [address], 3 12:27:34 Medication Orders albuterol sulfate 2.5 mg/3 mL (0.083 %) solution for nebulizatio n 2022 023 [email or web address] 1 Not available 3 11:21:23 doxycycline hyclate 100 mg capsule 2022 024 [id number], [address] [place], [address], 4 11:58:16 prednisone 20 mg tablet 2022 024 [id number], [address] [place], [address], 4 11:58:29 benzonatate 100 mg capsule 2022 024 [id number], [address] [place], [address], 11:58:10 Patient TargetsNo targets recorded. Patient Instructions Encounter Date Encounter Id Patient Instructions Last Modified By Organization Details Last Modified Time 02/01/2023 [id number] cough: care instructions Not available 02/01/2023 11:13:47 pneumonia: care instructions Not available 02/01/2023 11:41:46 10/29/2023 [id number] sore throat: car e instructions [email or web address] Not available 10/29/2023 12:12:07 Reason for Referral None Reported. Results Created Date Observation Date Name Description Value Unit Range Abnormal Flag Note LastModifiedBy Organization Detail LastModifiedTime 02/02/2002/01/2023 XR, chest , 2 view No observ ation record ed. [email or web address] [address] [facility] [place] [address], 02/01/2023 15:03:39 Result Notes None recorded. Problems Name Problem SNOMED Code Status Onset Date Resolution Date Notes Provider Name and Address Organization Details Recorded Time Asthma 310336519 Active 023 JENNIFER HANCOCK null, [place] - [facility] 10:40:10 Diabetes mellitus 40142444 Active 023 JENNIFER HANCOCK null, [place] - [facility] 10:41:40 Problem Notes None recorded. Procedures Surgical History Date Name Laterality Status Provider Name and Address Organization Details Recorded Time Nebulizer Treatment completed Mary Ann Salazar MD [address] [facility] [place], [address], [place] - [facility] 02/01/2023 11:50:41 procedure [...] 2 view completed [email or web address] [address] [facility] [place], [address], 02/01/2023 15:03:39 Procedure Notes None recorded. Medical Equipment None Reported. Allergies Allergen ID Allergen Name Allergen Category Reaction Reaction Severity Criticality Documentation Date Start Date Code Code System Note Provider Name and Address Organization Details Recorded Time 275859 amoxicill in medicatio n hives Not available Not available 02/01/2023 723 RxNorm JENNIFER HANCOCK null, [place] - [facility] 10:43:47 770985 Substance with sulfonami de structure and antibacte rial mechanism of action (substanc e) medicatio n hives Not available Not available 02/01/2023 60085 8003 SNOMED JENNIFER HANCOCK null, [place] - [facility] 10:43:59 505266 azithromy lamont medicatio n hives Not available Not available 02/01/2023 15657 RxNorm JENNIFER HANCOCK null, [place] - [facility] 10:44:10 662467 Product containin g penicilli n and antibioti c (product) medicatio n hives Not available Not available 02/01/2023 68557 05 SNOMED JENNIFER HANCOCK null, [place] - [facility] 10:44:17 443503 lisinopri l medicatio n swelling Not available Not available 02/01/2023 49949 RxNorm JENNIFER HANCOCK null, [place] - [facility] 10:44:36 915123 adhesive tape environme nt,medica tion rash Not available Not available 02/01/2023 42424 UNK JENNIFER HANCOCK null, [place] - [facility] 10:44:49 892322 trimethop rim medicatio n Not available Not available Not available 02/01/2023 65849 RxNorm JENNIFER HANCOCK null, [place] - [facility] [...] Updated DateTime 3 160.02 cm 38.4 kg/m2 65194.5 4 g 8 20 /min 95 % 95 % 78 /min 98.6 [degF] 148 mm[Hg] 71 mm[Hg] JENNIFER HANCOCK [facility] 3 10:52:07 Date Recorded Body height Body mass index (BMI) Body weight Respiratory rate Pain severity - 0-10 verbal numeric rating [Score] - Reported Body temperature Oxygen saturation Oxygen saturation in Arterial blood by Pulse oximetry Heart rate Systolic blood pressure Diastolic blood pressure Provider Name and Address Organization Details Last Updated DateTime 4 160.02 cm 38.4 kg/m2 64047.5 4 g 18 /min 0 97.3 [degF] 95 % 95 % 58 /min 121 mm[Hg] 64 mm[Hg] ANDRES MERCADO PA [facility] 4 12:00:46 Social History Question Answer Notes LastModified by Organizat ion Details LastModified Time Tobacco Smoking Status Former Smoker JENNIFER hodgson [place] - [facility] 02/01/2023 10:49:58 What Is Your Level Of Alcohol Consumption? None [email or web address] Information not available 02/01/2023 When Did You Quit Smoking? 6-10yearssi [email or web address] rette [email or web address] Information not available 02/01/2023 Do You Use Any Illicit Or Recreational Drugs? No [email or web address] Information not available 02/01/2023 Have You Recently Traveled Abroad? No [email or web address] Information not available 02/01/2023 Do You Or Have You Ever Used Any Other Forms Of Tobacco Or Nicotine? No [email or web address] Information not available 02/01/2023 Sex: Unknown Functional Status None recorded. Mental Status None recorded. Family History Relationship Description Onset Age of this Age Resolved Age Notes LastModified by Organization Details LastModified Time Father No current problems or disability Not available 02/01 10:46:43 Mother No current problems or disability [email or web address] Not available 02/01 10:46:43 Medical History No medical history recorded. Gynecological History Statement/Question Response Date of LMP Obstetrics History GPAL:G 0 P 0 0 0 0 Past Encounters Encounter ID Performer Location Encounter Start Date Encounter Closed Date Diagnosis/Indication Diagnosis SNOMED-CT Code Diagnosis ICD10 Code Diagnosis Note [id number] [place] Salazar [place] [address] [address] 02/01/2023 10:29:52 02/01/2023 11:51:00 Dyspnea 674119049 R06.00 Breathing improved with nebulizer. Continue nebulizer treatments at home Community acquired pneumonia 361283183 J18.9 Treatment is antibiotic s as prescribed [...] recommende d to verify pneumonia has resolved. [id number] [facility] [address] [address] [place] [address] 10/29/2023 11:18:45 10/29/2023 12:17:03 Acute pharyngitis 723808878 J02.9 Based on your Presentati on and [...] Giraldo Member ID Guarantor Name 02/01/2023 1 [facility] [id number] Cecy Fuentess [id number] Cec[address] El 10/29/2023 1 [facility] [id number] Cecy Fuentess [id number] 32 Cecy Fuentess Notes Date Note Type [...] post nasal drip Mary Ann Salazar MD [facility] [place], [address], [place] - [facility] 02/03/2023 12:04:54 4 [...] TEREZA Cummins [address] [place], [address], [place] - [facility] 10/29/2023 12:14:38 OBGyn Episode No OBEpisode recorded.
== END 2024-10-18 11:31 | disposition home or self-care (01) ==
PROVIDERS: PCP Internal Medicine; Visit Provider Physician Assistant Medical
DX: J22 Unspecified acute lower respiratory infection (principal); B97.89 Other viral agents as the cause of diseases classified elsewhere; R07.81 Pleurodynia

== ENCOUNTER → 2024-10-18 10:58 | Outpatient (BNV) | payer MEDICARE, SELFPAY | PROVIDERS: PCP Internal Medicine; Visit Provider Radiology Diagnostic Radiology | DX: R05.9 Cough, unspecified (principal) | CPT/HCPCS: 71046 ==

== ENCOUNTER 2025-08-04 08:19 | Emergency (ER) | payer MEDICARE, SELFPAY ==
--- OUTSIDE RECORDS SUMMARY | 2014-08-25 | XMS_ITS | Encounter Summary ---
Author Organization [facility] Address [address] [place] [address] Phone Care Team Providers Care Brush Head Maker Name Role Phone Unavailable Primary Care Provider Unavailabl e Encounter Details Date Type Department Care Team (Late st Contact Info) Description 08/25/2014 [facility] Encounter [facility] [address] [place] [address] Jair Wilcox MD [address] [place] [address] [email or web address] Social History Tobacco Use Types Packs/Day Years Used Date Smoking Tobacco: Former Cigarettes 0.5 30 1 11/03/1985 - 09/02/2016 Smokeless Tobacco: Never Alcohol Use Standard Drinks/Week Comments Yes 0 (1 standard drink = 0.6 oz pur e alcohol) Infrequently Education Answer Date Recorded Are you interested in more education? Not on kim e 01/05/2023 Are you concerned about learning? Not on file 01/05/2023 No 01/05/2023 No 01/05/2023 Food Answer Date Recorded Within the past 6 months we worried whether our food would run out before we got money to buy more. Never True 02/04/2025 Within the past 6 months the food we bought just didn't last and we didn't have enough money to get more. Never True Residential Stability Answer Date Recor ded What is your housing situation today? I have awais shook 02/04/2025 Number of times moved in last year Not on file 02/04/2025 Paying for Meds Answer Date Recorded Do you have trouble paying for medicines? No 02/04/2025 Paying Utility Bills Answer Date Record ed Do you have trouble paying your heating or elect ricity bill? No 02/04/2025 Transportation Answer Date Recorded Has the lack of transportati on kept you from medical appointments or from getting medications? No 02/04/2025 Digital Access Answer Date Recorded No 02/04/2025 Yes 02/04/2025 Do you have reliable internet access at home? Ye s 02/04/2025 Do you have a device (e.g., phone, tablet, computer) with a working camera? Yes 02/04/2025 Intimate Partner Violence Answer Date R ecorded Are you denied basic needs s uch as food, clothing, or medical care? No 02/04/2025 In the past 12 months have y ou been in a relationship with a person who hurts, threatens, or tries to control you? No 02/04/2025 Are you denied basic needs s uch as food, clothing, or medical care? No 02/04/2025 In the past 12 months have y ou been in a relationship with a person who hurts, threatens, or tries to control you? 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 Wish to be (Past 1 Month) No 025 11:50 AM EDT Phil Morse, TUAN 2. Non-Specific Active Suici leonard Thoughts (Past 1 Month) No 02/04/2025 11:50 AM EDT Phil Morse RN 6. Suicidal Behavior (Lifetime) No 5 11:50 AM EDT Phil Morse RN documented as of this encounter Plan of Treatment Not on file documented as of this encounter Procedures Procedure Name Priority Date/Time Associated Diagnosis Comments XR CHEST OUTSIDE (NO INTERPRETATION) Routine 08/25/2014 12:00 AM EST documented in this encounter Results * XR Chest Outside (No Interpretation) (08/25/2014 12:00 AM EST) Narrative [facility] IMG INTERFACES - 12/29/2016 2:19 PM EDT This study is for PACS storage only and not for interpretation. us Jair Wilcox MD IMG OUTSIDE IMAGING W/OUT INTERP RETATION Final Result [facility] IMG INTERFACES documented in this encounter Visit Diagnoses Not on filedocumented in this encounter Additional Health Concerns Infection Onset Date Last Indicated Resolved Time CoV-Exposed Comment:Recent close contact documented in the Travel/Symptom Screening Form 03/23/2024 03/23/2024 04/03/2024 1:21 AM E DT documented as of this encounter Additional Source Comments The information contained in this document represents components of the legal health record. It is not the complete legal health record.[facility]
--- OUTSIDE RECORDS SUMMARY | 2014-12-17 23:00 | XMS_ITS | Encounter Summary ---
Author Organization [facility] Address [address] [place] [address] Phone Care Team Providers Care Leasing Specialist Name Role Phone Unavailable Primary Care Provider Unavailabl e Encounter Details Date Type Department Care Team (Late st Contact Info) Description 12/18/2014 [facility] Encounter [facility] [address] [place] [address] Jair Wilcox MD [address] [place] [address] [email or web address] Social History Tobacco Use Types Packs/Day [...] 11:50 AM EDT Phil Morse RN * [place] Suicide Severity Rating Scale (Screener/Recent Self-Report) Question [...] Comments XR CHEST OUTSIDE (NO INTERPRETATION) Routine 12/18/2014 12:00 AM EDT documented in this encounter Results * XR Chest Outside (No Interpretation) (12/18/2014 12:00 AM EDT) Narrative [facility] IMG INTERFACES - 12/29/2016 2:20 PM EDT This study is for PACS storage only and not for interpretation. us Jair Wilcox MD IMG OUTSIDE IMAGING W/OUT INTERP RETATION Final Result [facility] INTER[facility]ACES documented in this encounter Visit [...] It is not the complete legal health record.[facility]
--- OUTSIDE RECORDS SUMMARY | 2016-10-01 | XMS_ITS | Encounter Summary ---
Author Organization [facility] Address [address] [place] [address] Phone Care Team Providers Care Math And Science Division Chair Name Role Phone JeancarlosTran Ashely Suellen DO Primary Car e Provider Encounter Details Date Type Department Care Team (Late st Contact Info) Description 10/01/2016 Hospital Encounter [facility] [address] [place] [address] Jair Wilcox MD 55 [facility] [address] [place] [address] [email or web address] Social History Tobacco Use Types Packs/Day [...] Author No Risk Indicated 02/04/2025 11:50 AM BIBIT Phil Morse RN * [place] Suicide Severity Rating Scale (Screener/Recent Self-Report) Question Answer Date of Assessment Author 1. Wish to be (Past 1 Month) No 025 11:50 AM EDT Phil Morse RN 2. Non-Specific Active Suici leonard Thoughts (Past 1 Month) No 02/04/2025 11:50 AM EDT Phil Morse , RN 6. Suicidal Behavior (Lifetime) No 11:50 AM EDT Phil Morse RN documented as of this encounter Plan of Treatment Not on file documented as of this encounter Procedures Procedure Name Priority Date/Time Associated Diagnosis Comments XR CHEST OUTSIDE (NO INTERPRETATION) Routine 10/01/2016 12:00 AM EST documented in this encounter Results * XR Chest Outside (No Interpretation) (10/01/2016 12:00 AM EST) Narrative [facility] [place] - 12/29/2016 2:19 PM EDT This study is for PACS storage only and not for interpretation. us Jair Wilcox MD IMG OUTSIDE IMAGING W/OUT INTERP RETATION Final Result [facility] documented in this encounter Visit Diagnoses Not on filedocumented in this encounter Additional Health Concerns Infection Onset Date Last Indicated Resolved Time CoV-Exposed Comment:Recent close contact documented in the Travel/Symptom Screening Form 03/23/2024 03/23/2024 04/03/2024 1:21 AM E DT documented as of this encounter Care Teams Math And Science Division Chair Relationship Specialty Start Date End Date Ashely Coughlin DO [address] [place] [address] PCP - General Internal Medicine 09/21/16 01/28/20 documented as of this encounter Additional Source Comments The information contained in this document represents components of the legal health record. It is not the complete legal health record.[facility]
--- OUTSIDE RECORDS SUMMARY | 2016-10-17 | XMS_ITS | Encounter Summary ---
Author Organization [facility] Address [address] [place] [address] Phone Care Team Providers Care Registered Radiation Therapist Name Role Phone JeancarlosAshely Mayfield Suellen DO Primary Car e Provider Encounter Details Date Type Department Care Team (Late st Contact Info) Description 10/17/2016 Hospital Encounter [facility] [address] [place] [address] Jair Wilcox MD 55 [facility] 148 [place] [address] [email or web address] Social History Tobacco Use Types Packs/Day [...] 11:50 AM BIBIT Phil Morse RN * [place] Suicide Severity Rating Scale (Screener/Recent Self-Report) Question [...] (No Interpretation) (10/17/2016 12:00 AM EST) Narrative [facility] - 12/29/2016 2:19 PM EDT This study is for PACS storage only and not for interpretation. us Jair Wilcox MD IMG OUTSIDE IMAGING W/OUT INTERP RETATION Final Result [facility] documented in this encounter Visit Diagnoses Not on filedocumented in this encounter Additional Health Concerns Infection Onset Date Last Indicated Resolved Time CoV-Exposed Comment:Recent close contact documented in the Travel/Symptom Screening Form 03/23/2024 03/23/2024 04/03/2024 1:21 AM E DT documented as of this encounter Care Teams Registered Radiation Therapist Relationship Specialty Start Date End Date Ashely Coughlin DO [address] [place] [address] PCP - General Internal Medicine 09/21/16 01/28/20 documented as of this encounter Additional Source Comments The information contained in this document represents components of the legal health record. It is not the complete legal health record.[facility]
--- OUTSIDE RECORDS SUMMARY | 2025-07-30 09:15 | XMS_ITS | Encounter Summary ---
Author Organization [facility] Address [address] [place] [address] Care Team Providers Care Pottery Decoration Designer Name Role Phone Veronica Verduzco MD Primary Care Prov ider Reason for Visit * Reason Comments Consult Diabetic foot care * Consultation (Routine) - Closed Specialty Diagnoses / Procedures Referred By Jonatan thomas Referred To Contact Podiatry / Orthopaedic Surgery Diagnoses Type 2 diabetes mellitus with stage 3a chronic kidney disease, without long-term current use of insulin (CMS/HCC V24, CMS/HCC V28) Veronica Verduzco MD [address] [place] [phone] Phone: tel: fax: Enrico Wooten DPM [address] [address] Phone: tel: fax: Referral ID Status Reason Start Date Expiration Date V isits Requested Visits Authorized [id number] Closed Specialty Services Required 07/17/2025 07/17/2026 1 1 Encounter Details Date Type Department Care Team (Late st Contact Info) Description 07/30/2025 9:15 AM EST Consult Orthopedic Surgery - [place] [address] [phone] Enrico Wooten DPM [address] [address] Controlled type 2 diabetes with neuropathy (CMS/HCC V24, CMS/HCC V28) (Primary Dx); Arthritis of both feet; Bunion, right foot Social History Tobacco Use Types Packs/Day Years Used Date Smoking Tobacco: Former Cigarettes 1.5 39 1 976 - 2015 Smokeless Tobacco: Never Alcohol Use Standard Drinks/Week Comments Not Currently 0 (1 standard drink = 0.6 oz pur e alcohol) Housing Instability Answer Date Recorde d Are you worried that in the next 2 months you may not have stable housing? No 01/22/2025 Food Access & Nutrition Answer Date Rec orded Do you have access to a vari ety of food including fruits and vegetables? Yes 01/22/2025 Health Literacy Answer Date Recorded How often do you need to hav e someone help you when you read instructions, pamphlets, or other written material from your doctor or pharmacy? Never 01/22/2025 Caregiver: How often do you need to have someone help you when you read instructions, pamphlets, or other written material from your doctor or pharmacy? Not on file 01/22/2025 Financial Risk Answer Date Recorded How hard is it for you to pa y for the very basics like food, housing, medical care, and air conditioning / heating? Not very hard 01/22/2025 Transportation Answer Date Recorded Has the lack of transportati on kept you from meetings, work, or from getting things needed for daily living? No Has the lack of transportati on kept you from medical appointments or from getting medications? No 01/22/2025 Social Isolation Answer Date Recorded How often do you feel lonely or isolated from th ose around you? Never 01/22/2025 Food Risk Answer Date Recorded Within the past 12 months we worried whether our food would run out before we got money to buy more. Never true 01/22/2025 Within the past 12 months th e food we bought just didn't last and we didn't have money to get more. Never true 01/22/2025 Dependent Care Answer Date Recorded Do you need help finding or paying for care for your loved ones. For example, early childhood lead teacher or elderly care for an older adult? No 01/22/2025 Education Answer Date Recorded Do you think completing more education or training, like finishing a GED, going to college, or learning a trade, would be helpful for you? N/A 01/22/2025 Employment and Income Answer Date Recor ded During the last four weeks, have you been actively looking for work? No 01/22/2025 Living Situation Answer Date Recorded What is your living situation? Unrecognized valu e 01/22/2025 Comments No Sex and Gender Information Value Date Recorded Sex Assigned at Not on file Legal Sex Female 4:18 AM EST Gender Identity Not on file Sexual Orientation Not on file documented as of this encounter Last Filed Vital Signs Vital Sign Reading Time Taken Comments Blood Pressure - - Pulse - - Temperature - - Respiratory Rate - - Oxygen Saturation - - Inhaled Oxygen Concentration - - Weight 92.5 kg (204 lb) 07/30/2025 9:44 AM EST Height 160 cm (5' 2.99 ) 07/30/2025 9:44 AM EST Body Mass Index 36.15 07/30/2025 9:44 AM EST documented in this encounter Progress Notes * Enrico Wooten DPM - 07/30/2025 9:15 AM EST Referring MD: Veronica Verduzco* Last PCP visit: 07/17/2025 IDENTIFIER: El is a 70 y.o. year old female who presents for consultation. CC: Pain and does HPI: Patient presents to office today for initial diabetic foot evaluation as recommended by their primary care physician. Patient states that they have been diabetic for the past few years and have had minimal complications. Denies any history of ulceration, or infection. Patient would like to inquire about their pedal hygiene, as their toenails have become elongated and painful. Patient is not using antifungals at this time. Patient is wearing good supportive shoes at this time. Patient reports mild calluses that are becoming bothersome. Patient with minimal other pedal complaints at this time. Patient's FBS this AM was unchecked Recent A1C is %. 6.2 ROS: GENERAL: Pt denies nausea, fever, vomiting, chills, or shortness of breath. Pt in NAD. CARDIOLOGY: pt denies chest pain, palpitations LUNGS: pt denies shortness of breath MUSCULOSKELETAL: See HPI, otherwise no joint pain or swelling, back pain, or muscle pain. SKIN: see HPI, otherwise no lesions, rash or itching NEURO: No persistent headache, weakness or numbness The remainder of the review of systems is noncontributory PAST MEDICAL HISTORY: Problem List[1] SOCIAL HISTORY: Social History Tobacco Use Smoking status: Former Current packs/day: 0.00 Average packs/day: 1.5 packs/day for 39.0 years (58.5 ttl pk-yrs) Types: Cigarettes Start date: 1975 Quit date: 2015 Years since quittin.8 Smokeless tobacco: Never Substance Use Topics Alcohol use: Not Currently ACTIVE MEDICATIONS: Medications Taking[2] ALLERGIES: Amoxicillin, Azithromycin, Bactrim [sulfamethoxazole-trimethoprim], Lisinopril, Penicillins, Penicillin v potassium, and Adhesive tape-silicones PHYSICAL EXAM: Height 1.6 m (62.99 ), weight 92.5 kg (204 lb). PODIATRIC EXAMINATION: GENERAL: Patient appears well nourished, with NAD. VASCULAR: Dorsalis pedis pulses are 2/4 bilaterally and Posterior tibial pulses are 2/4 bilaterally. Capillary filling time within normal limits the digits. No pallor on elevation or rubor on dependency. Positive hair growth. No varicosities. Denies rest pain or claudication pain. NEUROLOGICAL: Sharp/dull sensation intact, protective sensation intact on [place]. Peripheral neuropathy of the feet bilaterally ORTHOPEDIC: Good muscle strength 5/5 of all flexors and extensors. Dorsi flexion of ankle ,10 degrees, plantar flexion WNL. No muscle atrophy. Minimal contracture of digits with reducible positioningof digits. Arthritic changes in the midfoot bilaterally. Slight bunion deformity bilateral feet DERMATOLOGICAL:.No masses or skin lesions noted. Normal skin temperature, normal skin turgor. Nailsare thickened misshapened discolored x 10 with single debris BIOMECHANICS: STJ ROM wnl, MTJ ROM wnl, 1st MPJ ROM wnl. IMPRESSION: 1. Controlled type 2 diabetes with neuropathy (CMS/HCC V24, CMS/HCC V28) 2. Arthritis of both feet 3. Bunion, right foot PLAN: Pt was seen and examined, history reviewed. Patient educated on the importance of good pedal hygiene and tight blood glucose control. Patient encouraged to maintain a healthy lifestyle with a well-balanced diet. Patient should never go barefoot and wear supportive shoe gear. Patient should aim for A1c less than 7% every month. Continue with regular appointments with PMD or pie filler for tight medical management Patient was educated on pressure sores that can develop and how wounds can be affecting the digits of bilateral feet. Patient does have bunion deformity and may require wider shoes in the future. Patient has had diabetic shoes in the past and was encouraged to continue using her diabetic shoes withPlastizote inserts in order to support the midfoot and decrease arthritic flareups Enrico Wooten DPM [1] Patient Active Problem List Diagnosis Hypertension DM (diabetes mellitus), type 2 with renal complications ([facility] V24, [facility] V28) Diabetes mellitus type 2 with neurological manifestations ([facility] V24, [facility] V28) Hyperlipidemia Severe obesity (BMI 35.0-39.9) with comorbidity (CMS/HCC V24, [facility] V28) Vitamin D deficiency Esophageal dysmotility GERD (gastroesophageal reflux disease) Stress incontinence CKD (chronic kidney disease) stage 3, GFR 30-59 ml/min (CMS/[facility] V24, [facility] V28) Migraine Obstructive sleep apnea Post-traumatic headache, not intractable Herpes zoster without complication Lumbar spondylosis OA (osteoarthritis) of shoulder Pulmonary nodules Postconcussion syndrome Peripheral neuropathy Mixed conductive and sensorineural hearing loss, bilateral Hallux valgus of right foot Allergic rhinitis Asthma-COPD overlap syndrome (CMS/[facility] V24, CMS/[facility] V28) Abnormal chest CT Chronic idiopathic granulomatous disease History of tobacco use Hx of transient ischemic attack (TIA) Class 2 severe obesity due to excess calories with serious comorbidity and body mass index (BMI) of36.0 to 36.9 in adult Type 2 diabetes mellitus with stage 3a chronic kidney disease, without long-term current use of insulin ([facility] V24, [facility] V28) Seasonal allergies Mixed hyperlipidemia Primary hypertension Severe obstructive sleep apnea Tear of medial meniscus of right knee, current Acute medial meniscus tear of right knee Other female genital prolapse Postmenopausal bleeding [2] No outpatient medications have been marked as taking for the 07/30/25 encounter (Consult) with Jasmin Wooten DPM. documented in this encounter Plan of Treatment Upcoming Encounters Date Type Department Care Team (Late st Contact Info) Description 08/15/2025 10:00 AM EST Consult Adult Medicine [address] [phone] Veronica Verduzco MD [address] [place], [place] 08/28/2025 10:00 AM EST Hospital Encounter [facility] Main [place] [address] [place] [phone] Dawood Fair MD [address] [address] 08/28/2025 10:00 AM EST - 08/28/2025 12:00 PM EST Surgery [facility] Main [place] [address] [place] [phone] Dawood Fair MD [address] [address] RIGHT KNEE ARTHROSCOPY [89170 (CPT )] 09/10/2025 10:00 AM EST Office Visit Orthopedic Surgery [address] [place] [phone] Earnest López, TEREZA 175 [place] [address] 09/10/2025 11:30 AM EST Office Visit Orthopedic Surgery [facility] [address] [place] [phone] Dawood Fair MD [address] [address] 11/05/2025 3:15 PM EST Office Visit Nephrology - [address] [phone] Toni Arzimendi MD [address] [phone] 12/29/2025 9:45 AM EDT Office Visit Pulmonology [facility] [address] [phone] Giovana Randall, INVENTORY AUDITOR [address] [place] [phone] 01/27/2026 8:30 AM EDT Office Visit Orthopedic Surgery - [place] [address] [phone] Enrico Wooten, DPM 175 [facility] 250 [place] [address] Scheduled Procedures Name Priority Associated Diagnoses Date/Ti me ARTHROSCOPY KNEE Acute medial meniscus tear of right knee, initial encounter 08/28/2025 10:00 AM EST documented as of this encounter Goals Goal Patient Goal Type Associated Problems Recent Progress Patient-Stated? Author Autogenerat ed Goal Care Plan Autogenerated Problem No Dawood Fair MD documented as of this encounter Visit Diagnoses Diagnosis Acute medial meniscus tear of right knee- Primary Controlled type 2 diabetes with neuropathy (CMS/HCC V24, CMS/HCC V28)- Primary Type II or unspecified type diabetes mellitus with neurological manifestations, not stated as uncontrolled Arthritis of both feet Bunion, right foot Bunion Acute medial meniscus tear of right knee, initial encounter documented in this encounter Orders Outpatient Referral Count Last Ordered Date st Ordered Date AMB REFERRAL TO PODIATRY 1 07/30/2025 documented in this encounter Additional Health Concerns Active Problems Noted Date Diagnosed Date Autogenerated Problem 07/30/2025 Assessment Noted Time PHQ-9 Depression Total Score: 6 11/05/19 11:58 AM EST A fall risk assessment has been complete d for the patient 11/05/2024 11:55 AM EST documented as of this encounter Care Teams Pottery Decoration Designer Relationship Specialty Start Date End Date Veronica Verduzco MD [address] [place] [phone] PCP - General Internal Medicine 04/11/22 documented as of this encounter
--- NOTE | ~2025-08-04 | XR_ITS ---
EXAMINATION: XR CHEST 2 VIEWS HISTORY: cough COMPARISON: Comparison is made with the prior examination dated 725. FINDINGS: PA and lateral views of the chest are submitted. Again seen is a calcified granuloma in the lingula. The lungs are otherwise clear. There is no pleural effusion, pneumothorax, or pulmonary vascular congestion. The heart is enlarged. The aorta is tortuous. There is degenerative disc disease of the spine. XR/XR chest 2V IMPRESSION: Cardiomegaly. No acute cardiopulmonary abnormality. Electronically signed by: Jair Russell MD 08/04/2025 08:47 AM EST
[2025-08-04 08:22] VITALS: BP 122/58; PULSE 67; RESP 20; TEMP 36.7; O2SAT 96; BMI 36.0
--- OUTSIDE RECORDS SUMMARY | 2025-08-04 08:47 | XMS_ITS | Encounter Summary ---
Author Organization [facility] Address [address] [place] [address] Phone Care Team Providers Care Piano Technician Name Role Phone Noreen Ramirez NP Primary Care Provider [phone] Encounter Details Date Type Department Care Team (Late st Contact Info) Description 02/04/2025 Procedure Pass [facility], Ct Scan - [facility] [address] [place] [address] Social History Tobacco Use Types Packs/Day Years [...] Risk Indicated 02/04/2025 11:50 AM EDT Phil Morse, TUAN * [place] Suicide Severity Rating Scale (Screener/Recent Self-Report) Question Answer Date of Assessment Author 1. Wish to be (Past 1 Month) No 025 11:50 AM EDT Phil Morse, RN 2. Non-Specific Active Suici leonard Thoughts (Past 1 Month) No 02/04/2025 11:50 AM EDT Phil Morse , RN 6. Suicidal Behavior (Lifetime) No 11:50 AM EDT Phil Morse, TUAN documented as of this encounter Plan of Treatment Not on file documented as of this encounter Visit Diagnoses Not on filedocumented in this encounter Care Teams Piano Technician Relationship Specialty Start Date End Date Noreen Ramirez NP [address] [place] [phone] PCP - General Nurse Practitioner 02/04/25 documented as of this encounter Additional Source Comments The information contained in this document represents components of the legal health record. It is not the complete legal health record.[facility]
--- OUTSIDE RECORDS SUMMARY | 2025-08-04 08:47 | XMS_ITS | Encounter Summary ---
Author Organization [facility] Address [address] [place] [address] Care Team Providers Care Welder Gas Name Role Phone Veronica Verduzco MD Primary Care Prov ider Encounter Details Date Type Department Care Team ([facility] st Contact Info) Description 07/22/2025 [place] [facility] [place] [address] [place] [address] Veronica Verduzco MD [address] [place] [address] Social History Tobacco Use Types Packs/Day Years [...] care for your loved ones. 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 [...] on file documented as of this encounter Plan of Treatment Upcoming Encounters Date Type Department Care Team (Late st Contact Info) Description 08/15/2025 10:00 AM EST Consult Adult Medicine [address] [phone] Veronica Verduzco MD [address] [place] [address] 08/28/2025 10:00 AM EST Hospital Encounter [facility] Main OR [address] [place] [phone] Dawood Fair MD [address] [address] 08/28/2025 10:00 AM EST - 08/28/2025 12:00 PM EST Surgery [facility] Main OR [address] [place] [phone] Dawood Fair MD 175 [facility] 160 [place] [address] RIGHT KNEE ARTHROSCOPY [[id number] (CPT )] 09/10/2025 10:00 AM EST Office Visit Orthopedic Surgery [facility] 175 [facility] 140 [place] [phone] Earnest López PA 175 [place] [address] 09/10/2025 11:30 AM EST Office Visit Orthopedic Surgery [facility] 160 175 [facility] 160 [place] [phone] Dawood Fair MD [address] [address] 11/05/2025 3:15 PM EST Office Visit Nephrology [address] [phone] Toni Arizmendi MD [address] [phone] 12/29/2025 9:45 AM EDT Office Visit Pulmonology [facility] 175 [facility] 200 [place] [phone] Giovana Randall, CLEMENTE 230 [place] [phone] 01/27/2026 8:30 AM EDT Office Visit Orthopedic Surgery [facility] 250 175 [facility] 250 [place] [phone] Enrico Wooten, DPM [address] [address] Scheduled Procedures Name Priority Associated Diagnoses Date/Ti me ARTHROSCOPY KNEE Acute medial meniscus tear of right knee, initial encounter 08/28/2025 10:00 AM EST documented as of this encounter Visit Diagnoses Not on filedocumented in this encounter Additional Health Concerns Assessment Noted Time PHQ-9 Depression Total Score: 6 11/05/19 11:58 AM EST A fall risk assessment has been complete d for the patient 11/05/2024 11:55 AM EST documented as of this encounter Care Teams Welder Gas Relationship Specialty Start Date End Date Veronica Verduzco MD [address] [place] [phone] PCP - General Internal Medicine 04/11/22 documented as of this encounter
--- OUTSIDE RECORDS SUMMARY | 2025-08-04 08:47 | XMS_ITS | Clinical Summary ---
Author Organization [facility] Address [address] [place] [phone] Phone Care Team Providers Care Quitline Counselor Name Role Phone Veronica Verduzco MD Primary Care Prov ider Allergies Active Allergy Reactions Criticality Noted Date Comments Adhesive Tape-Silicones Rash Low 11/02/2015 Amoxicillin Hives High 06/13/2024 Azithromycin Hives,Other High 12/24/2012 azithromycin Sulfamethoxazole-Trimeth oprim Itching High 02/14/2018 Lisinopril Angioedema,Other High 12/24/2012 Numbness, tingling or swelling of the lips, tongue or mouth lisinopril Penicillin V Potassium Other 05/26/2025 penicillin V potassium Penicillins Hives High 12/24/2012 Medications ACCU-CHEK SOFTCLIX LANCETS MISC 02/19/20 22 Active BLOOD-GLUCOSE METER MISC 1 Device by Not Applicable route. 01/18/20 23 Active meclizine (ANTIVERT) 25 mg tablet Take 1 tablet (25 mg total) by mouth. 09/20/19 20 Active triazolam (HALCION) 0.25 mg tablet TAKE 1 TABLET BY MOUTH 90 MINUTES PRIOR TO DENTAL VISIT 11/06/19 24 Active inhalat.spacing dev,large mask spacer Use with inhaler up to 4 times per day as needed for COPD 06/22/20 23 Active acetaminophen (TYLENOL 8 HOUR) 650 mg 8 hr tablet Take 1 tablet (650 mg total) by mouth every 8 (eight) hours if needed for moderate pain. 30 tablet 09/02/20 24 Active diclofenac (VOLTAREN) 1 % topical gel Apply 1 Dose topically. 100 g 09/02/20 24 Active famotidine (PEPCID) 20 mg tablet Take 1 tablet (20 mg total) by mouth at bedtime as needed for heartburn. 90 tablet 09/02/20 24 026 Active fluticasone propionate (FLONASE) 50 mcg/actuation nasal spray Administer 2 sprays into each nostril 1 (one) time each day. 48 g 09/02/20 24 Active ipratropium-albute roL (DUONEB) 0.5-2.5 mg/3 mL nebulizer solutionIndication s:Asthma-COPD overlap syndrome (CMS/HCC V24, CMS/HCC V28) Take 3 mL by nebulization 4 (four) times a day. 375 mL 09/02/20 24 Active lidocaine (LIDODERM) 5 % patchIndications:L umbar spondylosis Place 1 patch on the skin every 24 hours. Apply for no more than 12 hours in any 24 hour period. 30 patch 5 09/02/20 24 Active omega-3 acid ethyl esters (LOVAZA) 1 gram capsuleIndications :Hyperlipidemia, unspecified hyperlipidemia type Take 2 capsules (2 g total) by mouth 2 (two) times a day. 360 capsule 09/02/20 24 Active pen needle, diabetic 32 gauge x 5/32 needle Inject under the skin every 7 (seven) days. E11.49 12 each 09/02/20 24 Active aspirin 81 mg chewable tablet Chew 1 tablet (81 mg total) 1 (one) time each day. 05/28/20 19 Active fluticasone-salmet christal (ADVAIR DISKUS) 250-50 mcg/dose diskus inhalerIndications :Asthma-COPD overlap syndrome (CMS/HCC V24, CMS/[facility] V28) Inhale 1 puff by mouth 2 (two) times a day. Rinse mouth with water after use to reduce aftertaste and incidence of candidiasis. Do not swallow. 1 each 2 10/24/19 25 Active albuterol HFA (PROAIR HFA ; PROVENTIL HFA ; VENTOLIN HFA) 90 mcg/actuation inhalerIndications :Asthma-COPD overlap syndrome (CMS/HCC V24, CMS/HCC V28) Inhale 2 puffs by mouth every 4 (four) hours if needed for wheezing. 18 g 3 10/24/19 25 Active semaglutide (Ozempic) 0.25 mg or 0.5 mg (2 mg/3 mL) injection penIndications:Typ e 2 diabetes mellitus with stage 3a chronic kidney disease, without long-term current use of insulin ([facility] V24, [facility] V28) Inject 0.5 mg under the skin every 7 (seven) days. 2 mL 5 11/30/19 25 Active amLODIPine (NORVASC) 10 mg tablet Take 1 tablet (10 mg total) by mouth 1 (one) time each day. 90 tablet 3 12/10/19 25 Active atenoloL (TENORMIN) 25 mg tablet Take 1 tablet (25 mg total) by mouth 1 (one) time each day. 90 tablet 3 12/10/19 25 Active atorvastatin (LIPITOR) 40 mg tablet Take 1 tablet (40 mg total) by mouth 1 (one) time each day. 90 tablet 3 12/10/19 25 Active cetirizine (ZyrTEC) 10 mg tablet Take 1 tablet (10 mg total) by mouth 1 (one) time each day. 90 tablet 3 12/10/19 25 Active empagliflozin (Jardiance) 25 mg tablet Take 0.5 tablets (12.5 mg total) by mouth 1 (one) time each day. 45 tablet 3 12/10/19 25 Active omeprazole (PriLOSEC) [address] capsule Take 1 capsule (20 mg total) by mouth 1 (one) time each day. 90 capsule 3 12/10/19 25 Active losartan-hydroCHLO ROthiazide (HYZAAR) 100-25 mg per tablet Take 1 tablet by mouth 1 (one) time each day. 90 each 3 12/19/19 25 026 Active hydrOXYzine HCL (ATARAX) 25 mg tabletIndications: Anxiety Take 1 tablet by mouth twice daily as needed for anxiety 60 tablet 05/22/20 25 Active estradioL (ESTRACE) 0.01 % (0.1 mg/gram) vaginal creamIndications:a trophic vaginitis associated with menopause Apply a pea-sized amount of cream with your fingertip to the vaginal canal every night for 2 weeks, then twice a week thereafter. 42.5 g 5 06/19/20 25 Active predniSONE (DELTASONE) 20 mg tabletIndications: Moderate persistent asthma with exacerbation Take 2 tablets (40 mg total) by mouth 1 (one) time each day for 4 days. 8 each 07/17/20 25 025 doxycycline (VIBRAMYCIN) 100 mg capsuleIndications :Moderate persistent asthma with exacerbation Take 1 capsule (100 mg total) by mouth 2 (two) times a day for 7 days. Take with at least 8 ounces (large glass) of water, do not lie down for 30 minutes after. Administer 2 hours before or after multivitamins, antacids, or other products containing polyvalent cations (i.e., calcium, iron, magnesium, selenium, zinc). 14 each 07/17/20 25 025 Active Problems Problem Noted Date Diagnosed Date Other female genital prolapse 06/23/2025 Overview (06/23/2025): Urogyn Consultation- Pelvic Organ Prolapse (Chronic illness with exacerbation, progression, or side effects of treatment) -Patient's exam reveals stage 3 posterior vaginal wall prolapse, stage 1 uterine prolapse and anterior vaginal wall prolapse. -Patient will call if interested in pessary fitting or surgery Postmenopausal bleeding 06/23/2025 Overview (06/23/2025): 06/19/2025- Urogyn consultation Postmenopausal Bleeding/Discharge (Undiagnosed new problem with uncertain prognosis) -Recommend pelvic US to assess endometrial lining, possible biopsy if thickened -Suspect vaginal atrophy, irritated prolapse posterior vaginal wall mucosa causing greenish discharge and intermittent spotting. -Recommend vaginal estradiol cream to address symptomatic vaginal atrophy (intermittent burning, discharge). Acute medial meniscus tear of right knee 025 Tear of medial meniscus of right knee, current 0 01/10/2025 Class 2 severe obesity due t o excess calories with serious comorbidity and body mass index (BMI) of 36.0 to 36.9 in adult 08/14/2024 Primary hypertension 08/14/2024 Assessment & Plan (12/18/2024 11:02 AM EDT): Severe obstructive sleep apnea 08/14/2024 Overview (08/14/2024): Obstructive sleep apnea severe RENETTA 32 with nocturnal hypoxia Type 2 diabetes mellitus wit h stage 3a chronic kidney disease, without long-term current use of insulin ([facility] V24, [facility] V28) 06/19/2024 Assessment & Plan (07/17/2025 4:04 PM EST): Good control of diabetes. A1C: 6.1. Patient will continue with yearly Podiatric and Ophthomologic evaluations. Will continue Angiotensin Converting Enzyme Inhibitor for renal protection. Continue Semaglutide and Jardiance. She has pending labs ordered in December. Orders: Lipid panel with reflex to direct LDL; Future Ambulatory referral to Podiatry; Future Seasonal allergies 06/19/2024 Hypertension 06/13/2024 Assessment & Plan (11/05/2024 12:21 PM EST): Orders: Lipid panel with reflex to direct LDL; Future Microalbumin creatinine urine ratio; Future Comprehensive metabolic panel; Future Hemoglobin A1c; Future Vitamin D 25 hydroxy; Future Ambulatory referral to Lung Screening Program; Future GERD (gastroesophageal reflux disease) Assessment & Plan (12/18/2024 11:02 AM EDT): Assessment & Plan (11/05/2024 12:21 PM EST): Orders: Lipid panel with reflex to direct LDL; Future Microalbumin creatinine urine ratio; Future Comprehensive metabolic panel; Future Hemoglobin A1c; Future Vitamin D 25 hydroxy; Future Ambulatory referral to Lung Screening Program; Future CKD (chronic kidney disease) stage 3, GFR 30-59 ml/min ([facility] V24, [facility] V28) 06/13/2024 Assessment & Plan (12/18/2024 11:02 AM EDT): Assessment & Plan (11/05/2024 12:21 PM EST): Orders: Lipid panel with reflex to direct LDL; Future Microalbumin creatinine urine ratio; Future Comprehensive metabolic panel; Future Hemoglobin A1c; Future Vitamin D 25 hydroxy; Future Ambulatory referral to Lung Screening Program; Future History of tobacco use 06/13/2024 Hx of transient ischemic attack (TIA) 06/13/2024 Esophageal dysmotility 04/20/2021 Stress incontinence 11/06/2020 Migraine 11/06/2020 Mixed conductive and sensorineural hearing loss, bilateral 11/06/2020 Overview (06/13/2024): Dr Anthony Betts 01/10/18 Hallux valgus of right foot 11/06/2020 Severe obesity (BMI 35.0-39. 9) with comorbidity ([facility] V24, [facility] V28) 01/27/2020 OA (osteoarthritis) of shoulder 07/28/2019 Herpes zoster without complication 01/20/2019 Obstructive sleep apnea 01/03/2019 Overview (06/13/2024): [facility] Home Polysomnogram: Date 01/01/2019; Wt 215#; BMI 38; RENETTA 32, AI 14; HI 18; Unclassified apneas 0; Obstructive apneas 61; Central apneas 16; Mixed apneas 0; hypopneas 97; average oxygen saturation 89% (lowest 67% with saturations <88% for 5% or more of study) [facility] Sleep Center Polysomnogram treatment study. Date [...] study. Pulmonary nodules 12/04/2018 Asthma-COPD overlap syndrome ([facility] V24, [facility] V28) 12/04/2018 Assessment & Plan (07/17/2025 4:04 PM EST): Patient follows regularly with pulmonary. Currently with signs of acute exacerbation. Swab for covid and flu in the office were negative. Will send a prescription for prednisone and doxycycline. Red flags discussed today. Orders: Lipid panel with reflex to direct LDL; Future Chronic idiopathic granulomatous disease [address] 11/07/2018 Overview (06/13/2024): Scarring Single 1 mm basilar lung nodule Patient reported history of Tuberculosis- treated per patient but documentation not available Referred to Pulmnology Post-traumatic headache, not intractable 018 Postconcussion syndrome 06/26/2018 Hyperlipidemia 03/27/2018 Assessment & Plan (11/05/2024 12:21 PM EST): Orders: Lipid panel with reflex to direct LDL; Future Microalbumin creatinine urine ratio; Future Comprehensive metabolic panel; Future Hemoglobin A1c; Future Vitamin D 25 hydroxy; Future Ambulatory referral to Lung Screening Program; Future Lumbar spondylosis 03/27/2018 Peripheral neuropathy 03/27/2018 Allergic rhinitis 03/27/2018 Mixed hyperlipidemia 03/27/2018 Assessment & Plan (12/18/2024 11:02 AM EDT): DM (diabetes mellitus), type 2 with renal complications ([facility] V24, [facility] V28) 06/06/2017 Assessment & Plan (12/18/2024 8:46 AM EDT): Orders: Hemoglobin A1c; Future Basic metabolic panel; Future Assessment & Plan (11/05/2024 12:21 PM EST): Orders: Lipid panel with reflex to direct LDL; Future Microalbumin creatinine urine ratio; Future Comprehensive metabolic panel; Future Hemoglobin A1c; Future Vitamin D 25 hydroxy; Future Ambulatory referral to Lung Screening Program; Future Diabetes mellitus type 2 wit h neurological manifestations ([facility] [place]24, [facility] V28) 10/06/2015 Assessment & Plan (11/05/2024 12:21 PM EST): Orders: Lipid panel with reflex to direct LDL; Future Microalbumin creatinine urine ratio; Future Comprehensive metabolic panel; Future Hemoglobin A1c; Future Vitamin D 25 hydroxy; Future Ambulatory referral to Lung Screening Program; Future Vitamin D deficiency 04/02/2015 Encounters Date Type Department Care Team Description 07/31/2025 Telephone Urogynecology - [address] [place] [phone] Briana Valentin RN 07/30/2025 9:15 AM EST Consult Orthopedic Surgery - [place] [address] [place] [phone] Enrico Wooten DPM Controlled type 2 diabetes with neuropathy ([facility] V24, [facility] V28) (Primary Dx); Arthritis of both feet; Bunion, right foot 07/30/2025 Results Follow-Up Urogynecology - [address] [phone] Cathy Rivera MD 07/30/2025 Telephone Adult [address] [phone] Russell Rodarte PA 07/28/2025 4:00 PM EST - 07/28/2025 11:59 PM EST Hospital Encounter Radiology Department - [address] [phone] History of postmenopausal bleeding Discharge Disposition: Home or Self Care 07/22/2025 Results Follow-Up Adult Medicine [address] [phone] Veronica Wheeler MD 07/21/2025 8:25 AM EST Lab Draw Station [address] Asthma-COPD overlap syndrome ([facility] V24, [facility] V28); Type 2 diabetes mellitus with stage 3a chronic kidney disease, without long-term current use of insulin ([facility] V24, [facility] V28) 07/17/2025 11:30 AM EST Office Visit Adult [address] [phone] Veronica Wheeler MD Asthma-COPD overlap syndrome ([facility] V24, [facility] V28) (Primary Dx); Type 2 diabetes mellitus with stage 3a chronic kidney disease, without long-term current use of insulin ([facility] V24, [facility] V28); Moderate persistent asthma with exacerbation; Cough, unspecified type 07/17/2025 Telephone Adult Medicine [address] [phone] Veronica Wheeler MD 07/14/2025 Telephone Adult Medicine [address] [phone] Veronica Wheeler MD 07/07/2025 Telephone Pulmonology [facility] [address] [phone] William Hall [place], [place] 06/30/2025 10:35 AM EDT Office Visit Pulmonology [facility] [address] [phone] Giovana Randall NP Obstructive sleep apnea (Primary Dx); Asthma-COPD overlap syndrome (CMS/HCC V24, CMS/HCC V28); Chronic idiopathic granulomatous disease; Pulmonary nodules; Severe obesity (BMI 35.0-39.9) with comorbidity (CMS/HCC V24, CMS/HCC V28) 06/19/2025 2:00 PM EDT Office Visit Urogynecology [address] [phone] Cathy Rivera MD Rectocele (Primary Dx); History of postmenopausal bleeding; Stress incontinence; Vaginal atrophy 05/26/2025 10:00 AM EDT Consult Orthopedic Surgery [facility] [address] [phone] Earnest López PA Cubital tunnel syndrome on right (Primary Dx); Numbness and tingling in right hand; Right carpal tunnel syndrome 05/20/2025 Telephone Adult Medicine [address] [phone] Veronica Wheeler MD from Last 3 Months Immunizations Immunization Administration Dates Next Due DTaP (Infanrix) 6wks to less than 7yo 12/31/2015 DTaP, Unspecified 12/31/2015 Influenza Quadrivalent, 0.5m l, preservative free (Fluarix; FluLaval; Fluzone) ages 6mo and older (Afluria) 3yo and older 09/28/2021,06/09/2020,09/21/2018,2016 Influenza trivalent, 0.5mL, preservative free (Fluarix; FluLaval; Fluzone) ages 6mo and older (Afluria) 3 years and older 08/27/2024,06/01/2020,12/31/2015 Influenza trivalent, with preservative (Fluzone; Afluria) 6mo and older 09/28/2021,06/09/2020,09/21/2018,2016,12/31/2015,11/14/2013,05/01/2012,0 05/12/2011,07/06/2010,09/16/2009, 009,09/16/2008,07/01/2008,06/11/2007,,09/02/2002,08/30/2001,08/11/20 00,07/17/1998 Influenza, Unspecified 07/31/2021,2015,05/12/2011,2008,09/16/2008,07/01/2008,06/11/2007,1 ,07/18/2003,09/02/2002, 001,08/11/2000,07/17/1998 Pfizer (ages 12 & older) Biv alent, COVID-19 08/05/2022 Pfizer SARS-CoV-2 COVID-19, mRNA, LNP-S, preservative free 08/15/2021,12/08/2020,11/17/2020 Pneumococcal conjugate 13 va lent (Prevnar 13, PCV13) 2mo and older 03/07/2019 Pneumococcal, Unspecified 09/11/2003,08/11/2000 RSV, bivalent, protein subun it RSVpreF, 0.5mL, Preservative Free (ABRYSVO) 50yo and older or 32 through 36 wks of 08/27/2024 Td Tetanus diptheria (Tdvax) 7yo and older 04/27/2004 Td, Unspecified 04/27/2004 Tdap Tetanus diptheria acell ular pertussis (Boostrix; Adacel) 7yo and older 12/31/2015 Surgical History Surgery Date Site/Laterality Comments OTHER SURGICAL HISTORY PROCEDURE: MI UNLISTED PROCEDURE INNER EAR BREAST REDUCTION PROCEDURE: MI BREAST REDUCTION OTHER SURGICAL HISTORY PROCEDURE: TEMPORAL [...] kidney disease) stage 3, GFR 30-59 ml/min ([facility] V24, [facility] V28) DX:CKD (chronic kidney disea se) stage 3, GFR 30-59 ml/min ([facility]) Complication of intrauterine device ([facility] V24) 06/18/2013 DX:Complication of intrauter ine device ([facility]); COMMENT: See visit note of 06/18/13 COPD (chronic obstructive pu lmonary disease) ([facility] V24, [facility] V28) 12/18/2014 DX:COPD (chronic o bstructive pulmonary disease) ([facility]) Diabetes mellitus type 2 wit h neurological manifestations ([facility] V24, [facility] V28) 10/06/2015 DX:Diabetes mellitus type 2 with neurological manifestations ([facility]) DM (diabetes mellitus), type 2 with renal complications ([facility] V24, [facility] V28) 06/06/2017 DX:DM (diabetes mellitus), t ype 2 with renal complications ([facility]) GERD (gastroesophageal reflu x disease) DX:GERD (gastroesophageal [...] available Referred to Pulmnology Asthma-COPD overlap syndrome ([facility] V24, [facility] V28) 12/04/2018 DX:Asthma-COPD overlap syndr ome (HCC) Chronic idiopathic granuloma tous disease 12/04/2018 DX:Chronic idiopathic granul omatous disease (HCC) OA (osteoarthritis) of shoulder 07/28/2019 DX:OA (osteoarthritis) of shoulder Obstructive sleep apnea 01/03/2019 DX:Obstr uctive sleep apnea; COMMENT: [facility] Home Polysomnogram: Date 01/01/2019; Wt 215#; BMI 38; RENETTA 32, AI 14; HI 18; Unclassified apneas 0; Obstructive apneas 61; Central apneas 16; Mixed apneas 0; hypopneas 97; average oxygen saturation 89% (lowest 67% with saturations <88% for 5% or more of study) [facility] Sleep Center Polysomnogram treatment study. Date 05/10/2019. Wt 216#; BMI 38; SE 68 % SM 89 %; sp* Postconcussion syndrome 06/26/2018 DX:Postc oncussion syndrome Post-traumatic headache, not intractable 06/26/2018 DX:Post-traumatic headache, not intractable Pulmonary nodules 12/04/2018 DX:Pulmonary n odules Severe obesity (BMI 35.0-39. 9) with comorbidity (CMS/HCC V24, [facility] V28) 01/27/2020 DX:Severe obesity (BMI 35.0- 39.9) with comorbidity ([facility]) History of 2019 novel whittington virus disease (COVID-19) 03/22/2024 DX:History of 2019 novel cor onavirus disease (COVID-19) Family History Medical History Relation Name Comments Heart attack Father Age 56 Other: Other Maternal Grandmother ? throa t vs stomach ca Alzheimer's disease Mother [place] Other: Esophageal cancer Mother's side Other: Heart [...] 1 976 - 2015 Smokeless Tobacco: Never Tobacco Cessation:Counseling Given: Not Answered Alcohol Use Standard Drinks/Week Comments Not Currently [...] for your loved ones. For example, child support specialist or elderly care for an older adult? [...] on file Sexual Orientation Not on file Obstetrics History * This document contains information received from the source organization and may not represent a complete record from that organization. Para Term AB IAB SAB Ectopic Multiple Livin g Live Births 9 6 3 3 3 Date Outcome GA Total Labor Labor/2nd/3rd Weight Sex Type Anes PTL Charito A1 A5 Name Clin Para Vag-S pont Living Para Vag-S pont Living Para Vag-S pont Living Term Term Term Last Filed Vital Signs Vital Sign Reading Time Taken Comments Blood Pressure 125/58 07/17/2025 11:33 AM EST Pulse 70 07/17/2025 11:33 AM EST Temperature 36.2 C (97.1 F) 07/17/2025 11:33 AM EST Respiratory Rate 14 07/17/2025 11:33 AM EST Oxygen Saturation 95% 07/17/2025 11:33 AM EST Inhaled Oxygen Concentration - - Weight 92.5 kg (204 lb) 07/30/2025 9:44 AM EST Height 160 cm (5' 2.99 ) 07/30/2025 9:44 AM EST Body Mass Index 36.15 07/30/2025 9:44 AM EST Plan of Treatment Upcoming Encounters Date Type Department Care Team (Late st Contact Info) Description 08/15/2025 10:00 AM EST Consult Adult Medicine [facility] [address] [place] [address] Veronica Verduzco MD [address] [place] [address] 08/28/2025 10:00 AM EST Hospital Encounter [facility] Main OR [address] [place] [phone] Dawood Fair MD [address] [address] 08/28/2025 10:00 AM EST - 08/28/2025 12:00 PM EST Surgery [facility] Main OR [address] [place] [phone] Dawood Fair MD [address] [address] RIGHT KNEE ARTHROSCOPY [[id number] (CPT )] 09/10/2025 10:00 AM EST Office Visit Orthopedic Surgery [facility] 175 [facility] [address] [place] [phone] Earnest López PA 175 [place] [address] 09/10/2025 11:30 AM EST Office Visit Orthopedic Surgery - [place] [address] [phone] Dawood Fair MD [address] [address] 11/05/2025 3:15 PM EST Office Visit Nephrology [address] [phone] Toni Arizmendi MD [address] [phone] 12/29/2025 9:45 AM EDT Office Visit Pulmonology - [address] [phone] Giovana Randall, CLEMENTE [address] [place] [phone] 01/27/2026 8:30 AM EDT Office Visit Orthopedic Surgery - [place] 250 175 [facility] [address] [place] [phone] Enrico Wooten DPM 175 [facility] [address] [place] [address] Scheduled Procedures Name Priority Associated Diagnoses Date/Ti me ARTHROSCOPY KNEE Acute medial meniscus tear of right knee, initial encounter 08/28/2025 10:00 AM EST Health Maintenance Due Date Last Done Comments Zoster Vaccines (1 of 2) 01/14/1976 COVID-19 Vaccine ( season) 2025 08/27/2024, 08/05/2022, 08/15/2021, Additional history exists Influenza Vaccine (#1) 2025 , 09/28/2021, 09/28/2021, Additional history exists Diabetes: Annual Foot Exam 06/05/2025 06/05/2024 Diabetes: Annual Retina Eye Exam 06/20/2025 06/20/2024 Falls Risk Assessment 11/05/2025 11/05/2024 , 11/05/2024, 06/19/2024 Medicare Annual Wellness Visit 11/05/2025 11/05/2024 Diabetes: Annual Urine Albumin-Creatinine Ratio (uACR) 11/14/2025 11/14/2024, 06/04/2024 Lung Cancer Screening (Low Dose CT) 12/04/2025 12/04/2024, 05/20/2022 DTaP,Tdap,and Td Vaccines (6 - Td or Tdap) 12/30/2025 12/31/2015, 12/31/2015, 12/31/2015, Additional history exists Diabetes: Blood Sugar Control Test (HGBA1C) 01/18/2026 07/21/2025, 11/14/2024, 06/04/2024, Additional history exists Social Influencers of Health Screening 01/22/2026 01/22/2025 Diabetes: Annual GFR (Glomerular Filtration Rate) 07/21/2026 07/21/2025, 06/02/2025, 11/14/2024, Additional history exists Hypertension/CHF/CAD Annual BMP Blood Test 07/21/2026 07/21/2025, 06/02/2025, 11/14/2024, Additional history exists Breast Cancer Screening 04/21/2027 04/21/20, 03/05/2024, 03/05/2024, Additional history exists Cholesterol Screening (Lipid Panel) 07/21/2030 07/21/2025, 11/14/2024, 06/04/2024, Additional history exists Colorectal Cancer Screening: Colonoscopy 03/01/2031 03/01/2021 Osteoporosis Screening (Bone Density Screening) 09/26/2032 09/26/2022 Hepatitis C Screening Completed 12/04/2013 Pneumococcal Vaccine: 50+ Years Discontinued 03/07/2019, 09/11/2003, 08/11/2000 RSV Immunization Adult Patients Completed 08/27/2024 Depression Screening Completed 11/05/2024, 06/19/20 HIB Vaccines Aged Out No longer eligi [...] patient's age to complete this topic Meningococcal B Vaccine Aged Out No l onger eligible based on patient's age to complete this topic RSV Immunization Patients Under 20 months Aged Out No longer eligible based on patient's age to complete this topic Varicella Vaccines Aged Out No longer eligible based on patient's age to complete this topic Goals Goal Patient Goal Type Associated Problems Recent Progress Patient-Stated? Author Autogenerat ed Goal Care Plan Autogenerated Problem No Dawood Fair MD Procedures Procedure Name Priority Date/Time Associated Diagnosis Comments US PELVIS NON OB COMPLETE W TRANSVAGINAL Routine 07/28/2025 4:20 PM EST History of postmenopausal bleeding HEMOGLOBIN A1C Routine 07/21/2025 8:28 AM EST Type 2 diabetes mellitus with stage 3a chronic kidney disease, without long-term current use of insulin ([facility] V24, [facility] V28) BASIC METABOLIC PANEL Routine 07/21/2025 8:28 AM EST Type 2 diabetes mellitus with stage 3a chronic kidney disease, without long-term current use of insulin ([facility] V24, [facility] V28) LIPID PANEL WITH REFLEX TO DIRECT LDL Routine 07/21/2025 8:28 AM EST Asthma-COPD overlap syndrome ([facility] V24, [facility] V28) Type 2 diabetes mellitus with stage 3a chronic kidney disease, without long-term current use of insulin ([facility] V24, [facility] V28) POC INFLUENZA A/B Routine 07/17/2025 4:0 3 PM EST Cough, unspecified type POC RAPID [id number], MOLECULAR Routine 07/17/2025 4:02 PM EST Cough, unspecified type POC URINE AUTO W/O MICRO Routine 06/19/2025 2:23 PM EDT History of postmenopausal bleeding BUN Routine 06/02/2025 10:28 AM EDT Stage 3a chronic kidney disease ([facility] V24, [facility] V28) Type 2 diabetes mellitus with stage 3a chronic kidney disease, without long-term current use of insulin ([facility] V24, [facility] V28) Primary hypertension CREATININE, SERUM Routine 06/02/2025 10: 28 AM EDT Stage 3a chronic kidney disease ([facility] V24, [facility] V28) Type 2 diabetes mellitus with stage 3a chronic kidney disease, without long-term current use of insulin ([facility] V24, [facility] V28) Primary hypertension ELECTROLYTE PANEL Routine 06/02/2025 10: 28 AM EDT Stage 3a chronic kidney disease ([facility] V24, [facility] V28) Type 2 diabetes mellitus with stage 3a chronic kidney disease, without long-term current use of insulin ([facility] V24, [facility] V28) Primary hypertension PARATHYROID HORMONE INTACT Routine 06/02/2025 10:28 AM EDT Stage 3a chronic kidney disease ([facility] V24, [facility] V28) Type 2 diabetes mellitus with stage 3a chronic kidney disease, without long-term current use of insulin ([facility] V24, [facility] V28) Primary hypertension PROTEIN AND CREATININE WITH RATIO, URINE Routine 06/02/2025 10:28 AM EDT Stage 3a chronic kidney disease ([facility] V24, [facility] V28) Type 2 diabetes mellitus with stage 3a chronic kidney disease, without long-term current use of insulin ([facility] V24, [facility] V28) Primary hypertension MG MAMMO DIGITAL SCREENING W ARNIE BILAT Routine 04/21/2025 3:43 PM EDT Encounter for screening mammogram for breast cancer CT LUNG SCREENING Routine 12/04/2024 10: 58 AM EDT Encounter for screening for malignant neoplasm of respiratory organs Personal history of nicotine dependence MICROALBUMIN CREATININE URINE RATIO Routine 11/14/2024 12:23 PM EST Primary hypertension Type 2 diabetes mellitus with stage 3a chronic kidney disease, without long-term current use of insulin ([facility] V24, [facility] V28) Diabetes mellitus type 2 with neurological manifestations ([facility] V24, [facility] V28) Other hyperlipidemia Gastroesophageal reflux disease without esophagitis Stage 3a chronic kidney disease ([facility] V24, [facility] V28) Routine general medical examination at a health care facility DIABETES EYE EXAM Routine 06/20/2024 DEPRESSION SCREENING Routine 06/19/2024 FALLS RISK ASSESSMENT Routine 06/19/2024 DIABETES FOOT EXAM Routine 06/05/2024 DXA BONE DENSITY STUDY 1+ SITS AXIAL SKEL Routine 09/26/2022 1:36 PM EST Abnormal findings on diagnostic imaging of other parts of musculoskeletal system COLONOSCOPY Routine 03/01/2021 HEPATITIS C SCREENING Routine 12/04/2013 from Last 3 Months or Most Recently Relevant to Health Maintenance Results * US Pelvis Non OB Complete w Transvaginal (07/28/2025 4:20 PM EST) Anatomical Region Laterality Modality Body, Pelvis Ultrasound 07/29/2025 9:06 AM EST Impressions 07/29/2025 9:14 AM EST 1. Unremarkable examination. 2. Left ovary is not visualized. -------- FINAL REPORT -------- Dictated By: Toya Shepard Dictated Date: 07/29/2025 09:06 ET Assigned Physician: Toya Shepard Reviewed and Electronically Signed By: Toya Shepard Signed Date: 07/29/2025 09:14 ET Workstation ID: [id number] Transcribed By: Self Edit Transcribed Date: 07/29/2025 09:06 ET Narrative 07/29/2025 9:14 AM EST EXAM: TRANSABDOMINAL AND TRANSVAGINAL PELVIC ULTRASOUND HISTORY: Postmenopausal spotting COMPARISON: None Technique: Grayscale and Doppler images of the pelvis were obtained using transabdominal approach. Transvaginal approach was used to better characterize the ovaries. FINDINGS: The uterus is normal in size and measures 4.9 x 1.9 x 3.7 cm. The normal in caliber endometrial stripe measures up to 0.2 cm. The myometrium is unremarkable. No fibroids visualized. Right ovary measures 1.2 x 0.7 x 1.5 cm and is sonographically unremarkable. Left ovary is not seen No free fluid. Procedure Note Toya Shepard MD - 07/29/2025 EXAM: TRANSABDOMINAL AND TRANSVAGINAL PELVIC ULTRASOUND HISTORY: Postmenopausal spotting COMPARISON: None Technique: Grayscale and Doppler images of the pelvis were obtained usingtransabdominal approach. Transvaginal approach was used to bettercharacterize the ovaries. FINDINGS: The uterus is normal in size and measures 4.9 x 1.9 x 3.7 cm. The normalin caliber endometrial stripe measures up to 0.2 cm. The myometrium isunremarkable. No fibroids visualized. Right ovary measures 1.2 x 0.7 x 1.5 cm and is sonographicallyunremarkable. Left ovary is not seen No free fluid. IMPRESSION: 1. Unremarkable examination. 2. Left ovary is not visualized. -------- FINAL REPORT -------- Dictated By: Toya Shepard Dictated Date: 07/29/2025 09:06 ET Assigned Physician: Toya Shepard Reviewed and Electronically Signed By: Toya Shepard Signed Date: 07/29/2025 09:14 ET Workstation ID: [id number] Transcribed By: Self Edit Transcribed Date: 07/29/2025 09:06 ET us Cathy Rivera MD IM US PROCEDURES Final Result * (ABNORMAL) Lipid panel with reflex to direct LDL (07/21/2025 8:28 AM EST) Cholesterol 190 0 - 200 mg/dL LAB CHEMISTRY METHOD 07/21/2025 10:41 AM [facility] Triglycerides 211(H) 0 - 150 mg/dL LAB CHEMISTRY METHOD 07/21/2025 10:41 AM [facility] HDL 66 >=40 mg/dL LAB CHEMISTRY METHOD 07/21/2025 10:41 AM [facility] LDL Calculated 82 0 - 100 mg/dL LAB CHEMISTRY METHOD 07/21/2025 10:41 AM [facility] Comment:Estimated LDL Calcul ated using equation: Total cholesterol - HDL cholesterol - (Triglycerides/5) VLDL Cholesterol Unruly 42.2 mg/dL LAB CHEMISTRY METHOD 07/21/2025 10:41 AM [facility] Non HDL Chol. (LDL+VLDL) 124 <145 mg/dL LAB CHEMISTRY METHOD 07/21/2025 10:41 AM [facility] Chol/HDL Ratio 2.9 0.0 - 4.4 LAB CHEMISTRY METHOD 07/21/2025 10:41 AM [facility] Blood Venous blood specimen / Unknown Venipuncture / Unknown 07/21/2025 8:28 AM EST 07/21/2025 8:28 AM EST Veronica Verduzco MD LAB BLOOD ORDERABL ES Final Result Performing Organization Address [facility]/ZIP Co de Phone Number [facility] [address] [place] [address], [place] [phone] * Hemoglobin A1c (07/21/2025 8:28 AM EST) Hemoglobin A1C 6.2 <6.5 % LAB CHEMISTRY METHOD 07/21/2025 11:23 AM [facility] Mean Bld Glu Estim. 131 mg/dL LAB CHEMISTRY METHOD 07/21/2025 11:23 AM [facility] Blood Venous blood specimen / Unknown Venipuncture / Unknown 07/21/2025 8:28 AM EST 07/21/2025 8:28 AM EST Veronica Verduzco MD LAB BLOOD ORDERABL ES Final Result Performing Organization Address [facility]/ZIP Co de Phone Number [facility] [address] [place] [address], [place] [phone] * (ABNORMAL) Basic metabolic panel (07/21/2025 8:28 AM EST) Sodium 142 133 - 145 mmol/L LAB CHEMISTRY METHOD 07/21/2025 10:41 AM [facility] Potassium 3.6 3.5 - 5.5 mmol/L LAB CHEMISTRY METHOD 07/21/2025 10:41 AM [facility] Chloride 105 96 - 110 mmol/L LAB CHEMISTRY METHOD 07/21/2025 10:41 AM [facility] CO2 30 21 - 32 mmol/L LAB CHEMISTRY METHOD 07/21/2025 10:41 AM [facility] Anion Gap 7 3 - 11 LAB CHEMISTRY METHOD 07/21/2025 10:41 AM [facility] Glucose 91 70 - 100 mg/dL LAB CHEMISTRY METHOD 07/21/2025 10:41 AM [facility] BUN 17 5 - 25 mg/dL LAB CHEMISTRY METHOD 07/21/2025 10:41 AM [facility] Creatinine 1.36(H) 0.50 - 1.10 mg/dL LAB CHEMISTRY METHOD 07/21/2025 10:41 AM [facility] eGFR 43(L) >=60 mL/min/1. 73m2 LAB CHEMISTRY METHOD 07/21/2025 10:41 AM [facility] Comment:Calculation based on the Chronic Kidney Disease Epidemiology Collaboration (CKD-EPI) equation refit without adjustment for race. BUN/Creatinine Ratio 12.5 LAB CHEMISTRY METHOD 07/21/2025 10:41 AM [facility] Calcium 9.5 8.5 - 10.5 mg/dL LAB CHEMISTRY METHOD 07/21/2025 10:41 AM [facility] Blood Venous blood specimen / Unknown Venipuncture / Unknown 07/21/2025 8:28 AM EST 07/21/2025 8:28 AM EST us Veronica Verduzco MD LAB BLOOD ORDERABL ES Final Result [facility] [address] [place] [address], * POC Influenza A/B manually resulted (07/17/2025 4:03 PM EST) Swab 07/17/2025 4:03 PM EST us Veronica Verduzco MD POINT OF CARE TEST ENTER/EDIT ORDERABLES Final Result * Poc Rapid [id number], MOLECULAR (07/17/2025 4:02 PM EST) [facility] COVID-19/SARS- COV-2 Rapid POC Negative Negative Swab Nasopharyngeal structure / Unknown 07/17/2025 4:02 PM EST Result [facility] Veronica Verduzco MD POINT OF CARE TEST ENTER/EDIT ORDERABLES Final Result * (ABNORMAL) POC Urine Auto W/O Micro (06/19/2025 2:23 PM EDT) [facility] Glucose UA POC 500(A) Negative, Trace mg/dL Bilirubin UA POC Negative Negative Ketones UA POC Negative Negative Specific [place] UA POC 1.025 Blood UA POC Negative Negative PH UA POC 5.0 Protein UA POC Negative Negative mg/dL Urobilinogen UA POC 0.2 E.U./dL 0.2 E.U./dL, 1.0 E.U./dL, 8 , Unable to interpret due to interfering substances mg/dL Nitrite UA POC Negative Negative Leukocytes UA POC Negative Negative Urine Urine specimen obtained by clean catch procedure / Unknown 06/19/2025 2:23 PM EDT Result [facility] Cathy Rivera MD POINT OF CARE TEST ENTER/EDIT O RDERABLES Final Result * Protein and creatinine with ratio, urine (06/02/2025 10:28 AM EDT) [facility] Protein, Urine 14 mg/dL LAB CHEMISTRY METHOD 06/02/2025 1:25 PM EDT [facility] Prot/Creat, Ur 0.09 <=0.20 mg/mg creat LAB CHEMISTRY METHOD 06/02/2025 1:25 PM EDT [facility] Creatinine, Urine 156.0 mg/dL LAB CHEMISTRY METHOD 06/02/2025 1:25 PM EDT [facility] Urine Urine specimen obtained by clean catch procedure / Unknown Non-blood Collection / Unknown 06/02/2025 10:28 AM EDT 06/02/2025 10:28 AM EDT us Toni Arizmendi MD LAB URINE ORDERABLES Final Resu lt Performing Organization Address [facility] Co de Phone Number [facility] [address] [place] [address], * (ABNORMAL) Creatinine (06/02/2025 10:28 AM EDT) Creatinine 1.17(H) 0.50 - 1.10 mg/dL LAB CHEMISTRY METHOD 06/02/2025 1:20 PM EDT [facility] eGFR 51(L) >=60 mL/min/1. 73m2 LAB CHEMISTRY METHOD 06/02/2025 1:20 PM EDT [facility] Comment:Calculation based on the Chronic Kidney Disease Epidemiology Collaboration (CKD-EPI) equation refit without adjustment for race. Blood Venous blood specimen / Unknown Venipuncture / Unknown 06/02/2025 10:28 AM EDT 06/02/2025 10:28 AM EDT us Toni Arizmendi MD LAB BLOOD ORDERABLES Final Resu lt Performing Organization Address [facility] de Phone Number [facility] [address] [place] [address], [place] [phone] * BUN (06/02/2025 10:28 AM EDT) BUN 15 5 - 25 mg/dL LAB CHEMISTRY METHOD 06/02/2025 1:17 PM EDT [facility] Blood Venous blood specimen / Unknown Venipuncture / Unknown 06/02/2025 10:28 AM EDT 06/02/2025 10:28 AM EDT Toni Arizmendi MD LAB BLOOD ORDERABLES Final Resu lt [facility] [address] [place] [address], [place] [phone] * Parathyroid hormone intact (06/02/2025 10:28 AM EDT) PTH 53.8 18.5 - 88.0 pcg/mL LAB CHEMISTRY METHOD 06/02/2025 2:38 PM EDT [facility] Blood Venous blood specimen / Unknown Venipuncture / Unknown 06/02/2025 10:28 AM EDT 06/02/2025 10:28 AM EDT Toni Arizmendi MD LAB BLOOD ORDERABLES Final Resu lt [facility] [address] [place] [address], [place] [phone] * (ABNORMAL) Electrolyte panel (06/02/2025 10:28 AM EDT) Sodium 143 133 - 145 mmol/L LAB CHEMISTRY METHOD 06/02/2025 1:20 PM EDT [facility] Potassium 3.3(L) 3.5 - 5.5 mmol/L LAB CHEMISTRY METHOD 06/02/2025 1:20 PM EDT [facility] Chloride 105 96 - 110 mmol/L LAB CHEMISTRY METHOD 06/02/2025 1:20 PM EDT [facility] CO2 31 21 - 32 mmol/L LAB CHEMISTRY METHOD 06/02/2025 1:20 PM EDT [facility] Anion Gap 7 3 - 11 LAB CHEMISTRY METHOD 06/02/2025 1:20 PM EDT [facility] Blood Venous blood specimen / Unknown Venipuncture / Unknown 06/02/2025 10:28 AM EDT 06/02/2025 10:28 AM EDT us Toni Arizmendi MD LAB BLOOD ORDERABLES Final Resu lt [facility] ([facility]) [facility] [address] [place] [address], [place] [phone] * MG Mammo Digital Screening w Arnie bilat (04/21/2025 3:43 PM EDT) Anatomical Region Laterality Modality Breast Bilateral Mammography 04/23/2025 12:4 2 PM EDT Impressions 04/23/2025 12:47 PM EDT 1. No mammographic evidence of malignancy 2. Scattered fibroglandular tissue BI-RADS CATEGORY: 2 - BENIGN RECOMMENDATION: Screening bilateral mammogram is recommended in 1 year. Mammo Location: [facility], [address] [place] [address], [id number], . -------- FINAL REPORT -------- Dictated By: Toya Shepard Dictated Date: 04/23/2025 12:42 ET Assigned Physician: Toya Shepard Reviewed and Electronically Signed By: Toya Shepard Signed Date: 04/23/2025 12:47 ET Workstation ID: [id number] Transcribed By: Self Edit Transcribed Date: 04/23/2025 12:42 ET Narrative 04/23/2025 12:47 PM EDT A BILATERAL DIGITAL 3D SCREENING MAMMOGRAPHY HISTORY: Routine screening. No family history of breast cancer. Personal history of bilateral mammoplasty COMPARISON: Multiple priors dating back to 02/13/2023 Technique: Bilateral full field digital mammography (3D) was performed using standard CC and MLO projections , bilateral exaggerated CC views CAD was used to evaluate this mammogram. FINDINGS: Right: No suspicious masses, groups of microcalcification or areas of architectural distortion identified. Stable typically benign parenchymal asymmetries. Typically benign coarse calcification within the superior breast. Left: No suspicious masses, groups of microcalcification or areas of architectural distortion identified. Stable typically benign parenchymal asymmetries. BREAST DENSITY: B - There are scattered areas of fibroglandular density. Procedure Note Toya Shepard MD - 04/23/2025 A BILATERAL DIGITAL 3D SCREENING MAMMOGRAPHY HISTORY: Routine screening. No family history of breast cancer. Personalhistory of bilateral mammoplasty COMPARISON: Multiple priors dating back to 02/13/2023 Technique: Bilateral full field digital mammography (3D) was performedusing standard CC and MLO projections , bilateral exaggerated CC views CAD was used to evaluate this mammogram. FINDINGS: Right: No suspicious masses, groups of microcalcification or areas ofarchitectural distortion identified. Stable typically benign parenchymalasymmetries. Typically benign coarse calcification within the superiorbreast. Left: No suspicious masses, groups of microcalcification or areas ofarchitectural distortion identified. Stable typically benign parenchymalasymmetries. BREAST DENSITY: B - There are scattered areas of fibroglandular density. IMPRESSION: 1. No mammographic evidence of malignancy 2. Scattered fibroglandular tissue BI-RADS CATEGORY: 2 - BENIGN RECOMMENDATION: Screening bilateral mammogram is recommended in 1 year. Mammo Location: [facility], [address] [place] [address], [id number], . -------- FINAL REPORT -------- Dictated By: Toya Shepard Dictated Date: 04/23/2025 12:42 ET Assigned Physician: Toya Shepard Reviewed and Electronically Signed By: Toya Shepard Signed Date: 04/23/2025 12:47 ET Workstation ID: [id number] Transcribed By: Self Edit Transcribed Date: 04/23/2025 12:42 ET us Veronica Verduzco MD IMG BI PROCEDURES Final Result * CT Lung Screening (12/04/2024 10:58 AM EDT) Anatomical Region Laterality Modality Chest Computed Tomogra phy 12/09/2024 1:19 PM EDT Impressions 12/09/2024 1:25 PM EDT Impression: No suspicious developing pulmonary nodule. No significant change. Lung-RADS Category: Lung-RADS 2: Nodule(s) with benign appearance or behavior. Continue annual screening with Low Dose Chest CT in 12 months. [place] ([id number]) -------- FINAL REPORT -------- Dictated By: Martha Hector Dictated Date: 12/09/2024 13:19 ET Assigned Physician: Martha Hector Reviewed and Electronically Signed By: Martha Hector Signed Date: 12/09/2024 13:25 ET Workstation ID: [id number] Transcribed By: Self Edit Transcribed Date: 12/09/2024 13:19 ET Narrative 12/09/2024 1:25 PM EDT History: 69 year-old 51 pack-year former smoker, asymptomatic, for lung cancer screening. Quit smoking 15 years ago. Comparison: 05/20/22 Technique: Helical volumetric imaging of the thorax was performed, using low- dose technique, without IV contrast. DLP: 155.52 mGy/cm CTDIvol: 4.89 mGy [facility] Iterative reconstruction technique Findings: Lungs and Airways: The trachea and central bronchial tree remains patent. Diffuse bronchial wall thickening is again seen bilaterally, consistent with bronchitis in this setting. There is mild juxta mediastinal atelectasis in the anteromedial aspects of both upper lobes and the right middle lobe and lingula, similar to the previous exam. A 3 mm solid, noncalcified nodule within the central left upper lobe (image 100 series 3) is unchanged. Scattered homogeneously calcified nodules are consistent with old granulomatous disease. No suspicious developing nodule is identified. Pleura: No pleural or pericardial effusions are identified. Base of neck, mediastinum and heart: Mild multichamber cardiomegaly is without significant change. There is dense mitral annulus calcification and three-vessel coronary artery calcification is noted. A calcified distal right paratracheal lymph node is unchanged and suggests old granulomatous disease. Soft tissues: The overlying soft tissues are unremarkable. Abdomen: This study was performed without contrast and with lower than standard dose. These factors reduce the sensitivity for detection of small lesions in the upper abdomen. No significant abnormality is seen. Procedure Note Martha Hector MD - 12/09/2024 History: 69 year-old 51 pack-year former smoker, asymptomatic, for lungcancer screening. Quit smoking 15 years ago. Comparison: 05/20/22 Technique: Helical volumetric imaging of the thorax was performed, usinglow-dose technique, without IV contrast. DLP: 155.52 mGy/cm CTDIvol: 4.89 mGy [employer] Iterative reconstruction technique Findings: Lungs and Airways: The trachea and central bronchial tree remains patent.Diffuse bronchial wall thickening is again seen bilaterally, consistentwith bronchitis in this setting. There is mild juxta mediastinalatelectasis in the anteromedial aspects of both upper lobes and the rightmiddle lobe and lingula, similar to the previous exam. A 3 mm solid, noncalcified nodule within the central left upper lobe(image 100 series 3) is unchanged. Scattered homogeneously calcifiednodules are consistent with old granulomatous disease. No suspicious developing nodule is identified. Pleura: No pleural or pericardial effusions are identified. Base of neck, mediastinum and heart: Mild multichamber cardiomegaly iswithout significant change. There is dense mitral annulus calcificationand three-vessel coronary artery calcification is noted. A calcifieddistal right paratracheal lymph node is unchanged and suggests oldgranulomatous disease. Soft tissues: The overlying soft tissues are unremarkable. Abdomen: This study was performed without contrast and with lower thanstandard dose. These factors reduce the sensitivity for detection of smalllesions in the upper abdomen. No significant abnormality is seen. IMPRESSION: Impression: No suspicious developing pulmonary nodule. No significant change. Lung-RADS Category: Lung-RADS 2: Nodule(s) with benign appearance orbehavior. Continue annual screening with Low Dose Chest CT in 12 months[place] ([id number]) -------- FINAL REPORT -------- Dictated By: Martha Hector Dictated Date: 12/09/2024 13:19 ET Assigned Physician: Martha Hector Reviewed and Electronically Signed By: Martha Hector Signed Date: 12/09/2024 13:25 ET Workstation ID: [id number] Transcribed By: Self Edit Transcribed Date: 12/09/2024 13:19 ET us Nathalie Ortiz MD [facility] [place]ED[place] Final Result * Microalbumin creatinine urine ratio (11/14/2024 12:23 PM EST) Creatinine, Urine 62.0 mg/dL LAB CHEMISTRY METHOD 11/14/2024 2:33 PM EST [facility] Microalb, Ur 6.0 0.0 - 29.0 mg/L LAB CHEMISTRY METHOD 11/14/2024 2:33 PM EST [facility] Microalb/Creat Ratio 10 <30 mg/g creat LAB CHEMISTRY METHOD 11/14/2024 2:33 PM EST [facility] Urine Urine specimen obtained by clean catch procedure / Unknown Non-blood Collection / Unknown 11/14/2024 12:23 PM EST 11/14/2024 12:23 PM EST [facility] URINE ORDERABLES Jesica l Result [facility] [address] [place] [address], * Diabetes Eye Exam (06/20/2024) [facility] Diabetes: Annual Retina Eye Exam abstracted [facility] Provider MD HEALTH MAINTENANCE Final Result * Falls Risk Assessment (06/19/2024) [facility] Falls Risk Assessment abstracted [facility] Provider MD HEALTH MAINTENANCE Final Result * Depression Screening (06/19/2024) [facility] Depression Screening abstracted [facility] Provider HEALTH MAINTENANCE Final Result * Diabetes Foot Exam (06/05/2024) [facility] Diabetes: Annual Foot Exam abstracted [facility] Provider MD HEALTH MAINTENANCE Final Result * DXA BONE DENSITY STUDY 1+ SITS AXIAL SKEL (09/26/2022 1:36 PM EST) Anatomical Region Laterality Modality Bone Densitometr y 03/02/2022 2:00 PM EDT Narrative 09/27/2022 8:30 AM EST BONE DENSITY SCAN (DEXA) FINDINGS: Lumbar Spine T-score is 0.5. (SD relative to 20-29 y/o adult) Z-score is 2.4. (SD relative to age matched peers) This is considered normal by WHO criteria. Left Hip T-score is -0.7. Z-score is 0.9. This is considered normal by WHO criteria. Comparison: None. IMPRESSION: IMPRESSION: Normal bone mineral density by WHO criteria. The [facility] Department of Internal Medicine recommends [...] alternative screening schedule based on eunice Mcbride., [facility] September 29, 2011 for patients [...] bone mineral density by WHO criteria. The [facility] Department of Internal Medicine recommendsusing [...] FRAX. Optional alternative screening schedule based on lyudmila Mcbride al., NEJMJanuary 2011 for patients with osteopenia (based on hip BMD T-score) is as follows: * advanced osteopenia (T scores -2.00 to -2.49), BMD testing every year * moderate osteopenia (T scores -1.50 to -1.99), BMD testing every 5years mild osteopenia or normal BMD (T scores -1.50 and higher), BMD testingevery 15 years Allie VEGA DXA PROCEDURES Final Result * Colonoscopy (03/01/2021) [facility] Colonoscopy no interpretation , abstracted Anatomical Region Laterality Modality Other Historical Provider HEALTH MAINTENANCE Final Result * Hepatitis C Screening (12/04/2013) [facility] Hepatitis C Screening abstracted Historical Provider HEALTH MAINTENANCE Final Result from Last 3 Months or Most Recently Relevant to Health Maintenance Additional Health Concerns Active Problems Noted Date Diagnosed Date Autogenerated Problem 07/30/2025 Insurance MEDICARE [facility] Care Teams Quitline Counselor Relationship Specialty Start Date End Date Veronica Verduzco MD [address] [place] [phone] PCP - General Internal Medicine 04/11/22
--- OUTSIDE RECORDS SUMMARY | 2025-08-04 08:47 | XMS_ITS | Clinical Summary ---
Author Organization [facility] Address [address] [place] [address] Phone Care Team Providers Care Lithographer Apprentice Name Role Phone Noreen Ramirez NP Primary Care Provider [phone] Allergies Active Allergy Reactions Criticality Noted Date Comments Amoxicillin Hives 12/29/2016 Azithromycin 07/29/2022 Bactrim (Sulfamethoxazole-Trimethoprim) Hives 12/29/2016 Cat Hair Std Allergenic Ext Other (See Comments) 12/29/2016 Lisinopril Angioedema 12/29/2016 Sulfamethoxazole-Trimethoprim 2021 Adhesive 07/29/2022 Medications albuterol (PROVENTIL HFA;VENTOLIN HFA) 90 mcg/actuation inhaler Inhale 2 puffs into the lungs every 6 (six) hours as needed for wheezing. 01/30/20 20 Active ipratropium-alb uterol (DUONEB) 0.5-2.5 mg/3 mL nebulizer solution Take 3 mL by nebulization 4 (four) times a day as needed for wheezing. 01/30/20 20 Active cetirizine (ZYRTEC) 10 MG tablet Take 10 mg by mouth nightly at bedtime. 01/30/20 20 Active losartan (COZAAR) 100 MG tablet Take 100 mg by mouth daily. 01/30/20 20 Active hydroCHLOROthia zide (HYDRODIURIL) 25 MG tablet Take 25 mg by mouth daily. 01/30/20 20 Active simvastatin (ZOCOR) 20 MG tablet Take 20 mg by mouth nightly at bedtime. 01/30/20 Active budesonide-form oterol (SYMBICORT) 80-4.5 mcg/actuation inhaler Inhale 2 puffs into the lungs 2 (two) times a day. 01/30/20 Active blood-glucose meter kit Use as instructed 1 each 01/27/20 Active Additional Information Patient not taking.Reported on 01/28/2020 amLODIPine (NORVASC) 10 MG tablet Take 10 mg by mouth daily. 01/30/20 Active LORazepam (ATIVAN) 0.5 MG tablet Take 0.5 mg by mouth nightly at bedtime as needed for anxiety (insomnia with concurrent steroid use). 01/30/20 Active fluticasone propionate (FLONASE) 50 mcg/actuation nasal spray 1 spray by Nasal route daily as needed for allergies. 01/30/20 Active omega 1-nlw-kgq-fish oil 1,000 mg (120 mg-180 mg) Cap Take 1 capsule by mouth daily. 01/30/20 Active cholecalciferol (VITAMIN D3) 50,000 unit tablet Take 50,000 Units by mouth once a week. Sundays01/30/20 Active aspirin 81 MG EC tablet Take 81 mg by mouth daily. 01/30/20 Active insulin lispro U-200 (HUMALOG KWIKPEN) 200 unit/mL (3 mL) InPn subcutaneous pen [The details of the medication are not available because there are pending changes by a home health clinician.] 6 pen 1 01/29/20 Active Additional Information Patient taking differently: 4 UnitsSubcutaneous 3 times daily before meals,02/07/20 dosage decreased dt improved bs readings., Informant: Self, Reported on 03/19/2020 insulin glargine (LANTUS, BASAGLAR) 100 unit/mL (3 mL) InPn injection pen [The details of the medication are not available because there are pending changes by a home health clinician.] 5 pen 1 01/29/20 Active Additional Information Patient taking differently: 20 UnitsSubcutaneous Nightly, Reported on 02/27/2020 lidocaine (LIDODERM) 5 % Place 1 patch onto the skin daily. Remove & Discard patch within 12 hours or as directed by MD 30 patch 07/29/20 Active HYDROcodone-guicho taminophen (NORCO) 5-325 mg per tablet Take 1 tablet by mouth every 6 (six) hours as needed for pain (specific location in comments). Partial fill okay at patient's request 8 tablet 07/29/20 22 Active ibuprofen (ADVIL,MOTRIN) 400 MG tablet Take 1 tablet (400 mg total) by mouth every 8 (eight) hours as needed for pain (specific location in comments). 20 tablet 07/29/20 22 Active diazePAM (VALIUM) 2 MG tablet Take 0.5 tablets (1 mg total) by mouth every 8 (eight) hours as needed (dizziness). 6 tablet 02/05/20 25 Active ciprofloxacin-d exAMETHasone (CIPRODEX) otic suspension 4 drops by Each Ear route 2 (two) times a day. 7.5 mL 02/05/20 25 Active Active Problems Problem Noted Date Diagnosed Date Hyperglycemia 01/28/2020 Assessment & Plan (01/28/2020 6:57 PM EDT): Case was discussed at the time of admission with Dr. Randall and Dr. Soliz. Dr. Randall will be assuming the patient's care on 01/28. Plan to admit to medicine to stabilize blood pressures and establish an insulin regimen. Likely discharge on 01/28 after education regarding insulin administration. -Diabetic diet ordered -Hirkc-td-lhoj checks with meals and at bedtime -Long-acting Lantus, weight-based, 23 units nightly -Mealtime insulin 9 units with meals -Moderate dose sliding scale. -Recheck standing scale weight for accurate drug dosing. -Will need education for home insulin and supplies at discharge, nursing aware of the need to teach patient how to self administer insulin -May need endocrine referral -Nutrition consult for diabetes education Mild intermittent asthma without complication Assessment & Plan (12/29/2016 4:00 PM EDT): B Her history is that of asthma since she was a teenager with exacerbations only when she has respiratory infections and not otherwise. In that regard, then, it is not clear the she benefits from use of the asthma medications listed. Indeed, she was without them for more than 30 years and only had asthma problems in association with viral respiratory infections. In addition, her pulmonary function test results today are normal. 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 High blood pressure 12/29/2016 Assessment & Plan (12/29/2016 3:55 PM EDT): Poor control today: 173/85. I discussed with her at length the health risks of uncontrolled blood pressure and recommended that she contact her PCP (note cc'd) for adjustment of medications. At risk for obstructive sleep apnea 12/29/2016 Assessment & Plan (12/29/2016 3:56 PM EDT): Given her history of snoring, obesity, large tongue and neck circumference, she is at high risk for HUEY. I recommend that she have a formal sleep study. Obesity, Class III, BMI 40-49.9 (morbid obesity) 12/29/2016 Assessment & Plan (12/29/2016 3:59 PM EDT): I reviewed with her the health risks associated with morbid obesity and recommended that she reduce calorie intake substantially. She can pursue this further with her PCP. TIA (transient ischemic attack) Assessment & Plan (01/28/2020 6:21 PM EDT): History of TIA. No residual deficits. No focal findings on neurologic exam. -Continue aspirin 81 mg daily -Continue statin, now atorvastatin 40 mg daily. If tolerated this could be increased to atorvastatin 80 mg daily. Hypertensive disorder Assessment & Plan (01/28/2020 6:23 PM EDT): Mild hypertension on arrival with blood pressure 166/74. Patient is on multiple antihypertensives which were continued at home dose. -Losartan 100 mg daily -Hydrochlorothiazide 25 mg daily -Amlodipine 10 mg daily Hyperlipidemia Assessment & Plan (01/28/2020 6:20 PM EDT): Patient was previously on simvastatin 20 mg nightly and omega-3 fish oil daily. With her history of TIA, diabetes mellitus and multiple risk factors for coronary disease I did convert her to atorvastatin 40 mg. Fish oil capsule continued. Will check lipid panel in the morning. GERD (gastroesophageal reflux disease) Assessment & Plan (01/28/2020 6:18 PM EDT): Not on PPI at baseline. No current symptoms. -Antireflux diet requested. Diabetes mellitus, type 2 Asthma Assessment & Plan (01/28/2020 6:17 PM EDT): Chronic asthma, not in acute exacerbation. Clinical exam benign without wheezing, lungs clear. -Home medical regimen continued with formulary substitutions as needed. Advair substituted for Symbicort. -Patient denied currently taking Singulair that this was on her outpatient medication list. -Zyrtec daily -Albuterol and Flonase available as needed. Severe sleep apnea Assessment & Plan (01/28/2020 6:14 PM EDT): Respiratory consult requested. Patient uses CPAP at home. She did not bring her device with her but is at home and could call in settings. Immunizations Immunization Administration Dates Next Due COVID-19 (Pre-07/03) Pfizer Vaccine, mRNA, PF ,11/17/2020 Family History Medical History Relation Comments HIV Brother 1 HIV Brother 2 Coronary artery disease Father Coronary artery disease Mother No Known Problems Sister 1 No Known Problems Sister 2 Relation Status Comments Brother 1 Brother 2 Father (Age Late 50s) Mother (Age Late 50s) Sister 1 Alive Sister 2 Alive Social History Tobacco Use Types Packs/Day Years [...] Not on file Not on kim e Last Filed Vital Signs Vital Sign Reading Time Taken Comments Blood Pressure 135/75 02/04/2025 4:00 PM EDT Pulse 79 02/04/2025 4:00 PM EDT Temperature 37.1 C (98.8 F) 02/04/2025 4:00 PM EDT Respiratory Rate 16 02/04/2025 4:00 PM EDT Oxygen Saturation 96% 02/04/2025 4:00 PM EDT Inhaled Oxygen Concentration - - Weight 89.8 kg (198 lb) 02/04/2025 11:49 AM EDT Height 160 cm (5' 3 ) 02/04/2025 11:49 AM EDT Body Mass Index 35.07 02/04/2025 11:49 AM EDT Plan of Treatment Health Maintenance Due Date Last Done Comments BLOOD PRESSURE 1957 DEPRESSION SCREENING 1969 HEPATITIS C SCREENING 1975 SMOKING STATUS SCREENING (Every 5 Years) 1983 MAMMOGRAM 1997 COLOGUARD 2002 COLONOSCOPY 2002 COLORECTAL CANCER SCREENING 2002 FIT TEST 2002 FOBT 2002 SIGMOIDOSCOPY 2002 VIRTUAL COLONOSCOPY 2002 RSV VACCINE (1 - Risk 50-74 years 1-dose series) 2007 ZOSTER VACCINES (1 of 2) 2007 PNEUMOCOCCAL VACCINES (50+ years) (2 of 2 - PPSV23, PCV20, or PCV21) 05/02/2019 03/07/2019 DIABETIC EYE EXAM 01/28/2020 OSTEOPOROSIS SCREENING INITIAL (ONE-TIME) 2022 HEMOGLOBIN A1C 02/14/2025 11/14/2024, 01/29/2020 INFLUENZA VACCINE (#1) 2025 , 09/21/2018, 07/18/2017, Additional history exists COVID-19 VACCINE ( season) 2025 12/08/2020, 11/17/2020 Adult Td,Tdap Booster 12/30/2025 12/31/2015, 004 CREATININE LEVEL 02/04/2026 02/04/2025, , 01/28/2020, Additional history exists POTASSIUM LEVEL 02/04/2026 02/04/2025, 01/10, 01/28/2020, Additional history exists HEPATITIS A VACCINES Aged Out No long er eligible based on patient's age to complete this topic HIB VACCINES Aged Out No longer eligi ble based on patient's age to complete this topic MENINGOCOCCAL VACCINES (ACWY) Aged Out No longer eligible based on patient's age to complete this topic MENINGOCOCCAL VACCINES (B) Aged Out N o longer eligible based on patient's age to complete this topic Medical Devices Not on file Procedures Procedure Name Priority Date/Time Associated Diagnosis Comments BASIC METABOLIC PANEL (BMP) STAT 02/04/2025 12:55 PM EDT HEMOGLOBIN A1C Routine 01/29/2020 5:17 AM EDT from Last 3 Months or Most Recently Relevant to Health Maintenance Results * (ABNORMAL) Basic metabolic panel (02/04/2025 12:55 PM EDT) SODIUM 139 133 - 146 mmol/L [facility] CHLORIDE 100 96 - 108 mmol/L [facility] POTASSIUM 3.6 3.3 - 5.1 mmol/L [facility] Comment:Specimen slightly he molyzed, result may be falsely elevated. CO2 29 21 - 35 mmol/L [facility] BUN 14 6 - 19 mg/dL [facility] CREATININE 1.00 0.5 - 1.5 mg/dL [facility] GLUCOSE 107(H) 70 - 99 mg/dL [facility] CALCIUM 10.1 8.4 - 10.3 mg/dL [facility] EGFR 61 >59 mL/min/1.[address] [facility] Comment:Estimated glomerular filtration rate calculated using the CKD-EPI refit equation. ANION GAP 14 10 - 20 mmol/L [facility] Blood 02/04/2025 12:5 5 PM EDT 02/04/2025 12:58 PM EDT us Jenny Moran PA-C LAB BLOOD BKR ORDERABLES Fi nal Result [facility] [address] [place] [address] * (ABNORMAL) Hemoglobin A1c (01/29/2020 5:17 AM EDT) HEMOGLOBIN A1C 12.4(H) 4.3 - 5.8 % [facility] Blood 01/29/2020 5:17 AM EDT 01/29/2020 5:50 AM EDT us [facility] BLOOD BKR ORDERABLES Jesica aldridge Result [address] [address] from Last 3 Months or Most Recently Relevant to Health Maintenance Insurance [employer] SU[employer] MEDICARE PART A & B [employer] SUPP[employer] MEDICARE PART A & B [employer] SU[employer] SU[employer] SUPPLEMENT MEDICARE PART A & B [employer] SUPPLEMENT [employer] SUPPLEMENT MEDICARE PART A & B [employer] SUPPLEMENT MEDICARE PART A & B [facility] MEDEX SUPPLEMENT MEDICARE PART A & B Advance Directives For more information, please contact: [phone] (9AM - 5PM Elena/[facility], Monday-Monday) * Full Code (Confirmed) (Latest Code Status on File) Date Activated Date Inactivated Comments 01/28/2020 6:10 PM Question Answer Comments Code Status Confirmed With: Patient Care Teams Lithographer Apprentice Relationship Specialty Start Date End Date Noreen Ramirez NP [address] [place] [phone] PCP - General Nurse Practitioner 02/04/25 Additional Source Comments The information contained in this document represents components of the legal health record. It is not the complete legal health record.[facility]
--- OUTSIDE RECORDS SUMMARY | 2025-08-04 08:47 | XMS_ITS ---
Author Name [facility] Organization Unknown Allergies Allergen Reaction Severity Comment Documented Date Source Statu s PENICILLIN V POTASSIUM OTHER penicillin V potassium 05/26/2025 [facility] active AMOXICILLIN HIVES 06/13/2024 [facility] active SULFAMETHOXAZOLE- TRIMETHOPRIM ITCHING 02/14/2018 [facility] active ADHESIVE TAPE-SILICONES RASH 11/02/2015 [facility] active AZITHROMYCIN OTHER azithromycin 12/24/2012 [facility] active LISINOPRIL OTHER lisinopril,Numb ne ss, tingling or swelling of the lips, tongue or mouth 12/24/2012 [facility] active PENICILLINS HIVES 12/24/2012 [facility] active Problems Problem Status Onset Date Problem Type Date of Resoluti on Source Seasonal allergies active 2024-06-19 [facility] Vitamin D deficiency active 2015-04-02 ProblemAct [facility] Mixed hyperlipidemia active 2018-03-27 [facility]Act [facility] GERD (gastroesophageal reflux disease) active 2024-06-13 [facility]Act [facility] Migraine active 2020-11-06 ProblemAct [facility] Allergic rhinitis active 2018-03-27 ProblemAct [facility] History of tobacco use active 2024-06-13 ProblemAct [facility] Hallux valgus of right foot active 2020-11-06 [facility]Act [facility] Severe obesity (BMI 35.0-39.9) with comorbidity (CMS/HCC V24, CMS/HCC V28) active 2020-01-27 [facility]Act [facility] CKD (chronic kidney disease) stage 3, GFR 30-59 ml/min (CMS/HCC V24, CMS/HCC V28) active 2024-06-13 [facility]Act [facility] Stress incontinence active 2020-11-06 ProblemAct [facility] Primary hypertension active 2024-08-14 ProblemAct [facility] DM (diabetes mellitus), type 2 with renal complications ([facility] V24, [facility] V28) active 2017-06-06 ProblemAct [facility] Other female genital prolapse active 2025-06-23 ProblemAct [facility] Class 2 severe obesity due to excess calories with serious comorbidity and body mass index (BMI) of 36.0 to 36.9 in adult active 2024-08-14 ProblemAct [facility] Abnormal chest CT active 2018-11-07 ProblemAct [facility] Chronic idiopathic granulomatous disease active 2018-12-04 ProblemAct [facility] Severe obstructive sleep apnea active 2024-08-14 ProblemAct [facility] Postconcussion syndrome active 2018-06-26 ProblemAct [facility] Pulmonary nodules active 2018-12-04 ProblemAct [facility] Asthma-COPD overlap syndrome ([facility] V24, [facility] V28) active 2018-12-04 ProblemAct [facility] Lumbar spondylosis active 2018-03-27 ProblemAct [facility] Diabetes mellitus type 2 with neurological manifestations ([facility] V24, [facility] V28) active 2015-10-06 ProblemAct [facility] Esophageal dysmotility active 2021-04-20 ProblemAct [facility] Hx of transient ischemic attack (TIA) active 2024-06-13 ProblemAct [facility] Peripheral neuropathy active 2018-03-27 ProblemAct [facility] Type 2 diabetes mellitus with stage 3a chronic kidney disease, without long-term current use of insulin ([facility] V24, [facility] V28) active 2024-06-19 ProblemAct [facility] OA (osteoarthritis) of shoulder active 2019-07-28 ProblemAct [facility] Postmenopausal bleeding active 2025-06-23 ProblemAct [facility] Acute medial meniscus tear of right knee active 2025-03-25 ProblemAct [facility] Herpes zoster without complication active 2019-01-20 ProblemAct [facility] Post-traumatic headache, not intractable active 2018-06-26 ProblemAct [facility] Hyperlipidemia active 2018-03-27 ProblemAct [facility] Mixed conductive and sensorineural hearing loss, bilateral active 2020-11-06 ProblemAct [facility] Immunizations Vaccine Date Source Lot Number Status Influenza trivalent, 0.5mL, preservative free (Fluarix; FluLaval; Fluzone) ages 6mo and older (Afluria) 3 years and older 08[id number] RSV, bivalent, protein subun it RSVpreF, 0.5mL, Preservative Free (ABRYSVO) 50yo and older or 32 through 36 wks of 08/27/2024 [facility] [id number] completed Campanja (ages 12 & older) Biv alent, COVID-19 08/05/2022 [facility] [id number] completed Influenza Quadrivalent, 0.5m l, preservative free (Fluarix; FluLaval; Fluzone) ages 6mo and older (Afluria) 3yo and older 09/28/2021 [facility] completed Influenza trivalent, with pr eservative (Fluzone; Afluria) 6mo and older 09/28/2021 [facility] completed Campanja SARS-CoV-2 COVID-19, mRNA, LNP-S, preservative free 08/15/2021 [facility] [id number] completed Influenza, Unspecified 07/31/2021 [facility] co mpleted Pfizer SARS-CoV-2 COVID-19, mRNA, LNP-S, preservative free 12/08/2020 [facility] completed Pfizer SARS-CoV-2 COVID-19, mRNA, LNP-S, preservative free 11/17/2020 [facility] completed Influenza Quadrivalent, 0.5m l, preservative free (Fluarix; FluLaval; Fluzone) ages 6mo and older (Afluria) 3yo and older 06/09/2020 [facility] completed Influenza trivalent, with pr eservative (Fluzone; Afluria) 6mo and older 06/09/2020 [facility] completed Influenza trivalent, 0.5mL, preservative free (Fluarix; FluLaval; Fluzone) ages 6mo and older (Afluria) 3 years and older 06/01/2020 [facility] completed Pneumococcal conjugate 13 va lent (Prevnar 13, PCV13) 2mo and older 03/07/2019 [facility] complet ed Influenza Quadrivalent, 0.5m l, preservative free (Fluarix; FluLaval; Fluzone) ages 6mo and older (Afluria) 3yo and older 09/21/2018 [facility] completed Influenza trivalent, with pr eservative (Fluzone; Afluria) 6mo and older 09/21/2018 [facility] completed Influenza Quadrivalent, 0.5m l, preservative free (Fluarix; FluLaval; Fluzone) ages 6mo and older (Afluria) 3yo and older 07/18/2017 [facility] completed Influenza trivalent, with pr eservative (Fluzone; Afluria) 6mo and older 07/18/2017 [facility] completed DTaP (Infanrix) 6wks to less than 7yo 12/31/2015 [facility] completed DTaP, Unspecified 12/31/2015 [facility] complet ed Influenza trivalent, 0.5mL, preservative free (Fluarix; FluLaval; Fluzone) ages 6mo and older (Afluria) 3 years and older 12/31/2015 [facility] completed Influenza trivalent, with pr eservative (Fluzone; Afluria) 6mo and older 12/31/2015 [facility] completed Influenza, Unspecified 12/31/2015 [facility] co mpleted Tdap Tetanus diptheria acell ular pertussis (Boostrix; Adacel) 7yo and older 12/31/2015 [facility] completed Influenza trivalent, with pr eservative (Fluzone; Afluria) 6mo and older 11/14/2013 [facility] [id number] completed Influenza trivalent, with pr eservative (Fluzone; Afluria) 6mo and older 05/01/2012 [facility] [id number] completed Influenza trivalent, with pr eservative (Fluzone; Afluria) 6mo and older 05/12/2011 [facility] completed Influenza, Unspecified 05/12/2011 [facility] co mpleted Influenza trivalent, with pr eservative (Fluzone; Afluria) 6mo and older 07/06/2010 [facility] [id number] completed Influenza trivalent, with pr eservative (Fluzone; Afluria) 6mo and older 09/16/2009 [facility] [id number] completed Influenza trivalent, with pr eservative (Fluzone; Afluria) 6mo and older 06/11/2009 [facility] completed Influenza, Unspecified 06/11/2009 [facility] co mpleted Influenza trivalent, with pr eservative (Fluzone; Afluria) 6mo and older 09/16/2008 [facility] completed Influenza, Unspecified 09/16/2008 [facility] co mpleted Influenza trivalent, with pr eservative (Fluzone; Afluria) 6mo and older 07/01/2008 [facility] completed Influenza, Unspecified 07/01/2008 [facility] co mpleted Influenza trivalent, with pr eservative (Fluzone; Afluria) 6mo and older 06/11/2007 [facility] completed Influenza, Unspecified 06/11/2007 [facility] co mpleted Influenza, Unspecified 06/23/2004 [facility] co mpleted Td Tetanus diptheria (Tdvax) 7yo and older 04/27/2004 [facility] completed Td, Unspecified 04/27/2004 [facility] completed Pneumococcal, Unspecified 09/11/2003 [facility] completed Influenza trivalent, with pr eservative (Fluzone; Afluria) 6mo and older 07/18/2003 [facility] completed Influenza, Unspecified 07/18/2003 [facility] co mpleted Influenza trivalent, with pr eservative (Fluzone; Afluria) 6mo and older 09/02/2002 [facility] completed Influenza, Unspecified 09/02/2002 [facility] co mpleted Influenza trivalent, with pr eservative (Fluzone; Afluria) 6mo and older 08/30/2001 [facility] completed Influenza, Unspecified 08/30/2001 [facility] co mpleted Influenza trivalent, with pr eservative (Fluzone; Afluria) 6mo and older 08/11/2000 [facility] completed Influenza, Unspecified 08/11/2000 [facility] co mpleted Pneumococcal, Unspecified 08/11/2000 [facility] completed Influenza trivalent, with pr eservative (Fluzone; Afluria) 6mo and older 07/17/1998 [facility] completed Influenza, Unspecified 07/17/1998 [facility] co mpleted Care Team Organization Name Specialty Phone Email Start Date End Da te [facility] 11/16/2022 04/29/2024 [facility] Janae, PROVIDER Primary Care 07/19/202204/11
--- OUTSIDE RECORDS SUMMARY | 2025-08-04 08:48 | XMS_ITS | Data Portability ---
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 The patient has a partially obliterated canal wall down mastoidectomy cavity which was still filled with infected squamous debris. The cavity was thoroughly debrided today under the binocular microscope and granulation tissue removed and cauterized. No signs of deeper seated disease. Recommend an additional week of topical drops to clear out the rest of the infection. On the left side, the tympanic membrane is atelectatic, but dry, without signs of squamous debris collection medially. CAT scan of the temporal bones reviewed personally. On the right side there is evidence of prior canal wall down mastoidectomy cavity with partially reabsorbed bone graft within the cavity. There are some areas of bony resorption that were filled with squamous debris at the time of the scan, correlating to what was cleaned out today. On the left side, there is opacification of the epitympanum, mastoid antrum and mastoid air cells. While this may have the appearance of an expansile process, this does not appear to be consistent with cholesteatoma formation. Today gave patient reassurance that the left ear does not require any further intervention with regards to the radiological findings. We went over her audiometric testing today. This shows profound hearing loss in the right ear and a significant mixed hearing loss on the left. We discussed that the fact that she would be a good candidate for either a left-sided amplification or BiCROS amplification. She would like to learn more about this, so we will set her up for hearing aid evaluation. We discussed the importance of regular preventative cleaning of her right mastoid cavity in order to prevent such significant debris collection and subsequent recalcitrant infection in the future. Recommend follow-up in 6 mo. Not available 02/27/2025 10:45:56 Plan of Treatment Reminders Order Date Submit Date Provider Last Modified By Organization Details Last Modified Time Details Appointments Establish ed 10 2024 10:50A M HERMINIA DIAZ MD Not available Not available Not available Lab None recorded. Referral None recorded. Procedures None recorded. Surgeries None recorded. Imaging None recorded. Medication Orders Ciprodex 0.3 %-0.1 % ear drops,lalo pension 2024 [address] [id number], [address] [place], [address], 02/14/2025 15:36:36 Patient TargetsNo targets recorded. Patient InstructionsNo instructions recorded. Reason for Referral None Reported. Results Created Date Observation Date Name Description Value Unit Range Abnormal Flag Note LastModifiedBy Organization Detail LastModifiedTime 04/07/20 25 audio gram No observ ation record ed. BARCODE Not Available 2024 10:46:48 Result Notes None recorded. 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 Active 2013 Adhesive Ottis; Note: Date Diagnosed : 4 5:17 PM (385.10) Not Available [facility] 4 02:16:38 Postmasto idectomy complicat ion 44602826 Active 2017 Other disorders following mastoidec leonarda, right ear; Note: Date Diagnosed : 12/26/2017 2:50 PM (H95.191) Not Available [facility] 4 02:17:15 Impacted cerumen in right ear 07706487938 23554 Active 2017 Impacted cerumen, right ear; Note: Date Diagnosed : 12/26/2017 2:23 PM (H61.21) Not Available [facility] 4 02:17:31 Mixed conductiv e and sensorine ural hearing loss, bilateral 633360182 Active 2017 Hearing loss: Mixed hearing loss, bilateral ; Note: Date Diagnosed : 4 4:39 PM (389.22) ; Start Date : 4 Mixed conductiv e and sensorine ural hearing loss, bilateral ; Note: Date Diagnosed : 12/26/2017 3:24 PM (H90.6) Not Available [facility] 4 02:17:33 Impacted cerumen in left ear 89110800269 69059 Active 2017 Impacted cerumen, left ear; Note: Date Diagnosed : 12/26/2017 2:50 PM (H61.22) Not Available [facility] 4 02:18:07 Headache 86213252 Active 2018 Facial pain NOS; Note: Date Diagnosed : 07/19/2019 12:21 PM (R51) Not Available [facility] 4 02:17:59 Chronic right mastoidit is 29412588941 Active 2024 AIMEE JONES MD 100 [facility],[place] [address], [place], [address] , [place] - [facility] 5 15:36:09 Bilateral adhesive otitis media of middle ears 89866600031 24298 Active 2024 HERMINIA DIAZ MD 100 [facility] [address], [place], [address] , [place] - [facility] 5 21:52:16 Chronic inflammat ion of mastoid cavity 804185744 Active 2024 HERMINIA DIAZ MD 100 [facility],[place] [address], [facility] [place], [address] , [facility] - [facility] 5 10:04:57 Orthostat ic hypotensi on 71282146 Active 2024 HERMINIA DIAZ MD 100 [facility],[place] [address], [place], [address] , [facility] - [facility] [place] 5 10:41:52 Problem Notes None recorded. Procedures Surgical History Date Name Laterality Status Provider Name and Address Organization Details Recorded Time 5 Comp Audio with Tymps - 86834 & 29140 completed DANGELO COBB 100 [facility],[place] [address], [place], [address], [facility] - [facility] 02/27/2025 10:27:11 Debridement of Mastoid Cavity complex right completed HERMINIA DIAZ MD 100 [facility],[place] [address], [place], [address], [facility] 02/27/2025 10:00:48 Imaging Results None recorded. Procedure Notes None recorded. Medical Equipment None Reported. Allergies Allergen ID Allergen Name Allergen Category Reaction Reaction Severity Criticality Documentation Date Start Date Code Code System Note Provider Name and Address Organization Details Recorded Time 37095 lisinopri l medicatio n other Not available Not available 01/23/2024 78800 RxNorm React ion: unkno wn, unspe cifie d;; Not Available [facility] 4 00:50:02 17534 penicilli n V potassium medicatio n other Not available Not available 01/23/2024 99329 5 RxNorm React ion: unkno wn, unspe cifie d;; Not Available [facility] 4 00:50:03 70649 azithromy lamont medicatio n other Not available Not available 01/23/2024 94701 RxNorm React ion: unkno wn, unspe cifie d;; Not Available [facility] 4 00:50:16 Medications Name Sig Start Date Stop Date Status Note LastModified by Organization Details LastModified Time atorvasta tin 40 mg tablet TAKE 1 TABLET BY MOUTH ONCE DAILY active Not Available Not Available No t Available doxycycli ne hyclate 100 mg capsule TAKE 1 CAPSULE BY MOUTH TWICE DAILY FOR 10 DAYS TAKE WITH AT LEAST 8 OUNCES (LARGE GLASS) OF WATER. DONT LIE DOWN FOR 30 MINS AFTER. TAKE 2 HRS BEFORE OR AFTER MULTIVIT AMINS, ANTACIDS , OR OTHER PRODUCTS CONTAINI NG CALCIUM, IRON, MAGNESIU M, SELENIUM , ZINC. 02/14 completed Not Available Not Available Not Available cetirizin e 10 mg tablet TAKE 1 TABLET BY MOUTH ONCE DAILY active Not Available Not Available No t Available Claritin 10 mg tablet 1 tablet by mouth 02/27 completed Medicati on ID: [id number] Du ration Value: 30 Brand Name: Claritin Send Method: E-Prescr ibed Sub s Allowed: subs OK Medic ationGen ericName : Claritin Not Available Not Available Not Available prednison e 20 mg tablet TAKE 2 TABLETS BY MOUTH DAILY FOR 4 DAYS 02/14 completed Not Available Not Available Not Available atenolol 25 mg tablet TAKE 1 TABLET BY MOUTH ONCE DAILY active Not Available Not Available No t Available amlodipin e 5 mg tablet 02/14 completed Medicati on ID: [id number] Dur ation Value: 30 Brand Name: amlnoel ne Send Method: E-Prescr ibed Sub s Allowed: subs OK Medic ationGen ericName : amlodipi ne Not Available Not Available Not Available ciproflox acin 500 mg tablet TAKE 1 TABLET BY MOUTH TWICE DAILY FOR 10 DAYS 02/14 completed Not Available Not Available Not Available aspirin 81 mg tablet,de layed release 2013 active Medicati on ID: [id number] Bra nd Name: aspirin Send Method: E-Prescr ibed Sub s Allowed: subs OK Medic ationGen ericName : aspirin Not Available Not Available Not Available acetamino phen ER 650 mg tablet,ex tended release TAKE 1 TABLET BY MOUTH EVERY 8 HOURS NEEDED FOR MODERATE PAIN active Not Available Not Available No t Available lorazepam 0.5 mg tablet TAKE 1 TABLET BY MOUTH EVERY 8 HOURS NEEDED FOR ANXIETY (MAX DAILY AMOUNT OF 3 TABLETS) active Not Available Not Available No t Available meclizine 25 mg tablet TAKE 1 TABLET BY MOUTH THREE TIMES DAILY NEEDED FOR DIZZINES S active Not Available Not Available No t Available diazepam 2 mg tablet TAKE 1/2 (ONE-HANNAH F) TABLET BY MOUTH EVERY 8 HOURS NEEDED FOR DIZZINES S active Not Available Not Available No t Available amlodipin e 10 mg tablet TAKE 1 TABLET BY MOUTH ONCE DAILY active Not Available Not Available No t Available simvastat in 20 mg tablet 02/14 completed Medicati on ID: [id number] B rand Name: simvasta tin Send Method: E-Prescr ibed Sub s Allowed: subs OK Medic ationGen ericName : simvasta tin Not Available Not Available Not Available losartan 25 mg tablet 02/14 completed Medicati on ID: [id number] D uration Value: 30 Brand Name: losartan Send Method: E-Prescr ibed Sub s Allowed: subs OK Medic ationGen ericName : losartan Not Available Not Available Not Available omeprazol e 20 mg capsule,d elayed release TAKE 1 CAPSULE BY MOUTH ONCE DAILY active Not Available Not Available No t Available hydroxyzi ne HCl 25 mg tablet TAKE 1 TABLET BY MOUTH TWICE DAILY NEEDED FOR ANXIETY active Not Available Not Available No t Available hydrochlo rothiazid e 25 mg tablet TAKE 1 TABLET BY MOUTH ONCE DAILY active Not Available Not Available No t Available azelastin e 137 mcg (0.1 %) nasal spray 2 spray into both nostrils 02/27 completed Medicati on ID: [id number] Pr escribed By Name: RISA Ragland nd Name: sunday wilkinson Send Method: E-Prescr ibed Sub s Allowed: subs OK Speci al Instruct ion: 2 sprays intranas al bid in each nostril Medicati onGeneri cName: sunday wilkinson Not Available Not Available Not Available methylpre dnisolone 4 mg tablets in a dose pack TAKE 6 TABLETS ON DAY 1 DIRECTED ON PACKAGE AND DECREASE BY 1 TAB EACH DAY FOR A TOTAL OF 6 DAYS 02/14 completed Not Available Not Available Not Available losartan 100 mg tablet TAKE 1 TABLET BY MOUTH ONCE DAILY active Not Available Not Available No t Available Ciprodex 0.3 %-0.1 % ear drops,lalo pension INSTILL 4 DROPS INTO AFFECTED EAR(S) BY OTIC ROUTE 2 TIMES PER DAY FOR 14 DAYS 2024 active Not Available Not Available Not Shila labrui Crestor 10 mg tablet 02/27 completed Medicati on ID: [id number] Dur ation Value: 30 Brand Name: Crestor Send Method: E-Prescr ibed Sub s Allowed: subs OK Medic ationGen ericName : Crestor Not Available Not Available Not Available hydrochlo rothiazid e 12.5 mg tablet 02/14 completed Medicati on ID: 8999 Bra nd Name: hydrochl orothiaz deonte Send Method: E-Prescr ibed Sub s Allowed: subs OK Medic ationGen ericName : hydrochl orothiaz deonte Not Available Not Available Not Available Symbicort 80 mcg-4.5 mcg/actua tion HFA aerosol inhaler 02/14 completed Medicati on ID: [id number] Br and Name: Symbicor t Send Method: E-Prescr ibed Sub s Allowed: subs OK Medic ationGen ericName : Symbicor t Not Available Not Available Not Available diclofena c 1 % topical gel APPLY 2 GRAMS TO THE AFFECTED AREA(S) BY TOPICAL ROUTE 4 TIMES PER DAY active Not Available Not Available No t Available Jardiance 25 mg tablet TAKE 1/2 (ONE-HANNAH F) TABLET BY MOUTH ONCE DAILY active Not Available Not Available No t Available ipratropi um 20 mcg-albut christal 100 mcg/actua tion mist for inhalatio n Inhale 1 puff 4 times a day by inhalati on route. active Not Available Not Available No t Available 1st Medx-Patc h With Lidocaine active Not Available Not Available No t Available Ozempic 0.25 mg or 0.5 mg (2 mg/3 mL) subcutane ous pen injector INJECT 0.5 MG SUBCUTAN EOUSLY ONCE A WEEK active Not Available Not Available No t Available Vitals Date Recorded Body height Body mass index (BMI) Body weight Provider Name and Address Organization Details Last Updated DateTime 02/14/2025 160.02 cm 34.9 kg/m2 01169.7 g Rozina Telles [facility] [place] 02/14/2025 15:08:15 Date Recorded Body height Body weight Provider Name and Address Organization Details Last Updated DateTime 02/27/2025 160.02 cm 83552.7 g Juani Esposito [place] - [facility] [place] 02/27/2025 09:38:02 Social History None recorded. Functional Status None recorded. Mental Status None recorded. Family History Nothing Reported Notes:Cardiovascular: Heart disease in a male, diagnosed at unknown age - father. Hypertension - father, mother, and sister(s). Neurologic: Stroke - father and mother. Medical History Condition Response Allergies/Hayfever Y Diabetes Y Arthritis Y Hearing Loss Y High Cholesterol Y Sleep Disorder Y GERD/Reflux Y Hyperlipidemia Y Migraines Y Hypertension Y Asthma Y Kidney Disease Y Gynecological HistoryNo gynecological history recorded. Obstetrics History GPAL:G 0 P 0 0 0 0 Past Encounters Encounter ID Performer Location Encounter Start Date Encounter Closed Date Diagnosis/Indication Diagnosis SNOMED-CT Code Diagnosis ICD10 Code Diagnosis IMO Codes Diagnosis Note [id number] AIMEE JONES MD [facility] [address] [address] 02/14/2025 14:54:56 02/14/2025 15:41:11 Chronic right mastoiditis [id number] 573321 H70.11 [id number] 70-year-ol d female with a history of right tympmastoi d with closure of semicircul ar canal fistula in 2013, who has not been seen since 2019 for routine mastoid cleaning, presents today for ear infection associated with bleeding and dizziness. She has had symptoms since the beginning of January. She was seen in the emergency department at [facility] where she had a CT scan scan showing near complete opacificat ion of the aditus ad antrum, middle ear, medial external auditory canal with a large area of osseous erosion concerning for cholesteat jeffery. I debrided a large amount of squamous debris from the residual mastoid cavity and the medial canal. There does remain some in the superior canal. There is a hemorrhagi c granulatio n polyp emanating from the superior canal which is likely the source of the bleeding. I would expect the drops to work better now after canal debridemen t. Will reassess in 2 weeks. She will need to reestablis h care with Dr. Diaz. Follow-up if symptoms worsen sooner. [id number] HERMINIA DIAZ MD [facility] [address] [address] 02/27/2025 09:31:19 02/27/2025 10:50:57 Postmastoidectomy complication 15944978 H95.191 Bilateral adhesive otitis media of middle ears 3141260580 762367 H74.13 8672102 Chronic ri ght mastoiditis 6092816131 355967 H70.11 [id number] Orthostati c hypotension 29456727 I95.1 [id number] DANGELO COBB [facility] [address] [address] 02/27/2025 10:26:20 03/17/2025 13:35:27 Mixed conductive and sensorineural hearing loss, bilateral 387091192 H90.6 Audiologic al evaluation results: Right ear: Moderately -severe sloping to profound mixed hearing loss with no measurable word recognitio n. Left ear: Moderately -severe rising to mild mixed hearing loss with excellent word recognitio n. Tympanomet ry: Right Ear:Type As Left Ear:Type B Health Concerns Section Related Observation LastModified by Organization Detai ls LastModified Time None Recorded Concern Status LastModified by Organization Details LastModified Time None Recorded Advance Directives Directive None Recorded Payers Insurance Date Sequence Insurance Name Policy Number Policy Giraldo Covered Member ID Giraldo Member ID Guarantor Name 04/05/2025 1 [place] [employer] Cecy Gallegos [id number] Cecy Gallegos 04/05/2025 2 [place] [id number] Cecy Gallegos [id number] Cecy Gallegos Notes Date Note Type Note Provider Name and Address Organization Details Recorded Time 02/14/2025 text/html 70-year-old female with a history of right tympmastoid with closure of semicircular canal fistula in 2013, who has not been seen since 2019 for routine mastoid cleaning, presents today for ear infection associated with bleeding and dizziness. She has had symptoms since the beginning of January. She was seen in the emergency department at [facility] where she had a CT scan scan showing near complete opacification of the aditus ad antrum, middle ear, medial external auditory canal with a large area of osseous erosion concerning for cholesteatoma. Left mastoid findings stable compared to 2011. She has been on ear drops. PV (2019): 64 year old female with history of right tympanoplasty with mastoid obliteration with repair of semicircular canal fistula closure of a CSF leak in December2013 presents for follow up CT scan done at [facility] for facial pain. On exam left EAC free of otorrhea and debris. TM is retracted in the pars flaccidawith some debris collection removed today. Borders of collection is unclear at this time. Right ear exam is stable. CT scan report was reviewed showing complete opacification of the left mastoid with smooth attic remodeling suggestive of cholesteatoma. Ossicular chain is largely eroded. There is thinning of the tegmen with possible focal dehiscence. Right ear shows changes consistent with patients previous surgery. CT scan report is concerning in conjunction with patients exam.Patient does not have copy of the image but I will attempt to obtain one. I would also like to review report with Dr. Diaz. I will contact patient with results of that conversation. AIMEE JONES MD [address] [place] [address], [phone], [facility] - [facility] 02/16/2025 07:44:39 02/27/2025 text/html 70-year-old female with history of right tympanoplasty with mastoid obliteration with repair of semicircular canal fistula and concurrent closure of CSF leak in December 2013. She requires intermittent mastoid debridement. She has mixed hearing loss in the left ear and profound hearing loss on the right. There was CT scan done in 2019 at [facility] that was concerning concerning for left-sided cholesteatoma. Patient was subsequently lost to follow-up. She presented back to Dr. Jones last month after presenting to [facility] where she had a CAT scan showing concerns for left-sided cholesteatoma and a large area of osseous erosion.Patient reports that when she goes from a sitting to standing position, she will feel lightheaded and woozy like she is going to pass out. She does not have any symptoms when lying flat and rolling over in bed. HERMINIA DIAZ MD [address] [place] [address], [place], [address], [place] - [facility] 02/27/2025 10:46:28 OBGyn Episode No OBEpisode recorded.
--- OUTSIDE RECORDS SUMMARY | 2025-08-04 08:48 | XMS_ITS | Encounter Summary ---
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 For example, children's attendant or elderly care for an older adult? [...] 08/15/2025 10:00 AM EST Consult Adult Medicine [address] [phone] Veronica Verduzco MD [address] [place] [address] 08/28/2025 10:00 AM EST Hospital Encounter [facility] Main OR [address] [place] [phone] Dawood Fair MD [address] [address] 08/28/2025 10:00 AM EST - 08/28/2025 12:00 PM EST Surgery [facility] Main OR [address] [place] [phone] Dawood Fair MD 175 [facility] [address] [place] [address] RIGHT KNEE ARTHROSCOPY [[id number] (CPT )] 09/10/2025 10:00 AM EST Office Visit Orthopedic Surgery [facility] 175 [facility] [address] [place] [phone] Earnest López PA 175 [place] [address] 09/10/2025 11:30 AM EST Office Visit Orthopedic Surgery [facility] 160 175 [facility] [address] [place] [phone] Dawood Fair MD 175 [facility] 160 [place] [address] 11/05/2025 3:15 PM EST Office Visit Nephrology [address] [address] Toni Arizmendi MD 100 [facility] 200 [place] [address] 12/29/2025 9:45 AM EDT Office Visit Pulmonology - [place] 175 [facility] [address] [place] [phone] Giovana Randall, CLEMENTE [address] [place] [phone] 01/27/2026 8:30 AM EDT Office Visit Orthopedic Surgery [facility] 250 175 [facility] [address] [place] [phone] Enrico Wooten DPM [address] [address] Scheduled Procedures Name Priority Associated Diagnoses Date/Ti me ARTHROSCOPY KNEE Acute medial meniscus tear of right knee, initial encounter 08/28/2025 10:00 AM EST documented as of this encounter Goals Goal Patient Goal Type Associated Problems Recent Progress Patient-Stated? Author Autogenerat ed Goal Care Plan Autogenerated Problem Dawood Tyson MD documented as of this encounter Visit Diagnoses Not on filedocumented in this encounter Additional Health Concerns Active Problems Noted Date Diagnosed Date Autogenerated Problem 07/30/2025 Assessment Noted Time PHQ-9 Depression Total Score: 6 11/05/19 11:58 AM EST A fall risk assessment has been complete d for the patient 11/05/2024 11:55 AM EST documented as of this encounter Care Teams Dressmaker Garment Fitter Relationship Specialty Start Date End Date Veronica Verduzco MD [address] [place] [phone] PCP - General Internal Medicine 04/11/22 documented as of this encounter
--- OUTSIDE RECORDS SUMMARY | 2025-08-04 08:48 | XMS_ITS | Encounter Summary ---
Author Organization [facility] [place] [address] Care Team Providers Care Pie Filling Mixer Name Role Phone Veronica Verduzco MD Primary Care Prov ider Encounter Details Date Type Department Care Team (Late st Contact Info) Description 07/31/2025 Telephone Urogynecology - [address] [place] [address] Briana Valentin RN Social History Tobacco Use Types Packs/Day Years Used Date Smoking Tobacco: Former Cigarettes 1.5 39 1 976 - 2014 Smokeless Tobacco: Never Alcohol Use Standard Drinks/Week [...] care for your loved ones. 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 Rivera regarding pt's pelvic USN results Can you please call Wale to let her know her pelvic US was normal, it does not appear likely that the uterus was the source of the bleeding/spotting she was having. I suspect it more likely to be due to thinning and prolapse of her vaginal madrid, which the vaginal estradiol cream should help with. If she has any increase in spotting or bleeding, she should notify me. Thanks - AY Pt aware and agrees with plan Appreciative of call Briana Valentin RN documented in this encounter Plan of Treatment Upcoming Encounters Date Type Department Care Team (Late st Contact Info) Description 08/15/2025 10:00 AM EST Consult Adult Medicine East - [address] [phone] Veronica Verduzco MD [address] [place] [address] 08/28/2025 10:00 AM EST Hospital Encounter [facility] [place] [address] [place] [phone] Dawood Fair MD [address] [address] 08/28/2025 10:00 AM EST - 08/28/2025 12:[address] [facility] [place] [address] [place] [phone] Dawood Fair MD [address] [address] RIGHT KNEE ARTHROSCOPY [[id number] (CPT )] 09/10/2025 10:00 AM EST Office Visit Orthopedic Surgery [facility] 175 [facility] 140 [place] [phone] Earnest López, TEREZA 175 [place] [address] 09/10/2025 11:30 AM EST Office Visit Orthopedic Surgery [facility] [address] [phone] Dawood Fair MD [address] [address] 11/05/2025 3:15 PM EST Office Visit Nephrology [address] [phone] Toni Arizmendi MD 100 [facility] 200 [place] [address] 12/29/2025 9:45 AM EDT Office Visit Pulmonology - [place] [address] [facility] [address] [facility] [address] [place] [address] Giovana Randall, CLEMENTE [address] [place] [address] 01/27/2026 8:30 AM EDT Office Visit Orthopedic Surgery - [place] [address] [place] [address] Enrico Wooten DPM [address] [facility] [address] [facility] [address] [facility] [address] [place] [address] Scheduled Procedures Name Priority Associated Diagnoses Date/Ti [...] documented as of this encounter Care Teams Pie Filling Mixer Relationship Specialty Start Date End Date Veronica Verduzco MD [address] [place] [phone] PCP - General Internal Medicine 04/11/22 documented as of this encounter
--- OUTSIDE RECORDS SUMMARY | 2025-08-04 08:48 | XMS_ITS | Encounter Summary ---
Author Organization [facility] Address [address] [place] [address] Care Team Providers Care Manager Wound Name Role Phone Veronica Verduzco MD Primary Care Prov ider Reason for Visit * Reason Onset Date Comments call back 07/30/2025 Encounter Details Date Type Department Care Team ([facility] st Contact Info) Description 07/30/2025 Telephone [facility] [address] [place], [place] [phone] Russell Rodarte PA [address] [place], [place] Social History Tobacco Use Types Packs/Day Years [...] care for your loved ones. For example, attendant child activity or elderly care for an older adult? [...] as of this encounter Progress Notes * Yadira Lance RN - 07/30/2025 11:12 AM EST Call to pt spoke to pt , her r thumb , finger caught in the door on Monday, wind blew the door s On Monday finger was feeling hot finger nail black and blue, Finger color is a red and swollen, edge of nail cuticle area is dark nail not swollen She can move the finger but not all the way. Pt agreed if any changes if finger goes cold and blue to go to the er right away She agreed * Poornima Mccauley [place] - 07/30/2025 11:04 AM EST Patient is returning a missed call. * Yadira Lance RN - 07/30/2025 8:42 AM EST Call to pt .message left for pt to return call petra, Needs to be triaged, * TEREZA Leung - 07/30/2025 8:00 AM EST Finger turned blue needs triage. If it is just bruising after trauma okay for urgent care documented in this encounter Plan of Treatment Upcoming Encounters Date Type Department Care Team (Late st Contact Info) Description 08/15/2025 10:00 AM EST Consult Adult Medicine [address] [phone] Veronica Verduzco MD [address] [place] [address] 08/28/2025 10:00 AM EST Hospital Encounter [facility] OR [address] [place] [phone] Dawood Fair MD [address] [place] [address] 08/28/2025 10:00 AM EST - 08/28/2025 12:00 PM EST Surgery [address] [phone] Dawood Fair MD [address] [address] RIGHT KNEE ARTHROSCOPY [[id number] (CPT )] 09/10/2025 10:00 AM EST Office Visit Orthopedic Surgery [facility] 175 [facility] 140 [place] [phone] Earnest López PA 175 [place] [address] 09/10/2025 11:30 AM EST Office Visit Orthopedic Surgery [facility] 160 175 [facility] 160 [place] [phone] Dawood Fair MD [address] [address] 11/05/2025 3:15 PM EST Office Visit Nephrology [address] [phone] Toni Arizmendi MD [address] [phone] 12/29/2025 9:45 AM EDT Office Visit Pulmonology [facility] 175 [facility] 200 [place] [phone] Giovana Randall, CLEMENTE [address] [place] [phone] 01/27/2026 8:30 AM EDT Office Visit Orthopedic Surgery [facility] 250 175 [facility] 250 [place] [phone] Enrico Wooten DPM [address] [address] Scheduled Procedures Name Priority Associated Diagnoses Date/Ti [...] documented as of this encounter Care Teams Manager Wound Relationship Specialty Start Date End Date Veronica Verduzco MD [address] [place] [phone] PCP - General Internal Medicine 04/11/22 documented as of this encounter
--- OUTSIDE RECORDS SUMMARY | 2025-08-04 08:48 | XMS_ITS | Patient Health Record ---
Author Organization [facility] Address [address] [place] [address] Care Team Providers Care Public Address Announcer Name Role Phone Romelia Salazar MD Primary Care Provider Annette Salazar Unavailable [phone] Allergies Allergen (clinical drug ingredient) Drug/Non Drug Allergy documented on EMR Reaction Allergy Type Onset Date Status Adhesive Tape (uncoded) rash/dermatiti s Allergy Active Penicillin (uncoded) hives Allergy Active amoxicillin Amoxicillin hives Drug Allergy Act juana azithromycin Azithromycin hives Drug Allergy A ctive sulfamethoxazole / trimethoprim Bactrim hives Drug Allergy Active lisinopril Lisinopril Numbness, swelling mouth Drug Allergy Active Reason For Referral No Information Medications Medication SIG (Take, Route, Frequency, Duration) Notes Start Date End Date Status hydroCHLOROthiazide 25 MG 1 tablet in th e morning Orally Once a day; Duration: 30 day(s) Active Lovaza 1 GM 2 capsules Orally Twice a day; Duration: 30 day(s) Active Meclizine HCl 25 MG 1 tablet as needed Orally Once a day; Duration: 30 day(s) Active Ergocalciferol 1.25 MG (5000 0 UT) 1 capsule Orally; Duration: 30 day(s) Active Lidocaine 5 % as directed Externally Active Omeprazole 20 MG 1 capsule 30 minutes before morning meal Orally Once a day; Duration: 30 day(s) Active Fluticasone Furoate 50 MCG/ACT 2 puffs I nhalation Once a day Active LORazepam 0.5 MG 1 tablet at bedtime as needed Orally Once a day Active Ipratropium-Albuterol 0.5-2. 5 (3) MG/3ML 3 ml as needed Inhalation every 6 hrs Active Lantus SoloStar 100 UNIT/ML as directed Subcutaneous Active Cetirizine HCl 10 MG 2 tablets Orally On ce a day; Duration: 30 day(s) Active Atorvastatin Calcium 40 MG 1 tablet Oral ly Once a day; Duration: 30 day(s) Active Lidocaine-Prilocaine 2.5-2.5 % as directed Externally Active metFORMIN HCl 1000 MG 1 tablet with a me al Orally Once a day; Duration: 30 day(s) Active Budesonide-Formoterol Fumara te 80-4.5 MCG/ACT 2 puffs Inhalation Once a day Active NovoLOG FlexPen 100 UNIT/ML as directed Subcutaneous Active Aspirin 81 81 MG 1 tablet Orally Once a day; Duration: 30 day(s) Active Losartan Potassium 100 MG 1 tablet Orall y Once a day; Duration: 30 day(s) Active amLODIPine Besylate 10 MG 1 tablet Orall y Once a day; Duration: 30 day(s) Active Ipratropium-Albuterol 20-100 MCG/ACT 1 [...] Polyneuropathy due to type 2 diabetes mellitus (193996723) Type 2 diabetes mellitus with diabetic polyneuropathy (E11.42) Active confirmed Problem Acquired hammer toe of right foot (7028064514989811 ) Hammer toe of right foot (M20.41) Active confirmed Problem Acquired hammer toe of left foot ([id number] ) Hammer toe of left foot (M20.42) Active confirmed Plan Of Treatment Pending Test Test Name Order Date HEMOGLOBIN A1C (GLYCOHEMOGLOBIN) 020 Insurance Providers Payer Name Payer Address Payer Phone Subscriber Number Group Number Insured Name Patient Relationship to Insured Coverage Start Date Coverage End Date [facility] [address] [place] [address] [phone] [id number] [phone] Cecy Gallegos Self - patient is the insured [facility] Community [facility] [address] [address] [place] [phone] [id number] Austin Gallegos Spouse - patient is the spouse of [...]
[2025-08-04 09:00] LABS: IDNOW Serial# 55D5AD1C; Influenza B2 Negative (Negative)
[2025-08-04 09:01] LABS: COVID-19 Test Negative (Negative); IDNOW Serial# 58CA691E
--- NOTE | 2025-08-04 09:36 | ED.URI ---
HPI - URI/Sore Throat General Chief Complaint: Upper Respiratory Symptoms Stated Complaint: Cough Congestion Running Nose Time Seen by Provider: 08/04/25 09:12 Source: patient Mode of arrival: ambulatory Limitations: no limitations History of Present Illness ED Provider: RISA Aguilera HPI Narrative: 70-year-old female with medical history of HLD, HTN, T2DM, presents to ED due to 3 weeks of cough and nasal congestion. Patient reports symptoms began about 3 weeks ago and saw her PCP on 07/17 with 3 days of symptoms at that point and was prescribed course of doxycycline and 5 day course of prednisone, patient states she finished her course of steroids and abx on 07/23. Patient states she feels her nasal congestion has improved but cough with phlegm production has stayed consistent, does not feel like it has gotten any better or worse, however patient states her cough is worse at night. Patient is reporting pain of B/L lower ribs and SOB while coughing. Denies fevers, chills, abdominal pain, nausea, vomiting, headaches, visual changes, urinary symptoms. Related Data Home Medications ?Medication ?Instructions ?Recorded ?Confirmed amlodipine 10 mg tablet 10 mg PO DAILY 10/01/21 04/22/22 atorvastatin 40 mg tablet 40 mg PO BEDTIME 10/01/21 04/22/22 cetirizine 10 mg tablet 10 mg PO DAILY 10/01/21 04/22/22 empagliflozin 25 mg tablet mg PO 10/01/21 04/22/22 (Jardiance) lancets (Accu-Chek Softclix #100 ea 10/01/21 04/22/22 Lancets) losartan 100 mg tablet 100 mg PO DAILY 10/01/21 04/22/22 metformin 500 mg tablet mg PO 10/01/21 04/22/22 atenolol 25 mg tablet 25 mg PO DAILY 11/22/21 04/22/22 hydrochlorothiazide 25 mg tablet 25 mg PO DAILY 11/22/21 04/22/22 omeprazole 20 mg capsule,delayed 20 mg PO DAILY 11/22/21 04/22/22 release semaglutide 0.25 mg or 0.5 mg (2 0.5 mg subcut QWEEK 10/14/24 mg/3 mL) subcutaneous pen injector (Ozempic) Previous Rx's ?Medication ?Instructions ?Recorded peak flow meter (Peak Air Peak #1 ea 11/22/21 Flow Meter) methylprednisolone 4 mg tablets in See Rx Instructions PO PER PKG DIR 10/14/24 a dose pack #21 ea doxycycline hyclate 100 mg capsule 100 mg PO BID #10 caps 10/18/24 prednisone 10 mg tablets in a dose See Taper PO DIRECTED #30 ea 08/04/25 pack Allergies Allergy/AdvReac Type Severity Reaction Status Date / Time amoxicillin (AMOXICILLIN) Allergy Mild HIVES Verified 08/04/25 08:22 azithromycin (From ZITHROMAX Allergy Mild HIVES Verified 08/04/25 08:22 Z-ELADIO) lisinopril (LISINOPRIL) Allergy Mild SWELLING Verified 08/04/25 08:22 sulfamethoxazole (From Allergy Mild HIVES Verified 08/04/25 08:22 BACTRIM) trimethoprim (From BACTRIM) Allergy Mild HIVES Verified 08/04/25 08:22 adhesive (ADHESIVE) Allergy Unknown UNKNOWN Verified 08/04/25 08:22 Review of Systems Review of Systems: Yes all other systems are reviewed and are negative [facility] Past Medical History Source: old records reviewed and nursing notes reviewed Social History Social History Patient Tobacco Use Status: Never used Tobacco Advance Directives: No Advance Directives Information Provided: Yes Physical Exam Vital Signs: Vital Signs: Last Vital Signs Temp 98.3 F 08/04/25 12:21 Pulse 72 08/04/25 12:21 Resp 20 08/04/25 12:21 BP 124/53 L 08/04/25 12:21 Pulse Ox 96 08/04/25 12:21 O2 Del Method Room Air 08/04/25 12:21 BMI result Body Mass Index 36.0 GENERAL APPEARANCE: ?AxOx4, generally well-appearing, no acute distress. HEENT: ?NC, AT. MMM. EOMI, clear conjunctiva, oropharynx clear. NECK: ?Supple without lymphadenopathy.? No stiffness or restricted ROM. HEART:? Normal rate and regular rhythm, normal S1/S1, no m/r/g LUNGS:? Diminished breath sounds throughout all lung eubanks, mild expiratory wheeze, no increased work of breathing, no accessory muscle use, no pursed lip breathing ABDOMEN: ?Soft, nontender, nondistended, no rigidity, no guarding BACK: No CVAT, no obvious deformity. EXTREMITIES: ?Without cyanosis, clubbing or edema. NEUROLOGICAL: ?Grossly nonfocal. Alert and oriented, moving all 4 extremities. Observed to ambulate with normal gait. Skin: ?Warm and dry without any rash. Medications Administered Discontinued Medications Generic Name Dose Route Start Last Admin Trade Name Freq PRN Reason Stop Dose Admin Albuterol Sulfate 5 mg/ 0 mg 08/04/25 10:01 08/04/25 10:04 Albuterol/Ipratropium 3 ml INHALE 08/04/25 10:02 1 each ONCE ONE Administration Medical Decision Making Medical Decision Making MDM Narrative: 70-year-old female with medical history of HLD, HTN, T2DM, presents to ED due to 3 weeks of cough and nasal congestion. Saw her PCP on 07/17 and was started on doxycycline and 5 day course of prednisone finished both on 07/23. Cough with phlegm production has been persistent not worsening or improving but cough is worse at night. Patient with pain of B/L lower ribs when coughing and SOB when coughing. VS on initial observation-BP 122/58, pulse rate of 67, respiratory rate of 20, afebrile with oral temp of 98.1?, O2 saturation 96% on room air. On physical exam lungs with diminished breath sounds throughout all lung eubanks, mild expiratory wheeze, no increased work of breathing, no accessory muscle use, no pursed lip breathing CXR reveals chronic calcified granuloma of the lingula, cardiomegaly, tortuous aorta, degenerative disc disease of the of the spine, without infiltrates/consolidations Viral serology negative Patient with 3 weeks of cough, has completed course of doxycycline and 5 day prednisone on 07/23. Patients nasal congestion, general malaise has improved over this time, cough has not changed in quality or intensity but has stayed consistent and is worse at night. Patient is afebrile, without hypoxia at rest or while ambulating, CXR without evidence of pneumonia. Due to patients other symptoms improving without cough getting worse, I believe this is a residual cough from viral illness. Patient will be discharged on prednisone taper as she had course of doxycycline and no indication for additional abx at this time. Patient has DUONEB and albuterol inhalers at home. I counseled patient to follow up with her PCP. Patient feels comfortable to go home for self care. Patient is in agreement with the plan. Differential Diagnosis Differential Diagnoses: The differential diagnosis associated with the presentation includes COVID Flu RSV Bronchitis Viral illness Pneumonia Admission/Observation Consideration of admission/observation: Escalation of care including admission/observation considered I considered admission however patient without hypoxia at rest or while ambulating, no tachypnea, no tachycardia, afebrile, no indication for hospitalization at this time. Lab Data Labs: Lab Results 08/04/25 Range/Units 08:30 COVID-19 (PATRICIA) Negative (Negative) COVID-19 Clin Com See Note Influenza Type A (ASMITA) Negative (Negative) Influenza Type B (ASMITA) Negative (Negative) Influenza A & B Note See Note Independent Interpretation I performed an independent interpretation of an: Plain X-Ray Interpretation: I personally interpreted the CXR which reveals cardiomegaly, without infiltrates, opacities, pulmonary edema, I agree with the radiologist's interpretation Radiology Impression Discussion of test interpretation with radiology: I have reviewed the radiologist's reading. Radiologist Impression: CXR FINDINGS: PA and lateral views of the chest are submitted. Again seen is a calcified granuloma in the lingula. The lungs are otherwise clear. There is no pleural effusion, pneumothorax, or pulmonary vascular congestion. The heart is enlarged. The aorta is tortuous. There is degenerative disc disease of the spine. XR/XR chest 2V IMPRESSION: Cardiomegaly. No acute cardiopulmonary abnormality. Electronically signed by: Jair Russell MD 08/04/2025 08:47 AM [facility] Dictated By: Jair Russell MD Signed By: <Electronically signed by Jair Russell MD in OV> 08/04/25 0847 External Record Review External record reviewed: Inpatient record, Office record and Outpatient record Prescription Management I considered prescription management with: Antibiotic I considered antibiotics however patient has other symptoms have been improving, cough has not worsened however has stayed consistent. Patient finished course of doxycycline on 07/23. No indication for antibiotics at this time. Patient will be sent home with prednisone taper for lung support. Chronic Conditions Patient?s care impacted by: Diabetes, Hypertension and Other (HLD) Social Determinants Patient?s care significantly limited by Social Determinants of Health including: Other Social Determinant of Health Discharge Plan Discharge Clinical Impression: Viral illness Patient Disposition: Home, Self-Care Additional Instructions: You were evaluated today in the emergency department for cough, nasal congestion. Your chest x-ray did not show any indication of pneumonia. You stated your other symptoms have improved, but your cough has stayed consistently the same. You finished a course of antibiotics on 07/23. You are being prescribed a prednisone taper for lung support. Additionally I recommend that you use your DuoNeb/albuterol inhaler for shortness of breath, wheezing. I discussed with you a cough syrup however you declined this medication. Please follow up with your primary care doctor to ensure resolution of your symptoms. Please return to the emergency department if you experience fevers over 100.4?, worsening cough, difficulty breathing, shortness of breath, chest pain, abdominal pain, nausea, vomiting or any new/worsening/concerning symptoms. Prescriptions: New prednisone 10 mg tablets,dose pack See Taper PO DIRECTED Qty: 30 0RF Taper: Prednisone 40 mg daily for 3 Days and 0 Hour 30 mg daily for 3 Days and 0 Hour 20 mg daily for 3 Days and 0 Hour 10 mg daily for 3 Days and 0 Hour Rx Instructions: see taper instructions; 40 mg Daily x3 days, 30 mg daily x3 days, 20 mg daily x3 days, 10 mg daily x3 days No Action amlodipine 10 mg tablet 10 mg PO DAILY metformin 500 mg tablet PO atorvastatin 40 mg tablet 40 mg PO BEDTIME losartan 100 mg tablet 100 mg PO DAILY Jardiance 25 mg tablet PO cetirizine 10 mg tablet 10 mg PO DAILY (DME) lancets [Accu-Chek Softclix Lancets] Misc See Rx Instructions topical .MEDSUPPLY Qty: 100 Rx Instructions: As directed omeprazole 20 mg capsule,delayed release(DR/EC) 20 mg PO DAILY hydrochlorothiazide 25 mg tablet 25 mg PO DAILY atenolol 25 mg tablet 25 mg PO DAILY (DME) Peak Air Peak Flow Meter Device See Rx Instructions .Route Qty: 1 0RF Rx Instructions: As directed Ozempic 0.25 mg or 0.5 mg (2 mg/3 mL) pen injector 0.5 mg subcut QWEEK methylprednisolone 4 mg tablets,dose pack See Rx Instructions PO PER PKG DIR Qty: 21 0RF Rx Instructions: PO PER PKG DIR for 6 days doxycycline hyclate 100 mg capsule 100 mg PO BID Qty: 10 0RF Interventions: ED Discharge Assessment Last Done: 08/04/25 12:21 Print Language: [place] Helen[place]
[2025-08-04 10:00] VITALS: BP 116/43; PULSE 71; TEMP 36.8; O2SAT 94
[2025-08-04] MEDS: Albuterol Sulfate 5 MG, Albuterol/Iprat 2.5/0.5MG 3 ML 3 ML INHALE (10:04)
[2025-08-04 10:05] VITALS: PULSE 57; RESP 21; O2SAT 97
[2025-08-04 12:00] VITALS: BP 124/53; PULSE 72; TEMP 36.8; O2SAT 96
[2025-08-04 12:21] VITALS: BP 124/53; PULSE 72; RESP 20; TEMP 36.8; O2SAT 96
== END 2025-08-04 12:26 | disposition home or self-care (01) ==
PROVIDERS: Emergency Provider Emergency Medicine; PCP Internal Medicine
DX: B34.9 Viral infection, unspecified (principal); R05.9 Cough, unspecified; Z03.818 Encounter for observation for suspected exposure to other biological agents ruled out; I10 Essential (primary) hypertension; E11.9 Type 2 diabetes mellitus without complications; E78.5 Hyperlipidemia, unspecified
CPT/HCPCS: 71046; 87502; 87635; 94640; 99284

== ENCOUNTER → 2025-08-04 08:27 | Outpatient (BNV) | payer MEDICARE, SELFPAY | PROVIDERS: PCP Internal Medicine; Visit Provider Radiology Diagnostic Radiology | DX: R05.9 Cough, unspecified (principal); I51.7 Cardiomegaly | CPT/HCPCS: 71046 ==

== ENCOUNTER → 2025-08-21 14:00 | Outpatient (BNV) | payer MEDICARE, SELFPAY | PROVIDERS: PCP Internal Medicine; Visit Provider Physical Medicine & Rehabilitation | DX: G56.01 Carpal tunnel syndrome, right upper limb (principal) | CPT/HCPCS: 95886; 95909 ==

== ENCOUNTER 2025-08-21 14:12 | Outpatient (REF) | payer MEDICARE, SELFPAY ==
--- OUTSIDE RECORDS SUMMARY | 2014-08-25 | XMS_ITS | Encounter Summary ---
Author Organization [facility] Address [address] [place] [address] Phone Care Team Providers Care Group Managing Director Name Role Phone Unavailable Primary Care Provider Unavailabl e Encounter Details Date Type Department Care Team (Late st Contact Info) Description 08/25/2014 Hospital Encounter [facility] [address] [place] [address] Jair Wilcox MD [address] [place] [address] [email or web address] Social History Tobacco Use Types Packs/Day [...] 11:50 AM EDT Phil Morse RN * [place] Suicide Severity Rating Scale (Screener/Recent Self-Report) Question [...] (No Interpretation) (08/25/2014 12:00 AM EST) Narrative [facility] IMG INTERFACES - 12/29/2016 2:19 PM EDT This study is for PACS storage only and not for interpretation. us Jair Wilcox MD IMG OUTSIDE IMAGING W/OUT INTERP RETATION Final Result [facility]G INTERFACES documented in this encounter Visit [...] It is not the complete legal health record.[facility]
--- OUTSIDE RECORDS SUMMARY | 2014-12-17 23:00 | XMS_ITS | Encounter Summary ---
Author Organization [facility] Address [address] [place] [address] Phone Care Team Providers Care Claim Service Representative Name Role Phone Unavailable Primary Care Provider Unavailabl e Encounter Details Date Type Department Care Team (Late st Contact Info) Description 12/18/2014 Hospital Encounter [facility] [address] [place] [address] Jair Wilcox MD [address] [place] [address] [email or web address] Social History Tobacco Use Types Packs/Day Years [...] 11:50 AM EDT Phil Morse RN * [place] Suicide Severity Rating Scale (Screener/Recent Self-Report) Question [...] Interpretation) (12/18/2014 12:00 AM EDT) Narrative [facility] IMG INTERFACES - 12/29/2016 2:20 PM EDT This study is for PACS storage only and not for interpretation. us Jair Wilcox MD IMG OUTSIDE IMAGING W/OUT INTERP RETATION Final Result [facility]G INTERFACES documented in this encounter Visit [...] It is not the complete legal health record.[facility]
--- OUTSIDE RECORDS SUMMARY | 2016-10-01 | XMS_ITS | Encounter Summary ---
Author Organization [facility] Address [address] [place] [address] Phone Care Team Providers Care Die Engraving Supervisor Name Role Phone JeancarlosTran Ashely Suellen DO Primary Car e Provider Encounter Details Date Type Department Care Team (Late st Contact Info) Description 10/01/2016 Hospital Encounter [facility] [address] [place] [address] Jair Wilcox MD [address] [facility] [address] [place] [address] [email or web address] Social History Tobacco Use Types Packs/Day Years [...] 11:50 AM BIBIT Phil Morse RN * [place] Suicide Severity Rating Scale (Screener/Recent Self-Report) Question [...] (No Interpretation) (10/01/2016 12:00 AM EST) Narrative [facility] IMG INTERFACES - 12/29/2016 2:19 PM EDT This study is for PACS storage only and not for interpretation. us Jair Wilcox MD IMG OUTSIDE IMAGING W/OUT INTERP RETATION Final Result [facility] IMG INTERFACES documented in this encounter Visit Diagnoses Not on filedocumented in this encounter Additional Health Concerns Infection Onset Date Last Indicated Resolved Time CoV-Exposed Comment:Recent close contact documented in the Travel/Symptom Screening Form 03/23/2024 03/23/2024 04/03/2024 1:21 AM E DT documented as of this encounter Care Teams Die Engraving Supervisor Relationship Specialty Start Date End Date Ashely Coughlin DO [address] [place] [address] PCP - General Internal Medicine 09/21/16 01/28/20 documented as of this encounter Additional Source Comments The information contained in this document represents components of the legal health record. It is not the complete legal health record.[facility]
--- OUTSIDE RECORDS SUMMARY | 2016-10-17 | XMS_ITS | Encounter Summary ---
Author Organization [facility] Address [address] [place] [address] Phone Care Team Providers Care Inseam Trimming Machine Operator Name Role Phone JeancarlosAshely Mayfield Suellen DO Primary Car e Provider Encounter Details Date Type Department Care Team (Late st Contact Info) Description 10/17/2016 Hospital Encounter [facility] [address] [place] [address] Jair Wilcox MD 55 [facility] [address] [place] [address] [email or web address] Social History Tobacco Use Types Packs/Day [...] 11:50 AM BIBIT Phil Morse RN * [place] Suicide Severity Rating Scale (Screener/Recent Self-Report) Question [...] Comments XR CHEST OUTSIDE (NO INTERPRETATION) Routine 10/17/2016 12:00 AM EST documented in this encounter Results * XR Chest Outside (No Interpretation) (10/17/2016 12:00 AM EST) Narrative [facility] IMG INTERFACES - 12/29/2016 2:19 PM EDT This study is for PACS storage only and not for interpretation. us Jair Wilcox MD IMG OUTSIDE IMAGING W/OUT INTERP RETATION Final Result [facility] IMG INTERFACES documented in this encounter Visit Diagnoses Not on filedocumented in this encounter Additional Health Concerns Infection Onset Date Last Indicated Resolved Time CoV-Exposed Comment:Recent close contact documented in the Travel/Symptom Screening Form 03/23/2024 03/23/2024 04/03/2024 1:21 AM E DT documented as of this encounter Care Teams Inseam Trimming Machine Operator Relationship Specialty Start Date End Date Ashely Coughlin DO [address] [place] [address] PCP - General Internal Medicine 09/21/16 01/28/20 documented as of this encounter Additional Source Comments The information contained in this document represents components of the legal health record. It is not the complete legal health record.[facility]
--- NOTE | 2025-08-21 14:00 | EMG_ITS ---
Chief complaint: Trigger finger surgery right 2nd digit, tingling on right 5th digit Reason for referral: Evaluate for ulnar neuropathy versus Carpal Tunnel Syndrome Referred by: Dr. López Procedure done: Right upper extremity NCS/EMG Precautions and/or limitations: None The limb temperature was monitored continuously and remained between 32-36 degrees C during the performance of the NCS. Nerve Conduction Studies Anti Sensory Summary Table ?Stim Site NR Onset (ms) Norm Onset (ms) Peak (ms) Norm Peak (ms) O-P Amp (?V) Norm O-P Amp Site1 Site2 Delta-0 (ms) Dist (cm) Allen (m/s) Norm Allen (m/s) Right Median Anti Sensory (2nd Digit) Wrist ? 3.2 4.0 <3.6 15.4 >10 Wrist 2nd Digit 3.2 14.0 44 Right Radial Anti Sensory (Thumb) Forearm ? 1.6 2.1 <3.1 53.6 Forearm Thumb 1.6 0.0 Right Ulnar Anti Sensory (5th Digit) Wrist ? 2.5 3.0 <3.7 22.1 >15.0 Wrist 5th Digit 2.5 14.0 56 Motor Summary Table ?Stim Site NR Onset (ms) Norm Onset (ms) O-P Amp (mV) Norm O-P Amp iAmp (mV) Amp (1st) (%) Site1 Site2 Delta-0 (ms) Dist (cm) Allen (m/s) Norm Allen (m/s) Right Median Motor (Abd Poll Brev) Wrist ? 3.9 <3.9 7.9 >4.5 9.8 100.0 Elbow Wrist 3.8 19.0 50 >45 Elbow ? 7.7 6.9 8.5 87.3 Right Ulnar Motor (Abd Dig Minimi) Wrist ? 2.8 <3.0 7.1 >5 8.7 100.0 B Elbow Wrist 2.6 17.0 65 >45 B Elbow ? 5.4 6.0 7.5 84.5 A Elbow B Elbow 1.6 10.0 63 >45 A Elbow ? 7.0 5.7 7.1 80.3 EMG ?Side Muscle Nerve Root Ins Act Fibs Psw Amp Dur Poly Recrt Int Pat Comment Right 1stDorInt Ulnar C8-T1 Nml Nml Nml Nml Nml 0 Nml Complete Right FlexCarpiUln Ulnar C8,T1 Nml Nml Nml Nml Nml 0 Nml Complete Right Biceps Musculocut C5-6 Nml Nml Nml Nml Nml 0 Nml Complete Right Triceps Radial C6-7-8 Nml Nml Nml Nml Nml 0 Nml Complete Right Deltoid Axillary C5-6 Nml Nml Nml Nml Nml 0 Nml Complete FINDINGS: Right median sensory nerve showed prolonged peak latency. All other nerves tested were within normal. Concentric needle EMG was performed in selected muscles of the right upper extremity. Study did not reveal signs of electric abnormalities as shown in the table above. IMPRESSION: 1. This is an abnormal study. 2. There is electrodiagnostic evidence for right mild median neuropathy at the wrist, consistent with carpal tunnel syndrome. 3. There is no electrodiagnostic evidence for ulnar neuropathy, brachial plexopathy, or cervical radiculopathy. Thank you for your kind referral. Keli Sheffield MD, ANKIT Board Certified, [place] Board [employer] and Rehabilitation (ABPMR) Board Certified, [place] Board of Electrodiagnostic Medicine (ABEM) CODIN 17560 x 1 extremity MTDD
--- OUTSIDE RECORDS SUMMARY | 2025-08-21 21:43 | XMS_ITS | Continuity of Care Document ---
Author Organization [place] - [facility], [facility] Address [address] [place] [address] Care Team Providers Care Greenhouse Superintendent Name Role Phone RICO FERRARO Primary Care Provider Assessment Encounter Date Assessment Date Assessment LastModified by Organization Details LastModified Time 08/20/2025 08/20/2025 Patient with history of bilateral chronic ear disease who comes in today for reevaluation. The patient has a partially obliterated canal wall down mastoidectomy cavity which was cleaned out of dry squamous debris today. No signs of infection. On the left side, the tympanic membrane is atelectatic, but dry, without signs of squamous debris collection medially. We went over her audiometric testing today. This shows profound hearing loss in the right ear and a significant mixed hearing loss on the left. We discussed that the fact that she would be a good candidate for left-sided amplification, BiCROS amplification, or Osia bone-conduction implant. Risks and benefits of Osia implantation discussed with patient, including but not limited to cosmetic deformity, bleeding, loss of hair, numbness of ear and scalp, wound infection, skin necrosis, Implant failure with or without the need for replacement, CSF leak, meningitis, and intracranial injury. Appropriate expectations reviewed. After full discussion, the patient would like to undergo a bone-conduction demo but also discuss option of BiCROS amplification. If she decides she wants to proceed with surgery, I have already given her the contact information for my surgical scrub tech Tamra whom she can call to schedule surgery. Patient would need medical clearance from her primary care physician prior to scheduling surgery. We discussed the importance of regular preventative cleaning of her right mastoid cavity in order to prevent such significant debris collection and subsequent recalcitrant infection in the future. Recommend follow-up in 6 months regardless of her decision regarding amplification technology. Not available 08/20/2025 11:16:30 Plan of Treatment Reminders Order Date Submit Date Provider Last Modified By Organization Details Last Modified Time Details Appointments RICO Initial Fitting 2025 09:00A M ALYSON MANCINI, DANGELO Not available Not available Not available Lab None recorded . Referral None recorded . Procedures None recorded . Surgeries None recorded . Imaging None recorded . Medication Orders None recorded . Patient TargetsNo targets recorded. Patient InstructionsNo instructions recorded. Reason for Referral None Reported. 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; Note: Date Diagnosed : 4 5:13 PM (383.32) Not Available [facility] 4 02:18:02 Adhesive middle ear disease 6525215 Active 2013 Adhesive Ottis; Note: Date Diagnosed : 4 5:17 PM (385.10) Not Available [facility] 4 02:16:38 Postmasto idectomy complicat ion 06137822 Active 2017 Other disorders following mastoidec leonarda, right ear; Note: Date Diagnosed : 12/26/2017 2:50 PM (H95.191) Not Available [facility] 4 02:17:15 Impacted cerumen in right ear 93490498364 36033 Active 2017 Impacted cerumen, right ear; Note: Date Diagnosed : 12/26/2017 2:23 PM (H61.21) Not Available [facility] 4 02:17:31 Mixed conductiv e and sensorine ural hearing loss, bilateral 138209241 Active 2017 Hearing loss: Mixed hearing loss, bilateral ; Note: Date Diagnosed : 4 4:39 PM (389.22) ; Start Date : 4 Mixed conductiv e and sensorine ural hearing loss, bilateral ; Note: Date Diagnosed : 12/26/2017 3:24 PM (H90.6) Not Available [facility] 4 02:17:33 Impacted cerumen in left ear 35010373431 57906 Active 2017 Impacted cerumen, left ear; Note: Date Diagnosed : 12/26/2017 2:50 PM (H61.22) Not Available [facility] 4 02:18:07 Headache 35896758 Active 2018 Facial pain NOS; Note: Date Diagnosed : 07/19/2019 12:21 PM (R51) Not Available [facility] 4 02:17:59 Chronic right mastoidit is 07995005748 29820 Active 2024 AIMEE JONES MD [address] [place] [address], [place], [address] , [facility] - [facility] 5 15:36:09 Bilateral adhesive otitis media of middle ears 77508024228 59616 Active 2024 HERMINIA DIAZ MD [address] [place] [address], [place], [address] , [facility] - [facility] 5 21:52:16 Chronic inflammat ion of mastoid cavity 433098193 Active 2024 HERMINIA DIAZ MD [address] [place] [address], [place], [address] , [facility] - [facility] 5 10:04:57 Orthostat ic hypotensi on 68624865 Active 2024 HERMINIA DIAZ MD [address] [place], [place] [address], [address] , [facility] - [facility] 5 10:41:52 Problem Notes None recorded. Procedures Surgical History Date Name Laterality Status Provider Name and Address Organization Details Recorded Time 5 Debridement of Ear canal right completed HERMINIA DIAZ MD [address] [facility], [place], [address], [place] - [facility] 08/20/2025 11:04:00 5 Comp Audio with Tymps - 37818 & 07601 completed DANGELO COBB [address] [facility], [place], [address], [place] - [facility] 02/27/2025 10:27:11 5 Debridement of Mastoid Cavity complex right completed HERMINIA DIAZ MD [address] [facility],[place] [address], [place], [address], [place] - [facility] 02/27/2025 10:00:48 Imaging Results None recorded. Procedure Notes None recorded. Medical Equipment None Reported. Allergies Allergen ID Allergen Name Allergen Category Reaction Reaction Severity Criticality Documentation Date Start Date Code Code System Note Provider Name and Address Organization Details Recorded Time 914168 amoxicill in medicatio n hives Not available Not available 08/19/20252016 723 RxNorm Not Available [employer] - prod 14:12:20 372191 sulfameth oxazole / trimethop rim medicatio n hives Not available Not available 08/19/20252016 66123 RxNorm Not Available [employer] - [employer] - prod 14:12:20 427451 cat hair extract medicatio n other Not available Not available 08/19/20252016 18618 3 RxNorm Not Available [employer] - [employer] - prod 14:12:20 093345 Adhesive agent (substanc e) environme nt,medica tion Not available Not available Not available 08/19/20252021 88157 0007 SNOMED Not Available [employer] - [employer] - prod 14:12:20 548663 Product containin g penicilli n (product) medicatio n hives Not available [facility] 08/19/20252012 69130 8001 SNOMED Not Available [employer] - [employer] - prod 14:12:47 328467 Substance with sulfonami de structure and antibacte rial mechanism of action (substanc e) medicatio n hives Not available Not available 08/19/2025 50088 8003 SNOMED Not Available [employer] - prod 5 14:13:35 262445 trimethop rim medicatio n Not available Not available Not available 08/19/2025 24530 RxNorm Not Available [employer] - prod 5 14:13:35 610319 fire ant environme nt rash Not available Not available 08/19/20252007 Not Available [employer] - [employer] - prod 5 14:13:52 45922 lisinopri l medicatio n other Not available Not available 01/23/2024 42384 RxNorm React ion: unkno wn, unspe cifie d;; Not Available [facility] 4 00:50:02 97740 penicilli n V potassium medicatio n other Not available Not available 01/23/2024 44893 5 RxNorm React ion: unkno wn, unspe cifie d;; Not Available [facility] 4 00:50:03 34980 azithromy lamont medicatio n other Not available Not available 01/23/2024 86482 RxNorm React ion: unkno wn, unspe cifie d;; Not Available [facility] 4 00:50:16 Medications Name Sig Start Date Stop Date Status Note LastModified by Organization Details LastModified Time atorvasta tin 40 mg tablet TAKE 1 TABLET BY MOUTH ONCE DAILY active Not Available Not Available No t Available fluticaso ne 250 mcg-salme terol 50 mcg/dose blistr powdr for inhalatio n INHALE 1 PUFF BY MOUTH TWICE DAILY. RINSE MOUTH WITH WATER AFTER USE TO REDUCE AFTERTAS TE AND INCIDENC E OF CANDIDIA SIS. DO NOT SWALLOW. active Not Available Not Available No t Available prednison e 10 mg tablet TAKE 40 MG DAILY X3 DAYS, 30 MG DAILY X3 DAYS, 20 MG DAILY X3 DAYS, 10 MG DAILY X3 DAYS DIRECTED 08/20 completed Not Available Not Available Not Available doxycycli ne hyclate 100 mg capsule TAKE 1 CAPSULE BY MOUTH TWICE DAILY WITH AT LEAST 8 OZ. OF WATER FOR 7 DAYS. DO NOT LIE DOWN FOR 30 MINUTES AFTER. TAKE 2 HOURS BEFORE OR AFTER MULTIVIT AMINS, ANTACIDS OR OTHER PRODUCTS CONTAINI NG POLYVALE NT CATIONS (I.E. CALCIUM, IRON, MAGNESIU M, ZINC) 08/17 completed Not Available Not Available Not Available cetirizin e 10 mg tablet TAKE 1 TABLET BY MOUTH ONCE DAILY active Not Available Not Available No t Available Claritin 10 mg tablet 1 tablet by mouth 02/27 completed Medicati on ID: [id number] Du ration Value: 30 Brand Name: Claritin Send Method: E-Prescr ibed Sub s Allowed: subs [facility] Not Available Not Available Not Available prednison e 20 mg tablet TAKE 2 TABLETS BY MOUTH ONCE DAILY FOR 4 DAYS 08/20 completed Not Available Not Available Not Available atenolol 25 mg tablet TAKE 1 TABLET BY MOUTH ONCE DAILY active Not Available Not Available No t Available amlodipin e 5 mg tablet 02/14 completed Medicati on ID: [id number] Dur ation Value: 30 Brand Name: amlodipi ne Send Method: E-Prescr ibed Sub s Allowed: subs OK [facility] : amlodipi ne Not Available Not Available Not Available ciproflox acin 500 mg tablet TAKE 1 TABLET BY MOUTH TWICE DAILY FOR 10 DAYS 02/14 completed Not Available Not Available Not Available aspirin 81 mg tablet,de layed release 2013 active Medicati on ID: [id number] Bra nd Name: aspirin Send Method: E-Prescr ibed Sub s Allowed: subs OK [facility] : aspirin Not Available Not Available Not Available acetamino phen ER 650 mg tablet,ex tended release TAKE 1 TABLET BY MOUTH EVERY 8 HOURS NEEDED FOR MODERATE PAIN 08/20 completed Not Available Not Available Not Available losartan 100 mg-hydroc hlorothia zide 25 mg tablet TAKE 1 TABLET BY MOUTH ONCE DAILY active Not Available Not Available No t Available lorazepam 0.5 mg tablet TAKE 1 TABLET BY MOUTH EVERY 8 HOURS NEEDED FOR ANXIETY (MAX DAILY AMOUNT OF 3 TABLETS) 08/20 completed Not Available Not Available Not Available meclizine 25 mg tablet TAKE 1 [...] mg tablet 02/14 completed Medicati on ID: [id number] B rand Name: simvasta tin Send Method: E-Prescr ibed Sub s Allowed: subs OK Medic ationGen ericName : simvasta tin Not Available Not Available Not Available losartan 25 mg tablet 02/14 completed Medicati on ID: [id number] D uration Value: 30 Brand Name: losartan [...] both nostrils 02/27 completed Medicati on ID: [id number] Pr escribed By Name: RISA Ragland nd Name: eveliostju wilkinson Send Method: E-Prescr ibed Sub s Allowed: subs OK Speci al Instruct ion: 2 sprays intranas al bid in each nostril Medicati onGeneri cName: azelasti ne Not Available Not Available Not Available methylpre dnisolone 4 mg tablets in a dose pack TAKE 6 TABLETS ON DAY 1 DIRECTED ON PACKAGE AND DECREASE BY 1 TAB EACH DAY FOR A TOTAL OF 6 DAYS 02/14 completed Not Available Not Available Not Available losartan 100 mg tablet TAKE 1 TABLET BY MOUTH ONCE DAILY 08/20 completed Not Available Not Available Not Available Ciprodex 0.3 %-0.1 % ear drops,lalo pension INSTILL 4 DROPS INTO AFFECTED EAR(S) BY OTIC ROUTE 2 TIMES PER DAY FOR 14 DAYS 08/20 completed Not Available Not Available Not Available Crestor 10 mg tablet 02/27 completed Medicati [...] aerosol inhaler 02/14 completed Medicati on ID: [id number] Br and Name: Symbicor t Send Method: E-Prescr ibed Sub s Allowed: subs OK Medic ationGen ericName : Symbicor t Not Available Not Available Not Available diclofena c 1 % topical gel APPLY 2 GRAMS TO THE AFFECTED AREA(S) BY TOPICAL ROUTE 4 TIMES PER DAY 08/20 completed Not Available Not Available Not Available Jardiance 25 mg tablet TAKE 1/2 (ONE-HANNAH F) TABLET BY MOUTH ONCE DAILY active Not Available Not Available No t Available ipratropi um 20 mcg-albut christal 100 mcg/actua tion mist for inhalatio n Inhale 1 puff 4 times a day by inhalati on route. active Not Available Not Available No t Available 1st Medx-Patc h With Lidocaine 08/20 completed Not Available Not Available Not Available Ozempic 0.25 mg or 0.5 mg (2 mg/3 mL) subcutane ous pen injector INJECT 0.5 MG SUBCUTAN EOUSLY ONCE EVERY 7 DAYS active Not Available Not Available No t Available Vitals Date Recorded Body height Body weight Provider Name and Address Organization Details Last Updated DateTime 08/20/2025 160.02 cm 89245.7 g Juani Esposito [place] - [facility] 08/20/2025 10:51:01 Social History None recorded. Functional Status None recorded. Mental Status None recorded. Family History Nothing Reported Notes:Cardiovascular: Heart disease in a male, diagnosed at unknown age - father. Hypertension - father, mother, and sister(s). Neurologic: Stroke - father and mother. Medical History Condition Response Diabetes Y Allergies/Hayfever Y Hearing Loss Y Arthritis Y Sleep Disorder Y GERD/Reflux Y High Cholesterol Y Hyperlipidemia Y Migraines Y Hypertension Y Asthma Y Kidney Disease Y Gynecological HistoryNo gynecological history recorded. Obstetrics History GPAL:G 0 P 0 0 0 0 Past Encounters Encounter ID Performer Location Encounter Start Date Encounter Closed Date Diagnosis/Indication Diagnosis SNOMED-CT Code Diagnosis ICD10 Code Diagnosis IMO Codes Diagnosis Note [id number] HERMINIA DIAZ MD [facility] [address] [address] 08/20/2025 10:36:29 08/20/2025 11:17:36 Postmastoidectomy complication 45351812 H95.191 Bilateral adhesive otitis media of middle ears [id number] 143707 H74.13 5642666 Mixed cond uctive and sensorineural hearing loss, bilateral 624581704 H90.6 Health Concerns Section Related Observation LastModified by Organization Detai ls LastModified Time None Recorded Concern Status LastModified by Organization Details LastModified Time None Recorded Payers Encounter Date Sequence Insurance Name Policy Number Policy Giraldo Covered Member ID Giraldo Member ID Guarantor Name 08/20/2025 1 MEDICARE B-[place]: 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 She requires intermittent mastoid debridement. She has mixed hearing loss in the left ear and profound hearing loss on the right. There was CT scan done in 2019 at [facility] that was concerning concerning for left-sided cholesteatoma. Patient was subsequently lost to follow-up. She presented back to Dr. Jones spring 2024 after presenting to [facility] where she had a CAT scan showing concerns for left-sided cholesteatoma and a large area of osseous erosion. I personally reviewed the scan and correlated to physical exam and had no concerns of recurrent cholesteatoma or significant osseous erosion.Audiometric testing reviewed at her last visit and amplification recommended. She elected not to pursue this due to lack of insurance coverage.Patient comes in today for preventative mastoidectomy cavity debridement HERMINIA DIAZ MD [address] [place] [address], [phone], [facility] - [facility] 08/20/2025 11:17:52 OBGyn Episode No OBEpisode recorded.
--- OUTSIDE RECORDS SUMMARY | 2025-08-21 21:43 | XMS_ITS | Clinical Summary ---
Author Organization [facility] Address [address] [place] [address] Phone Care Team Providers Care Hotel Service Supervisor Name Role Phone Noreen Ramirez NP Primary Care Provider [phone] Allergies Active Allergy Reactions Criticality Noted Date [...] as needed for allergies. 01/30/20 Active omega 5-uxn-vai-fish oil 1,000 mg (120 mg-180 mg) Cap [...] education regarding insulin administration. -Diabetic diet ordered -Yleez-zn-kliy checks with meals and at bedtime -Long-acting [...] EDT) SODIUM 139 133 - 146 mmol/L [facility] CHLORIDE 100 96 - 108 mmol/L [facility] POTASSIUM 3.6 3.3 - 5.1 mmol/L [facility] Comment:Specimen slightly he molyzed, result may be falsely elevated. CO2 29 21 - 35 mmol/L [facility] BUN 14 6 - 19 mg/dL [facility] CREATININE 1.00 0.5 - 1.5 mg/dL [facility] GLUCOSE 107(H) 70 - 99 mg/dL [facility] CALCIUM 10.1 8.4 - 10.3 mg/dL [facility] EGFR 61 >59 mL/min/1.7 3m2 [facility] Comment:Estimated glomerular filtration rate calculated using the CKD-EPI refit equation. ANION GAP 14 10 - 20 mmol/L [facility] Blood 02/04/2025 12:5 5 PM EDT 02/04/2025 12:58 PM EDT us Jenny Moran PA-C LAB BLOOD BKR ORDERABLES Fi nal Result [facility] [address] [place] [address] * (ABNORMAL) Hemoglobin A1c (01/29/2020 5:17 AM EDT) HEMOGLOBIN A1C 12.4(H) 4.3 - 5.8 % [facility] Blood 01/29/2020 5:17 AM EDT 01/29/2020 5:50 AM EDT us Maru STARKS LAB BLOOD BKR ORDERABLES Jesica aldridge Result [address] [address] from Last 3 Months or Most Recently Relevant to Health Maintenance Insurance [employer] MEDEX SUPPLEMENT MEDICARE PART A & B [employer] MEDEX SUPPLEMENT MEDICARE PART A & B [employer] MEDEX SUPPLEMENT [employer] MEDEX SUPPLEMENT [employer] MEDEX SUPPLEMENT MEDICARE PART A & B [employer] MEDEX SUPPLEMENT Pick a Student [employer]OSS MEDEX SUPPLEMENT MEDICARE PART A & B [employer] CROSS MEDEX SUPPLEMENT MEDICARE PART A & B [facility] MEDEX SUPPLEMENT MEDICARE PART A & B Advance Directives For more information, please contact: [phone] (9AM - 5PM Elena/[facility], Monday-Monday) * Full Code (Confirmed) (Latest Code Status on File) Date Activated Date Inactivated Comments 01/28/2020 6:10 PM Question Answer Comments Code Status Confirmed With: Patient Care Teams Hotel Service Supervisor Relationship Specialty Start Date End Date Noreen Ramirez NP [address] [place] [id number] PCP - General Nurse Practitioner 02/04/25 Additional Source Comments The information contained in this document represents components of the legal health record. It is not the complete legal health record.[facility]
--- OUTSIDE RECORDS SUMMARY | 2025-08-21 21:43 | XMS_ITS | Encounter Summary ---
Author Organization [facility] Address [address] [place] [address] Phone Care Team Providers Care Wave Guide Assembler Name Role Phone Noreen Ramirez NP Primary Care Provider [phone] Encounter Details Date Type Department Care Team (Late st Contact Info) Description 02/04/2025 Procedure Pass [facility], Ct Scan - [facility] [address] [place] [address] Social History Tobacco Use Types Packs/Day Years [...] 11:50 AM EDT Phil Morse, TUAN * [place]ulo Suicide Severity Rating Scale (Screener/Recent Self-Report) Question [...] on filedocumented in this encounter Care Teams Wave Guide Assembler Relationship Specialty Start Date End Date Noreen Ramirez NP [address] [place] [address] PCP - General Nurse Practitioner 02/04/25 documented as of this encounter Additional Source Comments The information contained in this document represents components of the legal health record. It is not the complete legal health record.[facility]
--- OUTSIDE RECORDS SUMMARY | 2025-08-21 21:44 | XMS_ITS | Clinical Summary ---
Author Organization [facility] Address [address] [place] [phone] Phone Care Team Providers Care Management Development Specialist Name Role Phone Veronica Verduzco MD Primary [...] High 12/24/2012 Medications ACCU-CHEK SOFTCLIX LANCETS MISC 022 Active BLOOD-GLUCOSE METER MISC 1 Device by Not Applicable route. 023 Active meclizine (ANTIVERT) 25 mg tablet Take 1 tablet (25 mg total) by mouth. 020 Active triazolam (HALCION) 0.25 mg tablet TAKE 1 TABLET BY MOUTH 90 MINUTES PRIOR TO DENTAL VISIT 024 Active inhalat.spacing dev,large mask spacer Use with inhaler up to 4 times per day as needed for COPD 023 Active acetaminophen (TYLENOL 8 HOUR) 650 mg 8 hr tablet Take 1 tablet (650 mg total) by mouth every 8 (eight) hours if needed for moderate pain. 30 tablet 024 Active diclofenac (VOLTAREN) 1 % topical gel Apply 1 Dose topically. 100 g 024 Active famotidine (PEPCID) 20 mg tablet Take 1 tablet (20 mg total) by mouth at bedtime as needed for heartburn. 90 tablet 024 2025 Active fluticasone propionate (FLONASE) 50 mcg/actuation nasal spray Administer 2 sprays into each nostril 1 (one) time each day. 48 g Active ipratropium-albut Fabiano (DUONEB) 0.5-2.5 mg/3 mL nebulizer solutionIndicatio ns:Asthma-COPD overlap syndrome ([facility] V24, CMS/[facility] V28) Take 3 mL by nebulization 4 (four) times a day. 375 mL Active lidocaine (LIDODERM) 5 % patchIndications: Lumbar spondylosis Place 1 patch on the skin every 24 hours. Apply for no more than 12 hours in any 24 hour period. 30 patch 5 Active omega-3 acid ethyl esters (LOVAZA) 1 gram capsuleIndication s:Hyperlipidemia, unspecified hyperlipidemia type Take 2 capsules (2 g total) by mouth 2 (two) times a day. 360 capsule Active pen needle, diabetic 32 gauge x 5/32 needle Inject under the skin every 7 (seven) days. E11.49 12 each Active aspirin 81 mg chewable tablet Chew 1 tablet (81 mg total) 1 (one) time each day. 019 Active fluticasone-salme terol (ADVAIR DISKUS) 250-50 mcg/dose diskus inhalerIndication s:Asthma-COPD overlap syndrome ([facility] V24, CMS/[facility] V28) Inhale 1 puff by mouth 2 (two) times a day. Rinse mouth with water after use to reduce aftertaste and incidence of candidiasis. Do not swallow. 1 each 2 025 Active albuterol HFA (PROAIR HFA ; PROVENTIL HFA ; VENTOLIN HFA) 90 mcg/actuation inhalerIndication s:Asthma-COPD overlap syndrome ([facility] V24, CMS/[facility] V28) Inhale 2 puffs by mouth every 4 (four) hours if needed for wheezing. 18 g 3 025 Active semaglutide (Ozempic) 0.25 mg or 0.5 mg (2 mg/3 mL) injection penIndications:Ty pe 2 diabetes mellitus with stage 3a chronic kidney disease, without long-term current use of insulin ([facility] V24, [facility] V28) Inject 0.5 mg under the skin every 7 (seven) days. 2 mL 5 025 Active amLODIPine (NORVASC) 10 mg tablet Take 1 tablet (10 mg total) by mouth 1 (one) time each day. 90 tablet 025 Active atenoloL (TENORMIN) 25 mg tablet Take 1 tablet (25 mg total) by mouth 1 (one) time each day. 90 tablet 025 Active atorvastatin (LIPITOR) 40 mg tablet Take 1 tablet (40 mg total) by mouth 1 (one) time each day. 90 tablet 025 Active cetirizine (ZyrTEC) 10 mg tablet Take 1 tablet (10 mg total) by mouth 1 (one) time each day. 90 tablet 025 Active empagliflozin (Jardiance) 25 mg tablet Take 0.5 tablets (12.5 mg total) by mouth 1 (one) time each day. 45 tablet 025 Active omeprazole (PriLOSEC) [address] capsule Take 1 capsule (20 mg total) by mouth 1 (one) time each day. 90 capsule Active losartan-hydroCHL OROthiazide (HYZAAR) 100-25 mg per tablet Take 1 tablet by mouth 1 (one) time each day. 90 each 025 2025 Active estradioL (ESTRACE) 0.01 % (0.1 mg/gram) vaginal creamIndications: atrophic vaginitis associated with menopause Apply a pea-sized amount of cream with your fingertip to the vaginal canal every night for 2 weeks, then twice a week thereafter. 42.5 g 5 Active hydrOXYzine HCL (ATARAX) 25 mg tabletIndications :Anxiety Take 1 tablet by mouth twice daily as needed for anxiety 60 tablet 025 2024 Discontinued doxycycline (VIBRAMYCIN) 100 mg capsuleIndication s:Moderate persistent asthma with exacerbation Take 1 capsule (100 mg total) by mouth 2 (two) times a day for 7 days. Take with at least 8 ounces (large glass) of water, do not lie down for 30 minutes after. Administer 2 hours before or after multivitamins, antacids, or other products containing polyvalent cations (i.e., calcium, iron, magnesium, selenium, zinc). 14 each 025 2024 Active Problems Problem Noted Date Diagnosed Date [...] without long-term current use of insulin 06/19/2024 Assessment & Plan (07/17/2025 4:04 PM [...] disease) stage 3, GFR 30-59 ml/min 06/13/2024 Assessment & Plan (12/18/2024 11:02 AM [...] 01/20/2019 Obstructive sleep apnea 01/03/2019 Overview (06/13/2024): [facility] Home Polysomnogram: Date 01/01/2019; Wt 215#; BMI 38; RENETTA 32, AI 14; HI 18; Unclassified apneas 0; Obstructive apneas 61; Central apneas 16; Mixed apneas 0; hypopneas 97; average oxygen saturation 89% (lowest 67% with saturations <88% for 5% or more of study) [facility] Sleep Center Polysomnogram treatment study. Date 05/10/2019. [...] Pulmonary nodules 12/04/2018 Asthma-COPD overlap syndrome 12/04/2018 Assessment & Plan (07/17/2025 4:04 PM [...] type 2 with renal compli cations 06/06/2017 Assessment & Plan (12/18/2024 8:46 AM EDT): Orders: Hemoglobin A1c; Future Basic metabolic panel; Future Assessment & Plan (11/05/2024 12:21 PM EST): Orders: Lipid panel with reflex to direct LDL; Future Microalbumin creatinine urine ratio; Future Comprehensive metabolic panel; Future Hemoglobin A1c; Future Vitamin D 25 hydroxy; Future Ambulatory referral to Lung Screening Program; Future Diabetes mellitus type 2 with neurological manif estations 10/06/2015 Assessment & Plan (11/05/2024 12:21 PM EST): Orders: Lipid panel with reflex to direct LDL; Future Microalbumin creatinine urine ratio; Future Comprehensive metabolic panel; Future Hemoglobin A1c; Future Vitamin D 25 hydroxy; Future Ambulatory referral to Lung Screening Program; Future Vitamin D deficiency 04/02/2015 Encounters Date Type Department Care Team Description 08/15/2025 10:00 AM EST Consult Adult Medicine [address] [phone] Veronica Wheeler MD Preop cardiovascular exam (Primary Dx); Primary osteoarthritis of knee, unspecified laterality; COPD exacerbation (CMS/HCC V24, CMS/HCC V28) 07/31/2025 Telephone Urogynecology - [address] [place] [phone] Briana Valentin RN 07/30/2025 9:15 AM EST Consult Orthopedic Surgery [address] [phone] Enrico Wooten, FEROZ Controlled type 2 diabetes with neuropathy ([facility] V[facility], [facility] V28) (Primary Dx); Arthritis of both feet; Bunion, right foot 07/30/2025 Results Follow-Up Urogynecology [address] [phone] Cathy Rivera MD 07/30/2025 Telephone Adult Medicine [address] [phone] Russell Rodarte PA 07/28/2025 4:00 PM EST - 07/28/2025 11:59 PM EST Hospital Encounter Radiology Department [address] [phone] History of postmenopausal bleeding Discharge Disposition: Home or Self Care 07/22/2025 Results Follow-Up Adult [address] [phone] Veronica Wheeler MD 07/21/2025 8:25 AM EST Lab Draw Station [address] Asthma-COPD overlap syndrome ([facility] V24, [facility] V28); Type 2 diabetes mellitus with stage 3a chronic kidney disease, without long-term current use of insulin ([facility] V24, [facility] V28) 07/17/2025 11:30 AM EST Office Visit Adult Medicine [address] [phone] Veronica Wheeler MD Asthma-COPD overlap syndrome ([facility] V24, [facility] V28) (Primary Dx); Type 2 diabetes mellitus with stage 3a chronic kidney disease, without long-term current use of insulin ([facility] V24, [facility] V28); Moderate persistent asthma with exacerbation; Cough, unspecified type 07/17/2025 Telephone Adult Medicine [address] [phone] Veronica Wheeler MD 07/14/2025 Telephone Adult Medicine East - [address] [phone] Veronica Wheeler MD 07/07/2025 Telephone Pulmonology [facility] [address] [facility] [address] [place] [phone] Loren Pfeiffer [place] 06/30/2025 10:35 AM EDT Office Visit Pulmonology [facility] [address] [facility] [address] [place] [phone] Giovana Randall NP Obstructive sleep apnea (Primary Dx); Asthma-COPD overlap syndrome (CMS/HCC V24, CMS/HCC V28); Chronic idiopathic granulomatous disease; Pulmonary nodules; Severe obesity (BMI 35.0-39.9) with comorbidity (CMS/HCC V24, CMS/HCC V28) 06/19/2025 2:00 PM EDT Office Visit Urogynecology [address] [phone] Cathy Rivera MD Rectocele (Primary Dx); History of postmenopausal bleeding; Stress incontinence; Vaginal atrophy 05/26/2025 10:00 AM EDT Consult Orthopedic Surgery - [address] [facility] [address] [place] [phone] Earnest López PA Cubital tunnel syndrome on right (Primary Dx); Numbness and tingling in right hand; Right carpal tunnel syndrome from Last 3 Months Immunizations Immunization Administration [...] Date Site/Laterality Comments OTHER SURGICAL HISTORY PROCEDURE: SD UNLISTED PROCEDURE INNER EAR BREAST REDUCTION PROCEDURE: SD BREAST REDUCTION OTHER SURGICAL HISTORY PROCEDURE: TEMPORAL [...] kidney disease) stage 3, GFR 30-59 ml/min ([facility] V24, [facility] V28) DX:CKD (chronic kidney disea se) stage 3, GFR 30-59 ml/min ([facility]) Complication of intrauterine device ([facility] V24) 06/18/2013 DX:Complication of intrauter ine device ([facility]); COMMENT: See visit note of 06/18/13 COPD (chronic obstructive pu lmonary disease) ([facility] V24, [facility] V28) 12/18/2014 DX:COPD (chronic o bstructive pulmonary disease) ([facility]) Diabetes mellitus type 2 wit h neurological manifestations ([facility] V[facility], [facility] V28) 10/06/2015 DX:Diabetes mellitus type 2 with neurological manifestations ([facility]) DM (diabetes mellitus), type 2 with renal complications ([facility] V[facility], [facility] V28) 06/06/2017 DX:DM (diabetes mellitus), t ype 2 with renal complications ([facility]) GERD (gastroesophageal reflu x disease) DX:GERD (gastroesophageal [...] available Referred to Pulmnology Asthma-COPD overlap syndrome ([facility] V24, [facility] V28) 12/04/2018 DX:Asthma-COPD overlap syndr ome (HCC) Chronic idiopathic granuloma tous disease 12/04/2018 DX:Chronic idiopathic granul omatous disease (HCC) OA (osteoarthritis) of shoulder 07/28/2019 DX:OA (osteoarthritis) of shoulder Obstructive sleep apnea 01/03/2019 DX:Obstr uctive sleep apnea; COMMENT: [facility] Home Polysomnogram: Date 01/01/2019; Wt 215#; BMI 38; RENETTA 32, AI 14; HI 18; Unclassified apneas 0; Obstructive apneas 61; Central apneas 16; Mixed apneas 0; hypopneas 97; average oxygen saturation 89% (lowest 67% with saturations <88% for 5% or more of study) [facility] Sleep Center Polysomnogram treatment study. Date 05/10/2019. Wt 216#; BMI 38; SE 68 % SM 89 %; sp* Postconcussion syndrome 06/26/2018 DX:Postc oncussion syndrome Post-traumatic headache, not intractable 06/26/2018 DX:Post-traumatic headache, not intractable Pulmonary nodules 12/04/2018 DX:Pulmonary n odules Severe obesity (BMI 35.0-39. 9) with comorbidity ([facility] V24, [facility] V28) 01/27/2020 DX:Severe obesity (BMI 35.0- 39.9) with comorbidity ([facility]) History of 2019 novel whittington virus disease (COVID-19) 03/22/2024 DX:History of 2019 novel cor onavirus disease (COVID-19) Family History Medical History Relation Name Comments Heart attack Father Age 56 Other: Other Maternal Grandmother ? throa t vs stomach ca Alzheimer's disease Mother [place] Other: Esophageal cancer Mother's side Other: Heart [...] for your loved ones. For example, child center assistant or elderly care for an older adult? [...] Sign Reading Time Taken Comments Blood Pressure 132/62 08/15/2025 10:01 AM EST Pulse 56 08/15/2025 10:01 AM EST Temperature 36.6 C (97.9 F) 08/15/2025 10:01 AM EST Respiratory Rate 18 08/15/2025 10:01 AM EST Oxygen Saturation 96% 08/15/2025 10:01 AM EST Inhaled Oxygen Concentration - - Weight 92.1 kg (203 lb) 08/15/2025 10:01 AM EST Height 160 cm (5' 2.99 ) 07/30/2025 9:44 AM EST Body Mass Index 35.97 07/30/2025 9:44 AM EST Plan of Treatment Upcoming Encounters Date Type Department Care Team (Late st Contact Info) Description 09/10/2025 10:00 AM EST Office Visit Orthopedic Surgery [facility] [address] [facility] [address] [place] [phone] Earnest López PA [address] [place] [address] 11/05/2025 3:15 PM EST Office Visit Nephrology [address] [phone] Toni Arizmendi MD [address] [facility] [address] [place] [phone] 12/29/2025 9:45 AM EDT Office Visit Pulmonology - [place] [address] [facility] [address] [place] [phone] Giovana Randall, CLEMENTE [address] [place] [phone] 01/27/2026 8:30 AM EDT Office Visit Orthopedic Surgery - [place] [address] [facility] [address] [place] [phone] Enrico Wooten DPM [address] [facility] [address] [place] [address] Health Maintenance Due Date Last Done Comments Drug Screen 1955 Non-Opioid Controlled Substance Agreement 1955 Zoster Vaccines (1 of 2) 01/14/1976 COVID-19 Vaccine ( season) 2025 08/27/2024, 08/05/2022, 08/15/2021, Additional history exists Diabetes: Annual Foot Exam [...] Vaccine: 50+ Years Discontinued 03/07/2019, 09/11/2003, 08/11/2000 Influenza Vaccine Discontinued 08/27/2024, , 09/28/2021, Additional history exists RSV Immunization Adult Patients Completed 08/27/2024 Depression [...] disease, without long-term current use of insulin ([facility] V24, [facility] V28) BASIC METABOLIC PANEL Routine 07/21/2025 8:28 AM EST Type 2 diabetes mellitus with stage 3a chronic kidney disease, without long-term current use of insulin ([facility] V24, [facility] V28) LIPID PANEL WITH REFLEX TO DIRECT LDL Routine 07/21/2025 8:28 AM EST Asthma-COPD overlap syndrome ([facility] V24, [facility] V28) Type 2 diabetes mellitus with stage 3a chronic kidney disease, without long-term current use of insulin ([facility] V24, [facility] V28) POC INFLUENZA A/B Routine 07/17/2025 4:0 3 PM EST Cough, unspecified type POC RAPID [id number], MOLECULAR Routine 07/17/2025 4:02 PM EST Cough, unspecified type POC URINE AUTO W/O MICRO Routine 06/19/2025 2:23 PM EDT History of postmenopausal bleeding BUN Routine 06/02/2025 10:28 AM EDT Stage 3a chronic kidney disease ([facility] V24, [facility] V28) Type 2 diabetes mellitus with stage 3a chronic kidney disease, without long-term current use of insulin ([facility] V24, [facility] V28) Primary hypertension CREATININE, SERUM Routine 06/02/2025 10: 28 AM EDT Stage 3a chronic kidney disease ([facility]/HCC V24, [facility]/HCC V28) Type 2 diabetes mellitus with stage 3a chronic kidney disease, without long-term current use of insulin ([facility] V24, [facility] V28) Primary hypertension ELECTROLYTE PANEL Routine 06/02/2025 10: 28 AM EDT Stage 3a chronic kidney disease ([facility]/HCC V24, [facility]/HCC V28) Type 2 diabetes mellitus with stage 3a chronic kidney disease, without long-term current use of insulin ([facility] V24, CMS/HCC V28) Primary hypertension PARATHYROID HORMONE INTACT Routine 06/02/2025 10:28 AM EDT Stage 3a chronic kidney disease ([facility]/HCC V24, CMS/HCC V28) Type 2 diabetes mellitus with stage 3a chronic kidney disease, without long-term current use of insulin ([facility] V24, CMS/HCC V28) Primary hypertension PROTEIN AND CREATININE WITH RATIO, URINE Routine 06/02/2025 10:28 AM EDT Stage 3a chronic kidney disease ([facility]/HCC V24, CMS/HCC V28) Type 2 diabetes mellitus with stage 3a chronic kidney disease, without long-term current use of insulin ([facility] V24, CMS/HCC V28) Primary hypertension MG MAMMO DIGITAL SCREENING [...] disease, without long-term current use of insulin ([facility] V24, [facility] V28) Diabetes mellitus type 2 with neurological manifestations ([facility] V24, [facility] V28) Other hyperlipidemia Gastroesophageal reflux disease without esophagitis Stage 3a chronic kidney disease ([facility] V24, CMS/HCC V28) Routine general medical examination at a [...] Signed Date: 07/29/2025 09:14 ET Workstation ID: [id number] Transcribed By: Self Edit Transcribed Date: 07/29/2025 [...] not seen No free fluid. Procedure Note Toay Shepard MD - 07/29/2025 EXAM: TRANSABDOMINAL AND [...] Shepard Reviewed and Electronically Signed By: Toya Shepadr Signed Date: 07/29/2025 09:14 ET Workstation ID: [id number] Transcribed By: Self Edit Transcribed Date: 07/29/2025 09:06 ET us Cathy Rivera MD [facility] US PROCEDURES Final Result * (ABNORMAL) Lipid panel with reflex to direct LDL (07/21/2025 8:28 AM EST) Cholesterol 190 0 - 200 mg/dL LAB CHEMISTRY METHOD 07/21/2025 10:41 AM [facility] Triglycerides 211(H) 0 - 150 mg/dL LAB CHEMISTRY METHOD 07/21/2025 10:41 AM [facility] HDL 66 >=40 mg/dL LAB CHEMISTRY METHOD 07/21/2025 10:41 AM [facility] LDL Calculated 82 0 - 100 mg/dL LAB CHEMISTRY METHOD 07/21/2025 10:41 AM [facility] Comment:Estimated LDL Calcul ated using equation: Total cholesterol - HDL cholesterol - (Triglycerides/5) VLDL Cholesterol Unruly 42.2 mg/dL LAB CHEMISTRY METHOD 07/21/2025 10:41 AM [facility] Non HDL Chol. (LDL+VLDL) 124 <145 mg/dL LAB CHEMISTRY METHOD 07/21/2025 10:41 AM EST [facility] Chol/HDL Ratio 2.9 0.0 - 4.4 LAB CHEMISTRY METHOD 07/21/2025 10:41 AM [facility] Blood Venous blood specimen / Unknown Venipuncture / Unknown 07/21/2025 8:28 AM EST 07/21/2025 8:28 AM EST Veronica Verduzco MD LAB BLOOD ORDERABL ES Final Result Performing Organization Address [facility]/ZIP Co de Phone Number [facility] [address] [place] [address], [place] [phone] * Hemoglobin A1c (07/21/2025 8:28 AM EST) Hemoglobin A1C 6.2 <6.5 % LAB CHEMISTRY METHOD 07/21/2025 11:23 AM EST [facility] Mean Bld Glu Estim. 131 mg/dL LAB CHEMISTRY METHOD 07/21/2025 11:23 AM EST [facility] Blood Venous blood specimen / Unknown Venipuncture / Unknown 07/21/2025 8:28 AM EST 07/21/2025 8:28 AM EST Veronica Verduzco MD LAB BLOOD ORDERABL ES Final Result Performing Organization Address City/[facility]/ZIP Co de Phone Number [facility] [address] [place] [address], [place] [phone] * (ABNORMAL) Basic metabolic panel (07/21/2025 8:28 AM EST) Sodium 142 133 - 145 mmol/L LAB CHEMISTRY METHOD 07/21/2025 10:41 AM [facility] Potassium 3.6 3.5 - 5.5 mmol/L LAB CHEMISTRY METHOD 07/21/2025 10:41 AM EST [facility] Chloride 105 96 - 110 mmol/L LAB CHEMISTRY METHOD 07/21/2025 10:41 AM [facility] CO2 30 21 - 32 mmol/L LAB CHEMISTRY METHOD 07/21/2025 10:41 AM [facility] Anion Gap 7 3 - 11 LAB CHEMISTRY METHOD 07/21/2025 10:41 AM [facility] Glucose 91 70 - 100 mg/dL LAB CHEMISTRY METHOD 07/21/2025 10:41 AM [facility] BUN 17 5 - 25 mg/dL LAB CHEMISTRY METHOD 07/21/2025 10:41 AM [facility] Creatinine 1.36(H) 0.50 - 1.10 mg/dL LAB CHEMISTRY METHOD 07/21/2025 10:41 AM [facility] eGFR 43(L) >=60 mL/min/1. 73m2 LAB CHEMISTRY METHOD 07/21/2025 10:41 AM [facility] Comment:Calculation based on the Chronic Kidney Disease Epidemiology Collaboration (CKD-EPI) equation refit without adjustment for race. BUN/Creatinine Ratio 12.5 LAB CHEMISTRY METHOD 07/21/2025 10:41 AM [facility] Calcium 9.5 8.5 - 10.5 mg/dL LAB CHEMISTRY METHOD 07/21/2025 10:41 AM [facility] Blood Venous blood specimen / Unknown Venipuncture / Unknown 07/21/2025 8:28 AM EST 07/21/2025 8:28 AM EST us Veronica Verduzco MD LAB BLOOD ORDERABL ES Final Result [facility] [address] [place] [address], * POC Influenza A/B manually resulted (07/17/2025 4:03 PM EST) Swab 07/17/2025 4:03 PM EST Result [facility] Veronica Verduzco MD POINT OF CARE TEST ENTER/EDIT ORDERABLES Final Result * Poc Rapid [id number], MOLECULAR (07/17/2025 4:02 PM EST) [facility] COVID-19/SARS- COV-2 Rapid POC Negative Negative Swab Nasopharyngeal structure / Unknown 07/17/2025 4:02 PM EST Veronica Verduzco MD POINT OF CARE TEST ENTER/EDIT ORDERABLES Final Result * (ABNORMAL) POC Urine Auto W/O Micro (06/19/2025 2:23 PM EDT) [facility] Glucose UA POC 500(A) Negative, Trace mg/dL Bilirubin UA POC Negative Negative Ketones UA POC Negative Negative Specific [place] UA POC 1.025 Blood UA POC Negative Negative PH UA POC 5.0 Protein UA POC Negative Negative mg/dL Urobilinogen UA POC 0.2 E.U./dL 0.2 E.U./dL, 1.0 E.U./dL, 8 , Unable to interpret due to interfering substances mg/dL Nitrite UA POC Negative Negative Leukocytes UA POC Negative Negative Urine Urine specimen obtained by clean catch procedure / Unknown 06/19/2025 2:23 PM EDT Result [facility] Cathy Rivera MD POINT OF CARE TEST ENTER/EDIT O RDERABLES Final Result * Protein and creatinine with ratio, urine (06/02/2025 10:28 AM EDT) [facility] Protein, Urine 14 mg/dL LAB CHEMISTRY METHOD 06/02/2025 1:25 PM EDT [facility] Prot/Creat, Ur 0.09 <=0.20 mg/mg creat LAB CHEMISTRY METHOD 06/02/2025 1:25 PM EDT [facility] Creatinine, Urine 156.0 mg/dL LAB CHEMISTRY METHOD 06/02/2025 1:25 PM EDT [facility] Urine Urine specimen obtained by clean catch procedure / Unknown Non-blood Collection / Unknown 06/02/2025 10:28 AM EDT 06/02/2025 10:28 AM EDT us Toni Arizmendi MD LAB URINE ORDERABLES Final Resu lt Performing Organization Address [facility] de Phone Number [facility] [address] [place] [address], [place] [phone] * (ABNORMAL) Creatinine (06/02/2025 10:28 AM EDT) Creatinine 1.17(H) 0.50 - 1.10 mg/dL LAB CHEMISTRY METHOD 06/02/2025 1:20 PM EDT [facility] eGFR 51(L) >=60 mL/min/1. 73m2 LAB CHEMISTRY METHOD 06/02/2025 1:20 PM EDT [facility] Comment:Calculation based on the Chronic Kidney Disease Epidemiology Collaboration (CKD-EPI) equation refit without adjustment for race. Blood Venous blood specimen / Unknown Venipuncture / Unknown 06/02/2025 10:28 AM EDT 06/02/2025 10:28 AM EDT us Toni Arizmendi MD LAB BLOOD ORDERABLES Final Resu lt Performing Organization Address City/[facility] Co de Phone Number [facility] [address] [place] [address], [place] [phone] * BUN (06/02/2025 10:28 AM EDT) BUN 15 5 - 25 mg/dL LAB CHEMISTRY METHOD 06/02/2025 1:17 PM EDT [facility] Blood Venous blood specimen / Unknown Venipuncture / Unknown 06/02/2025 10:28 AM EDT 06/02/2025 10:28 AM EDT Toni Arizmendi MD LAB BLOOD ORDERABLES Final Resu lt [facility] [address] [place] [address], [place] [phone] * Parathyroid hormone intact (06/02/2025 10:28 AM EDT) PTH 53.8 18.5 - 88.0 pcg/mL LAB CHEMISTRY METHOD 06/02/2025 2:38 PM EDT [facility] Blood Venous blood specimen / Unknown Venipuncture / Unknown 06/02/2025 10:28 AM EDT 06/02/2025 10:28 AM EDT Toni Arizmendi MD LAB BLOOD ORDERABLES Final Resu lt Performing Organization Address City/[facility]/ZIP Co de Phone Number [facility] [address] [place] [address], [place] [phone] * (ABNORMAL) Electrolyte panel (06/02/2025 10:28 AM EDT) Pathologist [facility] Sodium 143 133 - 145 mmol/L LAB CHEMISTRY METHOD 06/02/2025 1:20 PM EDT [facility] Potassium 3.3(L) 3.5 - 5.5 mmol/L LAB CHEMISTRY METHOD 06/02/2025 1:20 PM EDT [facility] Chloride 105 96 - 110 mmol/L LAB CHEMISTRY METHOD 06/02/2025 1:20 PM EDT [facility] CO2 31 21 - 32 mmol/L LAB CHEMISTRY METHOD 06/02/2025 1:20 PM EDT [facility] Anion Gap 7 3 - 11 LAB CHEMISTRY METHOD 06/02/2025 1:20 PM EDT [facility] Blood Venous blood specimen / Unknown Venipuncture / Unknown 06/02/2025 10:28 AM EDT 06/02/2025 10:28 AM EDT us Toni Arizmendi MD LAB BLOOD ORDERABLES Final Resu lt [facility] [address] [place] [address], [place] [phone] * MG Mammo Digital Screening w Arnie bilat (04/21/2025 3:43 PM EDT) Anatomical Region Laterality Modality Breast Bilateral Mammography 04/23/2025 12:4 2 PM EDT Impressions 04/23/2025 12:47 PM EDT 1. No mammographic evidence of malignancy 2. Scattered fibroglandular tissue BI-RADS CATEGORY: 2 - BENIGN RECOMMENDATION: Screening bilateral mammogram is recommended in 1 year. Mammo Location: [facility], [address] [place] [address], [id number], . -------- FINAL REPORT -------- Dictated By: Toya Shepard Dictated Date: 04/23/2025 12:42 ET Assigned Physician: Toya Shepard Reviewed and Electronically Signed By: Toya Shepard Signed Date: 04/23/2025 12:47 ET Workstation ID: [id number] Transcribed By: Self Edit Transcribed Date: 04/23/2025 [...] is recommended in 1 year. Mammo Location: [facility], [address] [place] [address], [address], . -------- FINAL REPORT -------- Dictated By: Toya Shepard Dictated Date: 04/23/2025 12:42 ET Assigned Physician: Toya Shepard Reviewed and Electronically Signed By: Toya Shepard Signed Date: 04/23/2025 12:47 ET Workstation ID: [id number] Transcribed By: Self Edit Transcribed Date: 04/23/2025 [...] Chest CT in 12 months. [place] ([id number]) -------- FINAL REPORT -------- Dictated By: Martha Hector Dictated Date: 12/09/2024 13:19 ET Assigned Physician: Martha Hector Reviewed and Electronically Signed By: Martha Hector Signed Date: 12/09/2024 13:25 ET Workstation ID: [id number] Transcribed By: Self Edit Transcribed Date: 12/09/2024 13:19 ET Narrative 12/09/2024 1:25 PM EDT History: 69 year-old 51 pack-year former smoker, asymptomatic, for lung cancer screening. Quit smoking 15 years ago. Comparison: 05/20/22 Technique: Helical volumetric imaging of the thorax was performed, using low- dose technique, without IV contrast. DLP: 155.52 mGy/cm CTDIvol: 4.89 mGy [employer] Iterative reconstruction technique Findings: Lungs and Airways: [...] contrast. DLP: 155.52 mGy/cm CTDIvol: 4.89 mGy [employer] Iterative reconstruction technique Findings: Lungs and Airways: [...] Dose Chest CT in 12 months. Telerad TEREZA ([id number]) -------- FINAL REPORT -------- Dictated By: Martha Hector Dictated Date: 12/09/2024 13:19 ET Assigned Physician: Martha Hector Reviewed and Electronically Signed By: Martha Hector Signed Date: 12/09/2024 13:25 ET Workstation ID: [id number] Transcribed By: Self Edit Transcribed Date: 12/09/2024 13:19 ET us Nathalie Ortiz MD [facility] CT PROCEDURES Final Result * Microalbumin creatinine urine ratio (11/14/2024 12:23 PM EST) Creatinine, Urine 62.0 mg/dL LAB CHEMISTRY METHOD 11/14/2024 2:33 PM EST [facility] Microalb, Ur 6.0 0.0 - 29.0 mg/L LAB CHEMISTRY METHOD 11/14/2024 2:33 PM EST [facility] Microalb/Creat Ratio 10 <30 mg/g creat LAB CHEMISTRY METHOD 11/14/2024 2:33 PM EST [facility] Urine Urine specimen obtained by clean catch procedure / Unknown Non-blood Collection / Unknown 11/14/2024 12:23 PM EST 11/14/2024 12:23 PM EST Rosas STARKS LAB URINE ORDERABLES Jesica l Result [facility] [address] [place] [address], * Diabetes Eye Exam (06/20/2024) [facility] Diabetes: Annual Retina Eye Exam abstracted [facility] Provider HEALTH MAINTENANCE Final Result * Falls Risk Assessment (06/19/2024) [facility] Falls Risk Assessment abstracted Result [facility] Provider HEALTH MAINTENANCE Final Result * Depression Screening (06/19/2024) [facility] Depression Screening abstracted [facility] Provider HEALTH MAINTENANCE Final Result * Diabetes Foot Exam (06/05/2024) [facility] Diabetes: Annual Foot Exam abstracted [facility] Provider HEALTH MAINTENANCE Final Result * DXA BONE [...] bone mineral density by WHO criteria. The [facility] Department of Internal Medicine recommends [...] alternative screening schedule based on eunice Mcbride., [facility] September 29, 2011 for patients [...] bone mineral density by WHO criteria. The [facility] Department of Internal Medicine recommendsusing [...] alternative screening schedule based on eunice Mcbride., [facility] for patients with osteopenia (based on hip BMD T-score) is as follows: * advanced osteopenia (T scores -2.00 to -2.49), BMD testing every year * moderate osteopenia (T scores -1.50 to -1.99), BMD testing every 5years mild osteopenia or normal BMD (T scores -1.50 and higher), BMD testingevery 15 years Allie VEGA DXA PROCEDURES Final Result * Colonoscopy (03/01/2021) [facility] Colonoscopy no interpretation , abstracted Anatomical Region Laterality Modality Other Historical Provider HEALTH MAINTENANCE Final Result * Hepatitis C Screening (12/04/2013) [facility] Hepatitis C Screening abstracted Historical Provider HEALTH MAINTENANCE Final Result from Last 3 Months or Most Recently Relevant to Health Maintenance Insurance MEDICARE [facility] Care Teams Management Development Specialist Relationship Specialty Start Date End Date Veronica Verduzco MD [address] [place] [phone] PCP - General Internal Medicine 04/11/22
--- OUTSIDE RECORDS SUMMARY | 2025-08-21 21:44 | XMS_ITS | Data Portability ---
Author Organization [place] - [facility], Allergy Address [address] [address] Care Team Providers Care Armament Repairer Name Role Phone SACHIN FERRAROA Primary Care Provider Assessment Encounter Date Assessment [...] the future. Recommend follow-up in 6 mo. [email or web address] Not available 02/27/2025 10:45:56 08/20/2025 08/20/2025 Patient with history of bilateral [...] given her the contact information for my lasting floorworker Tamra whom she can call to schedule surgery. Patient would need medical clearance from her primary care physician prior to scheduling surgery. We discussed the importance of regular preventative cleaning of her right mastoid cavity in order to prevent such significant debris collection and subsequent recalcitrant infection in the future. Recommend follow-up in 6 months regardless of her decision regarding amplification technology. [email or web address] Not available 08/20/2025 11:16:30 Plan of Treatment Reminders Order Date Submit Date Provider Last Modified By Organization Details Last Modified Time Details Appointments [place] Initial Fitting 2025 09:00A M DANGELO APONTE Not available Not available Not available Lab None recorded. Referral None recorded. Procedures None recorded. Surgeries None recorded. Imaging None recorded. Medication Orders Ciprodex 0.3 %-0.1 % ear drops,lalo pension 2024 025 [id number], [address] [place], [address], 08/20/2025 10:52:02 Patient TargetsNo targets recorded. 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; Note: Date Diagnosed : 4 5:13 PM (383.32) Not Available [facility] 4 02:18:02 Adhesive middle ear disease 0184276 Active 2013 Adhesive Ottis; Note: Date Diagnosed : 4 5:17 PM (385.10) Not Available [facility] 4 02:16:38 Postmasto idectomy complicat ion 56049010 Active 2017 Other disorders following mastoidec leonarda, right ear; Note: Date Diagnosed : 12/26/2017 2:50 PM (H95.191) Not Available [facility] 4 02:17:15 Impacted cerumen in right ear 34285283844 21233 Active 2017 Impacted cerumen, right ear; Note: Date Diagnosed : 12/26/2017 2:23 PM (H61.21) Not Available [facility] 4 02:17:31 Mixed conductiv e and sensorine ural hearing loss, bilateral 224723898 Active 2017 Hearing loss: Mixed hearing loss, bilateral ; Note: Date Diagnosed : 4 4:39 PM (389.22) ; Start Date : 4 Mixed conductiv e and sensorine ural hearing loss, bilateral ; Note: Date Diagnosed : 12/26/2017 3:24 PM (H90.6) Not Available [facility] 4 02:17:33 Impacted cerumen in left ear 33176866422 25308 Active 2017 Impacted cerumen, left ear; Note: Date Diagnosed : 12/26/2017 2:50 PM (H61.22) Not Available [facility] 4 02:18:07 Headache 32374898 Active 2018 Facial pain NOS; Note: Date Diagnosed : 07/19/2019 12:21 PM (R51) Not Available [facility] 4 02:17:59 Chronic right mastoidit is 11899793422 17738 Active 2024 AIMEE JONES MD [address] [place] [address],[place] [address], [place], [address] , [facility] - [facility] 5 15:36:09 Bilateral adhesive otitis media of middle ears 30910668515 49217 Active 2024 HERMINIA DIAZ MD [address] [place] [address],[place] [address], [place], [address] , [facility] - [facility] 5 21:52:16 Chronic inflammat ion of mastoid cavity 623208473 Active 2024 HERMINIA DIAZ MD [address] [place] [address],[place] [address], [place], [address] , [facility] - [facility] 5 10:04:57 Orthostat ic hypotensi on 73071160 Active 2024 HERMINIA DIAZ MD [address] [place] [address],[place] [address], [place], [address] , [facility] - [facility] 5 10:41:52 Problem Notes None recorded. Procedures Surgical History Date Name Laterality Status Provider Name and Address Organization Details Recorded Time 5 Debridement of Ear canal right completed HERMINIA DIAZ MD [address] [facility],[place] [address], [place], [address], [facility] - [facility] 08/20/2025 11:04:00 5 Comp Audio with Tymps - 42681 & 25956 completed DANGELO COBB [address] [facility],[place] [address], [place], [address], [facility] - [facility] 02/27/2025 10:27:11 5 Debridement of Mastoid Cavity complex right completed HERMINIA DIAZ MD [address] [facility],[address], [address], [facility] - [facility] 02/27/2025 10:00:48 Imaging Results None recorded. Procedure Notes None recorded. Medical Equipment None Reported. Allergies Allergen ID Allergen Name Allergen Category Reaction Reaction Severity Criticality Documentation Date Start Date Code Code System Note Provider Name and Address Organization Details Recorded Time 861445 amoxicill in medicatio n hives Not available Not available 08/19/20252016 723 RxNorm Not Available [facility] - External Data Service - prod 14:12:20 017258 sulfameth oxazole / trimethop rim medicatio n hives Not available Not available 08/19/20252016 83958 RxNorm Not Available [facility] - External Data Service - prod 14:12:20 229170 cat hair extract medicatio n other Not available Not available 08/19/20252016 08405 3 RxNorm Not Available [facility] - External Data Service - prod 5 14:12:20 109228 Adhesive agent (substanc e) environme nt,medica tion Not available Not available Not available 08/19/20252021 85529 0007 SNOMED Not Available [facility] - External Data Service - prod 14:12:20 126959 Product containin g penicilli n (product) medicatio n hives Not available [facility] 08/19/20252012 19836 8001 SNOMED Not Available [facility] - External Data Service - prod 5 14:12:47 190768 Substance with sulfonami de structure and antibacte rial mechanism of action (substanc e) medicatio n hives Not available Not available 08/19/2025 26413 8003 SNOMED Not Available [facility] - External Data Service - prod 5 14:13:35 239365 trimethop rim medicatio n Not available Not available Not available 08/19/2025 62611 RxNorm Not Available [facility] - External Data Service - prod 5 14:13:35 002031 fire ant environme nt rash Not available Not available 08/19/20252007 Not Available [facility] - External Data Service - prod 5 14:13:52 77054 lisinopri l medicatio n other Not available Not available 01/23/2024 04738 RxNorm React ion: unkno wn, unspe cifie d;; Not Available [facility] 4 00:50:02 05897 penicilli n V potassium medicatio n other Not available Not available 01/23/2024 33632 5 RxNorm React ion: unkno wn, unspe cifie d;; Not Available [facility] 4 00:50:03 34911 azithromy lamont medicatio n other Not available Not available 01/23/2024 42536 RxNorm React ion: unkno wn, unspe cifie d;; Not Available [facility] 4 00:50:16 Medications Name Sig Start [...] by mouth 02/27 completed Medicati on ID: [id number] Du ration Value: 30 Brand Name: Claritin [...] mg tablet 02/14 completed Medicati on ID: [id number] B rand Name: simvasta tin Send Method: E-Prescr ibed Sub s Allowed: subs OK Medic ationGen ericName : simvasta tin Not Available Not Available Not Available losartan 25 mg tablet 02/14 completed Medicati on ID: [id number] D uration Value: 30 Brand Name: losartan [...] both nostrils 02/27 completed Medicati on ID: [id number] Pr escribed By Name: RISA Ragland nd [...] aerosol inhaler 02/14 completed Medicati on ID: [id number] Br and Name: Symbicor t Send Method: [...] Updated DateTime 02/14/2025 160.02 cm 34.9 kg/m2 00430.7 g Rozina Nader [facility] - [facility] 02/14/2025 15:08:15 Date Recorded Body height Body weight Provider Name and Address Organization Details Last Updated DateTime 02/27/2025 160.02 cm 07317.7 g Juani Esposito [place] - [facility] 02/27/2025 09:38:02 Date Recorded Body height Body weight Provider Name and Address Organization Details Last Updated DateTime 08/20/2025 160.02 cm 08286.7 g Juani Esposito [place] - [facility] 08/20/2025 10:51:01 Social History None recorded. Functional [...] ICD10 Code Diagnosis IMO Codes Diagnosis Note [id number] AIMEE JONES MD [facility] [address] [address] 02/14/2025 14:54:56 02/14/2025 15:41:11 Chronic right mastoiditis [id number] 528839 H70.11 [id number] 70-year-ol d female with a history of right tympmastoi d with closure of semicircul ar canal fistula in 2013, who has not been seen since 2019 for routine mastoid cleaning, presents today for ear infection associated with bleeding and dizziness. She has had symptoms since the beginning of January. She was seen in the emergency department at [facility] where she had a CT scan [...] Dr. Diaz. Follow-up if symptoms worsen sooner. [id number] HERMINIA DIAZ MD [facility] [address] [address] 02/27/2025 09:31:19 02/27/2025 10:50:57 Postmastoidectomy complication 15478223 H95.191 Bilateral adhesive otitis media of middle ears 4984561368 423142 H74.13 1830453 Chronic ri ght mastoiditis 9894851673 043325 H70.11 [id number] Orthostati c hypotension 50460441 I95.1 3437 [id number] DANGELO COBB [facility] [address] [address] 02/27/2025 10:26:20 03/17/2025 13:35:27 Mixed conductive and sensorineural hearing loss, bilateral 777666059 H90.6 Audiologic al evaluation results: Right ear: Moderately -severe sloping to profound mixed hearing loss with no measurable word recognitio n. Left ear: Moderately -severe rising to mild mixed hearing loss with excellent word recognitio n. Tympanomet ry: Right Ear:Type As Left Ear:Type B [id number] HERMINIA DIAZ MD [facility] [address] [address] 08/20/2025 10:36:29 08/20/2025 11:17:36 Postmastoidectomy complication 95550828 H95.191 Bilateral adhesive otitis media of middle ears 1639426121 750450 H74.13 1528287 Mixed cond uctive and sensorineural hearing loss, bilateral 034548288 H90.6 Health Concerns Section Related Observation LastModified by Organization Detai ls LastModified Time None Recorded Concern Status LastModified by Organization Details LastModified Time None Recorded Advance Directives Directive None Recorded Payers Insurance Date Sequence Insurance Name Policy Number Policy Giraldo Covered Member ID Giraldo Member ID Guarantor Name 08/20/2025 1 [place] [employer] Cecy Gallegos [id number] Cecy Gallegos 08/20/2025 2 [place] [id number] Cecy Gallegos [id number] Cecy Gallegos Notes Date Note Type [...] was seen in the emergency department at [facility] where she had a CT scan scan showing near complete opacification of the aditus ad antrum, middle ear, medial external auditory canal with a large area of osseous erosion concerning for cholesteatoma. Left mastoid findings stable compared to 2010. She has been on ear drops. PV (2019): 64 year old female with history of right tympanoplasty with mastoid obliteration with repair of semicircular canal fistula closure of a CSF leak in December2013 presents for follow up CT scan done at [facility] for facial pain. On exam left EAC [...] results of that conversation. AIMEE JONES MD [address] [place] [address], [address], [place] - [facility] 02/16/2025 07:44:39 02/27/2025 text/html 70-year-old female with history of right tympanoplasty with mastoid obliteration with repair of semicircular canal fistula and concurrent closure of CSF leak in December 2013. She requires intermittent mastoid debridement. She has mixed hearing loss in the left ear and profound hearing loss on the right. There was CT scan done in 2019 at [facility] that was concerning concerning for left-sided cholesteatoma. Patient was subsequently lost to follow-up. She presented back to Dr. Jones last month after presenting to [facility] where she had a CAT scan showing concerns for left-sided cholesteatoma and a large area of osseous erosion.Patient reports that when she goes from a sitting to standing position, she will feel lightheaded and woozy like she is going to pass out. She does not have any symptoms when lying flat and rolling over in bed. HERMINIA DIAZ MD [address] [facility],[address], [address], [facility] - [facility] 02/27/2025 10:46:28 08/20/2025 text/html 70-year-old female with history of right tympanoplasty with mastoid obliteration with repair of semicircular canal fistula and concurrent closure of CSF leak in December 2013. She requires intermittent mastoid debridement. She has mixed hearing loss in the left ear and profound hearing loss on the right. There was CT scan done in 2018 at [facility] that was concerning concerning for left-sided cholesteatoma. Patient was subsequently lost to follow-up. She presented back to Dr. Jones spring 2024 after presenting to [facility] where she had a CAT scan showing [...] preventative mastoidectomy cavity debridement HERMINIA DIAZ MD [address] [facility],[address], [address], [facility] 08/20/2025 11:17:52 OBGyn Episode No OBEpisode recorded.
--- OUTSIDE RECORDS SUMMARY | 2025-08-21 21:44 | XMS_ITS | Data Portability ---
Author Organization [facility], [address] Address [address] [place] [address] Care Team Providers Care Equipment Maintenance Tech Name Role Phone [facility] Care Provider Assessment No assessment recorded. Plan of Treatment Reminders Order Date Submit Date Provider Last Modified By Organization Details Last Modified Time Details Appointments None recorded. Lab None recorded. Referral None recorded. Procedures None recorded. Surgeries None recorded. Imaging XR, chest, 2 view 2022 023 [facility], [address] [place] [address], [address], 3 12:27:34 Medication Orders albuterol sulfate 2.5 mg/3 mL (0.083 %) solution for nebulizatio n 2022 023 dgoodhind 1 Not available 3 11:21:23 doxycycline hyclate [address] [id number], [address] [place], [address], 4 11:58:16 prednisone [address] [id number], [address] [place], [address], 4 11:58:29 benzonatate 100 mg capsule [address] [id number], [address] [place], [address], 11:58:10 Patient TargetsNo targets recorded. Patient Instructions Encounter Date Encounter Id Patient Instructions Last Modified By Organization Details Last Modified Time 02/01/2023 [id number] cough: care instructions Not available 02/01/2023 11:13:47 pneumonia: care instructions Not available 02/01/2023 11:41:46 10/29/2023 [id number] sore throat: car e instructions [email or web address] Not available 10/29/2023 12:12:07 Reason for Referral None Reported. Results Created Date Observation Date Name Description Value Unit Range Abnormal Flag Note LastModifiedBy Organization Detail LastModifiedTime 02/02/2002/01/2023 XR, chest , 2 view No observ ation record ed. [facility] [address] [place], [address], 02/01/2023 15:03:39 Result Notes None recorded. Problems Name Problem SNOMED Code Status Onset Date Resolution Date Notes Provider Name and Address Organization Details Recorded Time Asthma 471435627 Active 023 JENNIFER HANCOCK null, PA - [facility] 10:40:10 Diabetes mellitus 91404484 Active 023 JENNIFER HANCOCK null, PA - [facility] 10:41:40 Problem Notes None recorded. Procedures Surgical History Date Name Laterality Status Provider Name and Address Organization Details Recorded Time Nebulizer Treatment completed Mary Ann Salazar MD [address] [place], [address], [place] - [facility] 02/01/2023 11:50:41 procedure on ear completed JENNIFER HANCOCK PA - [facility] 02/01/2023 10:50:27 breast procedure completed JENNIFER HANCOCK PA - [facility] 02/01/2023 10:50:50 [facility] 02/01/2023 10:51:04 Imaging Results None recorded. Procedure Notes None recorded. Medical Equipment None Reported. Allergies Allergen ID Allergen Name Allergen Category Reaction Reaction Severity Criticality Documentation Date Start Date Code Code System Note Provider Name and Address Organization Details Recorded Time 417590 amoxicill in medicatio n hives Not available Not available 02/01/2023 723 RxNorm JENNIFER HANCOCK null, PA - [facility] 3 10:43:47 614819 Substance with sulfonami de structure and antibacte rial mechanism of action (substanc e) medicatio n hives Not available Not available 02/01/2023 72478 8003 SNOMED JENNIFER HANCOCK null, PA - [facility] 3 10:43:59 624630 azithromy lamont medicatio n hives Not available Not available 02/01/2023 18384 RxNorm JENNIFER HANCOCK null, PA - [facility] 3 10:44:10 095701 Product containin g penicilli n (product) medicatio n hives Not available Not available 02/01/2023 09404 8001 SNOMED JENNIFER HANCOCK null, PA - [facility] 3 10:44:17 770641 lisinopri l medicatio n swelling Not available Not available 02/01/2023 30824 RxNorm JENNIFER HANCOCK null, PA - [facility] 3 10:44:36 045856 adhesive tape environme nt,medica tion rash Not available Not available 02/01/2023 JENNIFER HANCOCK null, PA - [facility] 3 10:44:49 796339 trimethop rim medicatio n Not available Not available Not available 02/01/2023 96484 RxNorm JENNIFER HANCOCK null, PA - [facility] 3 10:44:58 Medications Name Sig Start Date Stop [...] Not Available Not Available No t Available doxycycline hyclate 100 mg capsule Take 1 capsule twice a day by oral route for 7 days. 10/29 completed Not Available Not Available Not Available ipratropium 0.5 mg-albutero l 3 mg (2.5 mg base)/3 mL nebulizatio n soln USE 3 ML IN NEBULIZER EVERY 6 HOURS NEEDED active Not Available Not Available No t Available albuterol sulfate 2.5 mg/3 mL (0.083 %) solution for nebulizatio n Inhale 3 mL by nebulizat ion route for 1 day. 2022 active Not Available Not Available Not Avlinda labrui triazolam 0.25 mg tablet TAKE 1 [...] Available Not Available prednisone 20 mg tablet Take 2 tablets every day by oral route for 3 days. 10/29 completed Not Available Not Available Not Available [...] Not Available Not Available No t Available benzonatate 100 mg capsule Take 1 capsule 3 times a day by oral route for 5 days. 10/29 completed Not Available Not Available Not Available lidocaine 5 % topical patch PLACE [...] [Score] - Reported Body temperature Oxygen saturation Heart rate Systolic And Diastolic Provider Name and Address Organization Details Last Updated DateTime 4 160.02 cm 38.4 kg/m2 43064.5 4 g 18 /min 0 97.3 [degF] 95 % 58 /min 121/64 mm[Hg] ANDRES MERCADO PA - [facility] 4 12:00:46 Date Recorded Body height Body mass index (BMI) Body weight Pain severity - 0-10 verbal numeric rating [Score] - Reported Respiratory rate Oxygen saturation Heart rate Body temperature Systolic And Diastolic Provider Name and Address Organization Details Last Updated DateTime 3 160.02 cm 38.4 kg/m2 24159.5 4 g 8 20 /min 95 % 78 /min 98.6 [degF] 148/71 mm[Hg] JENNIFER STARKS - [facility] 3 10:52:07 Social History Question Answer Notes LastModified by Organizat ion Details LastModified Time Tobacco Smoking Status Former Smoker JENNIFER hodgson PA - [facility] 02/01/2023 10:49:58 When Did You Quit Smoking? 6-10yearssin celastcigare tte [email or web address] Information not available 02/01/2023 Have You Recently Traveled Abroad? No [email or web address] Information not available 02/01/2023 Sex: Unknown Functional Status Question Answer Note LastModified by Organizat ion Details LastModified Time Do you use any illicit or recreational drugs? No Information not available 02/01/2023 Do you or have you ever used any other forms of tobacco or nicotine? No [email or web address] Information not available 02/01/2023 What is your level of alcohol consumption? None [email or web address] Information not available 02/01/2023 Mental Status None recorded. Family History Relationship Description Onset Age of this Age Resolved Age Notes LastModified by Organization Details LastModified Time Father No current problems or disability [email or web address] Not available 02/01 10:46:43 Mother No current problems or disability [email or web address] Not available 02/01 10:46:43 Medical History No medical history recorded. Gynecological History Statement/Question Response Date of LMP Obstetrics History GPAL:G 0 P 0 0 0 0 Past Encounters Encounter ID Performer Location Encounter Start Date Encounter Closed Date Diagnosis/Indication Diagnosis SNOMED-CT Code Diagnosis ICD10 Code Diagnosis IMO Codes Diagnosis Note [id number] [place]azar [place] [address] [address] 02/01/2023 10:29:52 02/01/2023 11:51:00 Dyspnea 292294344 R06.00 Breathing improved with nebulizer. Continue nebulizer treatments at home Community acquired pneumonia 653549517 J18.9 Treatment is antibiotic s as prescribed [...] recommende d to verify pneumonia has resolved. [id number] [facility] [address] [address] [place] [address] 10/29/2023 11:18:45 10/29/2023 12:17:03 Acute pharyngitis 875007732 J02.9 Based on your Presentati on and [...] Member ID Giraldo Member ID Guarantor Name 10/29/2023 1 [facility]-ID: [facility] [id number] Cecy Gallegos [id number] Cecy Gallegos Notes Date Note Type Note Provider Name and Address Organization Details Recorded Time 3 text/html CoughReported by PatientHPIFor severity, patient reportsworseningbut reportsmoderate. For timing, patient reportsworsening. For source of patient information, patient reportsinformation obtained from patientandpatient arrived at urgent care ambulatory. For duration, patient reportsconstant. For context, patient reportspatient denies vapingandnon-smoker. For associated symptoms, patient reportsno fever,no chills,no chest pain,no heartburn,no nausea,no vomiting,no edema,no agitation,no wheezing, andno post nasal drip. Mary Ann Salazar MD [address] [place] [address] [facility] [place] [address], [place] - [facility] 02/03/2023 12:04:54 4 text/html Sore throatReported by PatientSore ThroatFor associated symptoms, patient reportssore throat,nasal congestion, andsinus pain/ congestionbut reportsno cough,no sputum production,no shortness of breath,no wheezing,no vomiting,no nausea, andno hoarseness. For source of patient information, patient reportsinformation obtained from patient,patient arrived at urgent care ambulatory, andlearning styles: auditory. For location, patient reportsthroat. For severity, patient reportsmoderate. For quality, patient reportssharp,burning, andhurts to swallow. For onset/timing, patient reports3 days. For context, patient reportsno sick contacts,no foreign travel, andnon-smoker. TEREZA Cummins [address] [place], [address], [place] - [facility] 10/29/2023 12:14:38 OBGyn Episode No OBEpisode recorded.
--- OUTSIDE RECORDS SUMMARY | 2025-08-21 21:44 | XMS_ITS | Encounter Summary ---
Author Organization [facility] Address [address] [place] [address] Care Team Providers Care Customer Care Representative Name Role Phone Veronica Verduzco MD Primary Care Prov ider Encounter Details Date Type Department Care Team ([facility] st Contact Info) Description 07/30/2025 Results Follow-Up Urogynecology - [place] [address] [place] [address] Cathy Rivera MD [address] [facility] [address] [place] [address] Social History Tobacco Use Types Packs/Day Years [...] your loved ones. For example, child care assistant or elderly care for an older [...] 10:00 AM EST Office Visit Orthopedic Surgery - [place] [address] [facility] [address] [place] [phone] Earnest López PA [address] [place] [address] 11/05/2025 3:15 PM EST Office Visit Nephrology [address] [address] Toni Arizmendi MD [address] [facility] [address] [place] [phone] 12/29/2025 9:45 AM EDT Office Visit Pulmonology - [place] [address] [facility] [address] [place] [phone] Giovana Randall, CLEMENTE [address] [place] [address] 01/27/2026 8:30 AM EDT Office Visit Orthopedic Surgery - [place] [address] [facility] [address] [place] [address] Enrico Wooten DPM [address] [facility] [address] [place] [address] documented as of this encounter Visit Diagnoses Not on filedocumented in this encounter Additional Health Concerns Assessment Noted Time PHQ-9 Depression Total Score: 6 11/05/19 11:58 AM EST A fall risk assessment has been complete d for the patient 11/05/2024 11:55 AM EST documented as of this encounter Care Teams Customer Care Representative Relationship Specialty Start Date End Date Veronica Verduzco MD [address] [place] [phone] PCP - General Internal Medicine 04/11/22 documented as of this encounter
--- OUTSIDE RECORDS SUMMARY | 2025-08-21 21:44 | XMS_ITS | Patient Health Record ---
Author Organization [facility] Michael Hillman Address [address] [facility] [place] [address] Care Team Providers Care Microwave Radio Technician Name Role Phone Romelia Salazar MD Primary Care Provider Annette Salazar Unavailable [phone] Allergies Allergen (clinical drug ingredient) Drug/Non Drug [...] Polyneuropathy due to type 2 diabetes mellitus (910033376) Type 2 diabetes mellitus with diabetic polyneuropathy (E11.42) Active confirmed Problem Acquired hammer toe of right foot (0485720805317051 ) Hammer toe of right foot (M20.41) Active confirmed Problem Acquired hammer toe of left foot (7075048209820474 ) Hammer toe of left foot (M20.42) Active confirmed Plan Of Treatment Pending Test Test Name Order Date HEMOGLOBIN A1C (GLYCOHEMOGLOBIN) 020 Insurance Providers Payer Name Payer Address Payer Phone Subscriber Number Group Number Insured Name Patient Relationship to Insured Coverage Start Date [facility]age End Date [facility] [address] [place] [address] [phone] [id number] Cecy Gallegos Self - patient is the insured [facility] Office of Community Care [address] [address] [place] [phone] [id number] Austin Gallegos Spouse - patient is the [...]
== END 2025-08-21 14:13 | disposition home or self-care (01) ==
LOC: HO.NEURO 14:12
PROVIDERS: PCP Internal Medicine
DX: G56.01 Carpal tunnel syndrome, right upper limb (principal); G56.21 Lesion of ulnar nerve, right upper limb
CPT/HCPCS: 95886; 95909